=== PATIENT | female | born 1965 ===

== ENCOUNTER 2020-04-11 16:34 | Outpatient (REF) | payer OTHER, SELFPAY ==
--- NOTE | 2020-04-11 | MM_ITS ---
EXAMINATION: MM SCREENING DIGITAL BREAST TOMOSYNTHESIS, BILATERAL CLINICAL INFORMATION: Screening. Asymptomatic. The lifetime risk of breast cancer based on the Tyrer-Cuzick Model is 6%. COMPARISON: Mammography: 10/22/2018, 10/09/2017, 02/13/2015 TECHNIQUE: Digital breast tomosynthesis is performed in both the craniocaudal and mediolateral oblique views along with computer-aided detection (CAD). Synthesized 2D images are generated from the tomosynthesis. Additional bilateral MLO views are provided. FINDINGS: There are scattered areas of fibroglandular density (ACR BI-RADS breast composition Category b). Breast tissue composition borders on heterogeneously dense. Parenchymal pattern is similar to prior studies without interval mass or architectural abnormality or abnormal calcifications. The axilla and skin contours are unremarkable. No significant changes. MM/MM tomosynthesis screening BI IMPRESSION: No mammographic evidence of malignancy. ASSESSMENT: BI-RADS 1: Negative RECOMMENDATION: Routine annual mammography screening. This patient's information was entered into a reminder system with a target due date for their next mammogram.
== END 2020-04-11 16:35 | disposition home or self-care (01) ==
LOC: HO.MAMMO 16:34
PROVIDERS: PCP Internal Medicine; Visit Provider Internal Medicine
DX: Z12.31 Encounter for screening mammogram for malignant neoplasm of breast (principal)
CPT/HCPCS: 77063; 77067

== ENCOUNTER 2020-05-23 09:33 | Outpatient (REF) | payer OTHER, SELFPAY ==
[2020-05-23 12:14] LABS: Cholesterol 143 mg/dL; HDL Cholesterol 47 mg/dL; LDL Cholesterol Calculated 57 mg/dl; Triglycerides 195 mg/dL
[2020-05-23 12:16] LABS: Vitamin D 25-OH Total 88.8 ng/mL (>30)
[2020-05-23 12:22] LABS: Creatinine Urine 99.92 mg/dL
[2020-05-23 12:25] LABS: Free T4 (Free Thyroxine) 1.09 ng/dL (0.71-1.85); Thyroid Stimulating Hormone 0.99 uIU/mL (0.32-4.0)
[2020-05-23 12:35] LABS: Alanine Aminotransferase 51 U/L (0-31); Albumin Level 4.7 g/dL (3.5-5.0); Alkaline Phosphatase 134 U/L (39-117); Anion Gap 20 (12-20); Aspartate Amino Transferase 30 U/L (5-31); Bilirubin Total 0.6 mg/dL (0.0-1.0); Blood Urea Nitrogen 22 mg/dL (9-16); Calcium 9.5 mg/dL (8.4-10.2); Carbon Dioxide 24 mmol/L (22-29); Chloride 104 mmol/L (96-108); Estimated Glomerular Filt Rate > 60; Glucose Fasting 136 mg/dL (60-99); Potassium 3.6 mmol/l (3.3-5.1); Sodium 144 mmol/L (135-145); Total Protein 8.1 g/dL (6.5-8.0)
[2020-05-23 19:13] LABS: Alanine Aminotransferase 49 U/L (0-31); Albumin Level 4.6 g/dL (3.5-5.0); Alkaline Phosphatase 132 U/L (39-117); Anion Gap 18 (12-20); Aspartate Amino Transferase 31 U/L (5-31); Bilirubin Total 0.7 mg/dL (0.0-1.0); Blood Urea Nitrogen 21 mg/dL (9-16); Calcium 9.4 mg/dL (8.4-10.2); Carbon Dioxide 25 mmol/L (22-29); Chloride 104 mmol/L (96-108); Estimated Glomerular Filt Rate > 60; Glucose Fasting 136 mg/dL (60-99); Potassium 3.7 mmol/l (3.3-5.1); Sodium 143 mmol/L (135-145); Total Protein 7.7 g/dL (6.5-8.0)
[2020-05-23 19:33] LABS: Free T4 (Free Thyroxine) 1.13 ng/dL (0.71-1.85)
[2020-05-24 07:57] LABS: LDL Cholesterol Direct 75 mg/dL (<100)
[2020-05-26 06:57] LABS: Thyroglobulin Antibody <1 IU/mL (<=1); Thyroglobulin Level 14.7 ng/mL
== END 2020-05-23 09:34 | disposition home or self-care (01) ==
LOC: HO.HMGCLDS 09:33
PROVIDERS: PCP Internal Medicine; Referring Provider Internal Medicine Endocrinology, Diabetes & Metabolism; Visit Provider Internal Medicine
DX: E11.42 Type 2 diabetes mellitus with diabetic polyneuropathy (principal); E89.40 Asymptomatic postprocedural ovarian failure; I10 Essential (primary) hypertension; R94.39 Abnormal result of other cardiovascular function study; C73 Malignant neoplasm of thyroid gland; G47.33 Obstructive sleep apnea (adult) (pediatric); Z99.89 Dependence on other enabling machines and devices
CPT/HCPCS: 36415; 80053; 80061; 82043; 82306; 83721; 84432; 84439; 84443; 86800

== ENCOUNTER 2020-06-08 08:04 | Outpatient (REF) | payer OTHER, SELFPAY ==
--- NOTE | ~2020-06-08 | US_ITS ---
EXAMINATION: US THYROID CLINICAL INFORMATION: Right hemithyroidectomy. COMPARISON: None TECHNIQUE: Linear transducer cool-scale and color Doppler examination with attention to the region of the thyroid. FINDINGS: SIZE: Measurements of the thyroid lobes and nodules are given in sagittal, anteroposterior and transverse dimensions respectively. Right Thyroid Lobe: Surgically resected. Left Thyroid Lobe: 4.2 x 1.6 x 2.5 cm, volume 8.9 mL. Previously measured 4.1 x 2.0 x 2.4 cm and volume 10.5 mL. Parenchyma: The gland echotexture is heterogeneous. Thyroid vascularity is hypervascular. Isthmus: Not visualized. Estimated total number of nodules greater than or equal to 1 cm: None. [employer] nodules are described as follows: 1. Location: Left lower pole. Size: 0.4 x 0.2 x 0.4 cm, volume 0.02 mL. Nodule characteristics: Composition: Solid (2). Echogenicity: Hyperechoic (1). Shape: Not taller than wide (0). Margins: Smooth (0). Echogenic Foci: None (0). ACR TI-RADS total points: 4 ACR TI-RADS category: TR 4 2. Location: Left lower pole. Size: 0.3 x 0.5 x 0.2 cm, volume 0.02 mL. Nodule characteristics: Composition: Solid (2). Echogenicity: Hyperechoic (1). Shape: Not taller than wide (0). Margins: Smooth (0). Echogenic Foci: None (0). ACR TI-RADS total points: 6 ACR TI-RADS category: TR 4 NODES: No lymphadenopathy is seen in the tissue surrounding the thyroid gland. US/US thyroid IMPRESSION: Small left lobe thyroid nodules. Recommend continued ultrasound followup. ACR TI-RADS RECOMMENDATIONS: Ultrasound-guided fine-needle aspiration, followup ultrasound, no further followup. * TR1 (0 point) and TR 2 (2 points): No FNA or follow up * TR3 (3 points): FNA if more than or equal to 2.5 cm in maximum dimension, follow up in 1, 3 and 5 years if 1.5 to 2.4 cm in maximum dimension. * TR4 (4-6 points): FNA if more than or equal to 1.5 cm in maximum dimension, follow up in 1, 2, 3 and 5 years if 1 to 1.4 cm in maximum dimension. * TR5 (more than or equal to 7 points): FNA if more than or equal to 1 cm in maximum dimension, follow up every year for 5 years if 0.5 to 0.9 cm in maximum dimension. * TR3, TR4 or TR5 nodules that are below the size threshold for follow up receive no follow up.
== END 2020-06-08 08:05 | disposition home or self-care (01) ==
LOC: HO.US 08:04
PROVIDERS: Visit Provider Internal Medicine Endocrinology, Diabetes & Metabolism
DX: Z85.850 Personal history of malignant neoplasm of thyroid (principal)
CPT/HCPCS: 76536

== ENCOUNTER → 2020-06-19 14:00 | Outpatient (BNVA) | payer OTHER, SELFPAY | PROVIDERS: PCP Internal Medicine; Visit Provider Internal Medicine Cardiovascular Disease | DX: R06.00 Dyspnea, unspecified (principal); E66.01 Morbid (severe) obesity due to excess calories; I10 Essential (primary) hypertension | CPT/HCPCS: 93005 ==

== ENCOUNTER → 2020-07-13 12:45 | Outpatient (BNVA) | payer OTHER, SELFPAY | PROVIDERS: PCP Internal Medicine; Visit Provider Nurse Practitioner Family ==

== ENCOUNTER → 2020-07-20 12:57 | Outpatient (BNVA) | payer OTHER, SELFPAY | PROVIDERS: PCP Internal Medicine; Visit Provider Internal Medicine Endocrinology, Diabetes & Metabolism | DX: E11.9 Type 2 diabetes mellitus without complications (principal); E66.01 Morbid (severe) obesity due to excess calories; Z85.850 Personal history of malignant neoplasm of thyroid | CPT/HCPCS: 82947 ==

== ENCOUNTER 2020-10-26 10:44 | Outpatient (REF) | payer OTHER, SELFPAY ==
[2020-10-26 14:27] LABS: Alanine Aminotransferase 77 U/L (0-31); Anion Gap 16 (12-20); Aspartate Amino Transferase 52 U/L (5-31); Blood Urea Nitrogen 16 mg/dL (9-16); Calcium 9.5 mg/dL (8.4-10.2); Carbon Dioxide 27 mmol/L (22-29); Chloride 106 mmol/L (96-108); Cholesterol 128 mg/dL; Estimated Glomerular Filt Rate > 60; Glucose Fasting 194 mg/dL (60-99); HDL Cholesterol 47 mg/dL; LDL Cholesterol Calculated 54 mg/dl; Potassium 3.7 mmol/L (3.3-5.1); Sodium 145 mmol/L (135-145); Triglycerides 139 mg/dL
[2020-10-26 14:48] LABS: Free T4 (Free Thyroxine) 1.15 ng/dL (0.71-1.85); Thyroid Stimulating Hormone 0.71 uIU/mL (0.32-4.0)
[2020-10-30 04:02] LABS: Thyroglobulin Antibody <1 IU/mL (<=1)
== END 2020-10-26 10:45 | disposition home or self-care (01) ==
LOC: HO.HMGCLDS 10:44
PROVIDERS: Internal Medicine Endocrinology, Diabetes & Metabolism; PCP Internal Medicine; Visit Provider Internal Medicine
DX: E66.01 Morbid (severe) obesity due to excess calories (principal); I10 Essential (primary) hypertension; E03.9 Hypothyroidism, unspecified; Z85.850 Personal history of malignant neoplasm of thyroid
CPT/HCPCS: 36415; 80048; 80061; 82306; 84432; 84439; 84443; 84450; 84460; 86800

== ENCOUNTER → 2020-11-02 12:42 | Outpatient (BNVA) | payer OTHER, SELFPAY | PROVIDERS: PCP Internal Medicine; Visit Provider Nurse Practitioner Family ==

== ENCOUNTER → 2020-11-08 14:32 | Outpatient (REF) | payer OTHER, SELFPAY ==
--- NOTE | 2020-11-08 07:30 | ECG_ITS ---
Hook-up date: 2020-11-08 14:51:00 Duration: 41:50:00 Test Indications: PALPITATIONS Medications: [id number] QRS complexes 7 Ventricular ectopics which represent <1 % of total QRS comp. * Supraventricular ectopics which represent % of total QRS comp. * Paced QRS complexs which represent % of total QRS comp. VENTRICULAR ECTOPY 7 Isolated 0 Bigeminal Cycles 0 Couplets 0 Runs 0 Beats in Runs * Beats LONGEST at * BPM at :: -- * Beats FASTEST at * BPM at :: -- SUPRAVENTRICULAR ECTOPY * Isolated * Couplets * Runs * Beats in Runs * Beats LONGEST at * BPM at :: -- * Beats FASTEST at * BPM at :: -- HEART RATES 62 MIN at 06:09:17 2020-11-09 94 AVG 145 MAX at 19:10:23 2020-11-08 LONGEST RR 1.0000 secs at 06:21:01 2020-11-09 S-T LEVELS Channel 1 - 128 mm at 14:51:00 2020-11-08 - 128 mm at 14:51:00 2020-11-08 Channel 2 - 128 mm at 14:51:00 2020-11-08 - 128 mm at 14:51:00 2020-11-08 Channel 3 - 128 mm at 03:41:01 -- - 128 mm at 03:41:01 Underlying rhythm is sinus; Average ventricular rate 94/min; range 62-145/min; About 30% of the time, rate >100/min; Rare PVCs; No sustained arrhythmias; Patient diary not available for review. Referred By: Vickie Morales Overread By: ADWOA THOMPSON
== END ==
LOC: HO.CARD 14:32
PROVIDERS: PCP Internal Medicine; Visit Provider Nurse Practitioner Family
DX: R00.2 Palpitations (principal)
CPT/HCPCS: 93226

== ENCOUNTER → 2020-12-05 13:03 | Outpatient (BNVA) | payer OTHER, SELFPAY | PROVIDERS: PCP Internal Medicine; Visit Provider Nurse Practitioner Family ==

== ENCOUNTER 2021-04-17 15:14 | Outpatient (REF) | payer OTHER, SELFPAY ==
--- NOTE | ~2021-04-17 | MM_ITS ---
EXAMINATION: MM SCREENING DIGITAL BREAST TOMOSYNTHESIS, BILATERAL CLINICAL INFORMATION: Screening. Asymptomatic. The lifetime risk of breast cancer based on the Tyrer-Cuzick Model is 4%. COMPARISON: Mammography: 04/11/2020, 10/22/2018, 10/09/2017 TECHNIQUE: Digital breast tomosynthesis is performed in both the craniocaudal and mediolateral oblique views along with computer-aided detection (CAD). Synthesized 2D images are generated from the tomosynthesis. FINDINGS: There are scattered areas of fibroglandular density (ACR BI-RADS breast composition Category b). There are no significant masses, abnormal calcifications, or other abnormalities. Parenchymal pattern is similar to prior studies. No developing density. Breast tissue composition borders on heterogeneously dense in the anterior upper outer breasts. No significant changes. MM/MM tomosynthesis screening BI IMPRESSION: No mammographic evidence of malignancy. ASSESSMENT: BI-RADS 1: Negative RECOMMENDATION: Routine annual mammography screening. This patient's information was entered into a reminder system with a target due date for their next mammogram.
== END 2021-04-17 15:15 | disposition home or self-care (01) ==
LOC: HO.MAMMO 15:14
PROVIDERS: Visit Provider Internal Medicine
DX: Z12.31 Encounter for screening mammogram for malignant neoplasm of breast (principal)
CPT/HCPCS: 77063; 77067

== ENCOUNTER 2021-04-24 13:05 | Outpatient (REF) | payer OTHER, SELFPAY | END 2021-04-24 13:06 | disposition home or self-care (01) | LOC: HO.HMGCLDS 13:05 | PROVIDERS: Visit Provider Internal Medicine | DX: Z20.822 Contact with and (suspected) exposure to COVID-19 (principal) | CPT/HCPCS: C9803; U0003; U0005 ==

== ENCOUNTER → 2021-06-01 09:28 | Outpatient (BNVA) | payer OTHER, SELFPAY | PROVIDERS: PCP Internal Medicine; Visit Provider Psychiatry & Neurology Neurology ==

== ENCOUNTER → 2021-06-06 12:39 | Outpatient (BNVA) | payer OTHER, SELFPAY | PROVIDERS: PCP Internal Medicine; Referring Provider Internal Medicine; Visit Provider Nurse Practitioner Family | DX: R00.2 Palpitations (principal); R06.00 Dyspnea, unspecified; G47.33 Obstructive sleep apnea (adult) (pediatric); E66.01 Morbid (severe) obesity due to excess calories; Z98.890 Other specified postprocedural states; Z99.89 Dependence on other enabling machines and devices; Z68.42 Body mass index [BMI] 45.0-49.9, adult | CPT/HCPCS: 93005 ==

== ENCOUNTER 2021-07-16 09:02 | Outpatient (REF) | payer OTHER, SELFPAY ==
[2021-07-16 12:01] LABS: Alanine Aminotransferase 39 U/L (0-31); Anion Gap 16 (12-20); Aspartate Amino Transferase 20 U/L (5-31); Blood Urea Nitrogen 25 mg/dL (9-16); Calcium 10.1 mg/dL (8.4-10.2); Carbon Dioxide 26 mmol/L (22-29); Chloride 102 mmol/L (96-108); Cholesterol 149 mg/dL; Estimated Glomerular Filt Rate > 60; Glucose Fasting 113 mg/dL (60-99); HDL Cholesterol 51 mg/dL; LDL Cholesterol Calculated 63 mg/dl; Potassium 3.6 mmol/L (3.3-5.1); Sodium 140 mmol/L (135-145); Triglycerides 175 mg/dL
[2021-07-16 12:27] LABS: Free T4 (Free Thyroxine) 1.16 ng/dL (0.71-1.85); Thyroid Stimulating Hormone 2.99 uIU/mL (0.32-4.0); Vitamin D 25-OH Total 42.2 ng/mL (>30)
[2021-07-16 12:48] LABS: Creatinine Urine 118.38 mg/dL; Microalbum/Creatinine Ratio Ur 8.4 ug/mg cr
[2021-07-21 06:52] LABS: Thyroglobulin Antibody <1 IU/mL (<=1); Thyroglobulin Level 9.6 ng/mL
== END 2021-07-16 09:03 | disposition home or self-care (01) ==
LOC: HO.HMGCLDS 09:02
PROVIDERS: PCP Internal Medicine; Visit Provider Internal Medicine
DX: E11.42 Type 2 diabetes mellitus with diabetic polyneuropathy (principal); I10 Essential (primary) hypertension; E89.40 Asymptomatic postprocedural ovarian failure; E03.9 Hypothyroidism, unspecified; E04.1 Nontoxic single thyroid nodule; E66.01 Morbid (severe) obesity due to excess calories; Z85.850 Personal history of malignant neoplasm of thyroid
CPT/HCPCS: 36415; 80048; 80061; 82043; 82306; 84432; 84439; 84443; 84450; 84460; 86800

== ENCOUNTER → 2021-08-09 12:42 | Outpatient (BNVA) | payer OTHER, SELFPAY | PROVIDERS: PCP Internal Medicine; Visit Provider Internal Medicine Endocrinology, Diabetes & Metabolism | DX: E11.42 Type 2 diabetes mellitus with diabetic polyneuropathy (principal); K11.20 Sialoadenitis, unspecified; Z85.850 Personal history of malignant neoplasm of thyroid | CPT/HCPCS: 82947; 83036 ==

== ENCOUNTER → 2021-10-02 10:12 | Outpatient (BNVA) | payer OTHER, SELFPAY | PROVIDERS: PCP Internal Medicine; Visit Provider Nurse Practitioner Family | DX: K21.9 Gastro-esophageal reflux disease without esophagitis (principal); K58.2 Mixed irritable bowel syndrome ==

== ENCOUNTER 2021-10-19 11:06 | Outpatient (REF) | payer OTHER, SELFPAY ==
[2021-10-19 12:48] LABS: Free T4 (Free Thyroxine) 1.19 ng/dL (0.71-1.85); Thyroid Stimulating Hormone 0.41 uIU/mL (0.32-4.0)
[2021-10-19 13:00] LABS: Folate 11.1 ng/mL (> or = 4.0); Vitamin B12 333 pg/mL (200-900)
[2021-10-22 20:46] LABS: Transglutaminase Ab IgG <1.0 U/mL; Transglutaminase IgA <1.0 U/mL
== END 2021-10-19 11:07 | disposition home or self-care (01) ==
LOC: HO.LAB 11:06
PROVIDERS: Absent Provider Nurse Practitioner Family; PCP Internal Medicine; Visit Provider Internal Medicine Endocrinology, Diabetes & Metabolism
DX: R10.9 Unspecified abdominal pain (principal); R19.7 Diarrhea, unspecified; Z85.850 Personal history of malignant neoplasm of thyroid
CPT/HCPCS: 36415; 82607; 82746; 84439; 84443; 86364

== ENCOUNTER 2021-10-25 14:24 | Emergency (ER) | payer OTHER, SELFPAY ==
[2021-10-25 15:35] VITALS: BP 133/77; PULSE 75; RESP 18; TEMP 36.4; O2SAT 98; BMI 45.7
[2021-10-25 15:50] LABS: MANUAL DIFF FLAG NO
[2021-10-25 15:53] LABS: Basophils Absolute Auto 0.1 X10*3/uL (0.0-0.2); Basophils Percent Auto 0.5 % (0-2); Eosinophils Absolute Auto 0.2 X10*3/uL (0.0-0.4); Eosinophils Percent Auto 1.8 % (0-4); Hematocrit 44.3 % (37.0-47.0); Hemoglobin 14.6 g/dl (12.0-16.0); Imm Gran Abs Auto 0.03 X10*3/uL (0.00-0.03); Imm Gran Pct Auto 0.3 % (0.0-0.4); Lymphocytes Absolute Auto 2.8 X10*3/uL (1.2-4.9); Lymphocytes Percent Auto 25.6 % (20-40); Mean Corpuscular Hemoglobin 29.9 pg (27.0-33.0); Mean Corpuscular Volume 90.8 fL (80.0-98.0); Mean Platelet Volume 10.3 fL (9.4-12.3); Monocytes Absolute Auto 0.6 X10*3/uL (0.1-1.2); Monocytes Percent Auto 5.7 % (2-11); Neutrophils Absolute Auto 7.2 x10*3/uL (2.0-8.3); Neutrophils Percent Auto 66.1 % (45-73); Platelet Count 244 X10*3/uL (160-400); Red Blood Count 4.88 X10*6/uL (4.20-5.50); Red Cell Distribution Width 14.7 % (11.0-16.0); White Blood Count 10.9 X10*3/uL (4.8-10.8)
[2021-10-25 16:08] LABS: Anion Gap 17 (12-20); Blood Urea Nitrogen 14 mg/dL (9-16); Calcium 9.7 mg/dL (8.4-10.2); Carbon Dioxide 23 mmol/L (22-29); Chloride 103 mmol/L (96-108); Creatinine Clr Calc Pharmacy 97.8; Estimated Glomerular Filt Rate > 60; Glucose Random 87 mg/dL (60-115); Potassium 3.9 mmol/L (3.3-5.1); Sodium 139 mmol/L (135-145)
[2021-10-25 16:11] LABS: COVID-19 Test Negative (Negative); IDNOW Serial# 16C4AD1C; Influenza A Negative (Negative); Influenza B2 Negative (Negative)
--- NOTE | 2021-10-25 21:18 | ED.NAVMDI ---
HPI - Nausea/Vomiting/Diarrhea General Chief complaint: Nausea/Vomiting/Diarrhea Stated complaint: nausea, vomiting's diahrea Time Seen by Provider: 10/25/21 20:53 Source: patient Mode of arrival: ambulatory Limitations: no limitations History of Present Illness HPI Narrative: c/o nausea/vomiting/diarrhea since Yesterday,unable to keep fluids down MD elicited complaint: nausea, vomiting and diarrhea Onset (ago): day(s) (1) Description of vomiting: watery Description of diarrhea: watery Associated nausea: Yes Associated abdominal pain: No Location of pain: none Associated symptoms: cough Related Data Home Medications Medication Instructions Recorded Confirmed cholestyramine (with sugar) 4 gram 1 ea PO BID PRN 07/20/20 08/09/21 powder for susp in a packet aspirin 81 mg tablet,delayed 81 mg PO DAILY 10/24/20 08/09/21 release (Adult Low Dose Aspirin) hydrochlorothiazide 25 mg tablet 25 mg PO QAM 10/02/21 Previous Rx's Medication Instructions Recorded flash glucose scanning reader #1 ea 07/20/20 (FreeStyle Nena 14 Day [place]) FreeStyle Lancets 28 gauge #100 ea 08/24/20 (lancets) metformin 500 mg tablet See Rx Instructions PO BID 30 days 05/17/21 #90 tabs blood sugar diagnostic (FreeStyle #100 ea 08/20/21 Lite Strips) dulaglutide 1.5 mg/0.5 mL 1.5 mg (0.5 mL) subcut QWEEK #2 mL 08/20/21 subcutaneous pen injector (Trulicity) levothyroxine 75 mcg tablet 75 mcg PO DAILY #30 tabs 08/20/21 (Synthroid) gabapentin 300 mg capsule 300 mg PO TID #90 caps 08/28/21 irbesartan 150 mg tablet 150 mg PO DAILY #90 tabs 08/29/21 flash glucose sensor (FreeStyle #6 ea 08/30/21 Nena 14 Day Sensor) omeprazole 40 mg capsule,delayed 40 mg PO BID #60 caps 09/27/21 release methylcellulose (laxative) 500 mg 500 mg PO DAILY #90 tabs 10/02/21 tablet (Citrucel) sennosides 8.6 mg tablet (Natural 8.6 mg PO BEDTIME constipation #90 10/02/21 Senna Laxative) tabs empagliflozin 25 mg tablet 25 mg PO DAILY 90 days #90 tabs 10/17/21 (Jardiance) ondansetron 4 mg disintegrating 4 mg PO Q8H 4 days #12 tabs 10/25/21 tablet Allergies Allergy/AdvReac Type Severity Reaction Status Date / Time codeine AdvReac Unknown flushing, Uncoded 10/02/21 10:22 dizziness,vomiting Review of Systems Review of Systems: Yes all other systems are reviewed and are negative ENT: Reports system reviewed and no additional complaints, except as documented Cardiovascular: Cardiovascular: Reports no additional cardiovascular complaints Respiratory: Respiratory: Reports no additional respiratory complaints Gastrointestinal: Gastrointestinal: Reports no additional gastrointestinal complaints and Reports nausea Neurologic: Reports system reviewed and no additional complaints, except as documented PMFSH Past Medical History Medical History Abnormal stress ECG with treadmill Chronic GERD Essential hypertension Hallux valgus (acquired), right foot History of thyroid cancer Left thyroid nodule Morbid obesity Multinodular thyroid EDGAR on CPAP Submandibular gland inflammation Surgical menopause Type 2 diabetes mellitus with peripheral neuropathy Type 2 diabetes mellitus without complication, with no history of insulin use Surgical History History of colonoscopy History of endoscopy History of partial hysterectomy Hx of cholecystectomy S/P cardiac cath Family History Family History Maternal Aunt No problems noted. Social History Social History Housing: House Alcohol intake: never Patient Tobacco Use Status: Never used Tobacco e-Cigarette/Vaping Use: Never Used Advance Directives: No Advance Directives Information Provided: No service: No Current occupational status: employed Physical Exam Vital Signs: Vital Signs: Last Vital Signs Temp 97.6 F 10/25/21 15:35 Pulse 94 10/25/21 21:51 Resp 22 H 10/25/21 21:51 BP 136/81 10/25/21 21:51 Pulse Ox 96 10/25/21 21:51 O2 Del Method 10/25/21 21:51 BMI result Body Mass Index 45.7 Const: General: cooperative, healthy appearing, comfortable, no acute distress, well developed and alert Nutritional Appearance: average body habitus Orientation/consciousness: patient oriented x3 Limitations: no limitations HEENT: Head: Yes normal to inspection Face and sinus: Yes normal facial exam Mouth: Normal oral and palatal mucosa present Throat: Yes posterior oropharynx normal Neck: Neck: Yes normal visual inspection and Yes full ROM Chest: Chest palpation & inspection: normal inspection of the chest Resp: Effort & Inspection: normal respiratory effort and able to speak in complete sentences Auscultation: clear to auscultation bilaterally Cardio: Jugular venous distension: no JVD Rate: regular rate Rhythm: regular rhythm GI: Inspection: Yes normal to inspection Auscultation: normal bowel sounds Skin: General skin exam: no rashes or lesions noted Neuro: General: patient oriented x3 Cranial nerves: Yes CN's II-XII intact bilaterally Cognition (Neuro): normal cognition Gait exam (Neuro): Normal gait present Extrem: General: Yes full ROM Right upper extremity: normal to inspection Left upper extremity: normal to inspection Right lower extremity: normal to inspection Course Reevaluation(s) Reevaluation #1: feeling much better anticipate discharge home MDM - Nausea/Vomiting/Diarrhea Lab Data Result diagrams: 10/25/21 15:45 10/25/21 15:45 Labs: Lab Results 10/25/21 10/25/21 10/25/21 Range/Units 15:41 15:41 15:45 WBC 10.9 H (4.8-10.8) X10*3/uL RBC 4.88 (4.20-5.50) X10*6/uL Hgb 14.6 (12.0-16.0) g/dl Hct 44.3 (37.0-47.0) % MCV 90.8 (80.0-98.0) fL MCH 29.9 (27.0-33.0) pg MCHC 33.0 (31.0-35.0) g/dl RDW 14.7 (11.0-16.0) % Plt Count 244 (160-400) X10*3/uL MPV 10.3 (9.4-12.3) fL Immature Gran % (Auto) 0.3 (0.0-0.4) % Neut % (Auto) 66.1 (45-73) % Lymph % (Auto) 25.6 (20-40) % [place] % (Auto) 5.7 (2-11) % Eos % (Auto) 1.8 (0-4) % Baso % (Auto) 0.5 (0-2) % Lymph # (Auto) 2.8 (1.2-4.9) X10*3/uL [place] # (Auto) 0.6 (0.1-1.2) X10*3/uL Eos # (Auto) 0.2 (0.0-0.4) X10*3/uL Baso # (Auto) 0.1 (0.0-0.2) X10*3/uL Abs Immat Gran (auto) 0.03 (0.00-0.03) X10*3/uL Absolute Neuts (auto) 7.2 (2.0-8.3) x10*3/uL Absolute Nucleated RBC 0.000 (0.0-0.012) X10*3/uL Nucleated RBC % (auto) 0.0 (0.0-0.2) /100WBC Sodium (135-145) mmol/L Potassium (3.3-5.1) mmol/L Chloride (96-108) mmol/L Carbon Dioxide (22-29) mmol/L Anion Gap (12-20) BUN (9-16) mg/dL Creatinine (0.5-1.4) mg/dL Estim Creat Clear Calc Estimated GFR Random Glucose (60-115) mg/dL Calcium (8.4-10.2) mg/dL COVID-19 (LESLIE) Negative (Negative) COVID-19 Clin Com See Note Influenza Type A (JUJU) Negative (Negative) Influenza Type B (JUJU) Negative (Negative) Influenza A & B Note See Note 10/25/21 Range/Units 15:45 WBC (4.8-10.8) X10*3/uL RBC (4.20-5.50) X10*6/uL Hgb (12.0-16.0) g/dl Hct (37.0-47.0) % MCV (80.0-98.0) fL MCH (27.0-33.0) pg MCHC (31.0-35.0) g/dl RDW (11.0-16.0) % Plt Count (160-400) X10*3/uL MPV (9.4-12.3) fL Immature Gran % (Auto) (0.0-0.4) % Neut % (Auto) (45-73) % Lymph % (Auto) (20-40) % [place] % (Auto) (2-11) % Eos % (Auto) (0-4) % Baso % (Auto) (0-2) % Lymph # (Auto) (1.2-4.9) X10*3/uL [place] # (Auto) (0.1-1.2) X10*3/uL Eos # (Auto) (0.0-0.4) X10*3/uL Baso # (Auto) (0.0-0.2) X10*3/uL Abs Immat Gran (auto) (0.00-0.03) X10*3/uL Absolute Neuts (auto) (2.0-8.3) x10*3/uL Absolute Nucleated RBC (0.0-0.012) X10*3/uL Nucleated RBC % (auto) (0.0-0.2) /100WBC Sodium 139 (135-145) mmol/L Potassium 3.9 (3.3-5.1) mmol/L Chloride 103 (96-108) mmol/L Carbon Dioxide 23 (22-29) mmol/L Anion Gap 17 (12-20) BUN 14 (9-16) mg/dL Creatinine 0.69 (0.5-1.4) mg/dL Estim Creat Clear Calc 97.8 Estimated GFR > 60 Random Glucose 87 (60-115) mg/dL Calcium 9.7 (8.4-10.2) mg/dL COVID-19 (LESLIE) (Negative) COVID-19 Clin Com Influenza Type A (JUJU) (Negative) Influenza Type B (JUJU) (Negative) Influenza A & B Note Discharge Plan Discharge Clinical Impression: Vomiting and diarrhea Patient Disposition: Home, Self-Care Instructions: Acute Nausea and Vomiting (ED) Prescriptions: New ondansetron 4 mg tablet,disintegrating 4 mg PO Q8H 4 Days Qty: 12 0RF No Action (DME) lancets [FreeStyle Lancets] 28 gauge misc See Rx Instructions .MEDSUPPLY Qty: 100 11RF Rx Instructions: 3 times a day metformin 500 mg tablet See Rx Instructions PO BID 30 Days Qty: 90 5RF Rx Instructions: take 1 tablet in am and 2 tablets in pm PO 2 times a day; (DME) FreeStyle Lite Strips Strip See Rx Instructions .MEDSUPPLY Qty: 100 6RF Rx Instructions: 3 times a day Trulicity 1.5 mg/0.5 mL pen injector 1.5 mg subcut QWEEK Qty: 2 5RF levothyroxine [Synthroid] 75 mcg tablet 75 mcg PO DAILY Qty: 30 6RF gabapentin 300 mg capsule 300 mg PO TID Qty: 90 4RF irbesartan 150 mg tablet 150 mg PO DAILY Qty: 90 3RF (DME) FreeStyle Nena 14 Day Sensor Kit See Rx Instructions .ROUTE .MEDSUPPLY Qty: 6 4RF Rx Instructions: every 14 days omeprazole 40 mg capsule,delayed release(DR/EC) 40 mg PO BID Qty: 60 1RF Jardiance 25 mg tablet 25 mg PO DAILY 90 Days Qty: 90 1RF aspirin [Adult Low Dose Aspirin] 81 mg tablet,delayed release (DR/EC) 81 mg PO DAILY cholestyramine (with sugar) 4 gram powder in packet 1 ea PO BID PRN (DME) FreeStyle Nena 14 Day [place] Misc See Rx Instructions .ROUTE .MEDSUPPLY Qty: 1 0RF Rx Instructions: As directed hydrochlorothiazide 25 mg tablet 25 mg PO QAM Citrucel 500 mg tablet 500 mg PO DAILY Qty: 90 2RF Rx Instructions: take it with full glass of water sennosides [Natural Senna Laxative] 8.6 mg tablet 8.6 mg PO BEDTIME Qty: 90 3RF Stand Alone Forms: Work/School Release
[2021-10-25] MEDS: ondansetron HCL 4 MG/2 ML VIAL IVPUSH (21:27)
[2021-10-25] MEDS: 0.9 % Sodium Chloride 1,000 ML 999 ML IVCONT (21:27)
[2021-10-25 21:51] VITALS: BP 136/81; PULSE 94; RESP 22; O2SAT 96
== END 2021-10-25 23:50 | disposition home or self-care (01) ==
PROVIDERS: Emergency Provider Emergency Medicine; PCP Internal Medicine
DX: R11.2 Nausea with vomiting, unspecified (principal); R19.7 Diarrhea, unspecified; Z20.822 Contact with and (suspected) exposure to COVID-19; I10 Essential (primary) hypertension; E11.9 Type 2 diabetes mellitus without complications
CPT/HCPCS: 80048; 85025; 87502; 87635; 96361; 96374; 99284; J2405

== ENCOUNTER 2021-12-26 07:16 | Outpatient (REF) | payer OTHER, SELFPAY ==
--- NOTE | ~2021-12-26 | XR_ITS ---
EXAMINATION: XR SHOULDER, RIGHT CLINICAL INFORMATION: Right shoulder pain COMPARISON: None TECHNIQUE: Three views of the right shoulder. FINDINGS: No fracture or dislocation. The glenohumeral joint is well aligned. Joint spaces maintained. The acromioclavicular joint is intact. The visualized lung is clear. The visualized ribs are intact. XR/XR shoulder RT min 2V IMPRESSION: No suspicious findings of the right shoulder.
== END 2021-12-26 07:17 | disposition home or self-care (01) ==
LOC: HO.HOSX 07:16
PROVIDERS: Visit Provider Physician Assistant
DX: M75.81 Other shoulder lesions, right shoulder (principal); E11.9 Type 2 diabetes mellitus without complications
CPT/HCPCS: 20610; 73030; J1020

== ENCOUNTER 2021-12-28 10:56 | Outpatient (REF) | payer OTHER, SELFPAY ==
[2022-01-05 18:56] LABS: Pancreatic Elastase-1 >500 mcg/g
== END 2021-12-28 10:57 | disposition home or self-care (01) ==
LOC: HO.LNP 10:56
PROVIDERS: Visit Provider Nurse Practitioner Family
DX: R10.9 Unspecified abdominal pain (principal); K21.9 Gastro-esophageal reflux disease without esophagitis
CPT/HCPCS: 82656; 87338

== ENCOUNTER 2022-01-04 10:28 | Outpatient (REF) | payer OTHER, SELFPAY ==
--- NOTE | ~2022-01-04 | US_ITS ---
EXAMINATION: US LOWER EXTREMITY VENOUS (REFLUX EXAM), BILATERAL CLINICAL INDICATION: Chronic venous insufficiency, lower extremity pain and varicose veins COMPARISON: None. TECHNIQUE: Color flow triplex imaging and compression Doppler was performed to evaluate both the deep and the superficial systems bilaterally. To evaluate the superficial system, the examination was performed in the upright position. Color-flow Doppler ultrasound and compression ultrasound were utilized. In addition, maneuvers were utilized to demonstrate reflux. FINDINGS: 1. DEEP VENOUS ULTRASOUND OF THE RIGHT LOWER EXTREMITY: Common Femoral Vein: Compressible, normal respiratory variation and augmented flow. Femoral Vein: Compressible, normal color flow and augmentation. Popliteal Vein: Compressible, normal augmentation. Deep Reflux: There is no evidence of reflux in the deep system in either the common femoral vein or the popliteal vein. There is no evidence of a Conti's cyst. 2. SUPERFICIAL ULTRASOUND WITH DOPPLER OF RIGHT LOWER EXTREMITY: GREAT SAPHENOUS VEIN: Saphenofemoral Junction: 0.9 cm; Reflux: 0 ms Proximal Thigh: 0.4 cm; Reflux: 2308 ms Mid Thigh: 0.5 cm; Reflux: 0 ms Above Knee: 0.4 cm; Reflux: 592 ms At Knee: 0.3 cm; Reflux: 688 ms Below Knee: 0.4 cm; Reflux: 0 ms Mid Calf: 0.2 cm; Reflux: 0 ms Ankle: 0.3 cm; Reflux: 0 ms DUPLICATED MEDIAL GREAT SAPHENOUS VEIN: Diameter: None Imaged Reflux: NA DUPLICATED LATERAL GREAT SAPHENOUS VEIN: Diameter: None Imaged Reflux: NA SMALL SAPHENOUS VEIN: Proximal: 0.2 cm; Reflux: 0 ms Distal: 0.4 cm; Reflux: 0 ms VEIN OF GIACOMINI: None Imaged. PERFORATORS: Location: None Imaged Size: NA Reflux: NA VARICOSITIES: Location: Proximal thigh, below knee calf Size: 0.3 to 0.4 cm Reflux: None 3. DEEP VENOUS ULTRASOUND OF THE LEFT LOWER EXTREMITY: Common Femoral Vein: Compressible, normal respiratory variation and augmented flow. Femoral Vein: Compressible, normal color flow and augmentation. Popliteal Vein: Compressible, normal augmentation. Deep Reflux: There is reflux in the popliteal vein measuring 1680 ms There is no evidence of a Conti's cyst. 4. SUPERFICIAL ULTRASOUND WITH DOPPLER OF LEFT LOWER EXTREMITY: GREAT SAPHENOUS VEIN: Saphenofemoral Junction: 0.8 cm; Reflux: 0 ms Proximal Thigh: 0.5 cm; Reflux: 0 ms Mid Thigh: 0.4 cm; Reflux: 0 ms Above Knee: 0.4 cm; Reflux: 0 ms At Knee: 0.4 cm; Reflux: 0 ms Below Knee: 0.3 cm; Reflux: 0 ms Mid Calf: 0.2 cm; Reflux: 0 ms Ankle: 0.2 cm; Reflux: 0 ms DUPLICATED MEDIAL GREAT SAPHENOUS VEIN: Diameter: None Imaged Reflux: NA DUPLICATED LATERAL GREAT SAPHENOUS VEIN: Diameter: None Imaged Reflux: NA SMALL SAPHENOUS VEIN: Proximal: 0.2 cm; Reflux: 0 ms Distal: 0.3 cm; Reflux: 0 ms VEIN OF GIACOMINI: None Imaged. PERFORATORS: Location: None Imaged Size: NA Reflux: NA VARICOSITIES: Location: Proximal thigh Size: 0.4 cm Reflux: None US/US venous duplex LE BI IMPRESSION: Right: Moderate to severe reflux in the right great saphenous vein with associated varicose veins in the proximal thigh and calf. Left: There is moderate deep venous reflux in the left popliteal vein. No significant superficial venous reflux in the left lower extremity
== END 2022-01-04 10:29 | disposition home or self-care (01) ==
LOC: HO.US 10:28
PROVIDERS: Visit Provider Internal Medicine
DX: M79.662 Pain in left lower leg (principal); R60.0 Localized edema
CPT/HCPCS: 93970

== ENCOUNTER → 2022-02-07 12:52 | Outpatient (BNVA) | payer OTHER, SELFPAY | PROVIDERS: PCP Internal Medicine; Visit Provider Internal Medicine Endocrinology, Diabetes & Metabolism | DX: E11.42 Type 2 diabetes mellitus with diabetic polyneuropathy (principal); K11.20 Sialoadenitis, unspecified; Z85.850 Personal history of malignant neoplasm of thyroid | CPT/HCPCS: 82947; 83036 ==

== ENCOUNTER 2022-02-26 17:00 | Outpatient (RCR) | payer OTHER, SELFPAY ==
--- NOTE | 2022-01-15 19:12 | MHC.PT.EP ---
[facility] [place] [facility] [place] [facility] [place] [facility] [address] Juju Castelan [address] [phone] F: [phone] F: [phone] F: [phone] F: [phone] Physical Therapy Plan of Care Date of Evaluation: Date of Surgery: Diagnosis: R RTC tendonitis. Assessment: Pt is a 57 y/o female referred to PT for eval and treat of R shoulder RTC tendonitis who presents with R shoulder shoulder dysfunction resulting in decreased tolerance and ability to perform reaching a high shelf, performing cooking and cleaning home activities, reaching her neck for hygiene/ dressing and carrying objects of weight as well as disturbed sleep secondary to decreased UE strength and ROM, decreased posture, increased tissue tension, possible nerve compression, and pain. Pt is deemed an appropriate candidate to receive skilled PT in order to address her physical limitations to improve her functional ability. Frequency and Duration: The patient will be seen 2 x / wk x 5 wks. Short Term Goals: Initiate HEP. ER AROM to T2; initial C1. improve baseline simón to < 5/10; initial: 8/10 Legal Paraprofessional Goals: I with home program. Painless AROM. Improve ER MMT by at least 1/2 MMT grade; initial: 4/5 and painful. Pt will be able to place object on high shelf with managed Sx; initial; 8/10 pain. Treatment Plan: Modalities to reduce pain, spasms and effusion. Manual therapy to restore motion and function. Therapeutic exercise to improve strength and flexibility. Neuromuscular re-education for posture and balance. Therapeutic activities to return to functional activities of daily living. Electronically signed by: Arash Zarate PT Please sign and return to therapist. Thank you for your referral.
--- NOTE | 2022-05-31 16:52 | MHC.PT.DC ---
[facility] [place] Office [place] Office [place] Office [address] Juju Castelan [address] [phone] F: [phone] F: [phone] F: [phone] F: [phone] Physical Therapy Discharge Report Diagnosis: R RTC tendonitis. Date of Surgery: Date of Evaluation: 01/15/22 Date of Discharge: 05/31/22 Treatments to Date: 9 Cancellations to Date: No Shows to Date: Discharge Status: Patient Elected to Stop Discharge Summary: Pt is now in therapy s/p RTC. Electronically signed by: Arash Zarate PT. Please sign and return to therapist. Thank you for your referral.
== END 2022-05-31 17:16 | disposition home or self-care (01) ==
LOC: HO.PTCHIC 17:00
PROVIDERS: PCP Internal Medicine; Visit Provider Physician Assistant
DX: M75.80 Other shoulder lesions, unspecified shoulder (principal)
CPT/HCPCS: 97014; 97110; 97140; 97161

== ENCOUNTER → 2022-04-04 13:15 | Outpatient (BNVA) | payer OTHER, SELFPAY | PROVIDERS: PCP Internal Medicine; Visit Provider Internal Medicine Cardiovascular Disease | DX: Z01.810 Encounter for preprocedural cardiovascular examination (principal); M75.101 Unspecified rotator cuff tear or rupture of right shoulder, not specified as traumatic | CPT/HCPCS: 93005 ==

== ENCOUNTER → 2022-04-16 13:00 | Outpatient (BNVA) | payer OTHER, SELFPAY | PROVIDERS: PCP Internal Medicine; Visit Provider Nurse Practitioner Family | DX: K21.9 Gastro-esophageal reflux disease without esophagitis (principal) ==

== ENCOUNTER → 2022-04-25 09:45 | Outpatient (BNVA) | payer OTHER, SELFPAY | PROVIDERS: PCP Internal Medicine; Visit Provider Physician Assistant | DX: M75.101 Unspecified rotator cuff tear or rupture of right shoulder, not specified as traumatic (principal) ==

== ENCOUNTER 2022-04-30 07:10 | Day surgery (SDC) | payer OTHER, SELFPAY ==
[2022-04-24 14:26] VITALS: BMI 45.7
--- NOTE | 2022-04-26 08:39 | HO.ANESPROP2 ---
Documented by User: Marianne Marin NP 04/26/22 08:42 HPI - Anesthesia Eval Consult details Narrative: 57yo F for Right Arthroscopic Rotator Cuff Repair Cardiac cleared (cardiac cath 06/2020 without signif CAD) [facility] Active Problems Active Problems: All Active Problems (Updated 04/24/22 @ 15:01 by Tamela uQezada RN) BURKS (dyspnea on exertion) (Acute) Lumbar radiculopathy (Acute) Palpitation (Acute) Rotator cuff tendonitis (Acute) Diabetes mellitus (Acute) Right shoulder tendinitis (Acute) Right rotator cuff tear (Acute) Preop cardiovascular exam (Acute) Varicose veins of bilateral lower extremities with pain (Acute) Venous reflux (Acute) Pain and swelling of left lower leg (Acute) Right anterior shoulder pain (Acute) Submandibular gland inflammation (Acute) Chronic GERD (Acute) Left thyroid nodule (Acute) Hallux valgus (acquired), right foot (Acute) S/P cardiac cath (Acute) History of thyroid cancer (Acute) Morbid obesity (Acute) EDGAR on CPAP (Acute) Surgical menopause (Acute) Essential hypertension (Acute) Abnormal stress ECG with treadmill (Acute) Type 2 diabetes mellitus with peripheral neuropathy (Acute) Type 2 diabetes mellitus without complication, with no history of insulin use (Acute) Past Medical History Medical History (Updated 04/24/22 @ 15:01 by Tamela Quezada RN) Abnormal stress ECG with treadmill Chronic GERD Essential hypertension Hallux valgus (acquired), right foot History of thyroid cancer Left thyroid nodule Morbid obesity Multinodular thyroid EDGAR on CPAP Pain and swelling of left lower leg PONV (postoperative nausea and vomiting) Right anterior shoulder pain Submandibular gland inflammation Surgical menopause Type 2 diabetes mellitus with peripheral neuropathy Type 2 diabetes mellitus without complication, with no history of insulin use Varicose veins of bilateral lower extremities with pain Venous reflux Family History Family History Maternal Aunt No problems noted. 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 Cognitive needs: No Hearing needs: No Vision needs: No Meds Allergies Allergy/AdvReac Type Severity Reaction Status Date / Time codeine Allergy Unknown flushing, Uncoded 04/24/22 14:06 dizziness,vomiting Home Medications Medication Instructions Recorded Confirmed Last Taken Type aspirin 81 mg tablet,delayed 81 mg PO DAILY 10/24/20 04/24/22 04/28/22 History release (Adult Low Dose Aspirin) Exam Exam Date and Time: April 26, 2022 0839 Height,Weight and Vital Signs: Height 5 ft Weight 106.141 kg Pertinent Lab Results Pertinent Lab Results: Laboratory Tests 10/25/21 10/25/21 15:45 15:45 WBC 10.9 H Hgb 14.6 Hct 44.3 Plt Count 244 Sodium 139 Potassium 3.9 Chloride 103 Carbon Dioxide 23 BUN 14 Creatinine 0.69 Narrative Narrative: EKG 03/2022 sinus rhythm 64 beats per minute, normal axis,? nonspecific T-wave changes, QTC 472 millisecond Assessment and Plan Assessment Anesthesia Assessment: Chart Reviewed Documented by User: Stan Carty MD 04/30/22 15:56 [facility] Past Medical History Medical History (Updated 04/24/22 @ 15:01 by Tamela Quezada, MINDI) Abnormal stress ECG with treadmill Chronic GERD Essential hypertension Hallux valgus (acquired), right foot History of thyroid cancer Left thyroid nodule Morbid obesity Multinodular thyroid EDGAR on CPAP Pain and swelling of left lower leg PONV (postoperative nausea and vomiting) Right anterior shoulder pain Submandibular gland inflammation Surgical menopause Type 2 diabetes mellitus with peripheral neuropathy Type 2 diabetes mellitus without complication, with no history of insulin use Varicose veins of bilateral lower extremities with pain Venous reflux Family History Family History Maternal Aunt No problems noted. 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, 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 Cognitive needs: No Hearing needs: No Vision needs: No Meds Allergies Allergy/AdvReac Type Severity Reaction Status Date / Time codeine Allergy Unknown flushing, Uncoded 04/24/22 14:06 dizziness,vomiting Home Medications Medication Instructions Recorded Confirmed Last Taken Type aspirin 81 mg tablet,delayed 81 mg PO DAILY 10/24/20 04/24/22 04/28/22 History release (Adult Low Dose Aspirin) Exam Airway Mallampati Class: III TM Dist: >3cm Neck ROM: Full Loose/Missing/Broken Teeth: Yes (Poor dentition ) Heart: S1,S2 Lungs: distant breath sounds Assessment and Plan Assessment Anesthesia Assessment: Anesthesia Plan Discussed Final Anesthetic Review Family History of Problems with Anesthesia: No History of Problems with Anesthesia: No NPO: Yes ASA Class: III Final Preanesthetic Review: Meds/Allgs Chart Reviewed, Consent Obtained/Reviewed and Anes Risks/Benef Reviewed Patient Risk: Intermediate Procedure Risk: Intermediate Anesthetic Plan Anesthetic Plan: GA Disposition: Standard PACU
[2022-04-30] VITALS (12 sets, daily range): BP systolic 112–149; BP diastolic 73–89; PULSE 62–96; RESP 16–20; TEMP 36.3–36.5; O2SAT 93–100
[2022-04-30 07:30] LABS: Glucose, Whole Blood 151 mg/dL (60-115)
[2022-04-30] MEDS: Lactated Ringers 1,000 ML 100 ML IVCONT (08:04)
[2022-04-30] MEDS: Scopolamine 1.5 MG PATCH.TD.3 TRANSDERMA (08:05)
--- NOTE | 2022-04-30 09:10 | MHC.SHP ---
Pre-Procedural Eval Section A Date of Service: 04/30/22 The patient is an INPATIENT: No Changes since office visit: No Cold of Flu in the past 2 weeks, No New Medical Problems, No Changes in Medication and No Patient answered all questions The History & Physical has been completed within 30 days and I have reviewed it.: Yes Section B Chief Complaint: Unspecified rotator cuff tear or rupture of right Allergies: Allergies Allergy/AdvReac Type Severity Reaction Status Date / Time codeine Allergy Unknown flushing, Uncoded 04/24/22 14:06 dizziness,vomiting Plan I have reviewed the history and physical and performed a pertinent physical examination on my patient. No changes have occurred unless specified. Time Spent With Patient Time: Total time managing care of this patient today ____ minutes.
--- NOTE | 2022-04-30 11:07 | W.PM.OPN ---
Operative Note Operative Note Date of Service: 04/30/22 Narrative: Date of Service: 04/30/22 Pre-op diagnosis: Right RTC tear Post-op diagnosis: same Procedure: Right RTC repair with SAD Implants: [employer] helacoil x3 Surgeon: Prince Hardy MD Anesthesia: GETA and regional Was an Paper Reclaiming Machine Operator used for this Procedure?: No Estimated blood loss (mL): 10 IV fluids (mL): 800 Pathology: none sent Condition: stable Disposition: PACU Procedure in detail: Patient was brought to the operating room and placed the the beach chair position. All bony prominences were well padded and the limb was prepped and draped in standard sterile fashion. A time out was called to identify proper site, proper procedure and proper surgeon. IV antibiotics per weight were administered. I began by making a posterolateral stab incision with a 15 blade. A blunt trochar was placed into the glenohumeral joint and I insufflated the joint with saline and a 30 degree arthroscope was placed. I established an outside- in anterior portal just distal to the biceps tendon. I then began my inspection of the glenohumeral joint. There was an intact biceps and labral anchor with no associated degenerative tearing . THe cartilage surfaces were intact. There was mild nferior glenoid labral degeneration without associated humeral head changes. There was a full thickness undersurface RTC tear without retraction. The subcapularis was intact. I debrided the loose cartilage of the glenoid and the degenerative labral tearing. I then removed the trochar and entered the subacromial space. A direct lateral portal was then established and I performed a bursectomy. The cuff was then examined. There was a full thickness tear of the supra and infraspinatus without retraction. The tear was cresecentic and full thickness measuring less than 1 cm in diameter. I then placed two medial row double loaded anchors and then brought the suture tape through the medial cuff. I added one looped suture to prevent dog earing. I then debrided the bare area down to bleeding bone and brought 5 limbs to one lateral 5.5 mm anchor. This re-approximated the cuff anatomy near anatomically. I then performed a 5 mm subacromial decompression. Once I was satisfied with the repair final images were captured and I removed all instrumentation. Portals were closed with nylon. Patient was placed in an abduction sling, extubated and brought to the recovery room in stable condition. There were no known complications.
[2022-04-30] MEDS: ondansetron HCL 4 MG/2 ML VIAL IVPUSH (11:54)
[2022-04-30] MEDS: Acetaminophen 325 MG TABLET 975 MG PO (13:19)
== END 2022-04-30 14:14 | disposition home or self-care (01) ==
PROVIDERS: PCP Internal Medicine; Visit Provider Orthopaedic Surgery
PROC: (CPT 29827; principal; 2022-04-30 09:40)
DX: M75.101 Unspecified rotator cuff tear or rupture of right shoulder, not specified as traumatic (principal); G47.33 Obstructive sleep apnea (adult) (pediatric); I10 Essential (primary) hypertension; I83.813 Varicose veins of bilateral lower extremities with pain; E66.01 Morbid (severe) obesity due to excess calories; Z68.42 Body mass index [BMI] 45.0-49.9, adult; E11.42 Type 2 diabetes mellitus with diabetic polyneuropathy; Z79.85 Long-term (current) use of injectable non-insulin antidiabetic drugs; Z99.89 Dependence on other enabling machines and devices; Z88.0 Allergy status to penicillin; Z79.82 Long term (current) use of aspirin; Z79.899 Other long term (current) drug therapy
CPT/HCPCS: 29827; 29826; 82947; C1713; J0171; J0690; J2250; J2370; J2405; J2550; J2795; J3010

== ENCOUNTER → 2022-05-06 09:04 | Outpatient (BNVA) | payer OTHER, SELFPAY | PROVIDERS: PCP Internal Medicine; Visit Provider Physician Assistant | DX: M75.101 Unspecified rotator cuff tear or rupture of right shoulder, not specified as traumatic (principal) ==

== ENCOUNTER → 2022-05-07 13:19 | Outpatient (BNVA) | payer OTHER, SELFPAY | PROVIDERS: PCP Internal Medicine; Visit Provider Surgery Vascular Surgery | DX: Z13.89 Encounter for screening for other disorder (principal) ==

== ENCOUNTER → 2022-06-03 09:41 | Outpatient (BNVA) | payer OTHER, SELFPAY | PROVIDERS: PCP Internal Medicine; Visit Provider Physician Assistant | DX: Z13.89 Encounter for screening for other disorder (principal) ==

== ENCOUNTER → 2022-07-01 10:38 | Outpatient (BNVA) | payer OTHER, SELFPAY | PROVIDERS: PCP Internal Medicine; Visit Provider Physician Assistant | DX: Z13.89 Encounter for screening for other disorder (principal) ==

== ENCOUNTER 2022-07-04 08:54 | Outpatient (REF) | payer OTHER, SELFPAY ==
--- NOTE | ~2022-07-04 | XR_ITS ---
EXAMINATION: XR knee RT 2V, XR knee LT 2V, XR knee standing BI CLINICAL INFORMATION: Reason for Exam M25.569 - Pain in unspecified knee COMPARISON: None. TECHNIQUE: 2 views of the bilateral knees and standing views of the bilateral knees XR/XR knee LT 2V FINDINGS/IMPRESSION: * Right knee: No acute fracture or dislocation. Mild degenerative changes with joint space narrowing and osteophytosis. * Left knee: No acute fracture or dislocation. Mild degenerative changes with joint space narrowing and osteophytosis.
--- NOTE | ~2022-07-04 | XR_ITS ---
EXAMINATION: XR knee RT 2V, XR knee LT 2V, XR knee standing BI CLINICAL INFORMATION: Reason for Exam M25.569 - Pain in unspecified knee COMPARISON: None. TECHNIQUE: 2 views of the bilateral knees and standing views of the bilateral knees XR/XR knee RT 2V FINDINGS/IMPRESSION: * Right knee: No acute fracture or dislocation. Mild degenerative changes with joint space narrowing and osteophytosis. * Left knee: No acute fracture or dislocation. Mild degenerative changes with joint space narrowing and osteophytosis.
--- NOTE | ~2022-07-04 | XR_ITS ---
EXAMINATION: XR knee RT 2V, XR knee LT 2V, XR knee standing BI CLINICAL INFORMATION: Reason for Exam M25.569 - Pain in unspecified knee COMPARISON: None. TECHNIQUE: 2 views of the bilateral knees and standing views of the bilateral knees XR/XR knee standing BI FINDINGS/IMPRESSION: * Right knee: No acute fracture or dislocation. Mild degenerative changes with joint space narrowing and osteophytosis. * Left knee: No acute fracture or dislocation. Mild degenerative changes with joint space narrowing and osteophytosis.
== END 2022-07-04 08:55 | disposition home or self-care (01) ==
LOC: HO.HOSX 08:54
PROVIDERS: Visit Provider Physician Assistant
DX: M17.0 Bilateral primary osteoarthritis of knee (principal)
CPT/HCPCS: 20610; 73560; 73565; J1020

== ENCOUNTER → 2022-07-30 10:41 | Outpatient (BNVA) | payer OTHER, SELFPAY | PROVIDERS: PCP Internal Medicine; Visit Provider Physician Assistant | DX: Z13.89 Encounter for screening for other disorder (principal) ==

== ENCOUNTER 2022-08-07 08:50 | Outpatient (REF) | payer OTHER, SELFPAY ==
[2022-08-07 12:15] LABS: Creatinine Urine 154.96 mg/dL; Microalbum/Creatinine Ratio Ur 10.9 ug/mg cr
[2022-08-07 12:18] LABS: Alanine Aminotransferase 51 U/L (0-31); Anion Gap 16 (12-20); Aspartate Amino Transferase 46 U/L (5-31); Blood Urea Nitrogen 20 mg/dL (9-16); Calcium 9.7 mg/dL (8.4-10.2); Carbon Dioxide 26 mmol/L (22-29); Chloride 103 mmol/L (96-108); Cholesterol 140 mg/dL; Estimated Glomerular Filt Rate > 60; Glucose Fasting 157 mg/dL (60-99); HDL Cholesterol 53 mg/dL; LDL Cholesterol Calculated 51 mg/dl; Potassium 3.8 mmol/L (3.3-5.1); Sodium 141 mmol/L (135-145); Triglycerides 181 mg/dL
[2022-08-07 12:43] LABS: Vitamin D 25-OH Total 61.7 ng/mL (>30)
== END 2022-08-07 08:51 | disposition home or self-care (01) ==
LOC: HO.HMGCLDS 08:50
PROVIDERS: PCP Internal Medicine; Visit Provider Internal Medicine
DX: E11.42 Type 2 diabetes mellitus with diabetic polyneuropathy (principal); I10 Essential (primary) hypertension; E89.40 Asymptomatic postprocedural ovarian failure; E66.01 Morbid (severe) obesity due to excess calories
CPT/HCPCS: 36415; 80048; 80061; 82043; 82306; 84450; 84460

== ENCOUNTER → 2022-08-13 12:59 | Outpatient (BNVA) | payer OTHER, SELFPAY | PROVIDERS: PCP Internal Medicine; Visit Provider Nurse Practitioner Family | DX: Z13.89 Encounter for screening for other disorder (principal) ==

== ENCOUNTER 2022-08-23 12:08 | Outpatient (REF) | payer OTHER, SELFPAY ==
[2022-08-23 14:15] LABS: Estimated Average Glucose 154 mg/dL
== END 2022-08-23 12:09 | disposition home or self-care (01) ==
LOC: HO.HMGCLDS 12:08
PROVIDERS: PCP Internal Medicine; Visit Provider Internal Medicine
DX: E11.42 Type 2 diabetes mellitus with diabetic polyneuropathy (principal)
CPT/HCPCS: 36415; 83036

== ENCOUNTER 2022-08-27 14:04 | Outpatient (REF) | payer OTHER, SELFPAY ==
--- NOTE | ~2022-08-27 | MM_ITS ---
EXAMINATION: MM SCREENING DIGITAL BREAST TOMOSYNTHESIS, BILATERAL CLINICAL INFORMATION: Screening. Asymptomatic. The lifetime risk of breast cancer based on the Tyrer-Cuzick Model is 6%. COMPARISON: Mammography: 04/17/2021, 04/11/2020, 10/22/2018 10/09/2017, outside exam 02/13/2015 ([place], [place]). TECHNIQUE: Digital breast tomosynthesis is performed in both the craniocaudal and mediolateral oblique views along with computer-aided detection (CAD). Synthesized 2D images are generated from the tomosynthesis. Additional left CC view is provided. FINDINGS: There are scattered areas of fibroglandular density (ACR BI-RADS breast composition Category b). Parenchymal pattern borders on heterogeneously dense. Parenchymal pattern is similar to prior studies. There are scattered minor asymmetries stable from prior studies. There are no significant masses, abnormal calcifications, or other abnormalities. Parenchymal pattern is similar to prior studies. There is no developing density or architectural abnormality. The axilla and skin contours are unremarkable. No significant changes. MM/MM tomosynthesis screening BI IMPRESSION: No significant changes from prior exams. ASSESSMENT: BI-RADS 2: Benign RECOMMENDATION: Routine annual mammography screening. This patient's information was entered into a reminder system with a target due date for their next mammogram.
== END 2022-08-27 14:05 | disposition home or self-care (01) ==
LOC: HO.MAMMO 14:04
PROVIDERS: PCP Internal Medicine; Visit Provider Internal Medicine
DX: Z12.31 Encounter for screening mammogram for malignant neoplasm of breast (principal)
CPT/HCPCS: 77063; 77067

== ENCOUNTER → 2022-09-10 09:40 | Outpatient (BNVA) | payer OTHER, SELFPAY | PROVIDERS: PCP Internal Medicine; Visit Provider Physician Assistant ==

== ENCOUNTER 2022-10-02 13:00 | Outpatient (RCR) | payer OTHER, SELFPAY ==
--- NOTE | 2022-05-06 15:24 | MHC.PT.EP ---
[facility] [place] Office [place] Office [place] Office [address] Juju Castelan [address] [phone] F: [phone] F: [phone] F: [phone] F: [phone] Physical Therapy Plan of Care Date of Evaluation: Date of Surgery: 05/01/22 Diagnosis: S/P RIGHT RTCR (KP) Assessment: BENEDICTO IS A PLEASANT 57 YO FEMALE BEING SEEN TODAY FOR FIRST ORTHO POST-OP VISIT AND PT CONSULT. REPORTS SHE WAS PERFORMING ALL HOMEMAKING AND SELF CARE TASKS PRIOR TO THIS EPISODE. STATES ONE MORNING SHE WOKE UP FEELING LIKE SHE SLEPT ON HER SHOULDER WRONG BUT PAIN CONTINUED TO CONT IN INCREASE. TRIAL OF PT, DID NOT HELP AND DECIDED TO UNDERGO RTCR WITH DR. RUSHING. PRESENTS POD #5 FOR ORTHOPEDIC FOLLOW UP AND PT EVALUATION. UPON EXAM HE DEMONSTRATES THE EXPECTED IMPAIRMENTS OF DECREASED ROM, DECREASED STRENGTH, ALTERED POSTURE AND POSITIONING, INCREASED UPPER TRAP GUARDING, AND INCREASED PAIN AND EDEMA. FUNCTIONAL LIMITATIONS INCLUDE DECREASED ABILITY TO PERFORM HOMEMAKING AND SELF-CARE TASKS, DECREASED ABILITY TO PERFORM PUSHING, PULLING, LIFTING AND REACHING. INABILITY TO DRIVE AND PERFORM WORK TASKS, DECREASED PARTICIPATION IN COMMUNITY AND RECREATIONAL ACTIVITIES AND DISRUPTED SLEEP. THE PT IS A GOOD CANDIDATE FOR SKILLED PT DUE TO AGE, POTENTIAL REMEDIATION OF IMPAIRMENTS, TYPICAL DISEASE/CONDITION PROGRESSION AND PROGNOSIS, COMORBIDITIES, AND MOTIVATION. PT WOULD BENEFIT FROM TAILORED PROGRAM OF THERAPEUTIC ACTIVITIES, FUNCTIONAL TRAINING, POSTURAL EDUCATION, NEUROMUSCULAR RE-EDUCATION, AND MODALITIES NEEDED. Frequency and Duration: The patient will be seen 2 X WEEK FOR 12 WEEKS Short Term Goals: INITIATE HEP Nutrition Partner Goals: FULL, PAIN FREE ROM FULL UE STRENGTH, PAIN FREE TO PERFORM COMPUTER AND WORK TASKS WITHOUT RESTRICTION AND PAIN NO GREATER THAN 2/[address] OBJECT AT MINIMUM OF 5# INTO CABINET AT SHOULDER HEIGHT Treatment Plan: Modalities to reduce pain, spasms and effusion. Manual therapy to restore motion and function. Therapeutic exercise to improve strength and flexibility. Neuromuscular re-education for posture and balance. Therapeutic activities to return to functional activities of daily living. Electronically signed by: HERVE CRONIN PT, DPT Please sign and return to therapist. Thank you for your referral.
--- NOTE | 2022-10-07 07:36 | MHC.PT.DC ---
[facility] [place] Office [place] Office [place] [address] Juju Castelan [address] [phone] F: [phone] F: [phone] F: [phone] F: [phone] Physical Therapy Discharge Report Diagnosis: S/P RIGHT RTCR (KP) Date of Surgery: 05/01/22 Date of Evaluation: 05/06/22 Date of Discharge: 10/07/22 Treatments to Date: 34 Cancellations to Date: 1 No Shows to Date: 0 Discharge Status: Improved Function Independent with HEP Discharge Summary: Rosalva is appropriate for d/c secondary to improved function, improved shoulder AROM and strength and I with HEP. Reviewed importance of continuing HEP to optimize functional mobility. Electronically signed by: Mandy Escobedo PT Please sign and return to therapist. Thank you for your referral.
== END 2022-10-07 07:37 | disposition home or self-care (01) ==
LOC: HO.PTCHIC 13:00
PROVIDERS: Visit Provider Physician Assistant
DX: M75.81 Other shoulder lesions, right shoulder (principal); Z98.890 Other specified postprocedural states
CPT/HCPCS: 97014; 97110; 97112; 97140; 97161

== ENCOUNTER → 2022-10-17 14:14 | Outpatient (BNVA) | payer OTHER, SELFPAY | PROVIDERS: PCP Internal Medicine; Referring Provider Internal Medicine; Visit Provider Nurse Practitioner Family | DX: I10 Essential (primary) hypertension (principal); Z98.890 Other specified postprocedural states | CPT/HCPCS: 93005 ==

== ENCOUNTER → 2022-10-24 10:05 | Outpatient (BNVA) | payer OTHER, SELFPAY | PROVIDERS: PCP Internal Medicine; Visit Provider Orthopaedic Surgery ==

== ENCOUNTER 2022-11-05 12:53 | Outpatient (AMB) | payer OTHER, SELFPAY ==
--- NOTE | 2022-11-05 12:55 | A.OFFVIS_ITS ---
Intake Intake Visit Reasons: 6 month vein check (no testing) Intake Note: Patient is here for a 6 month vein check (no testing). Patient stataed shes still recovering from rotator cuff surgery, and shes back to follow up on of Right LE Allergies codeine Allergy (Unknown, Uncoded 10/17/22 14:51) flushing, dizziness,vomiting HPI 6 month vein check (no testing) HPI Details Pleasant 57-year-old female presents for follow-up regarding venous insufficiency. She had actually seen us back approximately 6 months prior and at that time she was scheduled for shoulder surgery. She has undergone to orthopedic surgery and has been doing fairly well with that. She now presents for venous surveillance follow-up [facility] Medical History Abnormal stress ECG with treadmill Allergic conjunctivitis of right eye Chronic GERD Essential hypertension Hallux valgus (acquired), right foot History of thyroid cancer Left thyroid nodule Morbid obesity Multinodular thyroid EDGAR on CPAP Pain and swelling of left lower leg PONV (postoperative nausea and vomiting) Right anterior shoulder pain Rotator cuff tendonitis Submandibular gland inflammation Surgical menopause Type 2 diabetes mellitus with peripheral neuropathy Type 2 diabetes mellitus without complication, with no history of insulin use Varicose veins of bilateral lower extremities with pain Venous reflux Surgical History History of colonoscopy History of endoscopy History of partial hysterectomy Hx of cholecystectomy S/P cardiac cath Family History Maternal Aunt No problems noted. 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 Cognitive needs: No Hearing needs: No Vision needs: Yes Review of Systems Const Reports as per HPI ENT Reports no additional complaints Card Denies chest pain, Denies chest pain at rest and Denies chest pain with activity Resp Denies chest congestion and Denies cough GI Reports no additional complaints Musc Details: pain over varicosities, aching of lower extremities, swelling, cramping, heaviness and tiredness, itching Denies abnormal gait Skin/Breast Reports pruritus and Denies wounds Neuro Reports no additional complaints and Denies abnormal gait Psych Denies no additional complaints Physical Exam Const General: cooperative, healthy appearing and comfortable Orientation/consciousness: oriented to person, oriented to place and oriented to time Neck Carotids: no bruits Chest Chest palpation & inspection: normal inspection of the chest and normal palpation of entire chest wall Resp Effort & Inspection: normal respiratory effort and able to speak in complete sentences Cardio Rate: regular rate Heart sounds: S1 normal heart sound present and S2 normal heart sound present Peripheral pulses: Peripheral pulses 2+ throughout GI Inspection: Yes normal to inspection Skin Other: +2 edema, large rope-like varicosities greater than 4 mm CEAP Classification C4 - skin color changes Ep - Etiology Primary As - superficial veins P - reflux General skin exam: dry skin Neuro General: oriented to person, oriented to place and oriented to time Extrem Right lower extremity: full ROM, normal capillary refill and edema Left lower extremity: full ROM, normal capillary refill and edema Psych Mental Status: mental status grossly normal Results Reviewed Results Reviewed: Brief summary of venous insufficiency testing is as follows: right great saphenous vein: Positive right small saphenous vein: negative right accessory vein: none present left great saphenous vein: negative left small saphenous vein: negative left accessory vein: none present Please note there is no evidence of any venous aneurysms or significant tortuosity Assessment & Plan Assessment & Plan (1) Varicose veins of right lower extremity with inflammation: Code(s): I83.11 - Varicose veins of right lower extremity with inflammation Plan: This patient has varicose veins with inflammation. They continue to be a source of discomfort for the patient. The patient has tried conservative treatment with compression, leg elevation and exercise program for over 3 months time. They have been compliant with all treatment. This has provided minimal relief for the patient. I do not anticipate this course of treatment will alter the underlying etiology. The patient has been scheduled for lower extremity venous treatment inclusive of --- right great saphenous vein Cyanoacralate ablation. Risks, benefits, and complications of this procedure has been discussed in detail with the patient including but not limited to bleeding, infection, and the development of a DVT. The patient has demonstrated a clear understanding and has consented. We will schedule the patient as soon as possible. Thank you for allowing us to participate in this patient's care. If there are any questions or concerns please do not hesitate to contact us. Coding Level of Care Code Est Pt Level 4 (85283) Diagnoses Varicose veins of right lower extremity with inflammation I83.11
== END 2022-11-05 13:25 | disposition home or self-care (01) ==
LOC: HO.HVS 12:54
PROVIDERS: PCP Internal Medicine; Visit Provider Surgery Vascular Surgery
DX: I83.11 Varicose veins of right lower extremity with inflammation (principal)
CPT/HCPCS: 99214

== ENCOUNTER → 2022-11-05 12:53 | Outpatient (BNVA) | payer OTHER, SELFPAY | PROVIDERS: PCP Internal Medicine; Visit Provider Surgery Vascular Surgery ==

== ENCOUNTER 2022-12-04 13:00 | Outpatient (AMB) | payer OTHER, SELFPAY ==
[2022-12-04 13:11] VITALS: BP 108/72; PULSE 70; O2SAT 96; BMI 45.9
--- NOTE | 2022-12-04 13:11 | MHC.OFFVIS ---
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 The CPAP compliance and therapy response is not available. Pt's last sleep study was 2017 and her CPAP is more than 8 years old. The CPAP is not transmitting the record. Pt reports that she uses CPAP nightly, but noticed that she snores with the CPAP. She has some difficulty with the new mask. She had shoulder surgery in Apr, 2022 and is off work now. [facility] Medical History (Updated 12/04/22 @ 13:30 by Yovanny Anton CNP) Abnormal stress ECG with treadmill Allergic conjunctivitis of right eye Chronic GERD Essential hypertension Hallux valgus (acquired), right foot History of thyroid cancer Left thyroid nodule Morbid obesity Multinodular thyroid EDGAR on CPAP Pain and swelling of left lower leg PONV (postoperative nausea and vomiting) Right anterior shoulder pain Rotator cuff tendonitis Submandibular gland inflammation Surgical menopause Type 2 diabetes mellitus with peripheral neuropathy Type 2 diabetes mellitus without complication, with no history of insulin use Varicose veins of bilateral lower extremities with pain Venous reflux Surgical History History of colonoscopy History of endoscopy History of partial hysterectomy History of shoulder surgery Hx of cholecystectomy S/P cardiac cath Family History Maternal Aunt No problems noted. 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 Cognitive needs: No Hearing needs: No Vision needs: Yes Review of Systems Const All systems reviewed & are unremarkable except as noted in HPI and below Physical Exam Vital Signs: Last Vital Signs Pulse 70 12/04/22 13:11 BP 108/72 12/04/22 13:11 Pulse Ox 96 12/04/22 13:11 Oxygen Delivery Method Room Air 12/04/22 13:11 BMI result Body Mass Index 45.9 Const General: cooperative and comfortable Nutritional Appearance: obese Orientation/consciousness: patient oriented x3 Limitations: no limitations Resp Effort & Inspection: normal respiratory effort and able to speak in complete sentences Neuro General: patient oriented x3, gait normal, moves all extremities and CN's II-XI intact bilaterally Cognition (Neuro): normal cognition Gait exam (Neuro): Normal gait present Assessment & Plan Assessment & Plan (1) Morbid obesity with BMI of 40.0-44.9, adult: Code(s): E66.01 - Morbid (severe) obesity due to excess calories; Z68.41 - Body mass index [BMI] 40.0-44.9, adult (2) EDGAR on CPAP: Code(s): G47.33 - Obstructive sleep apnea (adult) (pediatric); Z99.89 - Dependence on other enabling machines and devices Plan Advised patient to undergo in-lab sleep study to assess sleep apnea and will apply for new CPAP. Pt's home care company is [employer]. Continue to use old CPAP. Stressed compliance, use CPAP nightly and more than 4 hours. Orders: Orders RT PSG in-lab sleep study Today E11.42 - Type 2 diabetes mellitus with diabetic polyneuropathy, E11.9 - Type 2 diabetes mellitus without complications, E66.01 - Morbid (severe) obesity due to excess calories, G47.33 - Obstructive sleep apnea (adult) (pediatric), I10 - Essential (primary) hypertension, Z68.41 - Body mass index [BMI] 40.0-44.9, adult, Z98.890 - Other specified postprocedural states, Z99.89 - Dependence on other enabling machines and devices Coding Level of Care Code Est Pt Level 3 (29787) Diagnoses Morbid obesity with BMI of 40.0-44.9, adult E66.01; Z68.41 EDGAR on CPAP G47.33; Z99.89
== END 2022-12-04 13:33 | disposition home or self-care (01) ==
PROVIDERS: Visit Provider Nurse Practitioner Family
DX: E66.01 Morbid (severe) obesity due to excess calories (principal); Z68.41 Body mass index [BMI] 40.0-44.9, adult; G47.33 Obstructive sleep apnea (adult) (pediatric); Z99.89 Dependence on other enabling machines and devices
CPT/HCPCS: 99213

== ENCOUNTER → 2022-12-04 13:00 | Outpatient (BNVA) | payer OTHER, SELFPAY | PROVIDERS: Visit Provider Nurse Practitioner Family ==

== ENCOUNTER 2022-12-05 09:35 | Outpatient (AMB) | payer OTHER, SELFPAY ==
--- NOTE | 2022-12-05 09:43 | MHC.OFFVIS ---
Intake Intake Visit Reasons: OV-R RTC Repair, 05/01/22 NE-F/U Intake Note: Rosalva is a 67 year old female who presents today with complaints of right shoulder pain, hx of Right RTC Repair, 05/01/22.. Patient reports that she is feeling that is is starting to feel better, she has occasional flair ups of pain randomly. She reports that she still has swelling and complains of a hard lump on the shoulder. This lump is not painful when she touches it. She remains out of work and is still concerned about her ability to perform CPR Allergies codeine Allergy (Unknown, Uncoded 12/04/22 13:14) flushing, dizziness,vomiting HPI OV-R RTC Repair, 05/01/22 NE-F/U HPI Details Rosalva is a 57 year old woman who presents ~7 months S/P right RTC repair with SAD. She is here to discuss her RTW status. She says she has started to improve and is happy to see progress. She continues to have some swelling and flare-ups of pain, but says this has improved since last appointment. 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 She is not able to return to work until she is able to do this. She says she needs to pass a CPR class in order to return to work, and is unsure if she would be able to do this now. [facility] Medical History (Updated 12/04/22 @ 13:30 by Yovanny Anton CNP) Abnormal stress ECG with treadmill Allergic conjunctivitis of right eye Chronic GERD Essential hypertension Hallux valgus (acquired), right foot History of thyroid cancer Left thyroid nodule Morbid obesity Multinodular thyroid EDGAR on CPAP Pain and swelling of left lower leg PONV (postoperative nausea and vomiting) Right anterior shoulder pain Rotator cuff tendonitis Submandibular gland inflammation Surgical menopause Type 2 diabetes mellitus with peripheral neuropathy Type 2 diabetes mellitus without complication, with no history of insulin use Varicose veins of bilateral lower extremities with pain Venous reflux Surgical History History of colonoscopy History of endoscopy History of partial hysterectomy History of shoulder surgery Hx of cholecystectomy S/P cardiac cath Family History Maternal Aunt No problems noted. 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 Cognitive needs: No Hearing needs: No Vision needs: Yes Review of Systems Const All systems reviewed & are unremarkable except as noted in HPI and below Physical Exam Const General: no acute distress and alert Orientation/consciousness: patient oriented x3 Neuro General: patient oriented x3 Extrem Other: Right Shoulder: 90 degrees isolated GH abduction without pain - empty can 125 degrees combined AB compared to 130 degrees on the contralateral side well-healed portals Psych Appearance: grossly normal Affect: normal affect Attitude: cooperative Assessment & Plan Assessment & Plan (1) S/P right rotator cuff repair: Code(s): Z98.890 - Other specified postprocedural states Plan: This is a 57 year old woman S/P Right RTC repair with SAD, DOS: 04/30/22. Her overall pain & swelling have improved, but are not fully resolved. She has completed PT and continues with at-home exercise. 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 I recommend she continue with strengthening exercises and remain out of work for the next 6 weeks. She will follow up in 6 weeks to discuss her RTW status. Plan Scribed for Prince Hardy MD by Dave Lynn, center medical and lab director, on 12/05/22 at 10:00 AM, EST. Coding Level of Care Code Est Pt Level 3 (15799) Diagnoses S/P right rotator cuff repair Z98.890
== END 2022-12-05 10:06 | disposition home or self-care (01) ==
PROVIDERS: PCP Internal Medicine; Visit Provider Orthopaedic Surgery
DX: M25.511 Pain in right shoulder (principal)
CPT/HCPCS: 99213

== ENCOUNTER → 2022-12-05 09:35 | Outpatient (BNVA) | payer OTHER, SELFPAY | PROVIDERS: PCP Internal Medicine; Visit Provider Orthopaedic Surgery ==

== ENCOUNTER 2022-12-24 09:01 | Outpatient (AMB) | payer OTHER, SELFPAY ==
--- NOTE | 2022-12-24 10:05 | A.OFFPC_ITS ---
Vital Signs 12/24/22 10:06 Height 5 ft Weight 235 lb BMI 45.9 BP 100/70 Blood Pressure Location Lt radial Position Sitting Pulse 72 Pulse Source Pulse Oximeter Pulse Oximetry (%) 98 Oxygen Delivery Method Room Air Intake Visit Reasons: Annual PE/dm, lipids, htn Intake Note: Pt is here today for her PE Allergies codeine Allergy (Unknown, Uncoded 01/09/23 02:34) flushing, dizziness,vomiting Medication List - Last Reconciled 12/24/22 by Marah Russell MD aspirin (Adult Low Dose Aspirin) 81 mg PO DAILY blood sugar diagnostic (FreeStyle Lite Strips) 3 times a day diclofenac sodium 75 mg PO BID PRN dulaglutide (Trulicity) 1.5 mg (0.5 mL) subcut QWEEK empagliflozin (Jardiance) 25 mg PO DAILY 90 days flash glucose scanning reader (Zahroof ValvesStyle Nena 14 Day Ruby) As directed flash glucose sensor (FreeStyle Nena 14 Day Sensor kit) every 14 days FreeStyle Lancets (lancets) 3 times a day NS gabapentin 300 mg PO TID hydrochlorothiazide 25 mg PO QAM irbesartan 150 mg PO DAILY ketotifen fumarate 0.025%(0.035%) (Allergy Eye (ketotifen)) 1 drp ophthalmic (eye) Q8H PRN levothyroxine 75 mcg PO DAILY metformin take 1 tablet in am and 2 tablets in pm PO 2 times a day; 30 days omeprazole 40 mg PO DAILY scopolamine base 1 patch transdermal Q3D PRN sennosides (Natural Senna Laxative) 17.2 mg (2 x 8.6 mg) PO BEDTIME Tobacco use date assessed: 12/24/22 Dental Screening Dental Screen Date: 12/24/22 Did you have a dental visit in the last 12 months?: No Was dental information given to patient?: No HPI Annual PE/dm, lipids, htn HPI Details 57-year-old lady here today for physical exam. She has diabetes me llitus, with latest hemoglobin A1c today at 7.6 %, higher than last check. She is currently taking empagliflozin, metformin , and Trulicity 1.5 mg weekly. She has been trying to follow recommended diet, but has not been very compliant with getting regular exercise. She is up-to-date with her screening mammogram, due for screening colonoscopy. Has history of papillary thyroid cancer on right, status post partial thyroidectomy, done in [place] in 2014. She was being seen by Dr Mack for subsequent hypothyroidism, and is monitoring her for small left thyroid nodules seen on last thyroid ultrasound done 2020 , due for yearly thyroid ultrasound . He has osteoarthritis , and had recent right rotator cuff surgery done by Dr. Hardy. Has of obstructive sleep apnea currently on CPAP. [facility] Medical History (Updated 01/09/23 @ 03:12 by Marah Russell MD) Acquired hypothyroidism PONV (postoperative nausea and vomiting) Varicose veins of bilateral lower extremities with pain Venous reflux Rotator cuff tendonitis Pain and swelling of left lower leg Right anterior shoulder pain Submandibular gland inflammation Chronic GERD Left thyroid nodule Hallux valgus (acquired), right foot History of thyroid cancer Morbid obesity EDGAR on CPAP Surgical menopause Essential hypertension Abnormal stress ECG with treadmill Type 2 diabetes mellitus with peripheral neuropathy Type 2 diabetes mellitus without complication, with no history of insulin use Surgical History (Updated 01/09/23 @ 02:55 by Marah Russell MD) S/P right rotator cuff repair History of esophagogastroduodenoscopy (EGD) History of shoulder surgery History of endoscopy History of colonoscopy S/P cardiac cath History of partial hysterectomy Hx of cholecystectomy Family History Maternal Aunt No problems noted. 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 1. Little interest or pleasure in doing things: not at all 2. Feeling down, depressed, or hopeless: not at all 3. Trouble falling or staying asleep, or sleeping too much: more than half the days 4. Feeling tired or having little energy: more than half the days 5. Poor appetite or overeating: more than half the days 6. Feeling bad about yourself - or that you are a failure or have let yourself or your family down: not at all 7. Trouble concentrating on things, such as reading the newspaper or watching television: not at all 8. Moving or speaking so slowly that other people could have noticed. Or the opposite - being so fidgety or restless that you have been moving around a lot more than usual: not at all 9. Thoughts that you would be better off or of hurting yourself in some way: not at all Total score: 6 Depression Screening Interpretation: Negative [id number] - PHQ-9 Billing: Yes Source: Developed by Drs. Sudhakar Mauricio, Gracia Grimes, Ady Prasad and colleagues, with an educational silvia from [employer]. Thrive Questionnaire Date Thrive assessed: 11/06/21 I am a: Patient What is your living situation today?: I have a steady place to live Within the past 12 months, did the food you bought not last and you didn't have the money to get more?: Sometimes True Within the past 12 months, did you worry whether your food would run out before you got money to buy more?: Often true Do you have trouble paying for medicines?: No Do you have trouble getting transportation to medical appointments?: No Do you have trouble paying your heating and electricity bill?: No Do you have trouble taking care of your child, family member or friend?: No Do you have trouble with day-to-day activities such as bathing, preparing meals, shopping, managing finances, etc.?: No Are you currently unemployed and looking for a job?: No Are you interested in more education?: Yes AUDIT C Alcohol Use Questionnaire (AUDIT-C) 1. How often do you have a drink containing alcohol?: Never Total Score: 0 MAC-7 AMB Questionnaire MAC-7 Date MAC - 7 assessed: 12/24/22 Feeling nervous, anxious, or on edge: 1 = Several days Not being able to stop or control worryin = Several days Worrying too much about different things: 1 = Several days Trouble relaxin = Several days Being so restless that it is hard to sit still: 0 = Not at all Becoming easily annoyed or irritable: 0 = Not at all Feeling afraid as if something awful might happen: 0 = Not at all Total MAC-7 score (0-4 normal; 5-9 mild; 10-14 moderate; 15-21 severe): 4 Source: Developed by Drs. Sudhakar Mauricio, Gracia Grimes, Ady Prasad and colleagues, with an educational silvia from [employer]. Review of Systems Const Reports no additional complaints Eyes Details: Currently being seen at [facility] , up-to-date with her diabetes retinopathy screening, done earlier this year, retinopathy seen Reports no additional complaints ENT Reports no additional complaints Card Denies chest pain, Denies chest pain at rest, Denies chest pain with activity and Reports dyspnea on exertion (Moderate exertion) Resp Denies chest congestion, Denies cough and Reports dyspnea on exertion (Moderate exertion) GI Reports no additional complaints Reports no additional complaints and Denies nipple discharge Musc Details: pain over varicosities, aching of lower extremities, swelling, cramping, heaviness and tiredness, itching Denies abnormal gait Skin/Breast Denies breast swelling, Denies breast pain, Denies breast mass, Denies nipple discharge and Denies rash Neuro Reports no additional complaints and Denies abnormal gait Psych Denies no additional complaints Endo Reports no additional complaints Anthony/Lymph Reports no additional complaints Aller/Immun Reports no additional complaints Physical exam (Primary Care) Vital Signs: Last Vital Signs Pulse 72 12/24/22 10:06 BP 100/70 12/24/22 10:06 Pulse Ox 98 12/24/22 10:06 Oxygen Delivery Method Room Air 12/24/22 10:06 BMI result Body Mass Index 45.9 BMI Assessment/Plan discussion: High BMI High, discussed plan: lifestyle, weight reduction, dietary and physical activity Tobacco/Smoking Status: Tobacco use Status Tobacco use date assessed 12/24/22 12/24/22 10:08 Patient Tobacco Use Status Never used Tobacco 12/24/22 10:08 e-Cigarette/Vaping Use Never Used 12/24/22 10:08 PHQ-9: PHQ-9 Score PHQ-9: Total score 15 01/09/23 02:36 Depression Screening Interpretation: Negative Thrive Assessment: Date of Thrive Assessment Date Thrive assessed 11/06/21 12/24/22 10:08 Const General: cooperative, no acute distress, alert, awake and Physically active Nutritional Appearance: obese morbidly obese Orientation/consciousness: patient oriented x3 HENMT Head: Yes normocephalic Ears: hearing grossly normal bilaterally and external ears normal General nose exam: Normal external nose present and No nasal discharge present Mouth: Normal oral and palatal mucosa present and moist mucous membranes Neck Neck: Yes full ROM, Yes no lymphadenopathy and Yes supple Resp Effort & Inspection: normal respiratory effort and able to speak in complete sentences Auscultation: clear to auscultation bilaterally Cardio Rate: regular rate Rhythm: regular rhythm Heart sounds: S1 normal heart sound present and S2 normal heart sound present GI Inspection: Yes obesity Palpation (GI): Soft to palpation Auscultation: normal bowel sounds General: Yes no CVA tenderness Back/Spine/Pelvis Back: no CVA tenderness Skin General skin exam: no rashes or lesions noted Neuro Other: Decreased range of motion in right shoulder joint due to recent surgery General: patient oriented x3, gait normal, tone normal, Normal light touch and pain sensation, no focal motor deficits and CN's II-XI intact bilaterally Cognition (Neuro): normal cognition Gait exam (Neuro): Normal gait present Extrem Other: Decreased range of motion of right shoulder joint due to recent surgery General: Yes no joint enlargement, Yes no clubbing, cyanosis or edema, Yes no calf tenderness and Yes normal gait Psych Appearance: grossly normal Mental Status: mental status grossly normal Speech and movement: Normal speech and movement present and Clear speech present Affect: normal affect Attitude: cooperative Thought process: Normal thought process present Thought content: Normal thought content present Results AMB Hemoglobin A1c AMB Hemoglobin A1c 7.6 % Last Edit by Tyra Funes CMA on 12/24/22 10:30 Results Reviewed Results Reviewed: Laboratory Last Values Hgb A1c (Clinic) 7.6 % (4.0-6.0) H 12/24/22 10:22 Assessment and Plan Assessment & Plan (1) Annual visit for general adult medical examination with abnormal findings: Code(s): Z00.01 - Encounter for general adult medical examination with abnormal findings Plan: Will check appropriate labs. Recommended dental visit every 6 months and regular eye exams, currently up-to-date, Take adequate calcium in diet and vitamin-D 3 at 2000 IU per cap once a day, in addition to weight-bearing exercises to help maintain good muscle tone and weight control. Instructed to do self-breast exam, and continue to get yearly mammogram, currently up-to-date. Does not get further Pap smears, due to partial hysterectom please schedule for her screening colonoscopy later this month. She is up-to-date with all her vaccinations, reminded to get her yearly flu shot and COVID booster. (2) Type 2 diabetes mellitus with peripheral neuropathy: Code(s): E11.42 - Type 2 diabetes mellitus with diabetic polyneuropathy Plan: Diabetes mellitus not at goal, with a hemoglobin A1c today at 7.6%. Will increase metformin dose to a 1000 mg taken 1 tablet twice a day with meals. Continue with Jardiance and Trulicity. Reinforced importance of adhering to regular exercise and following recommended diet. Up-to-date with her diabetes retinopathy screening. Will see her back for follow-up in 3 months. Prescription sent for [employer] (acquired by [employer] in 2014) Nena 2 to check blood sugar levels (3) Essential hypertension: Code(s): I10 - Essential (primary) hypertension Plan: Blood pressure at goal of less than 130/80. Continue with current medication. Reinforced importance of following a low sodium diet, getting regular exercise, and lowering stress levels. (4) Left thyroid nodule: Code(s): E04.1 - Nontoxic single thyroid nodule Plan: Repeat thyroid ultrasound ordered to follow-up on left thyroid nodules (5) Morbid obesity with BMI of 40.0-44.9, adult: Code(s): E66.01 - Morbid (severe) obesity due to excess calories; Z68.41 - Body mass index [BMI] 40.0-44.9, adult Plan: Y Discussed need to increase activity and weight reduction. Recommended focusing on improving health instead of dieting. Mediterranean diet is a healthy diet that helps, limit food high in fat, sugar, and calories. Eat slowly, pay attention to portion sizes, plan your meals ahead of time, start regular physical activity, at least 150 minutes of moderate intensity exercise, or 90 minutes per week of vigorous exercise. Keeping a food diary, tracking what you eat and your physical activity can help assess what improvements you can make. T (6) Varicose veins of right lower extremity with inflammation: Code(s): I83.11 - Varicose veins of right lower extremity with inflammation Plan: Followed by Dr. Perez (7) Acquired hypothyroidism: Code(s): E03.9 - Hypothyroidism, unspecified Plan: Continued on levothyroxine 75 mcg daily, ordered a repeat TSH and free T4 Orders: Orders AMB Hemoglobin A1c 12/24/22 E11.42 - Type 2 diabetes mellitus with diabetic polyneuropathy Aspartate Amino Transferase 12/24/22 E66.01 - Morbid (severe) obesity due to excess calories, Z68.41 - Body mass index [BMI] 40.0-44.9, adult, E11.42 - Type 2 diabetes mellitus with diabetic polyneuropathy, E04.1 - Nontoxic single thyroid nodule, I10 - Essential (primary) hypertension, E89.40 - Asymptomatic postprocedural ovarian failure, Z85.850 - Personal history of malignant neoplasm of thyroid Free T4 (Free Thyroxine) 3 Months E03.9 - Hypothyroidism, unspecified, E66.01 - Morbid (severe) obesity due to excess calories, Z68.41 - Body mass index [BMI] 40.0-44.9, adult, E11.42 - Type 2 diabetes mellitus with diabetic polyneuropathy, E04.1 - Nontoxic single thyroid nodule, I10 - Essential (primary) hypertension, E89.40 - Asymptomatic postprocedural ovarian failure, Z8 5.850 - Personal history of malignant neoplasm of thyroid Alanine Aminotransferase 12/24/22 E66.01 - Morbid (severe) obesity due to excess calories, Z68.41 - Body mass index [BMI] 40.0-44.9, adult, E11.42 - Type 2 diabetes mellitus with diabetic polyneuropathy, E04.1 - Nontoxic single thyroid nodule, I10 - Essential (primary) hypertension, E89.40 - Asymptomatic postproce dural ovarian failure, Z85.850 - Personal history of malignant neoplasm of thyroid Basic Metabolic Panel Fasting 12/24/22 E66.01 - Morbid (severe) obesity due to excess calories, Z68.41 - Body mass index [BMI] 40.0-44.9, adult, E11.42 - Type 2 diabetes mellitus with diabetic polyneuropathy, E04.1 - Nontoxic single thyroid nodule, I10 - Essential (primary) hypertension, E89.40 - Asymptomatic postprocedural ovarian failure, Z85.850 - Personal history of malignant neoplasm of thyroid Lipid Panel 12/24/22 E66.01 - Morbid (severe) obesity due to excess calories, Z68.41 - Body mass index [BMI] 40.0-44.9, adult, E11.42 - Type 2 diabetes mellitus with diabetic polyneuropathy, E04.1 - Nontoxic single thyroid nodule, I10 - Essential (primary) hypertension, E89.40 - Asymptomatic postprocedural ovarian failure, Z85.850 - Personal history of malignant neoplasm of thyroid Vitamin D 25-OH Total 12/24/22 E66.01 - Morbid (severe) obesity due to excess calories, Z68.41 - Body mass index [BMI] 40.0-44.9, adult, E11.42 - Type 2 diabetes mellitus with diabetic polyneuropathy, E04.1 - Nontoxic single thyroid nodule, I10 - Essential (primary) hypertension, E89.40 - Asymptomatic postprocedural ovarian failure, Z85.850 - Personal history of malignant neoplasm of thyroid Thyroid Stimulating Hormone 12/24/22 E66.01 - Morbid (severe) obesity due to excess calories, Z68.41 - Body mass index [BMI] 40.0-44.9, adult, E11.42 - Type 2 diabetes mellitus with diabetic polyneuropathy, E04.1 - Nontoxic single thyroid nodule, I10 - Essential (primary) hypertension, E89.40 - Asymptomatic postprocedural ovarian failure, Z85.850 - Personal history of malignant neoplasm of thyroid Medications: New metformin 1,000 mg PO BIDWMEAL 180 tabs 3RF 3 months Changed From flash glucose sensor every 14 days 6 ea 4RF E11.9 - Type 2 diabetes mellitus without complications, E11.65 - Type 2 diabetes mellitus with hyperglycemia To flash glucose sensor (FreeStyle Nena 14 Day Sensor kit) every 14 days 6 ea 4RF E11.9 - Type 2 diabetes mellitus without complications, E11.65 - Type 2 diabetes mellitus with hyperglycemia Refilled dulaglutide (Trulicity) 1.5 mg (0.5 mL) subcut QWEEK 2 mL 5RF Discontinued metformin Discontinued Reason: Doctor's Order take 1 tablet in am and 2 tablets in pm PO 2 times a day; 30 days 540 tabs 1RF E11.65 - Type 2 diabetes mellitus with hyperglycemia Coding Level of Care Code Est Pt Prev Care 40-64y(90751) Diagnoses Annual visit for general adult medical examination with abnormal findings Z00.01 Type 2 diabetes mellitus with peripheral neuropathy E11.42 Essential hypertension I10 Left thyroid nodule E04.1 Morbid obesity with BMI of 40.0-44.9, adult E66.01; Z68.41 Varicose veins of right lower extremity with inflammation I83.11 Acquired hypothyroidism E03.9
[2022-12-24 10:06] VITALS: BP 100/70; PULSE 72; O2SAT 98; BMI 45.9
== END 2022-12-24 11:25 | disposition home or self-care (01) ==
PROVIDERS: Visit Provider Internal Medicine
DX: E11.42 Type 2 diabetes mellitus with diabetic polyneuropathy (principal)
CPT/HCPCS: 83036; 99396

== ENCOUNTER 2022-12-26 07:47 | Day surgery (SDC) | payer OTHER, SELFPAY ==
[2022-12-24 09:22] VITALS: BMI 46.3
[2022-12-26] MEDS: Lactated Ringers 1,000 ML 50 ML IVCONT (08:37)
--- NOTE | 2022-12-26 08:53 | MHC.SHP ---
Pre-Procedural Eval Section A Date of Service: 12/26/22 Section B Chief Complaint: colon screen, GERD Relevant Family History (Specify if Yes): No Relevant Social History: None Present Medications: see Short Stay Collaborative assessment Medical History: Significant History (Abnormal stress ECG with treadmill Chronic GERD Essential hypertension Hallux valgus (acquired), right foot History of thyroid cancer Left thyroid nodule Morbid obesity Multinodular thyroid EDGAR on CPAP Pain and swelling of left lower leg PONV (postoperative nausea and vomiting) Right anterior should) History of Previous Operations: Relevant previous surgery/procedure and date(s) (History of colonoscopy History of endoscopy History of partial hysterectomy Hx of cholecystectomy S/P cardiac cath) Allergies: Allergies Allergy/AdvReac Type Severity Reaction Status Date / Time codeine Allergy Unknown flushing, Uncoded 12/24/22 10:36 dizziness,vomiting Review of Systems Sugical H&P ROS: Negative: Constitution, Cardiovascular, Respiratory, Neurological, Psychiatric, Hem-Onc, Allergic/Immunologic, Gastrointestinal, Genitourinary, Musculoskeletal, Integumentary, Endocrine and Eyes/Ears/Nose/Throat Exam Surgical H&P Exam: Normal: HEENT, Normal: Heart, Normal: Lungs, Normal: Extremities, Normal: Abdomen, Normal: Skin and Normal: Neurological Plan Diagnosis/Plan: Unchanged I have reviewed the history and physical and performed a pertinent physical examination on my patient. No changes have occurred unless specified. Time Spent With Patient Time: Total time managing care of this patient today ____ minutes.
--- NOTE | 2022-12-26 08:55 | P.OP_ITS ---
Operative Note Operative Note Date of Service: 12/26/22 Narrative: Operative Information Procedure Description: EGD, Colonoscopy Indication: hx of GERD, colon screening Anesthesia: MAC FLEXIBLE TRANSORAL UPPER GASTROINTESTINAL ENDOSCOPY AND COLONOSCOPY PROCEDURE NOTE UPPER ENDOSCOPY Consent: Indications for the procedure and potential complications of bleeding, perforation, reaction to medications and missed diagnosis were discussed with the patient and informed consent was obtained. Instrument: Olympus GIF H 190 J mid size upper endoscope Monitoring: Vital signs and clinical assessment, continuous EKG monitoring, Pulse oximetry, Carbon Dioxide monitoring and blood pressure monitoring were done throughout the procedure. Procedure: The patient was placed in the left lateral decubitis position and pre-procedure medications were administered and a bite block was placed. The endoscope was inserted into the mouth and advanced under direct vision to the third part of duodenum. A careful inspection was made as the upper endoscope was withdrawn including a retroflexed examination of the proximal stomach; Findings and interventions are described below. Findings: Larynx:normal Esophagus: GE junction at 30 cm, diaphragm hiatus at 33 cm, 3 cm sliding hiatal hernia noted, LEs was lax, bx taken from GEj, distal and proximal esophagus Stomach: Patchy erythematous and nodular mucosa. Biopsies were obtained. Grade 2 flap valve on retroflexed examination of the cardia. there were also several sessile polyps noted measuring about 8-10 mm and removed with cold snare in the mid and proximal stomach Duodenum: Normal bulb and descending duodenum, Intervention: Biopsies as noted above, cold snare polypectomy COLONOSCOPY Instrument: Olympus variable stiffness pediatric scope 190L Colonoscopy Monitoring: Vital signs and clinical assessment, continuous EKG monitoring, Pulse oximetry, Carbon Dioxide monitoring and blood pressure monitoring were done throughout the procedure. Colon withdrawal time was 7 minutes. Procedure: The patient was placed in the left lateral decubitis position and pre-procedure medications were administered. After a digital rectal examination of the ano-rectum, the video colonoscope was inserted into the rectum and advanced through the colon to the cecum/TI. The colonoscope was slowly withdrawn in a retrograde panoramic fashion and the colon mucosa was carefully examined including a retroflexed view of the rectum. Findings and interventions are described below. Procedure Difficulty:easy Findings: Terminal Ileum-normal Cecum:normal Ascending Colon: normal Transverse Colon -normal Descending Colon:normal Sigmoid Colon: normal Rectum: Retroflexion with medium sized internal hemorrhoids, grade I Anorectum - normal Colon preparation: [place] Bowel Preparation Scale Right colon; 2 Transverse colon: 1-2 Left colon; 1-2 (0 = Unprepared colon segment with mucosa not seen due to solid stool that cannot be cleared. 1 = Portion of mucosa of the colon segment seen, but other areas of the colon segment not well seen due to staining, residual stool and/or opaque liquid. 2 = Minor amount of residual staining, small fragments of stool and/or opaque liquid, but mucosa of colon segment seen well. 3 = Entire mucosa of colon segment seen well with no residual staining, small fragments of stool or opaque liquid) Impression and Post Procedure Diagnosis: Endoscopy Findings: gastritis gastric polyps lax LES hiatal hernia Colonoscopy Findings: internal hemorrhoids Plan: Await Pathology results Repeat Colonoscopy in 5 years due to some areas of fair prep or earlier if clinically indicated High fiber diet leaflet avoid straining at stool, epsom salts and sitz bath, anusol supps or cream GERD precautions Above findings were reviewed with the patient and relevant handouts were provided if indicated.
--- NOTE | 2022-12-26 09:14 | P.CONAN_ITS ---
HPI - Anesthesia Eval Consult details Narrative: egd,colonoscopy PMF Active Problems Active Problems: All Active Problems (Updated 12/04/22 @ 13:30 by Yovanny Anton CNP) Lumbar radiculopathy (Acute) Preop cardiovascular exam (Acute) Varicose veins of right lower extremity with inflammation (Acute) Osteoarthritis of knees, bilateral (Acute) S/P right rotator cuff repair (Acute) Morbid obesity with BMI of 40.0-44.9, adult (Acute) Type 2 diabetes mellitus with peripheral neuropathy (Acute) Allergic conjunctivitis of right eye (Acute) Varicose veins of bilateral lower extremities with pain (Acute) Venous reflux (Acute) Chronic GERD (Acute) Left thyroid nodule (Acute) Hallux valgus (acquired), right foot (Acute) S/P cardiac cath (Acute) History of thyroid cancer (Acute) Morbid obesity (Acute) EDGAR on CPAP (Acute) Surgical menopause (Acute) Essential hypertension (Acute) Type 2 diabetes mellitus without complication, with no history of insulin use (Acute) Past Medical History Medical History (Updated 12/04/22 @ 13:30 by Yovanny Anton CNP) Abnormal stress ECG with treadmill Allergic conjunctivitis of right eye Chronic GERD Essential hypertension Hallux valgus (acquired), right foot History of thyroid cancer Left thyroid nodule Morbid obesity Multinodular thyroid EDGAR on CPAP Pain and swelling of left lower leg PONV (postoperative nausea and vomiting) Right anterior shoulder pain Rotator cuff tendonitis Submandibular gland inflammation Surgical menopause Type 2 diabetes mellitus with peripheral neuropathy Type 2 diabetes mellitus without complication, with no history of insulin use Varicose veins of bilateral lower extremities with pain Venous reflux Family History Family History Maternal Aunt No problems noted. Family history of problems with anesthesia: No Surgical History Surgical History (Updated 12/24/22 @ 09:15 by Bernice Matias RN) History of colonoscopy History of endoscopy History of partial hysterectomy History of shoulder surgery Hx of cholecystectomy S/P cardiac cath History of Problems with Anesthesia: No Social History Social History (Updated 12/04/22 @ 13:17 by Latoya Maloney CMA) Household Members: Family Housing: House Are you a primary critical care clinical nurse specialist to a significant other at home: No Do you presently have visiting nurse or other home services: No Alcohol intake: never Patient Tobacco Use Status: Never used Tobacco e-Cigarette/Vaping Use: Never Used Have you been hit, kicked, punched, or otherwise hurt by someone within the past year? 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 Cognitive needs: No Hearing needs: No Vision needs: Yes Meds Allergies Allergy/AdvReac Type Severity Reaction Status Date / Time codeine Allergy Unknown flushing, Uncoded 12/24/22 10:36 dizziness,vomiting Active Medications: Current Medications Lactated Ringer's (Lr) 1,000 mls @ 50 mls/hr IVCONT .Q20H CHANA Last Admin: 12/26/22 08:37 Dose: 50 mls/hr Home Medications Medication Instructions Recorded Confirmed Last Taken Type aspirin 81 mg tablet,delayed 81 mg PO DAILY 10/24/20 12/24/22 04/28/22 History release (Adult Low Dose Aspirin) Exam Exam Date and Time: December 26, 2022 0914 Height,Weight and Vital Signs: Height 5 ft Weight 107.501 kg Airway Mallampati Class: II TM Dist: >3cm Neck ROM: Limited Heart: rrr Lungs: cta Assessment and Plan Assessment Anesthesia Assessment: Anesthesia Plan Discussed Final Anesthetic Review Family History of Problems with Anesthesia: No History of Problems with Anesthesia: No NPO: Yes ASA Class: III Final Preanesthetic Review: No Changes in Pt Med Stat, Meds/Allgs Chart Reviewed, Consent Obtained/Reviewed and Anes Risks/Benef Reviewed Patient Risk: Intermediate Procedure Risk: Intermediate Anesthetic Plan Anesthetic Plan: MAC: Disposition: Standard PACU
--- NOTE | 2022-12-26 09:16 | PC.NURSE ---
IV attempt by author. attempt and insertion by dr. nino with ultrasound machine.
[2022-12-26 09:17] VITALS: BP 143/86; PULSE 63; RESP 18; TEMP 36.6; O2SAT 100
[2022-12-26 09:27] LABS: Glucose, Whole Blood 142 mg/dL (60-115)
[2022-12-26 10:08] VITALS: BP 124/84; PULSE 111; RESP 16; TEMP 36.8; O2SAT 97
[2022-12-26 10:23] VITALS: BP 119/81; PULSE 93; RESP 14; TEMP 36.8; O2SAT 98
== END 2022-12-26 10:55 | disposition home or self-care (01) ==
PROVIDERS: PCP Internal Medicine; Visit Provider Internal Medicine Gastroenterology
PROC: (CPT 45378; principal; 2022-12-26 09:40)
DX: Z12.11 Encounter for screening for malignant neoplasm of colon (principal); K59.04 Chronic idiopathic constipation; K64.0 First degree hemorrhoids; K21.9 Gastro-esophageal reflux disease without esophagitis; K31.7 Polyp of stomach and duodenum; K29.50 Unspecified chronic gastritis without bleeding; K44.9 Diaphragmatic hernia without obstruction or gangrene; K22.4 Dyskinesia of esophagus; I10 Essential (primary) hypertension; E04.2 Nontoxic multinodular goiter; E11.42 Type 2 diabetes mellitus with diabetic polyneuropathy; Z79.84 Long term (current) use of oral hypoglycemic drugs; E66.01 Morbid (severe) obesity due to excess calories; Z68.42 Body mass index [BMI] 45.0-49.9, adult; G47.33 Obstructive sleep apnea (adult) (pediatric); Z99.89 Dependence on other enabling machines and devices; Z79.82 Long term (current) use of aspirin; Z85.850 Personal history of malignant neoplasm of thyroid; Z88.5 Allergy status to narcotic agent
CPT/HCPCS: 45378; 43251; 43239; 82947; 88305; 88342; J2250

== ENCOUNTER → 2022-12-26 07:47 | Outpatient (BNV) | payer OTHER, SELFPAY | PROVIDERS: PCP Internal Medicine; Visit Provider Internal Medicine Gastroenterology | DX: Z12.11 Encounter for screening for malignant neoplasm of colon (principal); K21.9 Gastro-esophageal reflux disease without esophagitis; K31.7 Polyp of stomach and duodenum; K64.0 First degree hemorrhoids | CPT/HCPCS: 43239; 45378 ==

== ENCOUNTER → 2022-12-31 19:30 | Outpatient (REF) | payer OTHER, MEDICAID, SELFPAY | LOC: HO.SL 19:30 | PROVIDERS: PCP Internal Medicine; Visit Provider Nurse Practitioner Family | DX: G47.33 Obstructive sleep apnea (adult) (pediatric) (principal); E66.01 Morbid (severe) obesity due to excess calories; Z68.41 Body mass index [BMI] 40.0-44.9, adult; Z99.89 Dependence on other enabling machines and devices | CPT/HCPCS: 95810 ==

== ENCOUNTER → 2022-12-31 22:12 | Outpatient (BNV) | payer OTHER, SELFPAY | PROVIDERS: PCP Internal Medicine; Visit Provider Psychiatry & Neurology Neurology | DX: G47.33 Obstructive sleep apnea (adult) (pediatric) (principal) | CPT/HCPCS: 95810 ==

== ENCOUNTER 2023-01-07 12:44 | Outpatient (AMB) | payer OTHER, SELFPAY ==
--- NOTE | 2023-01-07 12:58 | MHC.OFFVIS ---
Intake Vital Signs 01/07/23 13:00 Height 5 ft Weight 227 lb 1.218 oz BMI 44.3 BP 116/69 Blood Pressure Location Lt brachial Position Sitting Pulse 74 Intake Visit Reasons: S/p egd/colon-Suarez Intake Note: Rosalva presents in the office as a follow up egd/colo. CC: Here for the results. Allergies codeine Allergy (Unknown, Uncoded 01/07/23 13:00) flushing, dizziness,vomiting HPI S/p egd/colon-Suarez HPI Details LAST VISIT Chronic GERD Continue omeprazole. Discussed with patient the importance of avoiding dietary triggers and late night snacking. Staying upright for minimum 3 hours after meals discussed with patient. Patient will be sent for upper endoscopy to evaluate for esophagitis, gastritis, duodenitis, gastric or peptic ulcers, H pylori. Chronic idiopathic constipation Patient is taking Senokot 2 tablets every evening and reports that she is moving her bowels well. Feels like she empties them completely. Discussed with patient the importance of emptying her bowels specially that she will be going for colonoscopy. Patient will call us if anything will changes before her procedure Screen for colon cancer Patient denies any trouble with anesthesia in the past. It history of sleep apnea on CPAP every night. Taking low-dose aspirin daily. No history of infections disease in the past or present. Patient is diabetic on metformin only. Denies any issues with anesthesia. Patient had recent surgery and did well with it. Last colonoscopy in 2019 patient had suboptimal prep. Three stressed the importance good prep with patient before the procedure. Currently is on Senokot daily and moves her bowels 2 to 3 times a day. What to expect before during and after the procedures discussed with patient. Clear liquid diet discussed with her and the importance of following it. I will see her after the procedure. Patient is agreeable to this plan and verbalizes understanding of instructions. She was given the opportunity to ask questions and all questions answered. UPPER ENDOSCOPY AND COLONOSCOPY Findings: Larynx:normal Esophagus: GE junction at 30 cm, diaphragm hiatus at 33 cm, 3 cm sliding hiatal hernia noted, LEs was lax, bx taken from GEj, distal and proximal esophagus Stomach: Patchy erythematous and nodular mucosa. Biopsies were obtained. Grade 2 flap valve on retroflexed examination of the cardia. there were also several sessile polyps noted measuring about 8-10 mm and removed with cold snare in the mid and proximal stomach Duodenum: Normal bulb and descending duodenum, Findings: Terminal Ileum-normal Cecum:normal Ascending Colon: normal Transverse Colon -normal Descending Colon:normal Sigmoid Colon: normal Rectum: Retroflexion with medium sized internal hemorrhoids, grade I Anorectum - normal Colon preparation: [place] Bowel Preparation Scale Right colon; 2 Transverse colon: 1-2 Left colon; 1-2 (0 = Unprepared colon segment with mucosa not seen due to solid stool that cannot be cleared. 1 = Portion of mucosa of the colon segment seen, but other areas of the colon segment not well seen due to staining, residual stool and/or opaque liquid. 2 = Minor amount of residual staining, small fragments of stool and/or opaque liquid, but mucosa of colon segment seen well. 3 = Entire mucosa of colon segment seen well with no residual staining, small fragments of stool or opaque liquid) Impression and Post Procedure Diagnosis: Endoscopy Findings: gastritis gastric polyps lax LES hiatal hernia Colonoscopy Findings: internal hemorrhoids Plan: Await Pathology results Repeat Colonoscopy in 5 years due to some areas of fair prep or earlier if clinically indicated High fiber diet leaflet avoid straining at stool, epsom salts and sitz bath, anusol supps or cream GERD precautions PATHOLOGY RESULTS: Diagnosis A. Stomach, biopsy: Reactive gastropathy, no evidence of the H pylori, intestinal metaplasia, or dysplasia. B. Stomach, polypectomies: Fragments of hyperplastic polyp, no evidence of the H pylori, intestinal metaplasia, or dysplasia. C. Gastroesophageal junction, biopsy: Inflamed cardiofundic-type mucosa, no evidence of intestinal metaplasia or dysplasia. D. Esophagus, distal, biopsy: Esophageal squamous mucosa with no diagnostic alteration, no evidence of active esophagitis. E. Esophagus, proximal, biopsy: Esophageal squamous mucosa with no diagnostic alteration, no evidence of active esophagitis. TODAY'S VISIT Patient is here today for follow-up and to discuss upper endoscopy and colonoscopy results. Patient denies any ill effects from the prep, anesthesia or procedure itself. Patient reports that she has been moving her bowels better now that she is taking Senokot. Patient states that her symptoms of acid reflux are suppressed with omeprazole. Patient reports that occasionally when she eats late at night or eat steak late at night she will have acid reflux. Patient states that she tries to stay away from eating heavy food or eating late at night. Patient denies melena, hematochezia, unintentional weight loss or ribbon like stools. Patient denies dyspepsia, dysphagia or odynophagia. No polyps found. Due to suboptimal prep patient will return for colonoscopy in 5 years, sooner if clinically necessary. REPLACED BY [facility] Medical History Allergic conjunctivitis of right eye PONV (postoperative nausea and vomiting) Varicose veins of bilateral lower extremities with pain Venous reflux Rotator cuff tendonitis Pain and swelling of left lower leg Right anterior shoulder pain Submandibular gland inflammation Chronic GERD Left thyroid nodule Multinodular thyroid Hallux valgus (acquired), right foot History of thyroid cancer Morbid obesity EDGAR on CPAP Surgical menopause Essential hypertension Abnormal stress ECG with treadmill Type 2 diabetes mellitus with peripheral neuropathy Type 2 diabetes mellitus without complication, with no history of insulin use Surgical History History of esophagogastroduodenoscopy (EGD) History of shoulder surgery History of endoscopy History of colonoscopy S/P cardiac cath History of partial hysterectomy Hx of cholecystectomy Family History Maternal Aunt No problems noted. 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 Cognitive needs: No Hearing needs: No Vision needs: Yes Review of Systems Const Denies weight gain and Denies weight loss ENT Reports no additional complaints, Denies dysphagia and Denies odynophagia Card Reports no additional complaints Resp Reports no additional complaints GI Denies abdominal pain, Denies belching, Denies melena, Denies bloating, Denies change in bowel habits, Denies dysphagia, Denies excessive flatus, Denies dyspepsia, Denies heartburn, Denies diarrhea, Denies loose stools, Denies nausea, Denies odynophagia and Denies vomiting Musc Reports no additional complaints Neuro Reports no additional complaints Psych Reports no additional complaints Endo Reports no additional complaints Physical Exam Vital Signs: Last Vital Signs Pulse 74 01/07/23 13:00 BP 116/69 01/07/23 13:00 BMI result Body Mass Index 44.3 Const General: healthy appearing, no acute distress and well developed Nutritional Appearance: obese Orientation/consciousness: patient oriented x3 HEENT Head: Yes normal to inspection, Yes normocephalic and Yes atraumatic Face and sinus: Yes normal facial exam Mouth: Normal oral and palatal mucosa present Throat: Yes posterior oropharynx normal, Yes tonsils normal and Yes uvula midline Eyes General: appearance normal, both eyes and all related structures Neck Neck: Yes normal visual inspection, Yes full ROM and Yes trachea midline Thyroid: Thyroid normal Resp Effort & Inspection: normal respiratory effort, able to speak in complete sentences, no tracheal deviation and symmetric chest movement Auscultation: clear to auscultation bilaterally Cardio Rate: regular rate Heart sounds: S1 normal heart sound present and S2 normal heart sound present GI Inspection: Yes normal to inspection, No distended and Yes obesity Palpation (GI): Soft to palpation, not firm, nontender and No hepatosplenomegaly present Auscultation: normal bowel sounds General: Yes no CVA tenderness Back/Spine/Pelvis Back: no CVA tenderness Skin General skin exam: elasticity normal, turgor normal and dry skin Neuro General: patient oriented x3 Psych Appearance: grossly normal Mental Status: mental status grossly normal Assessment & Plan Assessment & Plan (1) Chronic GERD: Code(s): K21.9 - Gastro-esophageal reflux disease without esophagitis Plan: Continue omeprazole every morning. Avoid dietary triggers and late night snacking. Staying upright for minimum 3 hours after meals discussed with patient. (2) Chronic idiopathic constipation: Code(s): K59.04 - Chronic idiopathic constipation Plan: Continue Senokot. Patient was encouraged to increase fluid intake and activity to promote better bowel motility. (3) Status post colonoscopy: Code(s): Z98.890 - Other specified postprocedural states Plan: Patient had no polyps. However due to suboptimal prep in some parts of her colon she will return for colorectal screening in 5 years. I will see her in 6 months, sooner on as needed basis. Patient is agreeable to this plan and verbalizes understanding of instructions. She was given the opportunity to ask questions and all questions answered. Medications: Refilled omeprazole 40 mg PO DAILY 90 caps 3RF Coding Level of Care Code Est Pt Level 4 (46032) Diagnoses Chronic GERD K21.9 Chronic idiopathic constipation K59.04 Status post colonoscopy Z98.890 Time Spent (min) 35 Comment 20 minutes spent with patient and additional 15 minutes spent reviewing her records
[2023-01-07 13:00] VITALS: BP 116/69; PULSE 74; BMI 44.3
== END 2023-01-07 13:26 | disposition home or self-care (01) ==
PROVIDERS: PCP Internal Medicine; Visit Provider Nurse Practitioner Family
DX: K21.9 Gastro-esophageal reflux disease without esophagitis (principal); K59.04 Chronic idiopathic constipation; Z98.890 Other specified postprocedural states
CPT/HCPCS: 99214

== ENCOUNTER → 2023-01-07 12:44 | Outpatient (BNVA) | payer OTHER, SELFPAY | PROVIDERS: PCP Internal Medicine; Visit Provider Nurse Practitioner Family | DX: K21.9 Gastro-esophageal reflux disease without esophagitis (principal); K59.04 Chronic idiopathic constipation; Z79.899 Other long term (current) drug therapy; Z98.890 Other specified postprocedural states | CPT/HCPCS: 99212 ==

== ENCOUNTER 2023-01-16 10:09 | Outpatient (AMB) | payer OTHER, SELFPAY ==
--- NOTE | 2023-01-16 10:09 | A.OFFVIS_ITS ---
Intake Intake Visit Reasons: OV-Right Shoulder Intake Note: Rosalva is a 67 year old female who presents today with complaints of right shoulder pain, hx of Right RTC Repair, 05/01/22. Patient reports that the shoulder is still feeling the same, she still has swelling and the lump of the shoulder. Thisl shoulder is painful, some days worse than others. The arm feels heavy when she is trying to lift. She finished PT in September Allergies codeine Allergy (Unknown, Uncoded 01/16/23 10:15) flushing, dizziness,vomiting HPI OV-Right Shoulder HPI Details Rosalva is a 57 year old woman who presents ~8 1/2 months S/P right RTC repair with SAD. She is here to discuss her RTW status. She says she continues to have weakness with her shoulder, and is concerned that she has not improved since her last appointment. Her pain & swelling have improved somewhat since her last appointment, and she continues to work on strengthening. She has completed her course of PT. 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 She is not able to return to work until she is able to do this. Rosalva continues to describe pain. Most of her pain is in the right trapezius. She states it was getting better but now is getting worse and she is frustrated by this. [facility] Medical History (Updated 01/09/23 @ 03:12 by Marah Russell MD) Acquired hypothyroidism PONV (postoperative nausea and vomiting) Varicose veins of bilateral lower extremities with pain Venous reflux Rotator cuff tendonitis Pain and swelling of left lower leg Right anterior shoulder pain Submandibular gland inflammation Chronic GERD Left thyroid nodule Hallux valgus (acquired), right foot History of thyroid cancer Morbid obesity EDGAR on CPAP Surgical menopause Essential hypertension Abnormal stress ECG with treadmill Type 2 diabetes mellitus with peripheral neuropathy Type 2 diabetes mellitus without complication, with no history of insulin use Surgical History (Updated 01/09/23 @ 02:55 by Marah Russell MD) S/P right rotator cuff repair History of esophagogastroduodenoscopy (EGD) History of shoulder surgery History of endoscopy History of colonoscopy S/P cardiac cath History of partial hysterectomy Hx of cholecystectomy Family History Maternal Aunt No problems noted. 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 Cognitive needs: No Hearing needs: No Vision needs: Yes Review of Systems Const All systems reviewed & are unremarkable except as noted in HPI and below Physical Exam Const General: no acute distress and alert Orientation/consciousness: patient oriented x3 HEENT Head: Yes normocephalic and Yes atraumatic Eyes EOM: EOMs intact bilaterally Resp Effort & Inspection: normal respiratory effort and able to speak in complete sentences Cardio Jugular venous distension: no JVD Skin General skin exam: turgor normal Rashes: no rashes Neuro General: patient oriented x3 Extrem Other: Right Shoulder: 90 degrees isolated GH abduction without pain - empty can 125 degrees combined AB compared to 130 degrees on the contralateral side well-healed portals Extremely tight trapezius musculature Psych Appearance: grossly normal Affect: normal affect Attitude: cooperative Assessment & Plan Assessment & Plan (1) S/P right rotator cuff repair: Code(s): Z98.890 - Other specified postprocedural states Plan: This is a 57 year old woman S/P Right RTC repair with SAD, DOS: 04/30/22. Her overall pain & swelling have improved, but are not fully resolved. She has completed PT and continues with at-home exercise. She has been out of work since her surgery, and has been working on strengthening exercises at home in the hopes of returning soon. 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 I referred her to pain management for consideration of a sprint trial as much of her pain appears to be in the voidio scapular and right trapezius region. I did discuss the recovery from rotator cuff surgery can take a year and she is quite deconditioned. I do not think additional formal physical therapy would be helpful and I think an injection would have deleterious effects on rotator cuff healing. I think she can return to light duty with no lifting or overhead work. I would like to see her back in 3 months time. Coding Level of Care Code Est Pt Level 3 (34053) Diagnoses S/P right rotator cuff repair Z98.890
== END 2023-01-16 11:10 | disposition home or self-care (01) ==
PROVIDERS: PCP Internal Medicine; Visit Provider Orthopaedic Surgery
DX: M25.511 Pain in right shoulder (principal)
CPT/HCPCS: 99213

== ENCOUNTER → 2023-01-16 10:09 | Outpatient (BNVA) | payer OTHER, SELFPAY | PROVIDERS: PCP Internal Medicine; Visit Provider Orthopaedic Surgery | DX: Z47.89 Encounter for other orthopedic aftercare (principal) | CPT/HCPCS: 99212 ==

== ENCOUNTER 2023-01-23 09:11 | Outpatient (AMB) | payer OTHER, SELFPAY ==
--- NOTE | 2023-01-23 09:25 | MHC.OFFVIS ---
Intake Vital Signs 01/23/23 09:31 Height 5 ft Weight 232 lb 6 oz BMI 45.4 BP 130/86 Blood Pressure Location Lt radial Position Sitting Respiration 16 Pulse 79 Pulse Source Pulse Oximeter Pulse Oximetry (%) 97 Oxygen Delivery Method Room Air Intake Visit Reasons: disorder of muscle/LVM Allergies codeine Allergy (Unknown, Uncoded 01/16/23 10:15) flushing, dizziness,vomiting HPI HPI Comments History of Present Illness Details Rosalva is a very pleasant 58 year old female who presents to the office today for evaluation and management of her right shoulder pain. Patient reports that she had rotator cuff surgery 04/2021, pain that she was experiencing prior to the surgery has improved but she was left with posterior and proximal shoulder pain. She has completed PT before and after surgery. Had a recent visit with ortho and was told further PT is not warranted and would not be beneficial. She is currently taking diclofenac at night with some relief but states it upsets her stomach so she only takes when the pain is severe. Patient reports that pain is constant throughout the day, currently rated as a 3/10 but states that by the evening it will be 10/10. Pain is worse with movement, she states physical therapy helped with some range of motion but it remains limited. 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 Patient denies numbness, tingling or weakness of her right upper extremity. In terms of muscle damage condition is described as aching and throbbing. Pain is negatively impacting her enjoyment of life, mood, sleep, activities of daily living and work. [facility] Medical History (Updated 01/23/23 @ 10:49 by Yesenia Madison APRN, DIRECTOR OF APPLICATION DEVELOPMENT) Musculoskeletal disorder involving upper trapezius muscle Acquired hypothyroidism PONV (postoperative nausea and vomiting) Varicose veins of bilateral lower extremities with pain Venous reflux Rotator cuff tendonitis Pain and swelling of left lower leg Right anterior shoulder pain Submandibular gland inflammation Chronic GERD Left thyroid nodule Hallux valgus (acquired), right foot History of thyroid cancer Morbid obesity EDGAR on CPAP Surgical menopause Essential hypertension Abnormal stress ECG with treadmill Type 2 diabetes mellitus with peripheral neuropathy Type 2 diabetes mellitus without complication, with no history of insulin use Surgical History (Updated 01/16/23 @ 11:31 by Prince Hardy MD) S/P right rotator cuff repair History of esophagogastroduodenoscopy (EGD) History of shoulder surgery History of endoscopy History of colonoscopy S/P cardiac cath History of partial hysterectomy Hx of cholecystectomy Family History Maternal Aunt No problems noted. 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 Answers questions appropriately. Fully engaged in examination. Skin: warm, dry, intact HEENT: Normocephalic. Hearing intact. Cardiac: External chest normal in appearance. Respiratory: No cough, audible wheezing or stridor. Abdomen: without gross distension. MS: No obvious swelling or deformities. Right shoulder ROM limited in all planes with reported pain increase. Tender to palpation over scapula and AC joint Neurological: Oriented to person, place, time and situation. Thought process intact. Psychiatric: Appropriate mood and affect. Good judgment and insight. Const General: no acute distress and alert Orientation/consciousness: patient oriented x3 HEENT Head: Yes normocephalic and Yes atraumatic Eyes EOM: EOMs intact bilaterally Resp Effort & Inspection: normal respiratory effort and able to speak in complete sentences Cardio Jugular venous distension: no JVD Skin General skin exam: turgor normal Rashes: no rashes Neuro General: patient oriented x3 Extrem Other: Right Shoulder: 90 degrees isolated GH abduction without pain - empty can 125 degrees combined AB compared to 130 degrees on the contralateral side well-healed portals Extremely tight trapezius musculature Psych Appearance: grossly normal Affect: normal affect Attitude: cooperative Assessment & Plan Assessment & Plan (1) S/P right rotator cuff repair: Code(s): Z98.890 - Other specified postprocedural states (2) Chronic right shoulder pain: Code(s): M25.511 - Pain in right shoulder; G89.29 - Other chronic pain Plan Rosalva is a very pleasant 58-year-old female who presented to the office today for evaluation management of her chronic right shoulder pain. Patient S/P right shoulder surgery 04/2021, she was referred here by orthopedics d/t persistant pain after surgery. Patient has exhausted conservative therapy including NSAIDs, physical therapy and home exercise program. She was advised by ortho that further formal PT would be of no benefit. Discussed options for treatment including diagnostic interventional testing, steroid injections, peripheral nerve stimulation with Sprint, RFA and more permanent neuromodulation. Informational pamphlets provided. Intraarticular steroid injections are discouraged at this time due to potential impedance of postop healing. Will schedule patient for diagnostic US guided suprascapular nerve block with local anesthetic. If patient reports improvement in pain and function in the hours following the diagnostic nerve block will plan for right suprascapular sprint PNS. All questions and concerns have been answered and patient agrees with the plan. Follow up after injections and sooner if needed. Medications: New lidocaine 5% apply to most painful area 1 appl topical BID PRN 50 grams 2RF pain Coding Level of Care Code New Pt Level 4 (11075) Diagnoses S/P right rotator cuff repair Z98.890 Chronic right shoulder pain M25.511; G89.29
[2023-01-23 09:31] VITALS: BP 130/86; PULSE 79; RESP 16; O2SAT 97; BMI 45.4
== END 2023-01-23 10:16 | disposition home or self-care (01) ==
PROVIDERS: PCP Internal Medicine; Visit Provider Registered Nurse Emergency
DX: G89.29 Other chronic pain (principal); M25.511 Pain in right shoulder; Z98.890 Other specified postprocedural states
CPT/HCPCS: 99204; 99214

== ENCOUNTER → 2023-01-23 09:11 | Outpatient (BNVA) | payer OTHER, SELFPAY | PROVIDERS: PCP Internal Medicine; Visit Provider Registered Nurse Emergency ==

== ENCOUNTER 2023-01-30 12:34 | Outpatient (REF) | payer OTHER, SELFPAY ==
[2023-01-30 16:21] LABS: Estimated Average Glucose 171 mg/dL; Hemoglobin A1C 190.3067 umol/L; Hemoglobin A1c % 7.6 % (<6.0)
[2023-01-30 16:36] LABS: Alanine Aminotransferase 50 U/L (0-31); Anion Gap 20 (12-20); Aspartate Amino Transferase 49 U/L (5-31); Blood Urea Nitrogen 21 mg/dL (9-16); Carbon Dioxide 24 mmol/L (22-29); Chloride 103 mmol/L (96-108); Cholesterol 133 mg/dL (<200); Estimated Glomerular Filt Rate > 60; Glucose Fasting 174 mg/dL (60-99); HDL Cholesterol 45 mg/dL (>40); LDL Cholesterol Calculated 55 mg/dL (<100); Potassium 3.5 mmol/L (3.3-5.1); Sodium 143 mmol/L (135-145); Triglycerides 167 mg/dL (<150)
[2023-01-30 16:52] LABS: Free T4 (Free Thyroxine) 1.12 ng/dL (0.71-1.85); Thyroid Stimulating Hormone 1.25 uIU/mL (0.32-4.0)
== END 2023-01-30 12:35 | disposition home or self-care (01) ==
LOC: HO.HMGCLDS 12:34
PROVIDERS: Absent Provider Internal Medicine Endocrinology, Diabetes & Metabolism; PCP Internal Medicine; Visit Provider Internal Medicine
DX: I10 Essential (primary) hypertension (principal); E66.01 Morbid (severe) obesity due to excess calories; Z68.41 Body mass index [BMI] 40.0-44.9, adult; E11.42 Type 2 diabetes mellitus with diabetic polyneuropathy; E04.1 Nontoxic single thyroid nodule; E89.40 Asymptomatic postprocedural ovarian failure; Z85.850 Personal history of malignant neoplasm of thyroid
CPT/HCPCS: 36415; 80048; 80061; 82306; 83036; 84439; 84443; 84450; 84460

== ENCOUNTER → 2023-02-05 10:54 | Outpatient (BNVA) | payer OTHER, SELFPAY | PROVIDERS: PCP Internal Medicine; Visit Provider Nurse Practitioner Family | DX: Z11.0 Encounter for screening for intestinal infectious diseases (principal) | CPT/HCPCS: 99211 ==

== ENCOUNTER 2023-02-05 14:42 | Outpatient (REF) | payer OTHER, SELFPAY ==
[2023-02-09 15:18] LABS: H Pylori Breath Test Negative (Negative)
== END 2023-02-05 14:43 | disposition home or self-care (01) ==
LOC: HO.LNP 14:42
PROVIDERS: Visit Provider Nurse Practitioner Family
DX: Z11.0 Encounter for screening for intestinal infectious diseases (principal)
CPT/HCPCS: 83013

== ENCOUNTER 2023-02-06 12:31 | Outpatient (AMB) | payer OTHER, SELFPAY ==
--- NOTE | 2023-02-06 13:06 | A.OFFVIS_ITS ---
Intake Vital Signs 02/06/23 13:08 Weight 233 lb 3.985 oz BP 82/50 L Blood Pressure Location Lt brachial Position Sitting Pulse 84 Pulse Source Pulse Oximeter Pulse Oximetry (%) 98 Intake Visit Reasons: f/u thyroid cancer S/P lobectomy Intake Note: Patient present for Thyroid Cancer s/p lobectomy follow up visit. BP rechecked lft arm 94/58 Branch Associate Teller Required: No Allergies codeine Allergy (Unknown, Uncoded 01/16/23 10:15) flushing, dizziness,vomiting HPI HPI Comments History of Present Illness Details 58 yo female , today for follow-up, PTC She states she had left hemithyroidectomy on 10/2014 in [place], she had a 0.1 cm tumor, was consider that no need completion thyroidectomy or Remanent ablation. Prior records from [facility] in [place], reviewed, patient had right hemithyroidectomy on 10/07/14 had 1 mm foci of microcarciona PTC. Rest of the histology was benign follicular nodules. She is currently on Levothyroxine 75 mcg daily. She 100 % compliance, good method of administration. Goal of TSH is < 2 MIU/ml. She is still complaining of palpitations, denies tremors, , denies nervousness, insomnia, weight stable, heat intolerance, sweating. Does complain of fatigue and muscle aches 06/08/2020 US THYROID Right Thyroid Lobe: Surgically resected. Left Thyroid Lobe: 4.2 x 1.6 x 2.5 cm, volume 8.9 mL. Previously measured 4.1 x 2.0 x 2.4 cm and volume 10.5 mL. Parenchyma: The gland echotexture is heterogeneous. Thyroid vascularity is hypervascular. Isthmus: Not visualized. Estimated total number of nodules greater than or equal to 1 cm: None. Professional Shopper nodules are described as follows: 1. Location: Left lower pole. Size: 0.4 x 0.2 x 0.4 cm, volume 0.02 mL. Nodule characteristics: Composition: Solid (2). Echogenicity: Hyperechoic (1). Shape: Not taller than wide (0). Margins: Smooth (0). Echogenic Foci: None (0). ACR TI-RADS total points: 4 ACR TI-RADS category: TR 4 2. Location: Left lower pole. Size: 0.3 x 0.5 x 0.2 cm, volume 0.02 mL. Nodule characteristics: Composition: Solid (2). Echogenicity: Hyperechoic (1). Shape: Not taller than wide (0). Margins: Smooth (0). Echogenic Foci: None (0). ACR TI-RADS total points: 6 ACR TI-RADS category: TR 4 NODES: No lymphadenopathy is seen in the tissue surrounding the thyroid gland. Laboratory Tests 05/25/19 12/07/19 12/07/19 16:00 11:38 11:38 Sodium Potassium Creatinine Estimated GFR Fasting Glucose Hemoglobin A1c 6.5 Calcium AST ALT Albumin Triglycerides Cholesterol LDL Cholesterol Di rect LDL Cholesterol, C alc HDL Cholesterol 25-OH Vitamin D To colin TSH Free T4 TSH 3rd Generation 1.20 Thyroglobulin 0.2 H Urine Microalbumin Microalb/Creat Rat io Thyroglobulin Anti body 12/07/19 05/23/20 05/23/20 11:38 09:48 09:48 Sodium Potassium Creatinine Estimated GFR Fasting Glucose Hemoglobin A1c Calcium AST ALT Albumin Triglycerides 195 Cholesterol 143 LDL Cholesterol Di rect LDL Cholesterol, C alc 57 HDL Cholesterol 47 25-OH Vitamin D To colin 88.8 TSH Free T4 TSH 3rd Generation Thyroglobulin 11.5 H Urine Microalbumin 16.0 Microalb/Creat Rat io 16.0 Thyroglobulin Anti body 05/23/20 05/23/20 05/23/20 09:48 09:48 09:48 Sodium 143 Potassium 3.7 Creatinine 0.73 Estimated GFR > 60 Fasting Glucose 136 H Hemoglobin A1c Calcium 9.4 AST 31 ALT 49 H Albumin 4.6 Triglycerides Cholesterol LDL Cholesterol Di rect 75 LDL Cholesterol, C alc HDL Cholesterol 25-OH Vitamin D To colin TSH 0.99 Free T4 1.13 TSH 3rd Generation Thyroglobulin Urine Microalbumin Microalb/Creat Rat io Thyroglobulin Anti body 05/23/20 09:48 Sodium Potassium Creatinine Estimated GFR Fasting Glucose Hemoglobin A1c Calcium AST ALT Albumin Triglycerides Cholesterol LDL Cholesterol Di rect LDL Cholesterol, C alc HDL Cholesterol 25-OH Vitamin D To colin TSH Free T4 TSH 3rd Generation Thyroglobulin 14.7 H Urine Microalbumin Microalb/Creat Rat io Thyroglobulin Anti body <1 PFSH Medical History (Updated 01/23/23 @ 10:49 by Yesenia Madison, MINING TEACHER, CHIEF OF SURGERY) Musculoskeletal disorder involving upper trapezius muscle Acquired hypothyroidism PONV (postoperative nausea and vomiting) Varicose veins of bilateral lower extremities with pain Venous reflux Rotator cuff tendonitis Pain and swelling of left lower leg Right anterior shoulder pain Submandibular gland inflammation Chronic GERD Left thyroid nodule Hallux valgus (acquired), right foot History of thyroid cancer Morbid obesity EDGAR on CPAP Surgical menopause Essential hypertension Abnormal stress ECG with treadmill Type 2 diabetes mellitus with peripheral neuropathy Type 2 diabetes mellitus without complication, with no history of insulin use Surgical History S/P right rotator cuff repair History of esophagogastroduodenoscopy (EGD) History of shoulder surgery History of endoscopy History of colonoscopy S/P cardiac cath History of partial hysterectomy Hx of cholecystectomy Family History Maternal Aunt No problems noted. 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 No thyroid nodules palpable in the right lobe. There is a right submandibular lymph node palpable which is about 1 cm. Neck Other: . Extrem Other: Visual exam of foot performed. No ulcerations or open lesions. No onchomycosis, no callouses.Pulses 2 + distally Sensation intact to monofilament exam. 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 She appears to be clinically and biochemically euthyroid on 75 mcg levothyroxine. Plan is to continue current therapy. At this point, patient can follow up with her primary care provider and return to endocrinology as needed. TSH level should be kept < 2.5 (2) Submandibular gland inflammation: Code(s): K11.20 - Sialoadenitis, unspecified Plan: I took the liberty to make referral to ENT for evaluation Coding Level of Care Code Est Pt Level 3 (82594) Diagnoses History of thyroid cancer Z85.850 Submandibular gland inflammation K11.20
[2023-02-06 13:08] VITALS: BP 82/50; PULSE 84; O2SAT 98
== END 2023-02-06 13:24 | disposition home or self-care (01) ==
PROVIDERS: PCP Internal Medicine; Visit Provider Internal Medicine Endocrinology, Diabetes & Metabolism
DX: Z85.850 Personal history of malignant neoplasm of thyroid (principal); K11.20 Sialoadenitis, unspecified
CPT/HCPCS: 99213

== ENCOUNTER → 2023-02-06 12:31 | Outpatient (BNVA) | payer OTHER, SELFPAY | PROVIDERS: Visit Provider Internal Medicine Endocrinology, Diabetes & Metabolism ==

== ENCOUNTER 2023-02-24 08:15 | Outpatient (AMB) | payer OTHER, SELFPAY ==
[2023-02-24 08:48] VITALS: PULSE 85; RESP 12; O2SAT 96; BMI 45.5
--- NOTE | 2023-02-24 08:48 | MHC.OFFVIS ---
Intake Vital Signs 02/24/23 08:48 Height 5 ft Weight 233 lb BMI 45.5 Blood Pressure Location Lt brachial Position Sitting Respiration 12 Pulse 85 Pulse Source Pulse Oximeter Pulse Oximetry (%) 96 Oxygen Delivery Method Room Air Intake Visit Reasons: Right Dx suprascapular NB /confirmed Allergies codeine Allergy (Unknown, Uncoded 01/16/23 10:15) flushing, dizziness,vomiting HPI Right Dx suprascapular NB /confirmed HPI Details 58-year-old female who presents today to the office for a right diagnostic suprascapular nerve block. Denies any recent cough, cold, infection, fever or other significant changes in medical history since last office visit. [facility] Medical History (Updated 01/23/23 @ 10:49 by Yesenia Madison APRN, DIGITAL MEASUREMENT ADVISOR) Musculoskeletal disorder involving upper trapezius muscle Acquired hypothyroidism PONV (postoperative nausea and vomiting) Varicose veins of bilateral lower extremities with pain Venous reflux Rotator cuff tendonitis Pain and swelling of left lower leg Right anterior shoulder pain Submandibular gland inflammation Chronic GERD Left thyroid nodule Hallux valgus (acquired), right foot History of thyroid cancer Morbid obesity EDGAR on CPAP Surgical menopause Essential hypertension Abnormal stress ECG with treadmill Type 2 diabetes mellitus with peripheral neuropathy Type 2 diabetes mellitus without complication, with no history of insulin use Surgical History S/P right rotator cuff repair History of esophagogastroduodenoscopy (EGD) History of shoulder surgery History of endoscopy History of colonoscopy S/P cardiac cath History of partial hysterectomy Hx of cholecystectomy Family History Maternal Aunt No problems noted. 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 Alert and oriented. Mood and affect appropriate. Follows and participates in conversation appropriately. Respiratory effort is unlabored. Able to transition from sit to stand unassisted. Ambulates with bilaterally normal heel strike and toe off. Office Procedures Nerve Block Details: Right diagnostic suprascapular nerve block, ultrasound guided. After obtaining written consent, pre-procedure blood pressure and heart rate were stable and recorded in the nursing record. The patient was placed in the sitting position. The area overlying the peripheral nerve was widely prepped with chloraprep, allowed to dry and sterilely draped. Using ultrasound, the appropriate landmarks were identified. An 80 mm 21 gauge echostim needle was advanced under ultrasound guidance to the suprascapular notch. Aspiration was negative for heme and synovial fluid. 2 cc of bupivacaine 0.5% was injected around the targeted nerve. The needles were removed, skin cleansed and a sterile bandage was applied. The patient tolerated the procedure well and no complications were encountered. Following the procedure the patient's vital signs were stable. The patient was discharged home in good condition with post-procedural instructions. Time Out: Immediately prior to the procedure, the following was verbally confirmed that there is a signed consent form and that the correct patient, planned procedure, site and side are consistent with documentation and that necessary equipment and/or blood products are available prior to the start of the case. Complications: none EBL: <5 cc Note: An ultrasound image of the injection was taken and stored in the permanent record. 11463 - Suprascapular (Right sided, ultrasound guided) Procedure code (CPT) selection complete Results Reviewed Results Reviewed: No imaging is available for review. Assessment & Plan Assessment & Plan (1) Chronic right shoulder pain: Code(s): M25.511 - Pain in right shoulder; G89.29 - Other chronic pain Plan Patient is status post right diagnostic suprascapular nerve block, ultrasound guided. Patient tolerated procedure well and was discharged home in stable condition with discharge instructions. All questions were answered. We will follow-up in two weeks via telephone or in clinic to assess response to therapy. A follow-up appointment was made during today's visit. Barryed for Dr. Mcgovern by Vernon Toro, medical collections representative, on 02/24/2023. I, Dr. Mcgovern, have personally reviewed and agree with the information entered by the scribe. Coding Level of Care Code Procedure Only Diagnoses Chronic right shoulder pain M25.511; G89.29 CPT Codes Nerve Block - Nerve Block 4: 40213 - Suprascapular ([id number])
== END 2023-02-24 09:15 | disposition home or self-care (01) ==
PROVIDERS: PCP Internal Medicine; Visit Provider Internal Medicine
DX: M25.511 Pain in right shoulder (principal)
CPT/HCPCS: 64418

== ENCOUNTER → 2023-02-24 08:15 | Outpatient (BNVA) | payer OTHER, SELFPAY | PROVIDERS: PCP Internal Medicine; Visit Provider Internal Medicine | DX: M25.511 Pain in right shoulder (principal); G89.29 Other chronic pain | CPT/HCPCS: 64418 ==

== ENCOUNTER 2023-02-26 09:42 | Outpatient (AMB) | payer OTHER, SELFPAY ==
--- NOTE | 2023-02-26 10:05 | MHC.OFFVIS ---
Intake Vital Signs 02/26/23 10:10 Height 5 ft Weight 233 lb BMI 45.5 BP 153/80 H Blood Pressure Location Lt brachial Position Sitting Respiration 18 Pulse 75 Pulse Source Pulse Oximeter Pulse Oximetry (%) 98 Oxygen Delivery Method Room Air Intake Visit Reasons: s/p right Dx suprascapular NB /Confirmed Allergies codeine Allergy (Unknown, Uncoded 01/16/23 10:15) flushing, dizziness,vomiting HPI HPI Comments History of Present Illness Details Rosalva presents to the office today for follow up 2 days s/p right suprascapular nerve block. Patient reports that initially she felt discomfort at the injection site. Then pain improved. In the day following the procedure she was able to use her right arm more without pain increase. She states during that time pain was improved approx 60% with significant improvement in function. She would normally experience significant pain at night if she used her right arm that much but states she did not have worsening pain at night either. She feels that the diagnostic injection provided her pain relief and improvement in mobility/function of the right arm. She would like to proceed with right suprascapular sprint PNS. Prior: Rosalva is a very pleasant 58 year old female who presents to the office today for evaluation and management of her right shoulder pain. Patient reports that she had rotator cuff surgery 04/2021, pain that she was experiencing prior to the surgery has improved but she was left with posterior and proximal shoulder pain. She has completed PT before and after surgery. Had a recent visit with ortho and was told further PT is not warranted and would not be beneficial. She is currently taking diclofenac at night with some relief but states it upsets her stomach so she only takes when the pain is severe. Patient reports that pain is constant throughout the day, currently rated as a 3/10 but states that by the evening it will be 10/10. Pain is worse with movement, she states physical therapy helped with some range of motion but it remains limited. 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 Patient denies numbness, tingling or weakness of her right upper extremity. In terms of muscle damage condition is described as aching and throbbing. Pain is negatively impacting her enjoyment of life, mood, sleep, activities of daily living and work. [facility] Medical History (Updated 01/23/23 @ 10:49 by Yesenia Madison APRN, PLASMA CUTTING MACHINE OPERATOR) Musculoskeletal disorder involving upper trapezius muscle Acquired hypothyroidism PONV (postoperative nausea and vomiting) Varicose veins of bilateral lower extremities with pain Venous reflux Rotator cuff tendonitis Pain and swelling of left lower leg Right anterior shoulder pain Submandibular gland inflammation Chronic GERD Left thyroid nodule Hallux valgus (acquired), right foot History of thyroid cancer Morbid obesity EDGAR on CPAP Surgical menopause Essential hypertension Abnormal stress ECG with treadmill Type 2 diabetes mellitus with peripheral neuropathy Type 2 diabetes mellitus without complication, with no history of insulin use Surgical History S/P right rotator cuff repair History of esophagogastroduodenoscopy (EGD) History of shoulder surgery History of endoscopy History of colonoscopy S/P cardiac cath History of partial hysterectomy Hx of cholecystectomy Family History Maternal Aunt No problems noted. 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 Answers questions appropriately. Fully engaged in examination. Skin: warm, dry, intact HEENT: Normocephalic. Hearing intact. Cardiac: External chest normal in appearance. Respiratory: No cough, audible wheezing or stridor. Abdomen: without gross distension. MS: No obvious swelling or deformities. Right shoulder ROM limited.Tender to palpation over scapula and AC joint Neurological: Oriented to person, place, time and situation. Thought process intact. Psychiatric: Appropriate mood and affect. Good judgment and insight. Assessment & Plan Assessment & Plan (1) S/P right rotator cuff repair: Code(s): Z98.890 - Other specified postprocedural states (2) Chronic right shoulder pain: Code(s): M25.511 - Pain in right shoulder; G89.29 - Other chronic pain Plan Rosalva is a very pleasant 58-year-old female who presented back to the office today for follow up s/p right suprascapular nerve block 02/24/23. Patient with satisfactory results of the nerve block including approx 60% improvement in pain with additional benefit of improved mobility and function. Patient has exhausted conservative therapy including NSAIDs, physical therapy and home exercise program. She was advised by ortho that further formal PT would be of no benefit. Discussed options for treatment including diagnostic interventional testing, steroid injections, peripheral nerve stimulation with Sprint, RFA and more permanent neuromodulation. Informational pamphlets provided. Patient would like to proceed with fluoroscopy guided right suprascapular sprint pns with local anesthetic. All questions and concerns have been answered and patient agrees with the plan. Follow up after procedure, sooner if needed. Coding Level of Care Code Est Pt Level 3 (57126) Diagnoses S/P right rotator cuff repair Z98.890 Chronic right shoulder pain M25.511; G89.29
[2023-02-26 10:10] VITALS: BP 153/80; PULSE 75; RESP 18; O2SAT 98; BMI 45.5
== END 2023-02-26 10:23 | disposition home or self-care (01) ==
PROVIDERS: PCP Internal Medicine; Visit Provider Registered Nurse Emergency
DX: G89.29 Other chronic pain (principal); M25.511 Pain in right shoulder; Z98.890 Other specified postprocedural states
CPT/HCPCS: 99213

== ENCOUNTER → 2023-02-26 09:42 | Outpatient (BNVA) | payer OTHER, SELFPAY | PROVIDERS: PCP Internal Medicine; Visit Provider Registered Nurse Emergency | DX: G89.29 Other chronic pain (principal); M25.511 Pain in right shoulder; Z98.890 Other specified postprocedural states | CPT/HCPCS: 99212 ==

== ENCOUNTER 2023-04-17 10:15 | Outpatient (AMB) | payer OTHER, SELFPAY ==
[2023-04-17 10:44] VITALS: BP 110/68; PULSE 72; O2SAT 98; BMI 45.6
--- NOTE | 2023-04-17 10:44 | MHC.PC.OV ---
Vital Signs 04/17/23 10:44 Height 5 ft Weight 233 lb 8 oz BMI 45.6 BP 110/68 Blood Pressure Location Lt brachial Position Sitting Pulse 72 Pulse Source Pulse Oximeter Pulse Oximetry (%) 98 Oxygen Delivery Method Room Air Intake Visit Reasons: 3 Month follow up Intake Note: Pt is here to follow up for her lab results Allergies codeine Allergy (Unknown, Uncoded 04/17/23 11:01) flushing, dizziness,vomiting Medication List - Last Reconciled 04/17/23 by Marah Russell MD aspirin (Adult Low Dose Aspirin) 81 mg PO DAILY blood sugar diagnostic (FreeStyle Lite Strips) 3 times a day blood-glucose sensor (FreeStyle Nena 3 Sensor device) every 14 days diclofenac sodium 75 mg PO BID PRN dulaglutide (Trulicity) 1.5 mg (0.5 mL) subcut QWEEK empagliflozin (Jardiance) 25 mg PO DAILY 90 days FreeStyle Lancets (lancets) 3 times a day NS gabapentin 300 mg PO TID hydrochlorothiazide 25 mg PO QAM irbesartan 150 mg PO DAILY levothyroxine 75 mcg PO DAILY lidocaine 5% 1 appl topical BID PRN metformin 1,000 mg PO BIDWMEAL 3 months omeprazole 40 mg PO DAILY scopolamine base 1 patch transdermal Q3D PRN sennosides (Natural Senna Laxative) 17.2 mg (2 x 8.6 mg) PO BEDTIME Tobacco use date assessed: 04/17/23 Dental Screening Dental Screen Date: 04/17/23 Did you have a dental visit in the last 12 months?: No Did you have a dental problem in the last 6 months where you did not have access to dental care?: No Was dental information given to patient?: No HPI 3 Month follow up HPI Details 58-year-old lady with obstructive sleep apnea currently on CPAP, has history of thyroid cancer, morbidly obese, has osteoarthritis, here today for follow-up on her diabetes mellitus, hypertension, and hypothyroidism [facility] Medical History (Updated 04/17/23 @ 11:34 by Marah Russell MD) Type 2 diabetes mellitus with obesity Musculoskeletal disorder involving upper trapezius muscle Acquired hypothyroidism PONV (postoperative nausea and vomiting) Varicose veins of bilateral lower extremities with pain Venous reflux Rotator cuff tendonitis Pain and swelling of left lower leg Right anterior shoulder pain Submandibular gland inflammation Chronic GERD Left thyroid nodule Hallux valgus (acquired), right foot History of thyroid cancer Morbid obesity EDGAR on CPAP Surgical menopause Essential hypertension Abnormal stress ECG with treadmill Type 2 diabetes mellitus with peripheral neuropathy Surgical History S/P right rotator cuff repair History of esophagogastroduodenoscopy (EGD) History of shoulder surgery History of endoscopy History of colonoscopy S/P cardiac cath History of partial hysterectomy Hx of cholecystectomy Family History Maternal Aunt No problems noted. 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 Cognitive needs: No Hearing needs: No Vision needs: Yes Questionnaire Thrive Questionnaire Date Thrive assessed: 04/17/23 I am a: Patient What is your living situation today?: I have a steady place to live Within the past 12 months, did the food you bought not last and you didn't have the money to get more?: Never true Within the past 12 months, did you worry whether your food would run out before you got money to buy more?: Never true Do you have trouble paying for medicines?: No Do you have trouble getting transportation to medical appointments?: No Do you have trouble paying your heating and electricity bill?: No Do you have trouble taking care of your child, family member or friend?: No Do you have trouble with day-to-day activities such as bathing, preparing meals, shopping, managing finances, etc.?: No Are you currently unemployed and looking for a job?: No Are you interested in more education?: No AUDIT C Alcohol Use Questionnaire (AUDIT-C) 1. How often do you have a drink containing alcohol?: Never Total Score: 0 MAC-7 AMB Questionnaire MAC-7 Date MAC - 7 assessed: 12/24/22 Source: Developed by Drs. Sudhakar Mauricio, Gracia Grimes, Ady Prasad and colleagues, with an educational silvia from [employer]. Review of Systems Const Reports no additional complaints Eyes Details: sees [facility] yearly Reports no additional complaints ENT Reports no additional complaints Card Denies chest pain, Denies chest pain at rest and Denies chest pain with activity Resp Denies chest congestion and Denies cough GI Reports no additional complaints Musc Denies abnormal gait Neuro Reports no additional complaints and Denies abnormal gait Psych Denies no additional complaints Endo Details: sees Dr Taylor, podiatry in [place] yearly Reports no additional complaints Anthony/Lymph Reports no additional complaints Aller/Immun Reports no additional complaints Physical exam (Primary Care) Vital Signs: Last Vital Signs Pulse 72 04/17/23 10:44 BP 110/68 04/17/23 10:44 Pulse Ox 98 04/17/23 10:44 Oxygen Delivery Method Room Air 04/17/23 10:44 BMI result Body Mass Index 45.6 BMI Assessment/Plan discussion: High BMI High, discussed plan: lifestyle, weight reduction, dietary and physical activity Tobacco/Smoking Status: Tobacco use Status Tobacco use date assessed 04/17/23 04/17/23 10:49 Patient Tobacco Use Status Never used Tobacco 04/17/23 10:49 e-Cigarette/Vaping Use Never Used 04/17/23 10:49 Thrive Assessment: Date of Thrive Assessment Date Thrive assessed 11/06/21 04/17/23 10:49 Const General: cooperative, no acute distress, alert, awake and Physically active Nutritional Appearance: obese morbidly obese Orientation/consciousness: patient oriented x3 HENMT Head: Yes normocephalic Ears: hearing grossly normal bilaterally and external ears normal General nose exam: Normal external nose present and No nasal discharge present Mouth: Normal oral and palatal mucosa present and moist mucous membranes Neck Neck: Yes full ROM, Yes no lymphadenopathy and Yes supple Resp Effort & Inspection: normal respiratory effort and able to speak in complete sentences Auscultation: clear to auscultation bilaterally Cardio Rate: regular rate Rhythm: regular rhythm Heart sounds: S1 normal heart sound present and S2 normal heart sound present GI Inspection: Yes obesity Palpation (GI): Soft to palpation Auscultation: normal bowel sounds General: Yes no CVA tenderness Back/Spine/Pelvis Back: no CVA tenderness Skin General skin exam: no rashes or lesions noted Neuro Other: Decreased range of motion in right shoulder joint due to recent surgery General: patient oriented x3, gait normal, tone normal, Normal light touch and pain sensation, no focal motor deficits and CN's II-XI intact bilaterally Cognition (Neuro): normal cognition Gait exam (Neuro): Normal gait present Extrem Other: Decreased range of motion of right shoulder joint due to recent surgery General: Yes no joint enlargement, Yes no clubbing, cyanosis or edema, Yes no calf tenderness and Yes normal gait Office Procedures Flu Questionnaire Does the patient have a severe egg allergy?: No Does the patient have severe life threatening allergies?: No Does the patient have a fever or illness today?: No Has the patient ever had Guillain-Dunbar Syndrome?: No Has the patient ever had any past reaction to a flu shot?: No Immunizations flu vacc [id number] 6mos up(PF) 60 mcg(15 mcgx4)/0.5 mL IM syringe Performing Provider: Marah Russell MD Performing Location: [facility] Administered by: Becka Lerma CMA on 04/17/23 11:33 Dose Route Admin Location Dispensed Lot Number Expiration Date NDC Maintenance Shop Laborer 0.5 mL IM Left Deltoid 0.5 mL [id number] 10/26/23 95064-354-76 Speed Dating by [employer] VIS Given Date VIS Provided VIS Publication Date 04/17/23 Single Vaccine 20 Eligibility Eligibility Date Funding Source Not [facility] Eligible 04/17/23 Private Results Reviewed Results Reviewed: Laboratory Tests 08/23/22 12/24/22 01/30/23 12:13 10:22 12:44 Estimat Average Glucose 171 Hgb A1c (Clinic) 7.6 H Hemoglobin A1c % 7.0 7.6 H Name: Rosalva Beltre Age/Sex: 58/F : 1965 Unit#: [id number] Attend Dr: Marah Russell MD Re01/30/23 Status: DEP REF Location: [facility] Disch: SPEC : [id number] CLARISSA: 01/30/23-1244 STATUS: COMP REQ : [id number] RECD: 10/05/23-[address]: Sudhakar Caba MD COMP: 01/30/23 ENTERED: 01/30/231240 [facility] DR: Marah Russell MD ORDERED: Met Prof Fast, AST, ALT, Lipid Panel, Free T4, TSH Test Result Flag Reference Site Sodium 143 135-145 mmol/L Potassium 3.5 3.3-5.1 mmol/L CL 103 96-108 mmol/L CO2 24 22-29 mmol/L Gap 20 12-20 BUN 21 H 9-16 mg/dL Creat 0.69 0.5-1.4 mg/dL EGFR > 60 NOTE: For -Vietnamese individuals, multiply the result by 1.210. Chronic Kidney Disease: Estimated GFR < 60 mL/min/1.73m2 Severe Kidney Disease: Estimated GFR < 15 mL/min/1.73m2 FBS 174 H 60-99 mg/dL A fasting glucose of 126 mg/dl or greater on more than one occasion is considered diagnostic of diabetes. CA 10.0 8.4-10.2 mg/dL AST (GOT) 49 H 5-31 U/L ALT (GPT) 50 H 0-31 U/L Triglyceride 167 H <150 mg/dL Desirable Triglyceride: less than 150 mg/dL Borderline High Triglyceride 150-199 mg/dL High Triglyceride: 200-499 mg/dL Very High Triglyceride: greater than or equal to 5OO mg/dL Cholesterol 133 <200 mg/dL Desirable Cholesterol: less than 200 mg/dL Borderline High Cholesterol: 200-239 mg/dL High Cholesterol: greater than 239 mg/dL LDL Calculated 55 <100 mg/dL Desirable LDL: less than 100 mg/dL Near Optimal/Above Optimal LDL: 110-129 mg/dL Borderline High LDL: 130-159 mg/dL High LDL: 160-189 mg/dL Very High LDL: greater than or equal to 190 mg/dL HDL 45 >40 mg/dL Desirable HDL: greater than 40 mg/dL Note: This HDL assay may give artificially low results in patients with liver disease. Free T4 1.12 0.71-1.85 ng/dL TSH 3rd Gen. 1.25 0.32-4.0 uIU/mL TSH 3rd Generation ([facility]) Assessment and Plan Assessment & Plan (1) Type 2 diabetes mellitus with peripheral neuropathy: Code(s): E11.42 - Type 2 diabetes mellitus with diabetic polyneuropathy Plan: Continue with all medications, will increase Trulicity dosing to 3 mg injected weekly. Up-to-date with her yearly diabetes retinopathy screening, and sees Dr. Taylor yearly for her diabetes foot exam. Up-to-date with her COVID booster, pneumonia vaccine and Tdap, flu vaccine given today . Repeat another fasting lipid, hemoglobin A1c urine for microalbumin her screening liver enzymes and vitamin-D level in May 2023 Flu vaccine given today (2) Acquired hypothyroidism: Code(s): E03.9 - Hypothyroidism, unspecified Plan: Last thyroid levels with January 2023 was within normal limits will order repeat thyroid check (3) Essential hypertension: Code(s): I10 - Essential (primary) hypertension Plan: Blood pressure at goal of less than 130/80. Continue with current medication. Reinforced importance of following a low sodium diet, getting regular exercise, and lowering stress levels. Orders: Orders Lipid Panel 07/28/23 E11.69 - Type 2 diabetes mellitus with other specified complication, E66.9 - Obesity, unspecified, E03.9 - Hypothyroidism, unspecified, E66.01 - Morbid (severe) obesity due to excess calories, Z68.41 - Body mass index [BMI] 40.0-44.9, adult, E11.42 - Type 2 diabetes mellitus with diabetic polyneuropathy, I10 - Essential (primary) hypertension Basic Metabolic Panel Fasting 07/28/23 E11.69 - Type 2 diabetes mellitus with other specified complication, E66.9 - Obesity, unspecified, E03.9 - Hypothyroidism, unspecified, E66.01 - Morbid (severe) obesity due to excess calories, Z68.41 - Body mass index [BMI] 40.0-44.9, adult, E11.42 - Type 2 diabetes mellitus with diabetic polyneuropathy, I10 - Essential (primary) hypertension Microalbumin, Random (w Creat) 07/28/23 E11.69 - Type 2 diabetes mellitus with other specified complication, E66.9 - Obesity, unspecified, E03.9 - Hypothyroidism, unspecified, E66.01 - Morbid (severe) obesity due to excess calories, Z68.41 - Body mass index [BMI] 40.0-44.9, adult, E11.42 - Type 2 diabetes mellitus with diabetic polyneuropathy, I10 - Essential (primary) hypertension Free T4 (Free Thyroxine) 07/28/23 E03.9 - Hypothyroidism, unspecified, E11.69 - Type 2 diabetes mellitus with other specified complication, E66.9 - Obesity, unspecified, E66.01 - Morbid (severe) obesity due to excess calories, Z68.41 - Body mass index [BMI] 40.0-44.9, adult, E11.42 - Type 2 diabetes mellitus with diabetic polyneuropathy, I10 - Essential (primary) hypertension Influenza [id number] Immunization 04/17/23 Z23 - Encounter for immunization Aspartate Amino Transferase 07/28/23 E11.69 - Type 2 diabetes mellitus with other specified complication, E66.9 - Obesity, unspecified, E03.9 - Hypothyroidism, unspecified, E66.01 - Morbid (severe) obesity due to excess calories, Z68.41 - Body mass index [BMI] 40.0-44.9, adult, E11.42 - Type 2 diabetes mellitus with diabetic polyneuropathy, I10 - Essential (primary) hypertension Alanine Aminotransferase 07/28/23.69 - Type 2 diabetes mellitus with other specified complication, E66.9 - Obesity, unspecified, E03.9 - Hypothyroidism, unspecified, E66.01 - Morbid (severe) obesity due to excess calories, Z68.41 - Body mass index [BMI] 40.0-44.9, adult, E11.42 - Type 2 diabetes mellitus with diabetic polyneuropathy, I10 - Essential (primary) hypertension Thyroid Stimulating Hormone 07/28/23.69 - Type 2 diabetes mellitus with other specified complication, E66.9 - Obesity, unspecified, E03.9 - Hypothyroidism, unspecified, E66.01 - Morbid (severe) obesity due to excess calories, Z68.41 - Body mass index [BMI] 40.0-44.9, adult, E11.42 - Type 2 diabetes mellitus with diabetic polyneuropathy, I10 - Essential (primary) hypertension Vitamin D 25-OH Total 07/28/23.69 - Type 2 diabetes mellitus with other specified complication, E66.9 - Obesity, unspecified, E03.9 - Hypothyroidism, unspecified, E66.01 - Morbid (severe) obesity due to excess calories, Z68.41 - Body mass index [BMI] 40.0-44.9, adult, E11.42 - Type 2 diabetes mellitus with diabetic polyneuropathy, I10 - Essential (primary) hypertension Medications: Changed From dulaglutide 1.5 mg (0.5 mL) subcut QWEEK 2 mL 5RF To dulaglutide 3 mg (0.5 mL) subcut QWEEK 2 mL 5RF Refilled irbesartan 150 mg PO DAILY 90 tabs 3RF Discontinued blood-glucose sensor Discontinued Reason: Insurance Denied every 14 days 6 ea 1RF E11.42 - Type 2 diabetes mellitus with diabetic polyneuropathy Coding Level of Care Code Est Pt Level 4 (60987) Diagnoses Type 2 diabetes mellitus with peripheral neuropathy E11.42 Acquired hypothyroidism E03.9 Essential hypertension I10
== END 2023-04-17 11:40 | disposition home or self-care (01) ==
PROVIDERS: PCP Internal Medicine; Visit Provider Internal Medicine
DX: Z23 Encounter for immunization (principal)
CPT/HCPCS: 90471; 90686; 99214

== ENCOUNTER 2023-04-23 09:04 | Day surgery (SDC) | payer OTHER, SELFPAY ==
--- NOTE | ~2023-04-23 | FL_ITS ---
EXAMINATION: XR FLUOROSCOPY WITH IMAGES CLINICAL INFORMATION: SPRINT suprascapular right. Right shoulder injection. COMPARISON: None available. TECHNIQUE: Fluoroscopy Supervised By: Dr. Saul Mcgovern. Fluoroscopy Time: 0.5 minutes. Cumulative Dose: 15.5 mGy. DAP: 1.36 Gycm2. Images: 2. FINDINGS: Images demonstrate probe in wire placement over superior right scapula FL/FL guidance in OR IMPRESSION: Fluoroscopy guidance for pain management procedure
[2023-04-23 09:32] VITALS: BMI 45.4
[2023-04-23 09:37] VITALS: BP 139/78; PULSE 78; RESP 16; TEMP 36.1; O2SAT 98
[2023-04-23 11:21] VITALS: BP 128/79; PULSE 66; RESP 18; TEMP 36.6; O2SAT 97
--- NOTE | 2023-04-23 11:36 | MHC.SHP ---
Pre-Procedural Eval Section A Date of Service: 04/23/23 The patient is an INPATIENT: No Changes since office visit: Yes Patient answered all questions The History & Physical has been completed within 30 days and I have reviewed it.: No Section B Chief Complaint: Intractable right shoulder pain Relevant Family History (Specify if Yes): No Relevant Social History: None Present Medications: see Short Stay Collaborative assessment Medical History: No relevant PMH History of Previous Operations: No relevant previous surgery Allergies: Allergies Allergy/AdvReac Type Severity Reaction Status Date / Time codeine Allergy Unknown flushing, Uncoded 04/17/23 11:01 dizziness,vomiting Review of Systems Sugical H&P ROS: Negative: Constitution, Cardiovascular and Respiratory Exam Surgical H&P Exam: Normal: HEENT, Normal: Heart and Normal: Lungs Plan Diagnosis/Plan: Unchanged I have reviewed the history and physical and performed a pertinent physical examination on my patient. No changes have occurred unless specified. Time Spent With Patient Time: Total time managing care of this patient today ____ minutes.
--- NOTE | 2023-04-23 15:38 | PM.OP ---
Brief Operative Note Date of Service: 04/23/23 Pre-op diagnosis: Intractable right shoulder pain Post-op diagnosis: same Procedure: Temporary right suprascapular nerve stimulator placement Implants: Sprint temporary PNS system Surgeon: Saul Mcgovern MD Anesthesia: local Was an Skiagrapher used for this Procedure?: No Estimated blood loss (mL): 2 Pathology: none sent Condition: stable Disposition: same day
--- NOTE | 2023-04-23 15:39 | W.PM.OPN ---
Operative Note Operative Note Date of Service: 04/23/23 Narrative: Peripheral Nerve Stimulation Temporary Lead Placement, Fluoroscopy-Guided, Suprascapular Nerve, Right ? After the risks, benefits and alternatives were discussed with the patient and informed consent was obtained, patient was placed in the sitting position and padded to foster comfort. Appropriate skin and bony landmarks were identified using fluoroscopy, including the left suprascapular notch. The skin overlying the needle entry site was prepped and draped in sterile fashion. After identifying and marking the intended target along the course of the suprascapular nerve, the skin around the planned entry point and the subcutaneous tissues were injected with local anesthetic. An introducer needle and stimulating probe were assembled, inserted and advanced along the intended course of the suprascapular nerve, taking care to maintain the proper depth of insertion as the introducer was advanced under fluoroscopy guidance. Bony contact was achieved with the scapula and maintained throughout. The introducer needle was delivered to a location in proximity to the nerve. Multiple stimulation parameters were used to deliver stimulation to the suprascapular nerve in concert with stimulating at multiple positions around the nerve. Nerve target acquisition was confirmed noting generation of sensory and mild motor effects (paresthesia, muscle tension, etc) in the shoulder and proximal arm; corresponding to the distribution of the suprascapular nerve. Various electrical parameter combinations were tested, and the lead location was adjusted (physically relocated under image guidance) until the patient indicated shoulder paresthesia and tension overlapping the distribution of the patient?s typical region of pain. The stimulating probe was removed from the introducer and a percutaneous lead was guided through the needle and delivered to a location in similar proximity to the nerve. Final location was verified with electrical stimulation and documented. The introducer needle was removed, and the exposed end of the percutaneous lead was attached to an external stimulator unit. Various electrical parameter combinations were again tested until the patient indicated paresthesia and muscle tension overlapping the distribution of the patient?s typical region of pain. After confirming that lead impedance was in the normal range, the external unit was detached, the needle was removed, and the lead was anchored at the skin. The needle entry site was occluded with dermabond. The lead was threaded into the connector block and electrical continuity and desired patient response was confirmed. The connector block was attached to the external stimulator unit. The site was covered with a sterile occlusive dressing.? A final image was taken to document final placement. The patient was observed for stability of vital signs and comfort.
== END 2023-04-23 11:38 | disposition home or self-care (01) ==
PROVIDERS: PCP Internal Medicine; Visit Provider Internal Medicine
PROC: (CPT 64555; principal; 2023-04-23 10:20)
DX: M25.511 Pain in right shoulder (principal); G89.29 Other chronic pain; G47.33 Obstructive sleep apnea (adult) (pediatric); I10 Essential (primary) hypertension; E11.42 Type 2 diabetes mellitus with diabetic polyneuropathy; Z79.85 Long-term (current) use of injectable non-insulin antidiabetic drugs; Z79.84 Long term (current) use of oral hypoglycemic drugs; Z79.899 Other long term (current) drug therapy; Z88.5 Allergy status to narcotic agent
CPT/HCPCS: 64555; C1778

== ENCOUNTER → 2023-04-23 09:04 | Outpatient (BNV) | payer OTHER, SELFPAY | PROVIDERS: PCP Internal Medicine; Visit Provider Internal Medicine | DX: M25.511 Pain in right shoulder (principal) | CPT/HCPCS: 64555 ==

== ENCOUNTER 2023-04-30 08:38 | Outpatient (AMB) | payer OTHER, SELFPAY ==
[2023-04-30 08:55] VITALS: BP 133/78; PULSE 66; RESP 18; O2SAT 98; BMI 45.3
--- NOTE | 2023-04-30 08:55 | MHC.OFFVIS ---
Intake Vital Signs 04/30/23 08:55 Height 5 ft Weight 232 lb BMI 45.3 BP 133/78 Blood Pressure Location Lt brachial Position Sitting Respiration 18 Pulse 66 Pulse Source Pulse Oximeter Pulse Oximetry (%) 98 Oxygen Delivery Method Room Air Intake Visit Reasons: s/p Sprint/ Confirmed Allergies codeine Allergy (Unknown, Uncoded 04/17/23 11:01) flushing, dizziness,vomiting HPI HPI Comments History of Present Illness Details Rosalva presents to the office today for follow up right suprascapular sprint PNS placed 04/23/2023. Patient reports improved pain, range of motion and function since placement of device. Daughter is changing the dressing at home without difficulty. She has been in close contact with [employer] reps, device currently set at 78 for stimulation. She is managing well and has no questions about adjusting the amplitude. Pain today rated as 2/10. She is back to work on light duty and feels positive about that. Prior: Rosalva presents to the office today for follow up 2 days s/p right suprascapular nerve block. Patient reports that initially she felt discomfort at the injection site. Then pain improved. In the day following the procedure she was able to use her right arm more without pain increase. She states during that time pain was improved approx 60% with significant improvement in function. She would normally experience significant pain at night if she used her right arm that much but states she did not have worsening pain at night either. She feels that the diagnostic injection provided her pain relief and improvement in mobility/function of the right arm. She would like to proceed with right suprascapular sprint PNS. Prior: Rosalva is a very pleasant 58 year old female who presents to the office today for evaluation and management of her right shoulder pain. Patient reports that she had rotator cuff surgery 04/2021, pain that she was experiencing prior to the surgery has improved but she was left with posterior and proximal shoulder pain. She has completed PT before and after surgery. Had a recent visit with ortho and was told further PT is not warranted and would not be beneficial. She is currently taking diclofenac at night with some relief but states it upsets her stomach so she only takes when the pain is severe. Patient reports that pain is constant throughout the day, currently rated as a 3/10 but states that by the evening it will be 10/10. Pain is worse with movement, she states physical therapy helped with some range of motion but it remains limited. 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 Patient denies numbness, tingling or weakness of her right upper extremity. In terms of muscle damage condition is described as aching and throbbing. Pain is negatively impacting her enjoyment of life, mood, sleep, activities of daily living and work. COUNT INCLUDES THE [facility] Medical History (Updated 04/17/23 @ 11:34 by Marah Russell MD) Type 2 diabetes mellitus with obesity Musculoskeletal disorder involving upper trapezius muscle Acquired hypothyroidism PONV (postoperative nausea and vomiting) Varicose veins of bilateral lower extremities with pain Venous reflux Rotator cuff tendonitis Pain and swelling of left lower leg Right anterior shoulder pain Submandibular gland inflammation Chronic GERD Left thyroid nodule Hallux valgus (acquired), right foot History of thyroid cancer Morbid obesity EDGAR on CPAP Surgical menopause Essential hypertension Abnormal stress ECG with treadmill Type 2 diabetes mellitus with peripheral neuropathy Surgical History S/P right rotator cuff repair History of esophagogastroduodenoscopy (EGD) History of shoulder surgery History of endoscopy History of colonoscopy S/P cardiac cath History of partial hysterectomy Hx of cholecystectomy Family History Maternal Aunt No problems noted. 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 Answers questions appropriately. Fully engaged in examination. Skin: warm, dry, intact HEENT: Normocephalic. Hearing intact. Cardiac: External chest normal in appearance. Respiratory: No cough, audible wheezing or stridor. Abdomen: without gross distension. MS: No obvious swelling or deformities. Neurological: Oriented to person, place, time and situation. Thought process intact. Psychiatric: Appropriate mood and affect. Good judgment and insight. Sprint dressing change: Existing dressing removed, Area cleansed with chloraprep. Site dry, clean without redness, swelling, warmth, bruising or drainage. Lead secure device removed. Area cleansed again with chloraprep, once dry skin barrier protectant wipe applied. New lead secure device applied, tegaderm applied. Patient tolerated procedure well. Assessment & Plan Assessment & Plan (1) S/P right rotator cuff repair: Code(s): Z98.890 - Other specified postprocedural states (2) Chronic right shoulder pain: Code(s): M25.511 - Pain in right shoulder; G89.29 - Other chronic pain Plan Rosalva is a very pleasant 58-year-old female who presented back to the office today for follow up s/p right suprascapular sprint 04/23/23. Dressing changed as per above. Patient tolerating Sprint PNS well, she is managing dressing changes with help of her daughter and in close contact with [employer] R[employer]. She reports improvement in pain, function and mobility since placement of the device. All questions and concerns have been answered and patient agrees with the plan. Follow up as scheduled for device removal, sooner if needed. Coding Level of Care Code Est Pt Level 3 (69334) Diagnoses S/P right rotator cuff repair Z98.890 Chronic right shoulder pain M25.511; G89.29
== END 2023-04-30 09:08 | disposition home or self-care (01) ==
PROVIDERS: PCP Internal Medicine; Visit Provider Registered Nurse Emergency
DX: Z98.890 Other specified postprocedural states (principal); M25.511 Pain in right shoulder; G89.29 Other chronic pain
CPT/HCPCS: 99024

== ENCOUNTER → 2023-04-30 08:38 | Outpatient (BNVA) | payer OTHER, SELFPAY | PROVIDERS: PCP Internal Medicine; Visit Provider Registered Nurse Emergency | DX: M25.511 Pain in right shoulder (principal); G89.29 Other chronic pain; Z98.890 Other specified postprocedural states | CPT/HCPCS: 99212 ==

== ENCOUNTER 2023-05-22 10:24 | Outpatient (AMB) | payer OTHER, SELFPAY ==
[2023-05-22 10:35] VITALS: BMI 45.3
--- NOTE | 2023-05-22 10:35 | MHC.OFFVIS ---
Intake Vital Signs 05/22/23 10:35 Height 5 ft Weight 232 lb BMI 45.3 Intake Visit Reasons: OV-R RTC Repair, 05/01/22 [place] Intake Note: Rsoalva is a 67 year old female who presents today with complaints of right shoulder pain, hx of Right RTC Repair, 05/01/22. At her last visit she was sent to pain mgmt for possible sprint trial. She is booked for a nerve block and if successful she will process with Sprint device. She was also given a return to work note to return on light duty with no lifting or overhead work . Patient reports that she is back to work. she is doing well. Allergies codeine Allergy (Unknown, Uncoded 04/17/23 11:01) flushing, dizziness,vomiting HPI OV-R RTC Repair, 05/01/22 [place] HPI Details Rosalva is a 58 year old woman who returns to discuss her right shoulder pain. She is ~1 year S/P right RTC repair. She says she is doing better and has returned to work, which she feels is going well. She was seen by Pain Management on 05/10/23 and discussed a nerve block & SPRINT device trial. [facility] Medical History (Updated 04/17/23 @ 11:34 by Marah Russell MD) Type 2 diabetes mellitus with obesity Musculoskeletal disorder involving upper trapezius muscle Acquired hypothyroidism PONV (postoperative nausea and vomiting) Varicose veins of bilateral lower extremities with pain Venous reflux Rotator cuff tendonitis Pain and swelling of left lower leg Right anterior shoulder pain Submandibular gland inflammation Chronic GERD Left thyroid nodule Hallux valgus (acquired), right foot History of thyroid cancer Morbid obesity EDGAR on CPAP Surgical menopause Essential hypertension Abnormal stress ECG with treadmill Type 2 diabetes mellitus with peripheral neuropathy Surgical History S/P right rotator cuff repair History of esophagogastroduodenoscopy (EGD) History of shoulder surgery History of endoscopy History of colonoscopy S/P cardiac cath History of partial hysterectomy Hx of cholecystectomy Family History Maternal Aunt No problems noted. 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 Cognitive needs: No Hearing needs: No Vision needs: Yes Review of Systems Const All systems reviewed & are unremarkable except as noted in HPI and below Physical Exam Vital Signs: BMI result Body Mass Index 45.3 Const General: no acute distress, alert and awake Orientation/consciousness: patient oriented x3 HEENT Head: Yes normocephalic and Yes atraumatic Eyes EOM: EOMs intact bilaterally Resp Effort & Inspection: normal respiratory effort and able to speak in complete sentences Cardio Jugular venous distension: no JVD Skin General skin exam: turgor normal Rashes: no rashes Neuro General: patient oriented x3 Extrem Other: 30/90/120 mild ttp anterosuperior acromion Psych Appearance: grossly normal Affect: normal affect Attitude: cooperative Assessment & Plan Assessment & Plan (1) S/P right rotator cuff repair: Code(s): Z98.890 - Other specified postprocedural states Plan: Strength improving and SPRINT trial helping. Continue light duty with no overhead lifting or lifting > 20 lbs Plan Prepared for Prince Hardy MD by Dave Lynn, medical imaging director, on 05/22/23 at 10:50 AM, EST. Coding Level of Care Code Est Pt Level 3 (39779) Diagnoses S/P right rotator cuff repair Z98.890
== END 2023-05-22 10:50 | disposition home or self-care (01) ==
PROVIDERS: PCP Internal Medicine; Visit Provider Orthopaedic Surgery
DX: M25.511 Pain in right shoulder (principal)
CPT/HCPCS: 99213

== ENCOUNTER → 2023-05-22 10:24 | Outpatient (BNVA) | payer OTHER, SELFPAY | PROVIDERS: PCP Internal Medicine; Visit Provider Orthopaedic Surgery | DX: Z98.890 Other specified postprocedural states (principal) | CPT/HCPCS: 99212 ==

== ENCOUNTER 2023-06-05 12:16 | Emergency (ER) | payer OTHER, SELFPAY ==
--- NOTE | ~2023-06-05 | CT_ITS ---
EXAMINATION: CT ABDOMEN AND PELVIS WITHOUT CONTRAST CLINICAL INFORMATION: Upper abdominal pain and vomiting. Status post cholecystectomy. COMPARISON: CT abdomen pelvis with contrast 02/12/2018 TECHNIQUE: Multidetector volumetric imaging was performed from the superior aspect of the liver through the pubic symphysis. Sagittal and coronal reformatted images were obtained on the technologist's workstation. This CT examination was performed using dose optimization techniques as appropriate, variously including the following: *Automated exposure control *Adjustment of mA and/or kV according to patient size (this includes techniques or standardized protocols for targeted exams where dose is matched to indication/reason for exam; i.e. extremities or head) *Use of iterative reconstruction technique DLP: 861 mGy-cm FINDINGS: LUNG BASES: The visualized lung bases are unremarkable. There is a small hiatal hernia. LIVER, GALLBLADDER, AND BILIARY TREE: The liver is enlarged in size with normal contour but diffusely attenuated. Liver measures 19 cm in craniocaudad length. No focal lesion or intrahepatic ductal dilatation seen. The gallbladder has been surgically removed. PANCREAS: Unremarkable. SPLEEN: Unremarkable. ADRENAL GLANDS: Unremarkable. KIDNEYS AND URETERS: The kidneys are normal in size, shape, and attenuation. No hydronephrosis, hydroureter, or calculi seen. No perinephric stranding. BLADDER: Unremarkable. GASTROINTESTINAL TRACT: There is scattered stool and gas seen throughout the colon without any significant distention. The small bowel loops are normal caliber. The stomach is nondistended. Appendix is not visualized. ABDOMINAL WALL: There is a small umbilical hernia containing fat. Also visualized is 6 small subcutaneous tissue mass measuring 3.7 x 1.6 cm and measuring -2.80 Hounsfield units likely a small seroma. LYMPH NODES: No abnormal size retroperitoneal or pelvic lymph nodes seen. VASCULAR: Unremarkable. PELVIC VISCERA: Unremarkable. OSSEOUS STRUCTURES: No aggressive lytic or sclerotic process seen. CT/CT abdomen pelvis wo IV con IMPRESSION: 1. No acute intra-abdominal process seen. 2. Mild constipation. 3. Small hiatal hernia. 4. Small umbilical hernia containing fat. 5. Hepatic steatosis with mild hepatomegaly Fleischner guidelines were followed.
[2023-06-05 13:03] VITALS: BP 128/74; PULSE 75; RESP 19; TEMP 36.9; O2SAT 97; BMI 44.9
--- NOTE | 2023-06-05 13:04 | ED_ITS ---
HPI - Nausea/Vomiting/Diarrhea General Chief complaint: Nausea/Vomiting/Diarrhea Stated complaint: vomiting, cant hold food down Time Seen by Provider: 06/05/23 16:07 Source: patient Mode of arrival: ambulatory Limitations: no limitations History of Present Illness HPI Narrative: Patient with history of chronic GERD, type 2 diabetic been nauseated and vomiting for last 4 days got worse in last 2 days multiple times she vomited 15- 20 times also had 4 -5 times watery stool patient is status post cholecystectomy no other family member sick no recent antibiotic or seafood intake had slight low-grade fever 2 days ago no urinary symptoms patient unable to eat or drink much in last 48 hours Related Data Home Medications Medication Instructions Recorded Confirmed aspirin 81 mg tablet,delayed 81 mg PO DAILY 10/24/20 04/23/23 release (Adult Low Dose Aspirin) ciclopirox 0.77 % topical cream appl topical 06/19/23 Previous Rx's Medication Instructions Recorded FreeStyle Lancets 28 gauge #100 ea 08/24/20 (lancets) blood sugar diagnostic (FreeStyle #100 ea 08/20/21 Lite Strips) sennosides 8.6 mg tablet (Natural 17.2 mg (2 x 8.6 mg) PO BEDTIME 08/13/22 Senna Laxative) constipation #180 tabs metformin 1,000 mg tablet 1,000 mg PO BIDWMEAL 3 months #180 12/24/22 tabs omeprazole 40 mg capsule,delayed 40 mg PO DAILY #90 caps 01/07/23 release lidocaine 5 % topical ointment 1 appl topical BID PRN pain #50 04/09/23 grams scopolamine base 1 mg over 3 days 1 patch transdermal Q3D PRN for 04/09/23 transdermal patch nausea/vomiting #10 patches empagliflozin 25 mg tablet 25 mg PO DAILY 90 days #90 tabs 04/11/23 (Jardiance) gabapentin 300 mg capsule 300 mg PO TID #90 caps 04/11/23 dulaglutide 3 mg/0.5 mL 3 mg (0.5 mL) subcut QWEEK #2 mL 04/17/23 subcutaneous pen injector irbesartan 150 mg tablet 150 mg PO DAILY #90 tabs 04/17/23 hydrochlorothiazide 25 mg tablet 25 mg PO QAM #90 tabs 05/27/23 ondansetron 4 mg disintegrating 4 mg PO Q6-8H PRN nausea and 06/05/23 tablet vomiting #10 tabs levothyroxine 75 mcg tablet 75 mcg PO DAILY #90 tabs 06/06/23 diclofenac sodium 75 mg 75 mg PO BID PRN for pain #60 tabs 06/20/23 tablet,delayed release Allergies Allergy/AdvReac Type Severity Reaction Status Date / Time codeine Allergy Unknown Vomiting Verified 06/19/23 11:48 Review of Systems 2 Review of Systems: Yes all other systems are reviewed and are negative [facility] Past Medical History Medical History (Updated 06/10/23 @ 13:15 by Yovanny Anton CNP) Type 2 diabetes mellitus with obesity Musculoskeletal disorder involving upper trapezius muscle Acquired hypothyroidism PONV (postoperative nausea and vomiting) Varicose veins of bilateral lower extremities with pain Venous reflux Rotator cuff tendonitis Pain and swelling of left lower leg Right anterior shoulder pain Submandibular gland inflammation Chronic GERD Left thyroid nodule Hallux valgus (acquired), right foot History of thyroid cancer Morbid obesity EDGAR on CPAP Surgical menopause Essential hypertension Abnormal stress ECG with treadmill Type 2 diabetes mellitus with peripheral neuropathy Surgical History S/P right rotator cuff repair History of esophagogastroduodenoscopy (EGD) History of shoulder surgery History of endoscopy History of colonoscopy S/P cardiac cath History of partial hysterectomy Hx of cholecystectomy Family History Family History Maternal Aunt No problems noted. 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 Oriented X3. No acute distress. Eyes: PERRLA, No Nystagmus ENT: Pharynx normal. Oral Mucosa moist Neck: Normal inspection. Neck supple. CVS: Normal heart rate and rhythm. Pulses normal. Respiratory: No respiratory distress. Equal air entry bilateral, no wheezing/rales/rhonchi Abdomen: Soft mild epigastric tenderness Bowel sounds are present, no mass palpable, no CVA tenderness Skin: Skin warm and dry. Normal skin color. Normal skin turgor. Extremities: No lower extremity edema. No calf tenderness Neuro: Oriented X 3. Course Course Course Narrative: RME: Nausea, vomiting, diarrhea x 3 days with abdominal and low back pain. Described pain as discomfort. Denies blood in stool, concerns for blood in the vomit. Poor PO intake, decreased urinary output. Medications Administered Discontinued Medications Generic Name Dose Route Start Last Admin Trade Name Freq PRN Reason Stop Dose Admin Sodium Chloride 1,000 mls @ 999 mls/hr 06/05/23 15:30 06/05/23 20:50 Ns IV 06/05/23 16:30 Infused .Q1H1M CHANA Infusion Potassium Chloride 10 meq in 100 mls @ 100 mls/hr 06/05/23 17:13 06/05/23 19:16 Potassium Chloride/H20 IV 06/05/23 18:12 Infused ONCE ONE Infusion Sodium Chloride 1,000 mls @ 999 mls/hr 06/05/23 21:30 06/05/23 23:54 Ns IV 06/05/23 22:30 Infused .Q1H1M ONE Infusion Metoclopramide HCl 10 mg 06/05/23 21:30 06/05/23 21:55 Metoclopramide Hcl 10 Mg/2 Ml Vial IVPUSH 06/05/23 21:31 10 mg ONCE ONE Administration Ondansetron HCl 4 mg 06/05/23 15:20 06/05/23 17:34 Ondansetron Hcl 4 Mg/2 Ml Vial IVPUSH 06/05/23 15:21 4 mg ONCE ONE Administration Potassium Bicarbonate 25 meq 06/05/23 17:13 06/05/23 17:42 Potassium Bicarbonate/Cit Ac 25 Meq Tablet.Eff PO 06/05/23 17:14 Not Given ONCE ONE Procedures Procedure Narrative Procedure Narrative: I was asked to assist with IV access. Using ultrasound guidance I was able to place an 18 gauge IV in the left upper arm. There was good blood return in the line flushed easily after procedure. There were no complications Medical Decision Making Medical Decision Making [facility] Narrative: Patient has significant nausea vomiting diarrhea likely viral gastroenteritis labs are stable CT scan of the abdomen done which was normal. Patient received 2 L of IV fluids feeling much better discharge patient home Differential Diagnosis Differential Diagnoses: The differential diagnosis associated with the presentation includes Admission/Observation Consideration of admission/observation: Escalation of care including admission/observation considered Lab Data [facility] Lab Attestation statement: I reviewed the patient's lab results. 06/05/23 13:46 06/05/23 13:46 Labs: Lab Results 06/05/23 06/05/23 Range/Units 13:41 13:46 WBC 11.6 H (4.8-10.8) X10*3/uL RBC 5.17 (4.20-5.50) X10*6/uL Hgb 15.5 (12.0-16.0) g/dl Hct 45.7 (37.0-47.0) % MCV 88.4 (80.0-98.0) fL MCH 30.0 (27.0-33.0) pg MCHC 33.9 (31.0-35.0) g/dl RDW 14.5 (11.0-16.0) % Plt Count 277 (160-400) X10*3/uL MPV 9.7 (9.4-12.3) fL Immature Gran % (Auto) 0.2 (0.0-0.4) % Neut % (Auto) 62.6 (45-73) % Lymph % (Auto) 28.8 (20-40) % Henderson % (Auto) 5.5 (2-11) % Eos % (Auto) 2.5 (0-4) % Baso % (Auto) 0.4 (0-2) % Lymph # (Auto) 3.3 (1.2-4.9) X10*3/uL Henderson # (Auto) 0.6 (0.1-1.2) X10*3/uL Eos # (Auto) 0.3 (0.0-0.4) X10*3/uL Baso # (Auto) 0.1 (0.0-0.2) X10*3/uL Abs Immat Gran (auto) 0.02 (0.00-0.03) X10*3/uL Absolute Neuts (auto) 7.3 (2.0-8.3) x10*3/uL Absolute Nucleated RBC 0.000 (0.0-0.012) X10*3/uL Nucleated RBC % (auto) 0.0 (0.0-0.2) /100WBC Sodium 141 (135-145) mmol/L Potassium 3.0 L (3.3-5.1) mmol/L Chloride 101 (96-108) mmol/L Carbon Dioxide 25 (22-29) mmol/L Anion Gap 18 (12-20) BUN 17 H (9-16) mg/dL Creatinine 0.76 (0.5-1.4) mg/dL Estim Creat Clear Calc 85.7 Estimated GFR > 60 Random Glucose 105 (60-115) mg/dL Calcium 10.4 H (8.4-10.2) mg/dL Phosphorus 3.7 (2.7-4.5) mg/dL Magnesium 1.9 (1.6-2.6) mg/dL Total Bilirubin 0.7 (0.0-1.0) mg/dL AST 50 H (5-31) U/L ALT 76 H (0-31) U/L Alkaline Phosphatase 119 H (39-117) U/L Troponin I High Sens < 2.7 (<3.5-17.0) ng/L Total Protein 8.5 H (6.5-8.0) g/dL Albumin 4.7 (3.5-5.0) g/dL Lipase 30 (8-78) U/L Urine Color Dark Yellow Urine Appearance Clear Urine pH 5.5 (5.0-9.0) Ur Specific [place] >= 1.030 H (1.005-1.025) Urine Protein Trace (Neg-Trace) mg/dL Urine Glucose (UA) >=1000 H (Negative) mg/dL Urine Ketones Negative (Negative) mg/dL Urine Blood Negative (Negative) Urine Nitrite Negative (Negative) Ur Leukocyte Esterase Negative (Negative) Urine RBC 0-2 (0-2) /HPF Urine WBC 0-5 (0-5) /HPF Ur Squamous Epith Cells 3-5 (0-2) /HPF Urine Bacteria Trace (None Seen) Hyaline Casts 0-2 (0-2) /LPF COVID-19 (LESLIE) Negative (Negative) COVID-19 Clin Com See Note Influenza Type A (JUJU) Negative (Negative) Influenza Type B (JUJU) Negative (Negative) Influenza A & B Note See Note Independent Interpretation I performed an independent interpretation of an: CT Scan Radiology Impression Discussion of test interpretation with radiology: I have reviewed the radiologist's reading. Discharge Plan Discharge Clinical Impression: Acute gastroenteritis Patient Disposition: Home, Self-Care Instructions: Gastroenteritis (ED) Additional Instructions: Drink plenty of fluids Take nausea medication as prescribed Follow with PCP if not better Prescriptions: New ondansetron 4 mg tablet,disintegrating 4 mg PO Q6-8H PRN (Reason: nausea and vomiting) Qty: 10 0RF No Action (DME) lancets [FreeStyle Lancets] 28 gauge misc See Rx Instructions .MEDSUPPLY Qty: 100 11RF Rx Instructions: 3 times a day (DME) FreeStyle Lite Strips Strip See Rx Instructions .MEDSUPPLY Qty: 100 6RF Rx Instructions: 3 times a day scopolamine base 1 mg over 3 days patch 3 day 1 patch transdermal Q3D PRN (Reason: for nausea/vomiting) Qty: 10 2RF lidocaine 5 % ointment 1 appl topical BID PRN (Reason: pain) Qty: 50 6RF Rx Instructions: apply to most painful area gabapentin 300 mg capsule 300 mg PO TID Qty: 90 4RF Jardiance 25 mg tablet 25 mg PO DAILY 90 Days Qty: 90 1RF hydrochlorothiazide 25 mg tablet 25 mg PO QAM Qty: 90 1RF levothyroxine 75 mcg tablet 75 mcg PO DAILY Qty: 90 1RF diclofenac sodium 75 mg tablet,delayed release (DR/EC) 75 mg PO BID PRN (Reason: for pain) Qty: 60 0RF aspirin [Adult Low Dose Aspirin] 81 mg tablet,delayed release (DR/EC) 81 mg PO DAILY metformin 1,000 mg tablet 1,000 mg PO BIDWMEAL 90 Days Qty: 180 3RF irbesartan 150 mg tablet 150 mg PO DAILY Qty: 90 3RF Trulicity 3 mg/0.5 mL pen injector 3 mg subcut QWEEK Qty: 2 5RF sennosides [Natural Senna Laxative] 8.6 mg tablet 17.2 mg PO BEDTIME Qty: 180 3RF ciclopirox 0.77 % cream topical omeprazole 40 mg capsule,delayed release(DR/EC) 40 mg PO DAILY Qty: 90 3RF Stand Alone Forms: Work/School Release Interventions: ED Discharge Assessment Last Done: 06/05/23 23:55 Discharge Date/Time: 06/05/23 23:55
[2023-06-05 13:51] LABS: MANUAL DIFF FLAG NO
[2023-06-05 13:53] LABS: Basophils Absolute Auto 0.1 X10*3/uL (0.0-0.2); Basophils Percent Auto 0.4 % (0-2); Eosinophils Absolute Auto 0.3 X10*3/uL (0.0-0.4); Eosinophils Percent Auto 2.5 % (0-4); Hematocrit 45.7 % (37.0-47.0); Hemoglobin 15.5 g/dl (12.0-16.0); Imm Gran Abs Auto 0.02 X10*3/uL (0.00-0.03); Imm Gran Pct Auto 0.2 % (0.0-0.4); Lymphocytes Absolute Auto 3.3 X10*3/uL (1.2-4.9); Lymphocytes Percent Auto 28.8 % (20-40); Mean Corpuscular HGB Conc 33.9 g/dl (31.0-35.0); Mean Corpuscular Volume 88.4 fL (80.0-98.0); Mean Platelet Volume 9.7 fL (9.4-12.3); Monocytes Absolute Auto 0.6 X10*3/uL (0.1-1.2); Monocytes Percent Auto 5.5 % (2-11); Neutrophils Absolute Auto 7.3 x10*3/uL (2.0-8.3); Neutrophils Percent Auto 62.6 % (45-73); Platelet Count 277 X10*3/uL (160-400); Red Blood Count 5.17 X10*6/uL (4.20-5.50); Red Cell Distribution Width 14.5 % (11.0-16.0); White Blood Count 11.6 X10*3/uL (4.8-10.8)
[2023-06-05 13:54] LABS: Appearance Urine Clear; Color Urine Dark Yellow; Glucose Urine UA >=1000 mg/dL (Negative); Leukocyte Esterase Urine Negative (Negative); Nitrite Urine Negative (Negative); PH 5.5 (5.0-9.0); Specific Gravity - Urine >= 1.030 (1.005-1.025); UMIC TRIGGER UACC YES; Urine Blood Negative (Negative); Urine Ketones Negative (Negative); Urine Protein Trace mg/dL (Neg-Trace)
[2023-06-05 13:56] LABS: Bacteria Urine Trace (None Seen); Hyaline Casts Urine 0-2 /LPF (0-2); RBC Urine 0-2 /HPF (0-2); WBC Urine 0-5 /HPF (0-5)
[2023-06-05 14:06] LABS: Alanine Aminotransferase 76 U/L (0-31); Albumin Level 4.7 g/dL (3.5-5.0); Alkaline Phosphatase 119 U/L (39-117); Anion Gap 18 (12-20); Aspartate Amino Transferase 50 U/L (5-31); Bilirubin Total 0.7 mg/dL (0.0-1.0); Blood Urea Nitrogen 17 mg/dL (9-16); Calcium 10.4 mg/dL (8.4-10.2); Carbon Dioxide 25 mmol/L (22-29); Chloride 101 mmol/L (96-108); Creatinine Clr Calc Pharmacy 85.7; Estimated Glomerular Filt Rate > 60; Glucose Random 105 mg/dL (60-115); Magnesium 1.9 mg/dL (1.6-2.6); Phosphorus 3.7 mg/dL (2.7-4.5); Sodium 141 mmol/L (135-145); Total Protein 8.5 g/dL (6.5-8.0)
[2023-06-05 14:07] LABS: COVID-19 Test Negative (Negative); IDNOW Serial# 08D9AD1C
[2023-06-05 14:09] LABS: IDNOW Serial# 9DB6401D; Influenza A Negative (Negative); Influenza B2 Negative (Negative)
[2023-06-05 14:14] LABS: Troponin-I High Sensitivity < 2.7 ng/L (<3.5-17.0)
[2023-06-05] MEDS: ondansetron HCL 4 MG/2 ML VIAL IVPUSH (17:34)
[2023-06-05] MEDS: 0.9 % Sodium Chloride 1,000 ML 999 ML IV ×2 (17:34→21:55)
[2023-06-05] MEDS: Potassium Chloride/H20 10 MEQ/100 ML PIGGYBACK 100 MEQ IV (17:34)
[2023-06-05 17:39] VITALS: BP 105/57; PULSE 73; RESP 14; TEMP 36.6; O2SAT 98
[2023-06-05 19:15] VITALS: BP 103/59; PULSE 77; RESP 15; TEMP 36.8; O2SAT 98
[2023-06-05] MEDS: Metoclopramide HCl 10 MG/2 ML VIAL IVPUSH (21:55)
[2023-06-05 22:01] LABS: Lipase 30 U/L (8-78)
--- NOTE | 2023-06-05 22:06 | PC.NURSE ---
Assumed care of pt at 1900. Pt resting comfortably in bed. Dr Christensen placed a second IV in the left hand. Pt denies pain, but states she has some discomfort in her abdomen. Pt is A&Ox4, GCS 15, independent at baseline.
== END 2023-06-05 23:55 | disposition home or self-care (01) ==
PROVIDERS: Nurse Practitioner Family; Emergency Provider Internal Medicine; PCP Internal Medicine
DX: K52.9 Noninfective gastroenteritis and colitis, unspecified (principal); R11.2 Nausea with vomiting, unspecified; E11.9 Type 2 diabetes mellitus without complications; Z11.52 Encounter for screening for COVID-19; Z79.899 Other long term (current) drug therapy; Z79.84 Long term (current) use of oral hypoglycemic drugs
CPT/HCPCS: 74176; 80053; 81001; 83690; 83735; 84100; 84484; 85025; 87502; 87635; 96361; 96374; 96375; 99284; 99285; J2405; J2765; J3480

== ENCOUNTER 2023-06-10 11:12 | Outpatient (AMB) | payer OTHER, SELFPAY ==
--- NOTE | 2023-06-10 11:22 | MHC.OFFVIS ---
Intake Vital Signs 06/10/23 11:26 Height 5 ft Weight 235 lb 6 oz BMI 46.0 BP 110/80 Blood Pressure Location Lt brachial Position Sitting Intake Visit Reasons: 6m follow up EDGAR-Confirmed Intake Note: Patient presents for 6 months f/u. Allergies codeine Allergy (Unknown, Uncoded 04/17/23 11:01) flushing, dizziness,vomiting HPI HPI Comments History of Present Illness Details 58 y/o female patient presents for follow up of EDGAR on CPAP. Pt had a spilt night sleep study done. The baseline portion of the study was significant for a mild degree of sleep apnea. The AHI was 11/hr and oxygen elaina was 83%. Pt tried on CPAP [id number], and the breathing and oxygenation stabilized on CPAP at [id number]. The CPAP compliance and therapy response (03/07/23-06/04/23) reviewed. She is CPAP at [id number]. The usage days 99% and the average usage hours 8 hrs. The CPAP is not transmitting the record. Pt reports that she uses CPAP nightly, sleeps well with CPAP and having less tired during daytime. [facility] Medical History (Updated 06/10/23 @ 13:15 by Yovanny Anton CNP) Type 2 diabetes mellitus with obesity Musculoskeletal disorder involving upper trapezius muscle Acquired hypothyroidism PONV (postoperative nausea and vomiting) Varicose veins of bilateral lower extremities with pain Venous reflux Rotator cuff tendonitis Pain and swelling of left lower leg Right anterior shoulder pain Submandibular gland inflammation Chronic GERD Left thyroid nodule Hallux valgus (acquired), right foot History of thyroid cancer Morbid obesity EDGAR on CPAP Surgical menopause Essential hypertension Abnormal stress ECG with treadmill Type 2 diabetes mellitus with peripheral neuropathy Surgical History S/P right rotator cuff repair History of esophagogastroduodenoscopy (EGD) History of shoulder surgery History of endoscopy History of colonoscopy S/P cardiac cath History of partial hysterectomy Hx of cholecystectomy Family History Maternal Aunt No problems noted. 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 Cognitive needs: No Hearing needs: No Vision needs: Yes Review of Systems Const All systems reviewed & are unremarkable except as noted in HPI and below Physical Exam Vital Signs: Last Vital Signs BP 110/80 06/10/23 11:26 BMI result Body Mass Index 46.0 Const General: cooperative and comfortable Nutritional Appearance: obese Orientation/consciousness: patient oriented x3 Limitations: no limitations Resp Effort & Inspection: normal respiratory effort and able to speak in complete sentences Neuro General: patient oriented x3, gait normal, moves all extremities and CN's II-XI intact bilaterally Cognition (Neuro): normal cognition Gait exam (Neuro): Normal gait present Assessment & Plan Assessment & Plan (1) EDGAR on CPAP: Comment: Mild degree of sleep apnea. The AHI was 11/hr and oxygen elaina was 83%. Code(s): G47.33 - Obstructive sleep apnea (adult) (pediatric); Z99.89 - Dependence on other enabling machines and devices Plan Advised patient to continue to use CPAP at [id number] nightly and more than 4hrs. Stressed compliance, use CPAP niglty and more than 4 hrs. Wt reduction advised. Coding Level of Care Code Est Pt Level 3 (52152) Diagnoses EDGAR on CPAP G47.33; Z99.89
[2023-06-10 11:26] VITALS: BP 110/80; BMI 46.0
== END 2023-06-10 11:46 | disposition home or self-care (01) ==
PROVIDERS: PCP Internal Medicine; Visit Provider Nurse Practitioner Family
DX: G47.33 Obstructive sleep apnea (adult) (pediatric) (principal); Z99.89 Dependence on other enabling machines and devices
CPT/HCPCS: 99213

== ENCOUNTER → 2023-06-10 11:12 | Outpatient (BNVA) | payer OTHER, SELFPAY | PROVIDERS: PCP Internal Medicine; Visit Provider Nurse Practitioner Family | DX: G47.33 Obstructive sleep apnea (adult) (pediatric) (principal); Z99.89 Dependence on other enabling machines and devices | CPT/HCPCS: 99212 ==

== ENCOUNTER 2023-06-19 11:37 | Outpatient (AMB) | payer OTHER, SELFPAY ==
--- NOTE | 2023-06-19 11:40 | A.OFFVIS_ITS ---
Intake Vital Signs 06/19/23 11:46 Height 5 ft Weight 235 lb 4 oz BMI 45.9 BP 122/70 Blood Pressure Location Lt brachial Position Sitting Pulse 69 Pulse Source Pulse Oximeter Pulse Oximetry (%) 98 Oxygen Delivery Method Room Air Intake Visit Reasons: Sprint removal - LVM Intake Note: Pain today 0/10 Product Manager [employer] Required: No Accompanied by: Daughter Allergies codeine Allergy (Unknown, Verified 06/19/23 11:48) Vomiting HPI HPI Comments History of Present Illness Details Rosalva presents back to the office today for follow-up and right suprascapular Sprint removal. Patient reports improvement in pain, function and mobility. She does continue to endorse some limited range of motion and decreased strength to her right hand pain today 0/10 Prior: Rosalva presents to the office today for follow up right suprascapular sprint PNS placed 04/23/2023. Patient reports improved pain, range of motion and function since placement of device. Daughter is changing the dressing at home without difficulty. She has been in close contact with Sprint reps, device currently set at 78 for stimulation. She is managing well and has no questions about adjusting the amplitude. Pain today rated as 2/10. She is back to work on light duty and feels positive about that. Prior: Rosalva presents to the office today for follow up 2 days s/p right suprascapular nerve block. Patient reports that initially she felt discomfort at the injection site. Then pain improved. In the day following the procedure she was able to use her right arm more without pain increase. She states during that time pain was improved approx 60% with significant improvement in function. She would normally experience significant pain at night if she used her right arm that much but states she did not have worsening pain at night either. She feels that the diagnostic injection provided her pain relief and improvement in mobility/function of the right arm. She would like to proceed with right suprascapular sprint PNS. Prior: Rosalva is a very pleasant 58 year old female who presents to the office today for evaluation and management of her right shoulder pain. Patient reports that she had rotator cuff surgery 04/2021, pain that she was experiencing prior to the surgery has improved but she was left with posterior and proximal shoulder pain. She has completed PT before and after surgery. Had a recent visit with ortho and was told further PT is not warranted and would not be beneficial. She is currently taking diclofenac at night with some relief but states it upsets her stomach so she only takes when the pain is severe. Patient reports that pain is constant throughout the day, currently rated as a 3/10 but states that by the evening it will be 10/10. Pain is worse with movement, she states physical therapy helped with some range of motion but it remains limited. 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 Patient denies numbness, tingling or weakness of her right upper extremity. In terms of muscle damage condition is described as aching and throbbing. Pain is negatively impacting her enjoyment of life, mood, sleep, activities of daily living and work. [facility] Medical History (Updated 06/10/23 @ 13:15 by Yovanny Anton CNP) Type 2 diabetes mellitus with obesity Musculoskeletal disorder involving upper trapezius muscle Acquired hypothyroidism PONV (postoperative nausea and vomiting) Varicose veins of bilateral lower extremities with pain Venous reflux Rotator cuff tendonitis Pain and swelling of left lower leg Right anterior shoulder pain Submandibular gland inflammation Chronic GERD Left thyroid nodule Hallux valgus (acquired), right foot History of thyroid cancer Morbid obesity EDGAR on CPAP Surgical menopause Essential hypertension Abnormal stress ECG with treadmill Type 2 diabetes mellitus with peripheral neuropathy Surgical History S/P right rotator cuff repair History of esophagogastroduodenoscopy (EGD) History of shoulder surgery History of endoscopy History of colonoscopy S/P cardiac cath History of partial hysterectomy Hx of cholecystectomy Family History Maternal Aunt No problems noted. 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 Answers questions appropriately. Fully engaged in examination. Skin: warm, dry, intact HEENT: Normocephalic. Hearing intact. Cardiac: External chest normal in appearance. Respiratory: No cough, audible wheezing or stridor. Abdomen: without gross distension. MS: No obvious swelling or deformities. Neurological: Oriented to person, place, time and situation. Thought process intact. Psychiatric: Appropriate mood and affect. Good judgment and insight. Sprint removal: Dressing removed, Site dry, clean, intact. Area cleansed with chloraprep, lead removed with intact tip. Area cleansed again with chloraprep, bandaid applied. Patient tolerated removal well. Assessment & Plan Assessment & Plan (1) Chronic right shoulder pain: Code(s): M25.511 - Pain in right shoulder; G89.29 - Other chronic pain (2) S/P right rotator cuff repair: Code(s): Z98.890 - Other specified postprocedural states Plan Rosalva is a very pleasant 58-year-old female who presented back to the office today for follow up and right suprascapular sprint removal. Device was removed as noted above, patient tolerated well. Her pain is improved but ROM is limited and she reports RUE loss of strength. Order placed for Pt eval and treat to help with the strength/ROM. Patient will follow up with ortho as planned. All questions and concerns have been answered and patient agrees with the plan. Follow up in our office as needed. Orders: Orders PT Evaluation and Treatment Today G89.29 - Other chronic pain, M25.511 - Pain in right shoulder, Z98.890 - Other specified postprocedural states Coding Level of Care Code Est Pt Level 3 (98066) Diagnoses Chronic right shoulder pain M25.511; G89.29 S/P right rotator cuff repair Z98.890
[2023-06-19 11:46] VITALS: BP 122/70; PULSE 69; O2SAT 98; BMI 45.9
== END 2023-06-19 11:55 | disposition home or self-care (01) ==
PROVIDERS: PCP Internal Medicine; Visit Provider Registered Nurse Emergency
DX: M25.511 Pain in right shoulder (principal); G89.29 Other chronic pain; Z98.890 Other specified postprocedural states
CPT/HCPCS: 99213

== ENCOUNTER → 2023-06-19 11:37 | Outpatient (BNVA) | payer OTHER, SELFPAY | PROVIDERS: PCP Internal Medicine; Visit Provider Registered Nurse Emergency | DX: M25.511 Pain in right shoulder (principal); G89.29 Other chronic pain; Z98.890 Other specified postprocedural states | CPT/HCPCS: 99212 ==

== ENCOUNTER 2023-07-03 09:55 | Outpatient (REF) | payer OTHER, SELFPAY ==
[2023-07-03 13:48] LABS: Alanine Aminotransferase 65 U/L (0-31); Anion Gap 14 (12-20); Aspartate Amino Transferase 58 U/L (5-31); Blood Urea Nitrogen 12 mg/dL (9-16); Calcium 9.4 mg/dL (8.4-10.2); Carbon Dioxide 28 mmol/L (22-29); Chloride 101 mmol/L (96-108); Cholesterol 132 mg/dL (<200); Estimated Glomerular Filt Rate > 60; Glucose Fasting 118 mg/dL (60-99); HDL Cholesterol 44 mg/dL (>40); LDL Cholesterol Calculated 62 mg/dL (<100); Potassium 3.2 mmol/L (3.3-5.1); Sodium 140 mmol/L (135-145); Triglycerides 132 mg/dL (<150)
[2023-07-03 13:54] LABS: Free T4 (Free Thyroxine) 1.27 ng/dL (0.71-1.85); Vitamin D 25-OH Total 74.1 ng/mL (>30)
[2023-07-03 14:03] LABS: Creatinine Urine 87.36 mg/dL; Microalbum/Creatinine Ratio Ur 11.4 ug/mg cr (<30)
== END 2023-07-03 09:56 | disposition home or self-care (01) ==
LOC: HO.HMGCLDS 09:55
PROVIDERS: PCP Internal Medicine; Visit Provider Internal Medicine
DX: E11.69 Type 2 diabetes mellitus with other specified complication (principal); E66.9 Obesity, unspecified; E03.9 Hypothyroidism, unspecified; E66.01 Morbid (severe) obesity due to excess calories; E11.42 Type 2 diabetes mellitus with diabetic polyneuropathy; I10 Essential (primary) hypertension; Z68.41 Body mass index [BMI] 40.0-44.9, adult
CPT/HCPCS: 36415; 80048; 80061; 82043; 82306; 82570; 84439; 84443; 84450; 84460

== ENCOUNTER 2023-07-08 13:03 | Outpatient (AMB) | payer OTHER, SELFPAY ==
[2023-07-08 13:10] VITALS: BP 132/74; PULSE 86; BMI 44.8
--- NOTE | 2023-07-08 13:10 | MHC.OFFVIS ---
Intake Vital Signs 07/08/23 13:10 Height 5 ft Weight 229 lb 4.492 oz BMI 44.8 BP 132/74 Blood Pressure Location Lt brachial Position Sitting Pulse 86 Pulse Source Pulse Oximeter Intake Visit Reasons: 6 mnth follow up Intake Note: Pt presents to the office today for a 6 month follow up for GERD. Pt states that the medication has been helping and its not as bad as it was before. She states she does have nausea and vomiting for the past month. She states she did go to ER last month due to her not being able to keep any food or liquids down. She states she hasn't been eating as much due to the nausea and vomiting. Allergies codeine Allergy (Unknown, Verified 07/08/23 13:13) Vomiting HPI 6 mnth follow up HPI Details LAST VISIT Chronic GERD Continue omeprazole every morning. Avoid dietary triggers and late night snacking. Staying upright for minimum 3 hours after meals discussed with patient. Chronic idiopathic constipation Continue Senokot. Patient was encouraged to increase fluid intake and activity to promote better bowel motility. Status post colonoscopy Patient had no polyps. However due to suboptimal prep in some parts of her colon she will return for colorectal screening in 5 years. I will see her in 6 months, sooner on as needed basis. Patient is agreeable to this plan and verbalizes understanding of instructions. She was given the opportunity to ask questions and all questions answered. Plan Medications Refilled omeprazole 40 mg PO DAILY 90 caps 3RF TODAY'S VISIT: Patient is here today for follow-up. Patient continues to have epigastric pain and feeling nauseous specially in the morning. Patient reports that every morning she has been waking up feeling nauseous and vomiting. Patient states that she was seen in the ER June 05 and was told that she has gastritis. Patient is taking omeprazole every morning and continues to have epigastric pain and burning. Patient reports in the last few days she has not been adding much. Has used Zofran when she was discharged from ER and reports that it was helpful. Patient reports frequent dyspepsia without dysphagia or odynophagia. Recent lab work show transaminitis. Patient is status post cholecystectomy. Frequent loose stools throughout the day and no solid stool. Patient denies melena, hematochezia, unintentional weight loss or ribbon like stools. Patient is taking Senokot at bedtime [facility] Medical History (Updated 07/08/23 @ 13:47 by Grazyna Munoz, [facility]) Transaminitis Type 2 diabetes mellitus with obesity Musculoskeletal disorder involving upper trapezius muscle Acquired hypothyroidism PONV (postoperative nausea and vomiting) Varicose veins of bilateral lower extremities with pain Venous reflux Rotator cuff tendonitis Pain and swelling of left lower leg Right anterior shoulder pain Submandibular gland inflammation Chronic GERD Left thyroid nodule Hallux valgus (acquired), right foot History of thyroid cancer Morbid obesity EDGAR on CPAP Surgical menopause Essential hypertension Abnormal stress ECG with treadmill Type 2 diabetes mellitus with peripheral neuropathy Surgical History S/P right rotator cuff repair History of esophagogastroduodenoscopy (EGD) History of shoulder surgery History of endoscopy History of colonoscopy S/P cardiac cath History of partial hysterectomy Hx of cholecystectomy Family History Maternal Aunt No problems noted. 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 Cognitive needs: No Hearing needs: No Vision needs: Yes Review of Systems Const Denies weight gain and Denies weight loss ENT Reports no additional complaints, Denies dysphagia and Denies odynophagia Card Reports no additional complaints Resp Reports no additional complaints GI Reports abdominal pain (Epigastric), Denies belching, Denies melena, Reports bloating, Denies change in bowel habits, Denies dysphagia, Denies excessive flatus, Denies dyspepsia, Denies heartburn, Denies diarrhea, Reports loose stools, Reports nausea, Denies odynophagia and Reports vomiting Reports no additional complaints Musc Reports no additional complaints Neuro Reports no additional complaints Psych Reports no additional complaints Endo Reports no additional complaints Physical Exam Vital Signs: Last Vital Signs Pulse 86 07/08/23 13:10 BP 132/74 07/08/23 13:10 BMI result Body Mass Index 44.8 Const General: no acute distress Nutritional Appearance: obese Orientation/consciousness: patient oriented x3 Resp Effort & Inspection: normal respiratory effort, able to speak in complete sentences, no tracheal deviation and symmetric chest movement Auscultation: clear to auscultation bilaterally Cardio Rate: regular rate GI Inspection: Yes normal to inspection, No distended and Yes obesity Palpation (GI): Soft to palpation, not firm, nontender and No hepatosplenomegaly present Auscultation: Hypoactive bowel sounds present General: Yes no CVA tenderness Back/Spine/Pelvis Back: no CVA tenderness Skin General skin exam: elasticity normal, turgor normal and dry skin Neuro General: patient oriented x3 Psych Appearance: grossly normal Mental Status: mental status grossly normal Judgement: Good judgement present (Psych) Results Reviewed Results Reviewed: ABDOMINAL CT SCAN 06/05/2023 IMPRESSION: 1. No acute intra-abdominal process seen. 2. Mild constipation. 3. Small hiatal hernia. 4. Small umbilical hernia containing fat. 5. Hepatic steatosis with mild hepatomegaly Assessment & Plan Assessment & Plan (1) Chronic GERD: Code(s): K21.9 - Gastro-esophageal reflux disease without esophagitis (2) Chronic idiopathic constipation: Code(s): K59.04 - Chronic idiopathic constipation (3) Transaminitis: Code(s): R74.01 - Elevation of levels of liver transaminase levels (4) Postprandial epigastric pain: Code(s): R10.13 - Epigastric pain (5) Nausea & vomiting: Code(s): R11.2 - Nausea with vomiting, unspecified Qualifiers: Vomiting type: unspecified Qualified Code(s): R11.2 - Nausea with vomiting, unspecified Plan Patient will stop omeprazole and will start her on Nexium. Will add sucralfate at bedtime. Patient was encouraged to avoid dietary triggers and late night snacking. Staying upright for minimum 3 hours after meals discussed with patient. Patient will start taking Citrucel in the morning, continue take Senokot in the evening. Increase fluid intake and activity to promote better bowel motility. Transaminitis will rule out out immune disorders, will send patient for abdominal ultrasound with elastography. Patient is aware that she will need to lose weight, however we will start 1st with making her feel better before we will do that. Currently patient has no appetite. May take Zofran as needed. I will see her in 6 weeks, sooner on as needed basis. Patient is agreeable to this plan and verbalizes understanding instructions. She was given the opportunity to ask questions and all questions answered. Thank you for allowing me to participate in her care Orders: Orders Hepatitis A,B,C Profile Today R79.89 - Other specified abnormal findings of blood chemistry HIV Ab/Ag Today R79.89 - Other specified abnormal findings of blood chemistry C Reactive Protein Today K58.9 - Irritable bowel syndrome without diarrhea Alpha Fetoprotein Today R79.89 - Other specified abnormal findings of blood chemistry Prothrombin Time INR Today R74.8 - Abnormal levels of other serum enzymes Liver Fibrosis Pnl Today R74.8 - Abnormal levels of other serum enzymes Mitochondrial Antibody Today R79.89 - Other specified abnormal findings of blood chemistry Hemoglobin A1c Today E11.9 - Type 2 diabetes mellitus without complications Smooth Muscle Antibody Today R79.89 - Other specified abnormal findings of blood chemistry Ferritin Today R74.8 - Abnormal levels of other serum enzymes US abdomen hernandez w elastography Today R74.01 - Elevation of levels of liver transaminase levels Medications: New esomeprazole magnesium (Nexium) 40 mg PO DAILY 90 caps 5RF K21.9 - Gastro-esophageal reflux disease without esophagitis sucralfate 1 g PO BEDTIME 30 tabs 4RF R19.7 - Diarrhea, unspecified methylcellulose (laxative) (Citrucel) take it with full glass of water 500 mg PO DAILY 90 tabs 2RF K59.00 - Constipation, unspecified Refilled ondansetron 4 mg PO Q6-8H PRN 10 tabs 0RF nausea and vomiting sennosides (Natural Senna Laxative) 17.2 mg (2 x 8.6 mg) PO BEDTIME 180 tabs 3RF constipation K59.00 - Constipation, unspecified Discontinued omeprazole Discontinued Reason: Ancillary Entered New Order 40 mg PO DAILY 90 caps 3RF Coding Level of Care Code Est Pt Level 4 (75334) Diagnoses Chronic GERD K21.9 Chronic idiopathic constipation K59.04 Transaminitis R74.01 Postprandial epigastric pain R10.13 Nausea and vomiting, unspecified vomiting type R11.2 Vomiting type: unspecified Time Spent (min) 40 Comment 25 minutes spent with patient and additional 15 minutes spent reviewing her records
== END 2023-07-08 13:41 | disposition home or self-care (01) ==
PROVIDERS: PCP Internal Medicine; Visit Provider Nurse Practitioner Family
DX: K21.9 Gastro-esophageal reflux disease without esophagitis (principal); K59.04 Chronic idiopathic constipation; R74.01 Elevation of levels of liver transaminase levels; R10.13 Epigastric pain; R11.2 Nausea with vomiting, unspecified
CPT/HCPCS: 99214

== ENCOUNTER → 2023-07-08 13:03 | Outpatient (BNVA) | payer OTHER, SELFPAY | PROVIDERS: PCP Internal Medicine; Visit Provider Nurse Practitioner Family | DX: K21.9 Gastro-esophageal reflux disease without esophagitis (principal); K59.04 Chronic idiopathic constipation; R74.01 Elevation of levels of liver transaminase levels; R10.13 Epigastric pain; R11.2 Nausea with vomiting, unspecified | CPT/HCPCS: 99212 ==

== ENCOUNTER 2023-07-10 08:40 | Outpatient (REF) | payer OTHER, SELFPAY ==
[2023-07-10 11:44] LABS: Prothrombin Time 11.9 SEC (11.1-13.3)
[2023-07-10 12:05] LABS: Estimated Average Glucose 146 mg/dL; Hemoglobin A1c % 6.7 % (<6.0)
[2023-07-10 12:16] LABS: C Reactive Protein 0.93 mg/dL (< or = 0.50); Potassium 3.3 mmol/L (3.3-5.1)
[2023-07-10 12:55] LABS: Ferritin 92 ng/mL (10-250)
[2023-07-11 04:30] LABS: HBc Num1 0.11 S/CO (0.00-0.79); HBsAGNum1 0.37 S/CO (0.00-0.99); HIV AB/AG Nonreactive (Nonreactive); HIV Num 1 0.08 S/CO (0.00-0.99); Hepatitis A Antibody IgM 0.16 Index (0-0.79); Hepatitis B Core Antibody Nonreactive (Nonreactive); Hepatitis B Surface Antigen Negative (Negative); ~HepC Num1 0.28 S/CO (0.00-0.79); ~Hepatitis A Antibody IgM Nonreactive (Nonreactive); ~Hepatitis B Surface Antibody REACTIVE (Nonreactive); ~Hepatitis C Antibody Nonreactive (Nonreactive)
[2023-07-11 13:19] LABS: Alpha Fetoprotein 5.1 ng/mL
[2023-07-14 14:04] LABS: Mitochondrial Antibodies NEGATIVE (NEGATIVE)
[2023-07-15 11:43] LABS: Smooth Muscle Antibody <20 U (<20)
[2023-07-18 18:19] LABS: FIB-ALT 34 U/L (6-29); FIB-Alpha-2-Macroglobulin 86 mg/dL (106-279); FIB-Apolipoprotein A1 165 mg/dL (101-198); FIB-GGT 64 U/L (3-65); FIB-Haptoglobin 205 mg/dL (43-212); FIB-Total Bilirubin 0.5 mg/dL (0.2-1.2); Liver Fibrosis Score 0.05; Liver Fibrosis Stage F0; Nec Inflam Act Grade A0; Nec Inflam Act Score 0.13
== END 2023-07-10 08:41 | disposition home or self-care (01) ==
LOC: HO.HMGCLDS 08:40
PROVIDERS: PCP Internal Medicine; Visit Provider Nurse Practitioner Family
DX: E87.6 Hypokalemia (principal); R74.8 Abnormal levels of other serum enzymes; R79.89 Other specified abnormal findings of blood chemistry; K58.9 Irritable bowel syndrome, unspecified; E11.9 Type 2 diabetes mellitus without complications
CPT/HCPCS: 36415; 81596; 82105; 82728; 83036; 84132; 85610; 86015; 86140; 86381; 86704; 86706; 86709; 86803; 87340; 87389

== ENCOUNTER 2023-07-15 10:33 | Outpatient (AMB) | payer OTHER, SELFPAY ==
[2023-07-15 10:35] VITALS: BP 100/62; PULSE 65; O2SAT 100; BMI 45.1
--- NOTE | 2023-07-15 10:35 | MHC.PC.OV ---
Vital Signs 07/15/23 10:35 Height 5 ft Weight 231 lb BMI 45.1 BP 100/62 Blood Pressure Location Lt brachial Position Sitting Pulse 65 Pulse Source Pulse Oximeter Pulse Oximetry (%) 100 Oxygen Delivery Method Room Air Intake Visit Reasons: med f/u Intake Note: Pt is here today for her med f/u and lab results Allergies codeine Allergy (Unknown, Verified 10/20/23 15:31) Vomiting Medication List - Last Reconciled 07/15/23 by Marah Russell MD aspirin (Adult Low Dose Aspirin) 81 mg PO DAILY blood sugar diagnostic (FreeStyle Lite Strips) 3 times a day ciclopirox 0.77% appl topical diclofenac sodium 75 mg PO BID PRN dulaglutide 3 mg (0.5 mL) subcut QWEEK empagliflozin (Jardiance) 25 mg PO DAILY 90 days esomeprazole magnesium (Nexium) 40 mg PO DAILY FreeStyle Lancets (lancets) 3 times a day NS gabapentin 300 mg PO TID hydrochlorothiazide 25 mg PO QAM irbesartan 150 mg PO DAILY levothyroxine 75 mcg PO DAILY lidocaine 5% 1 appl topical BID PRN metformin 1,000 mg PO BIDWMEAL 3 months methylcellulose (laxative) (Citrucel) 500 mg PO DAILY ondansetron 4 mg PO Q6-8H PRN potassium chloride ER 10 mEq PO DAILY sennosides (Natural Senna Laxative) 17.2 mg (2 x 8.6 mg) PO BEDTIME sucralfate 1 g PO BEDTIME Tobacco use date assessed: 07/15/23 Dental Screening Dental Screen Date: 07/15/23 Did you have a dental visit in the last 12 months?: No Was dental information given to patient?: Patient declined HPI HPI Comments History of Present Illness Details 58-year-old lady, with type 2 diabetes mellitus, acquired hypothyroidism, hypertension, and obesity, here today for her follow-up. She has been compliant with taking her medications, has been following recommended diet, but unable to exercise much due to recovering from a rotator cuff surgery. Latest fasting labs showed hemoglobin A1c at 6.7%, fasting lipids, thyroid levels, electrolytes are all within normal limits. Patient however is very frustrated that she is unable to lose weight, would like to try taking wegovy to help with weight loss and help with diabetes control [facility] Medical History Transaminitis Type 2 diabetes mellitus with obesity Musculoskeletal disorder involving upper trapezius muscle Acquired hypothyroidism PONV (postoperative nausea and vomiting) Varicose veins of bilateral lower extremities with pain Venous reflux Rotator cuff tendonitis Pain and swelling of left lower leg Right anterior shoulder pain Submandibular gland inflammation Chronic GERD Left thyroid nodule Hallux valgus (acquired), right foot History of thyroid cancer Morbid obesity EDGAR on CPAP Surgical menopause Essential hypertension Abnormal stress ECG with treadmill Type 2 diabetes mellitus with peripheral neuropathy Surgical History S/P right rotator cuff repair History of esophagogastroduodenoscopy (EGD) History of shoulder surgery History of endoscopy History of colonoscopy S/P cardiac cath History of partial hysterectomy Hx of cholecystectomy Family History Maternal Aunt No problems noted. 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 1. Little interest or pleasure in doing things: not at all 2. Feeling down, depressed, or hopeless: not at all 3. Trouble falling or staying asleep, or sleeping too much: several days 4. Feeling tired or having little energy: several days 5. Poor appetite or overeating: several days 6. Feeling bad about yourself - or that you are a failure or have let yourself or your family down: not at all 7. Trouble concentrating on things, such as reading the newspaper or watching television: not at all 8. Moving or speaking so slowly that other people could have noticed. Or the opposite - being so fidgety or restless that you have been moving around a lot more than usual: several days 9. Thoughts that you would be better off or of hurting yourself in some way: not at all Total score: 4 Depression Screening Interpretation: Negative Depression Screening Done: Yes 95665 - PHQ-9 Billing: Yes Source: Developed by Gracia Amaro Kurt Kroenke and colleagues, with an educational silvia from [employer]. Thrive Questionnaire Date Thrive assessed: 07/15/23 I am a: Patient What is your living situation today?: I have a steady place to live Within the past 12 months, did the food you bought not last and you didn't have the money to get more?: Sometimes True Within the past 12 months, did you worry whether your food would run out before you got money to buy more?: Sometimes True Do you have trouble paying for medicines?: No Do you have trouble getting transportation to medical appointments?: No Do you have trouble paying your heating and electricity bill?: No Do you have trouble taking care of your child, family member or friend?: No Do you have trouble with day-to-day activities such as bathing, preparing meals, shopping, managing finances, etc.?: No Are you currently unemployed and looking for a job?: No Are you interested in more education?: No THRIVE Score: 2 AUDIT C Alcohol Use Questionnaire (AUDIT-C) 1. How often do you have a drink containing alcohol?: Never Total Score: 0 MAC-7 AMB Questionnaire MAC-7 Date MAC - 7 assessed: 07/15/23 Feeling nervous, anxious, or on edge: 1 = Several days Not being able to stop or control worryin = Not at all Worrying too much about different things: 1 = Several days Trouble relaxin = Not at all Being so restless that it is hard to sit still: 0 = Not at all Becoming easily annoyed or irritable: 0 = Not at all Feeling afraid as if something awful might happen: 0 = Not at all Total MAC-7 score (0-4 normal; 5-9 mild; 10-14 moderate; 15-21 severe): 2 Source: Developed by Gracia Amaro Kurt Kroenke and colleagues, with an educational silvia from [employer]. MAC-7 Assessment Billing MAC-7 Assessment Tool: MAC-7 Assessment 74434 Review of Systems Const Reports difficulty sleeping, Reports lethargy and Reports weight gain Eyes Details: [facility] yearly Reports no additional complaints ENT Reports no additional complaints Card Denies chest pain, Denies chest pain at rest and Denies chest pain with activity Resp Denies chest congestion and Denies cough GI Reports no additional complaints Reports no additional complaints Musc Denies abnormal gait, Reports arthralgias (Shoulder ), Reports muscle weakness and Reports stiffness Skin/Breast Denies breast pain, Denies breast mass, Denies lesions and Denies rash Neuro Reports no additional complaints and Denies abnormal gait Psych Denies no additional complaints Endo Details: sees Dr Taylor, podiatry in [place] yearly Reports no additional complaints Anthony/Lymph Reports no additional complaints Aller/Immun Reports no additional complaints Physical exam (Primary Care) Vital Signs: Last Vital Signs Pulse 65 07/15/23 10:35 BP 100/62 07/15/23 10:35 Pulse Ox 100 07/15/23 10:35 Oxygen Delivery Method Room Air 07/15/23 10:35 BMI result Body Mass Index 45.1 BMI Assessment/Plan discussion: High BMI High, discussed plan: lifestyle, weight reduction, dietary and physical activity Tobacco/Smoking Status: Tobacco use Status Tobacco use date assessed 07/15/23 07/15/23 10:42 Patient Tobacco Use Status Never used Tobacco 07/15/23 10:35 e-Cigarette/Vaping Use Never Used 07/15/23 10:35 PHQ-9: PHQ-9 Score PHQ-9: Total score 10 10/17/23 08:48 Depression Screening Interpretation: Negative Thrive Assessment: Date of Thrive Assessment Date Thrive assessed 07/15/23 07/15/23 10:44 Const General: cooperative, no acute distress, alert, awake and Physically active Nutritional Appearance: obese morbidly obese Orientation/consciousness: patient oriented x3 HENMT Head: Yes normocephalic Ears: hearing grossly normal bilaterally and external ears normal General nose exam: Normal external nose present and No nasal discharge present Mouth: Normal oral and palatal mucosa present and moist mucous membranes Eyes General: appearance normal, both eyes and all related structures Neck Neck: Yes full ROM, Yes no lymphadenopathy and Yes supple Resp Effort & Inspection: normal respiratory effort and able to speak in complete sentences Auscultation: clear to auscultation bilaterally Cardio Rate: regular rate Rhythm: regular rhythm Heart sounds: S1 normal heart sound present and S2 normal heart sound present GI Inspection: Yes obesity Palpation (GI): Soft to palpation Auscultation: normal bowel sounds General: Yes no CVA tenderness Back/Spine/Pelvis Back: no CVA tenderness Skin General skin exam: no rashes or lesions noted Neuro Other: Decreased range of motion in right shoulder joint due to recent surgery General: patient oriented x3, gait normal, tone normal, Normal light touch and pain sensation, no focal motor deficits and CN's II-XI intact bilaterally Cognition (Neuro): normal cognition Gait exam (Neuro): Normal gait present Extrem Other: Decreased range of motion of right shoulder joint due to recent surgery General: Yes no joint enlargement, Yes no clubbing, cyanosis or edema, Yes no calf tenderness and Yes normal gait Psych Appearance: grossly normal and well kempt Mental Status: mental status grossly normal Speech and movement: Normal speech and movement present Affect: normal affect Attitude: cooperative Results Reviewed Results Reviewed: Laboratory Tests 07/10/23 09:01 Potassium 3.3 Estimat Average Glucose 146 Hemoglobin A1c % 6.7 H Ferritin 92 Name: Rosalva Beltre Age/Sex: 58/F : 1965 Unit#: [id number] Attend Dr: Marah Russell MD Re07/03/23 Status: DEP REF Location: [facility] Disch: SPEC : [id number] CLARISSA: 07/03/23-1000 STATUS: COMP REQ : [id number] RECD: 07/03/23-[address]: Marah Russell MD COMP: 07/03/23-1354 ENTERED: 07/03/23-[address]: ORDERED: Met Prof Fast, AST, ALT, Lipid Panel, Vitamin D 25-OH, Free T4, TSH Test Result Flag Reference Sodium 140 135-145 mmol/L Potassium 3.2 L 3.3-5.1 mmol/L CL 101 96-108 mmol/L CO2 28 22-29 mmol/L Gap 14 12-20 BUN 12 9-16 mg/dL Creat 0.64 0.5-1.4 mg/dL EGFR > 60 NOTE: For -Citizen Of [place] individuals, multiply the result by 1.210. Chronic Kidney Disease: Estimated GFR < 60 mL/min/1.73m2 Severe Kidney Disease: Estimated GFR < 15 mL/min/1.73m2 FBS 118 H 60-99 mg/dL A fasting glucose from 100-125 mg/dl is considered impaired (pre-diabetes). CA 9.4 # 8.4-10.2 mg/dL AST (GOT) 58 H 5-31 U/L ALT (GPT) 65 H 0-31 U/L Triglyceride 132 <150 mg/dL Desirable Triglyceride: less than 150 mg/dL Borderline High Triglyceride 150-199 mg/dL High Triglyceride: 200-499 mg/dL Very High Triglyceride: greater than or equal to 5OO mg/dL Cholesterol 132 <200 mg/dL Desirable Cholesterol: less than 200 mg/dL Borderline High Cholesterol: 200-239 mg/dL High Cholesterol: greater than 239 mg/dL LDL Calculated 62 <100 mg/dL Desirable LDL: less than 100 mg/dL Near Optimal/Above Optimal LDL: 110-129 mg/dL Borderline High LDL: 130-159 mg/dL High LDL: 160-189 mg/dL Very High LDL: greater than or equal to 190 mg/dL HDL 44 >40 mg/dL Desirable HDL: greater than 40 mg/dL Note: This HDL assay may give artificially low results in patients with liver disease. Vit D 25-OH Tot 74.1 >30 ng/mL Health Based Reference Values* < 20 ng/mL Deficient 20-30 ng/mL Insufficient > 30 ng/mL Sufficient *Diya WHEAT. N Engl J Med. 2007;357:266-280 Care must be taken in interpreting Vitamin D results from different laboratories and methodologies. Published data demonstrated that results from patients undergoing hemodialysis may show a negative bias when tested with various automated 25-OH vitamin D assays when compared to LC-MS/MS. When testing samples from patients whose predominant form of Vitamin D is Vitamin D2, such as patients receiving Vitamin D2 supplementation, results that are subtherapeutic should be confirmed with another method such as LC-MS/MS. Free T4 1.27 0.71-1.85 ng/dL TSH 3rd Gen. 1.10 0.32-4.0 uIU/mL TSH 3rd Generation ([facility]) Assessment and Plan Assessment & Plan (1) Type 2 diabetes mellitus with obesity: Code(s): E11.69 - Type 2 diabetes mellitus with other specified complication; E66.9 - Obesity, unspecified Plan: Diabetes mellitus controlled with A1c at 6.7%, goal is 6.5% and below continue with empagliflozin 25 mg once a day in a.m. an hour before breakfast, continue metformin 1000 mg 1 tablet twice a day with meals, will switch from Trulicity to Wegovy , start 1 mg/0.5 ml injected subcutaneously once a week as directed. Reviewed recent possible side effects of medication which may include abdominal cramping, nausea, increased risk for pancreatitis and gallstones (2) Acquired hypothyroidism: Code(s): E03.9 - Hypothyroidism, unspecified Plan: Thyroid levels are within normal limits, continue with levothyroxine 75 mcg once a day in a.m. an hour before breakfast (3) Essential hypertension: Code(s): I10 - Essential (primary) hypertension Plan: Blood pressure at goal of less than 130/80. Continue irbesartan fun 50 mg per tablet taken once a day and hydrochlorothiazide 25 mg daily in a is we go be contraindicated in patients with history of thyroid cancer. Reinforced importance of following a low sodium diet, getting regular exercise, and lowering stress levels. (4) History of thyroid cancer: Code(s): Z85.850 - Personal history of malignant neoplasm of thyroid Plan: Status post hemithyroidectomy, unable to give Wegovy however due to positive history of papillary thyroid cancer status post hemithyroidectomy in the past. Orders: Orders Lipid Panel 09/27/23 E11.69 - Type 2 diabetes mellitus with other specified complication, E66.9 - Obesity, unspecified, E03.9 - Hypothyroidism, unspecified, E04.1 - Nontoxic single thyroid nodule, I10 - Essential (primary) hypertension, E89.40 - Asymptomatic postprocedural ovarian failure, E66.01 - Morbid (severe) obesity due to excess calories Vitamin D 25-OH Total 09/27/23 E11.69 - Type 2 diabetes mellitus with other specified complication, E66.9 - Obesity, unspecified, E03.9 - Hypothyroidism, unspecified, E04.1 - Nontoxic single thyroid nodule, I10 - Essential (primary) hypertension, E89.40 - Asymptomatic postprocedural ovarian failure, E66.01 - Morbid (severe) obesity due to excess calories US thyroid 07/15/23 Z85.850 - Personal history of malignant neoplasm of thyroid, E04.1 - Nontoxic single thyroid nodule Comprehensive [place]. Panel Fast 09/27/23 E11.69 - Type 2 diabetes mellitus with other specified complication, E66.9 - Obesity, unspecified, E03.9 - Hypothyroidism, unspecified, E04.1 - Nontoxic single thyroid nodule, I10 - Essential (primary) hypertension, E89.40 - Asymptomatic postprocedural ovarian failure, E66.01 - Morbid (severe) obesity due to excess calories Microalbumin, Random (w Creat) 09/27/23 E11.69 - Type 2 diabetes mellitus with other specified complication, E66.9 - Obesity, unspecified, E03.9 - Hypothyroidism, unspecified, E04.1 - Nontoxic single thyroid nodule, I10 - Essential (primary) hypertension, E89.40 - Asymptomatic postprocedural ovarian failure, E66.01 - Morbid (severe) obesity due to excess calories Hemoglobin A1c 09/27/23 E11.69 - Type 2 diabetes mellitus with other specified complication, E66.9 - Obesity, unspecified, E03.9 - Hypothyroidism, unspecified, E04.1 - Nontoxic single thyroid nodule, I10 - Essential (primary) hypertension, E89.40 - Asymptomatic postprocedural ovarian failure, E66.01 - Morbid (severe) obesity due to excess calories Thyroid Stimulating Hormone 09/27/23 E11.69 - Type 2 diabetes mellitus with other specified complication, E66.9 - Obesity, unspecified, E03.9 - Hypothyroidism, unspecified, E04.1 - Nontoxic single thyroid nodule, I10 - Essential (primary) hypertension, E89.40 - Asymptomatic postprocedural ovarian failure, E66.01 - Morbid (severe) obesity due to excess calories Free T4 (Free Thyroxine) 09/27/23 E11.69 - Type 2 diabetes mellitus with other specified complication, E66.9 - Obesity, unspecified, E03.9 - Hypothyroidism, unspecified, E04.1 - Nontoxic single thyroid nodule, I10 - Essential (primary) hypertension, E89.40 - Asymptomatic postprocedural ovarian failure, E66.01 - Morbid (severe) obesity due to excess calories Coding Level of Care Code Est Pt Level 4 (13347) Diagnoses Type 2 diabetes mellitus with obesity E11.69; E66.9 Acquired hypothyroidism E03.9 Essential hypertension I10 History of thyroid cancer Z85.850 Additional Codes MAC-7 Assessment Billing - MAC-7 Assessment Tool: MAC-7 Assessment [id number] ([id number])
== END 2023-07-15 11:18 | disposition home or self-care (01) ==
PROVIDERS: PCP Internal Medicine; Visit Provider Internal Medicine
DX: E11.69 Type 2 diabetes mellitus with other specified complication (principal); Z68.42 Body mass index [BMI] 45.0-49.9, adult; E66.9 Obesity, unspecified; E03.9 Hypothyroidism, unspecified; I10 Essential (primary) hypertension; Z85.850 Personal history of malignant neoplasm of thyroid
CPT/HCPCS: 99214

== ENCOUNTER 2023-07-29 08:02 | Outpatient (REF) | payer OTHER, SELFPAY ==
--- NOTE | ~2023-07-29 | US_ITS ---
EXAMINATION: US ABDOMEN LIMITED WITH LIVER ELASTOGRAPHY CLINICAL INFORMATION: Elevated transaminase levels. COMPARISON: CT abdomen and pelvis dated 06/05/2023. TECHNIQUE: Real-time imaging of the abdominal viscera. Noninvasive ultrasound liver fibrosis assessment is performed using Eva ElastPQ point quantification shear wave elastography (2D-SWE) with a C5-2 MHz transducer. Multiple elastography samples are obtained. FINDINGS: PANCREAS: Limited. The visualized pancreatic head and proximal body are normal in appearance. The remainder of the pancreas is obscured from visualization by the overlying bowel gas. LIVER: The liver demonstrates normal increased size, normal contour and increased echogenicity. No focal lesion or intrahepatic biliary duct dilatation. The right lobe measures 1.68 cm in length. The left lobe measures 0.10 cm in length. Portal flow is towards the liver (hepatopetal). Shear wave liver elastography median stiffness is 1.68 m/s (reference: normal median stiffness is 1.3 m/s or less). IQR/median stiffness to assess sampling precision is 0.10 (reference: good quality data set is IQR/median stiffness of 0.15 or less). GALLBLADDER: Surgically absent. COMMON BILE DUCT: Normal in caliber measuring 0.3 cm in diameter. RIGHT KIDNEY: Normal. No hydronephrosis. No renal calculi or focal parenchymal lesions. The kidney measures 11.8 cm in maximum dimension. FREE FLUID: None. US/US abdomen hernandez w elastography IMPRESSION: 1. There is generalized increase in hepatic echotexture, consistent with fatty infiltration or hepatocellular disease. Please correlate clinically. No focal hepatic mass or intrahepatic biliary dilatation is seen. 2. There is hepatomegaly. 3. Liver elastography: In the absence of other known clinical signs, measurements rule out compensated advanced chronic liver disease. If there are known clinical signs, further testing may be needed for confirmation. 4. Technically limited ultrasound examination of the pancreas. REFERENCE: Society of Radiologists in Ultrasound Liver Stiffness Thresholds (2020): LIVER STIFFNESS THRESHOLDS: *Liver Stiffness equal or less than 1.3 m/s: High probability of being normal. *Liver Stiffness less than 1.7 m/s: In the absence of other known clinical signs, rules out compensated advanced chronic liver disease. *Liver Stiffness 1.7-2.1 m/s: Suggestive of compensated advanced chronic liver disease but need further test for confirmation. *Liver Stiffness over 2.1 m/s: Rules in compensated advanced chronic liver disease. *Liver Stiffness over 2.4 m/s: Suggestive of clinically significant portal hypertension. QUALITY OF DATA SET: *IQR/Median value equal or less than 0.15 implies a quality data set. *IQR/Median value over 0.15 implies a poor quality data set. SIGNIFICANT CHANGE FROM PRIOR EXAM: Significant change if liver stiffness measurement is 10% or greater from prior exam. OTHER CONSIDERATIONS: The stage of liver fibrosis may be overestimated in the setting of acute hepatitis, liver inflammation, elevated liver function tests, hepatic vascular congestion, obstructive cholestasis, non-fasting state, and infiltrative diseases such as amyloidosis and lymphoma. In some patients with NAFLD, the liver stiffness thresholds for compensated advanced chronic liver disease may be lower. In causes other than viral hepatitis and NAFLD, liver stiffness thresholds are not well established.
--- NOTE | ~2023-07-29 | US_ITS ---
EXAMINATION: US THYROID CLINICAL INFORMATION: Personal history of malignant neoplasm of thyroid. Right thyroidectomy. COMPARISON: Thyroid ultrasound 06/08/2020 and 01/28/2019. CT soft tissue neck 02/12/2018. TECHNIQUE: Linear transducer grayscale and color Doppler examination with attention to the region of the thyroid. FINDINGS: SIZE: Measurements of the left lobe and nodules are given in sagittal, anteroposterior and transverse dimensions respectively. Right Thyroid Lobe: Surgically absent. Left Thyroid Lobe: 4.5 x 1.8 x 2.7 cm, volume 11.1 mL. Previously 4.2 x 1.6 x 2.5 cm, volume 8.9 mL. Parenchyma: The gland echotexture is homogeneous. Thyroid vascularity is normal. Isthmus: Not visualized. Previously not visualized. Estimated total number of nodules greater than or equal to 1 cm: 0. Finish Carpenter nodules are described as follows: 1. Location: Left mid pole. Size: 0.5 x 0.5 x 0.3 cm, volume 0.041 mL. Previously: Not documented. Nodule characteristics: Composition: Solid (2). Echogenicity: Isoechoic (1). Shape: Not taller than wide (0). Margins: Smooth (0). Echogenic Foci: None (0). ACR TI-RADS total points: 3 ACR TI-RADS category: 3 2. Location: Left mid pole. Size: 0.3 x 0.3 x 0.3 cm, volume 0.013 mL. Previously: Not documented. Nodule characteristics: Composition: Cystic(0). ACR TI-RADS total points: 0 ACR TI-RADS category: 1 3. Location: Left lower pole. Size: 0.4 x 0.4 x 0.3 cm, volume 0.02 mL. Previously: 0.4 x 0.2 x 0.4 cm, volume 0.02 mL. Nodule characteristics: Composition: Solid (2). Echogenicity: Very hypoechoic (3). Shape: Not taller than wide (0). Margins: Smooth (0). Echogenic Foci: None (0). ACR TI-RADS total points: 5 Previous: 4 ACR TI-RADS category: 4 Previous: 4 Significant change in size (>/= 20% in 2 dimensions and minimal increase of 2 mm or 50% or greater increase in volume): No Change in features: Yes Change in ACR TI-RADS risk category: No 4. Location: Left lower pole. Size: 0.2 x 0.1 x 0.1 cm, volume 0.002 mL. Previously: Not documented. Nodule characteristics: Composition: Cystic(0). ACR TI-RADS total points: 0 ACR TI-RADS category: 1 RIGHT THYROIDECTOMY BED: No mass or fluid collection is seen. NODES: No lymphadenopathy is seen in the tissue surrounding the thyroid gland. US/US thyroid IMPRESSION: 1. The right thyroid lobe is surgically absent. No abnormal mass or fluid collection is seen within the former right thyroid bed. 2. There are small left thyroid lobe nodules, for which no specific imaging follow-up is recommended. 3. The left thyroid lobe is mildly goitrous. ACR TI-RADS RECOMMENDATION REFERENCE: Ultrasound-guided fine-needle aspiration, follow up ultrasound, no further followup. * TR1 (0 point) and TR2 (2 points): No FNA or followup * TR3 (3 points): FNA if more than or equal to 2.5 cm in maximum dimension, follow up ultrasound in 1, 3 and 5 years if 1.5 to 2.4 cm in maximum dimension. * TR4 (4-6 points): FNA if more than or equal to 1.5 cm in maximum dimension, follow up ultrasound in 1, 2, 3 and 5 years if 1 to 1.4 cm in maximum dimension. * TR5 (more than or equal to 7 points): FNA if more than or equal to 1 cm in maximum dimension, follow up ultrasound every year for 5 years if 0.5 to 0.9 cm in maximum dimension. * TR3, TR4 or TR5 nodules that are below the size threshold for follow up receive no followup.
== END 2023-07-29 08:03 | disposition home or self-care (01) ==
LOC: HO.US 08:02
PROVIDERS: PCP Internal Medicine; Visit Provider Nurse Practitioner Family
DX: E04.1 Nontoxic single thyroid nodule (principal); R74.01 Elevation of levels of liver transaminase levels; Z85.850 Personal history of malignant neoplasm of thyroid
CPT/HCPCS: 76536; 76705; 76981

== ENCOUNTER 2023-08-19 08:18 | Outpatient (AMB) | payer OTHER, SELFPAY ==
[2023-08-19 08:21] VITALS: BP 112/65; PULSE 74; BMI 44.1
--- NOTE | 2023-08-19 08:21 | A.OFFVIS_ITS ---
Vital Signs 08/19/23 08:21 Height 5 ft Weight 225 lb 12.054 oz BMI 44.1 BP 112/65 Blood Pressure Location Lt brachial Position Sitting Pulse 74 Pulse Source Pulse Oximeter Intake Visit Reasons: 6 week follow up Intake Note: Pt presents to the office today for a 6 week follow up for GERD. Pt states her GERD is doing better. She states she rarely gets acid reflux now. She states yesterday she had diarrhea and vomiting and states she is still nauseous today. Allergies codeine Allergy (Unknown, Verified 08/19/23 08:23) Vomiting HPI HPI 6 week follow up: Details: LAST VISIT Chronic GERD Chronic idiopathic constipation Transaminitis Postprandial epigastric pain Nausea & vomiting Plan Patient will stop omeprazole and will start her on Nexium. Will add sucralfate at bedtime. Patient was encouraged to avoid dietary triggers and late night snacking. Staying upright for minimum 3 hours after meals discussed with patient. Patient will start taking Citrucel in the morning, continue take Senokot in the evening. Increase fluid intake and activity to promote better bowel motility. Transaminitis will rule out out immune disorders, will send patient for abdominal ultrasound with elastography. Patient is aware that she will need to lose weight, however we will start 1st with making her feel better before we will do that. Currently patient has no appetite. May take Zofran as needed. I will see her in 6 weeks, sooner on as needed basis. Patient is agreeable to this plan and verbalizes understanding instructions. She was given the opportunity to ask questions and all questions answered. ? Thank you for allowing me to participate in her care Orders Orders Hepatitis A,B,C Profile Today R79.89 HIV Ab/Ag Today R79.89 C Reactive Protein Today K58.9 Alpha Fetoprotein Today R79.89 Prothrombin Time INR Today R74.8 Liver Fibrosis Pnl Today R74.8 Mitochondrial Antibody Today R79.89 Hemoglobin A1c Today E11.9 Smooth Muscle Antibody Today R79.89 Ferritin Today R74.8 US abdomen hernandez w elastography Today R74.01 TODAY'S VISIT: Patient is here today for follow-up and to discuss lab results and ultrasound results. Patient is accompanied by her daughter. Patient reports that she continues to have epigastric discomfort no med what she eats. Patient reports that she can only eat small amounts and then she feels full and feels epigastric discomfort. Patient also feels nauseous throughout the day. Mainly she feels nauseous in the morning. Patient states that if she does not have a bowel movement her nausea gets worse. Patient denies any vomiting. Patient denies any dysphagia or odynophagia. Reports dyspepsia. Patient reports postprandial abdominal bloating. No abdominal pain only cramping when she has to have a b owel movement. Cramping in left lower quadrant. [facility], [facility] Medical History Transaminitis Type 2 diabetes mellitus with obesity Musculoskeletal disorder involving upper trapezius muscle Acquired hypothyroidism PONV (postoperative nausea and vomiting) Varicose veins of bilateral lower extremities with pain Venous reflux Rotator cuff tendonitis Pain and swelling of left lower leg Right anterior shoulder pain Submandibular gland inflammation Chronic GERD Left thyroid nodule Hallux valgus (acquired), right foot History of thyroid cancer Morbid obesity EDGAR on CPAP Surgical menopause Essential hypertension Abnormal stress ECG with treadmill Type 2 diabetes mellitus with peripheral neuropathy Surgical History S/P right rotator cuff repair History of esophagogastroduodenoscopy (EGD) History of shoulder surgery History of endoscopy History of colonoscopy S/P cardiac cath History of partial hysterectomy Hx of cholecystectomy Family History Maternal Aunt No problems noted. 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 Cognitive needs: No Hearing needs: No Vision needs: Yes Review of Systems Const Denies weight gain and Denies weight loss ENT Reports no additional complaints, Denies dysphagia and Denies odynophagia Card Reports no additional complaints Resp Reports no additional complaints GI Denies abdominal pain, Denies belching, Denies melena, Reports bloating, Reports constipation, Denies dysphagia, Denies excessive flatus, Reports early satiety, Reports dyspepsia, Denies heartburn, Denies diarrhea, Reports loose stools, Reports nausea, Denies odynophagia and Denies vomiting Reports no additional complaints Musc Reports no additional complaints Neuro Reports no additional complaints Psych Reports no additional complaints Endo Reports no additional complaints Physical Exam Vital Signs: Last Vital Signs Pulse 74 08/19/23 08:21 BP 112/65 08/19/23 08:21 BMI result Body Mass Index 44.1 Const General: no acute distress Nutritional Appearance: obese Orientation/consciousness: patient oriented x3 Resp Effort & Inspection: normal respiratory effort, able to speak in complete sentences, no tracheal deviation and symmetric chest movement Auscultation: clear to auscultation bilaterally Cardio Rate: regular rate GI Inspection: Yes normal to inspection, No distended and Yes obesity Palpation (GI): Soft to palpation, not firm, nontender and No hepatosplenomegaly present Auscultation: Hypoactive bowel sounds present General: Yes no CVA tenderness Back/Spine/Pelvis Back: no CVA tenderness Skin General skin exam: elasticity normal, turgor normal and dry skin Neuro General: patient oriented x3 Psych Appearance: grossly normal Mental Status: mental status grossly normal Judgement: Good judgement present (Psych) Results Reviewed Results Reviewed: Laboratory Tests 07/03/23 07/10/23 10:00 09:01 Hemoglobin A1c % 6.7 H Ferritin 92 AST 58 H ALT 65 H Liver GGT 64 Liver Total Bilirubin 0.5 Liver Fibrosis ALT 34 H Liver x-[id number] 86 L Liver Fibrosis Stage F0 C-Reactive Protein 0.93 H Anti-Mitochondrial Ab NEGATIVE Anti-Smooth Muscle Ab <20 Hepatitis A IgM Ab Nonreactive Hep Bs Antigen Negative Hep Bs Antibody REACTIVE Hepatitis C Ab (EIA) Nonreactive HIV 1&2 Ab/P24 Ag 4thGn Nonreactive ABDOMINAL ULTRASOUND WITH ELASTOGRAPHY FINDINGS: PANCREAS: Limited. The visualized pancreatic head and proximal body are normal in appearance. The remainder of the pancreas is obscured from visualization by the overlying bowel gas. LIVER: The liver demonstrates normal increased size, normal contour and increased echogenicity. No focal lesion or intrahepatic biliary duct dilatation. The right lobe measures 1.68 cm in length. The left lobe measures 0.10 cm in length. Portal flow is towards the liver (hepatopetal). Shear wave liver elastography median stiffness is 1.68 m/s (reference: normal median stiffness is 1.3 m/s or less). IQR/median stiffness to assess sampling precision is 0.10 (reference: good quality data set is IQR/median stiffness of 0.15 or less). GALLBLADDER: Surgically absent. COMMON BILE DUCT: Normal in caliber measuring 0.3 cm in diameter. RIGHT KIDNEY: Normal. No hydronephrosis. No renal calculi or focal parenchymal lesions. The kidney measures 11.8 cm in maximum dimension. FREE FLUID: None. US/US abdomen hernandez w elastography IMPRESSION: 1. There is generalized increase in hepatic echotexture, consistent with fatty infiltration or hepatocellular disease. Please correlate clinically. No focal hepatic mass or intrahepatic biliary dilatation is seen. 2. There is hepatomegaly. 3. Liver elastography: In the absence of other known clinical signs, measurements rule out compensated advanced chronic liver disease. If there are known clinical signs, further testing may be needed for confirmation. Assessment & Plan Assessment & Plan (1) Chronic GERD: Code(s): K21.9 - Gastro-esophageal reflux disease without esophagitis Category: Medical (2) Transaminitis: Code(s): R74.01 - Elevation of levels of liver transaminase levels Category: Medical (3) Chronic idiopathic constipation: Code(s): K59.04 - Chronic idiopathic constipation (4) Postprandial epigastric pain: Code(s): R10.13 - Epigastric pain (5) Nausea & vomiting: Code(s): R11.2 - Nausea with vomiting, unspecified Qualifiers: Vomiting type: unspecified Qualified Code(s): R11.2 - Nausea with vomit ing, unspecified (6) Early satiety: Code(s): R68.81 - Early satiety Plan Patient reports feeling full very quickly when eating. Will send her for gastric emptying study. Will order Zofran to help her with nausea. Patient was encouraged to increase fiber in her diet. She can continue sucralfate at bedtime and Nexium in the morning. Patient is on Trulicity and if she in fact has gastroparesis patient might need to stop it. Her current A1c was 6.7. Patient was encouraged to eat small meals and more often. Encouraged to lose weight. Increase fluid intake and activity to promote better bowel motility. I will see patient in 3 months, sooner on as needed basis. Patient is agreeable to this plan and verbalizes understanding of instructions she was given the opportunity to ask questions and all questions answered. Thank you for allowing me participate in her care Orders: Orders NM gastric emptying study 08/19/23 R68.81 - Early satiety Medications: Refilled ondansetron 4 mg PO Q6-8H PRN 10 tabs 0RF nausea and vomiting Coding Level of Care Code Est Pt Level 4 (24616) Diagnoses Chronic GERD K21.9 Transaminitis R74.01 Chronic idiopathic constipation K59.04 Postprandial epigastric pain R10.13 Nausea and vomiting, unspecified vomiting type R11.2 Vomiting type: unspecified Early satiety R68.81 Time Spent (min) 35 Comment 20 minutes spent with patient and additional 15 minutes spent reviewing her records
== END 2023-08-19 09:07 | disposition home or self-care (01) ==
PROVIDERS: PCP Internal Medicine; Visit Provider Nurse Practitioner Family
DX: K21.9 Gastro-esophageal reflux disease without esophagitis (principal); R74.01 Elevation of levels of liver transaminase levels; K59.04 Chronic idiopathic constipation; R10.13 Epigastric pain; R11.2 Nausea with vomiting, unspecified; R68.81 Early satiety
CPT/HCPCS: 99214

== ENCOUNTER → 2023-08-19 08:18 | Outpatient (BNVA) | payer OTHER, SELFPAY | PROVIDERS: PCP Internal Medicine; Visit Provider Nurse Practitioner Family | DX: K21.9 Gastro-esophageal reflux disease without esophagitis (principal); K59.04 Chronic idiopathic constipation; R74.01 Elevation of levels of liver transaminase levels; R10.13 Epigastric pain; R11.2 Nausea with vomiting, unspecified; R68.81 Early satiety | CPT/HCPCS: 99212 ==

== ENCOUNTER 2023-08-21 09:31 | Outpatient (AMB) | payer OTHER, SELFPAY ==
[2023-08-21 09:48] VITALS: BMI 43.9
--- NOTE | 2023-08-21 09:48 | A.OFFVIS_ITS ---
Vital Signs 08/21/23 09:48 Height 5 ft Weight 225 lb BMI 43.9 Intake Visit Reasons: OV-R RTC Repair, 05/01/22 [place] Intake Note: Rosalva is a 67 year old right female who presents today with complaints of right shoulder pain, hx of Right RTC Repair, 05/01/22. Sprint device has been helpful, although still complaints of limited ROM and decreased strength. Patient reports that she is doing well, her pain has dissipated but she is still struggling with lack of strength and fatigue of the arm. She has a bump at the top of the shoulder and feels that the bump is increasing in size. She is back at work on light duty. Allergies codeine Allergy (Unknown, Verified 08/19/23 08:23) Vomiting HPI HPI OV-R RTC Repair, 05/01/22 NE: Details: Rosalva is a 67 year old right female who presents today with complaints of right shoulder pain, hx of Right RTC Repair, 05/01/22. Sprint device has been helpful, although still complaints of limited ROM and decreased strength. Patient reports that she is doing well, her pain has dissipated but she is still struggling with lack of strength and fatigue of the arm. She has a bump at the top of the shoulder and feels that the bump is increasing in size. She is back at work on light duty. [facility] Medical History Transaminitis Type 2 diabetes mellitus with obesity Musculoskeletal disorder involving upper trapezius muscle Acquired hypothyroidism PONV (postoperative nausea and vomiting) Varicose veins of bilateral lower extremities with pain Venous reflux Rotator cuff tendonitis Pain and swelling of left lower leg Right anterior shoulder pain Submandibular gland inflammation Chronic GERD Left thyroid nodule Hallux valgus (acquired), right foot History of thyroid cancer Morbid obesity EDGAR on CPAP Surgical menopause Essential hypertension Abnormal stress ECG with treadmill Type 2 diabetes mellitus with peripheral neuropathy Surgical History S/P right rotator cuff repair History of esophagogastroduodenoscopy (EGD) History of shoulder surgery History of endoscopy History of colonoscopy S/P cardiac cath History of partial hysterectomy Hx of cholecystectomy Family History Maternal Aunt No problems noted. 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 She has had a difficult time and has plateaud. I do not think she is capable of lifting > 20 lbs and would restrict overhead motion at work. She has reached MMI. Coding Level of Care Code Est Pt Level 3 (77083) Diagnoses S/P right rotator cuff repair Z98.890
== END 2023-08-21 10:23 | disposition home or self-care (01) ==
PROVIDERS: PCP Internal Medicine; Visit Provider Orthopaedic Surgery
DX: M25.511 Pain in right shoulder (principal); Z47.89 Encounter for other orthopedic aftercare
CPT/HCPCS: 99213

== ENCOUNTER → 2023-08-21 09:31 | Outpatient (BNVA) | payer OTHER, SELFPAY | PROVIDERS: PCP Internal Medicine; Visit Provider Orthopaedic Surgery | DX: M25.511 Pain in right shoulder (principal); Z98.890 Other specified postprocedural states | CPT/HCPCS: 99212 ==

== ENCOUNTER 2023-09-02 12:42 | Outpatient (REF) | payer OTHER, SELFPAY | END 2023-09-02 12:43 | disposition home or self-care (01) | LOC: HO.MAMMO 12:42 | PROVIDERS: PCP Internal Medicine; Visit Provider Internal Medicine | DX: Z12.31 Encounter for screening mammogram for malignant neoplasm of breast (principal) | CPT/HCPCS: 77063; 77067 ==

== ENCOUNTER → 2023-09-02 13:00 | Outpatient (BNV) | payer OTHER, SELFPAY | PROVIDERS: PCP Internal Medicine; Visit Provider Radiology Diagnostic Radiology | DX: Z12.31 Encounter for screening mammogram for malignant neoplasm of breast (principal) | CPT/HCPCS: 77063; 77067 ==

== ENCOUNTER → 2023-10-08 07:31 | Outpatient (REF) | payer OTHER, SELFPAY ==
--- NOTE | ~2023-10-08 | NM_ITS ---
EXAMINATION: MD RADIONUCLIDE SOLID FOOD GASTRIC EMPTYING 4-HOUR STUDY CLINICAL INFORMATION: Early satiety. COMPARISON: None TECHNIQUE: A standard meal consisting of 4 oz of Egg Beaters brand tagged with 1000 microcuries Tc-99m Sulfur Colloid, 8 oz water and 2 slices of toast with jelly was administered orally to the patient. Images were obtained using a dual head gamma camera in the anterior and posterior projections over of the stomach immediately post ingestion and at hourly intervals up to 4 hours post ingestion. The anterior and posterior counts at each time interval were averaged using the geometric mean and expressed as percentage of the immediate post ingestion counts. FINDINGS: There is good visualization of activity in the stomach immediately post ingestion. As the study progresses, there is good clearance of activity from the stomach and visualization of progressively increasing small bowel activity. By the end of the study, there is almost no retention noted in the stomach. Retention in the stomach at each time interval was: 1 hour 77% (normal 37%-90%) 2 hours 52% (normal 30%-60%) 3 hours 28% 4 hours 5% (normal 0%-10%) MD/MD gastric emptying study IMPRESSION: Normal 4-hour solid food gastric emptying study. For solid meal, rapid gastric emptying is less than 30% at 60 minutes. Delayed gastric emptying criteria is more than 60% remaining at 120 minutes or more than 10% at 240 minutes. The 4-hour value is the best discriminator of a normal or abnormal result). Gastric emptying study grading per JNMT Consensus Recommendations in 2008 (https://tech.snmjournals.org/content/36/1/44) Grade 1 (mild retention): 11-20% at 4h Grade 2 (moderate retention): 21-35% at 4h Grade 3 (severe retention): 36-50% at 4h Grade 4 (very severe retention): >50% retention at 4h
== END ==
LOC: HO.NUCMED 07:31
PROVIDERS: PCP Internal Medicine; Visit Provider Nurse Practitioner Family
DX: R68.81 Early satiety (principal)
CPT/HCPCS: 78264; A9541

== ENCOUNTER 2023-10-21 11:32 | Emergency (ER) | payer OTHER, SELFPAY ==
--- NOTE | 2023-10-21 11:35 | ED.GENADULT ---
HPI - General Adult General Chief complaint: Abdominal Pain Stated complaint: Vomiting 3 days Time Seen by Provider: 10/21/23 14:44 Source: patient and old records reviewed Mode of arrival: ambulatory Limitations: no limitations History of Present Illness ED Provider: TOMA HENAO narrative: 58 yo female with PMH of elevated LFTs, DM2, hypothyroidism, obesity, chronic GERD, EDGAR, HTN with recurrent weekly bouts of epigastric pain and n/v she follows with GI closely. There is also a chronic component of loose stools. She has not found a trigger though her spouse reports he thinks stress makes it worse. She has had epigastric pain, n/v for 3 days and cannot take it anymore. She is currently on nexium and sucralfate as well as sennokot and citrucel. This month just had normal nuclear gastric emptying study liver elastography july [address] scan of abdomen 06/05/23 no acute findings complaint: vomiting, pain Onset (ago): month(s) Location: abdomen Radiation: non-radiation Severity: moderate Quality: aching Pain Consistency: constant Relieving factors: none Exacerbating factors: other (vomiting) Associated symptoms: loss of appetite, malaise, nausea/vomiting and weakness Treatments prior to arrival: none Related Data Home Medications ?Medication ?Instructions ?Recorded ?Confirmed aspirin 81 mg tablet,delayed 81 mg PO DAILY 10/24/20 04/23/23 release (Adult Low Dose Aspirin) ciclopirox 0.77 % topical cream appl topical 06/19/23 Previous Rx's ?Medication ?Instructions ?Recorded FreeStyle Lancets 28 gauge #100 ea 08/24/20 (lancets) blood sugar diagnostic (FreeStyle #100 ea 08/20/21 Lite Strips) metformin 1,000 mg tablet 1,000 mg PO BIDWMEAL 3 months #180 12/24/22 tabs lidocaine 5 % topical ointment 1 appl topical BID PRN pain #50 04/09/23 grams dulaglutide 3 mg/0.5 mL 3 mg (0.5 mL) subcut QWEEK #2 mL 04/17/23 subcutaneous pen injector irbesartan 150 mg tablet 150 mg PO DAILY #90 tabs 04/17/23 hydrochlorothiazide 25 mg tablet 25 mg PO QAM #90 tabs 05/27/23 levothyroxine 75 mcg tablet 75 mcg PO DAILY #90 tabs 06/06/23 potassium chloride 10 mEq 10 meq PO DAILY #7 caps 07/03/23 capsule,extended release esomeprazole magnesium 40 mg 40 mg PO DAILY #90 caps 07/08/23 capsule,delayed release (Nexium) methylcellulose (laxative) 500 mg 500 mg PO DAILY #90 tabs 07/08/23 tablet (Citrucel) sennosides 8.6 mg tablet (Natural 17.2 mg (2 x 8.6 mg) PO BEDTIME 07/08/23 Senna Laxative) constipation #180 tabs sucralfate 1 gram tablet 1 g PO BEDTIME #30 tabs 07/08/23 diclofenac sodium 75 mg 75 mg PO BID PRN for pain #60 tabs 07/30/23 tablet,delayed release empagliflozin 25 mg tablet 25 mg PO DAILY 90 days #90 tabs 09/23/23 (Jardiance) ondansetron 4 mg disintegrating 4 mg PO Q6-8H PRN nausea and 09/30/23 tablet vomiting #10 tabs gabapentin 300 mg capsule 300 mg PO TID #90 caps 10/16/23 Allergies Allergy/AdvReac Type Severity Reaction Status Date / Time codeine Allergy Unknown Vomiting Verified 10/21/23 11:38 Review of Systems Review of Systems: Constitutional : No Weight loss, No Fever, No Chills ENT/Mouth : No sore throat, No Rhinorrhea Eyes: No Swelling, No Redness Cardiovascular : No Chest Pain, No SOB, No Edema Respiratory : No Cough, No Sputum, No Wheezing Gastrointestinal : Positive Nausea, Positive Vomiting, no Diarrhea, positive abdominal Pain, No Hematochezia, No Melena Genitourinary : No Dysuria, No Urinary Frequency, No Hematuria, No Urgency Musculoskeletal : No joint pain, No Myalgias, No Joint Swelling Skin : No Skin Lesions, No rash Neuro :pos Weakness, No Numbness, No Dizziness, No Headache All other systems reviewed and are negative. [facility] Past Medical History Attestation statement: The following information was validated with the patient. Source: old records reviewed Medical History Transaminitis Type 2 diabetes mellitus with obesity Musculoskeletal disorder involving upper trapezius muscle Acquired hypothyroidism PONV (postoperative nausea and vomiting) Varicose veins of bilateral lower extremities with pain Venous reflux Rotator cuff tendonitis Pain and swelling of left lower leg Right anterior shoulder pain Submandibular gland inflammation Chronic GERD Left thyroid nodule Hallux valgus (acquired), right foot History of thyroid cancer Morbid obesity EDGAR on CPAP Surgical menopause Essential hypertension Abnormal stress ECG with treadmill Type 2 diabetes mellitus with peripheral neuropathy Surgical History S/P right rotator cuff repair History of esophagogastroduodenoscopy (EGD) History of shoulder surgery History of endoscopy History of colonoscopy S/P cardiac cath History of partial hysterectomy Hx of cholecystectomy Family History Family History Maternal Aunt No problems noted. 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 Oriented X3. No acute distress. Eyes: Pupils equal, round and reactive to light. ENT: Pharynx mild dry MM Neck: Normal inspection. Neck supple. CVS: Normal heart rate and rhythm. Pulses normal. Respiratory: No respiratory distress. Breath sounds normal. Abdomen: Soft and mild diffuse epigastric ttp Skin: Skin warm and dry. pale skin color. Normal skin turgor. Extremities: No lower extremity edema. Neuro: Oriented X 3. No motor deficit. No sensory deficit. Course Course Course Narrative: This is a rapid medical exam performed by Diane Lee NP: Additional HPI, ROS, PE not included below will be deferred to primary provider. Patient is a 58-year-old female presenting to the ED with complaint of 3/10 epigastric pain, nausea, vomiting and diarrhea intermittenlty for the past 5 months. Has not been able to tolerate PO the past 3 days. Denies hematochezia, hematemesis, melena. Has seen GI here for same. PE: nontoxic appearing, abdomen soft and nontender Plan: labs Medications Administered Generic Name Dose Route Start Last Admin Trade Name Freq PRN Reason Stop Dose Admin Potassium Chloride 10 meq in 100 mls @ 100 mls/hr 10/21/23 15:00 10/21/23 15:41 Potassium Chloride/H20 IV 10/21/23 16:59 100 mls/hr Q1H CHANA Administration Discontinued Medications Generic Name Dose Route Start Last Admin Trade Name Freq PRN Reason Stop Dose Admin Famotidine 20 mg 10/21/23 14:50 10/21/23 15:51 Famotidine/Pf 20 Mg/2 Ml Vial IVPUSH 10/21/23 14:51 20 mg ONCE ONE Administration Sodium Chloride 1,000 mls @ 999 mls/hr 10/21/23 14:50 10/21/23 15:40 Ns IV 10/21/23 15:50 999 mls/hr .Q1H1M ONE Administration Lorazepam 1 mg 10/21/23 14:50 10/21/23 15:51 Lorazepam 2 Mg/Ml Vial IVPUSH 10/21/23 14:51 1 mg STAT STA Administration Ondansetron HCl 4 mg 10/21/23 14:50 10/21/23 15:51 Ondansetron Hcl 4 Mg/2 Ml Vial IVPUSH 10/21/23 14:51 4 mg ONCE ONE Administration Procedures EJ/Peripheral Line Neck L: Time Out Performed: Yes Skin Cleansed in Sterile Fashion: Yes Size (gauge): 20 IV Secured and Dressing Applied: Yes Patient Tolerated Procedure: well and no complications Medical Decision Making Medical Decision Making MDM Narrative: 58 yo female with PMH of elevated LFTs, DM2, hypothyroidism, obesity, chronic GERD, EDGAR, HTN here with c/o chronic intermittent epigastric pain n/v/d that comes and goes unknown triggers follows closely with GI today this episode is 3 days. No change from prior episodes - at this time labs, IVF, IV medications. Has had negative US and CT scans. No reason to repeat imaging. Differential Diagnosis Differential Diagnoses: The differential diagnosis associated with the presentation includes gastritis, cyclical vomiting, dehydration Admission/Observation Consideration of admission/observation: Escalation of care including admission/observation considered Lab Data MDM Lab Attestation statement: I reviewed the patient's lab results. 10/21/23 12:11 10/21/23 12:11 Labs: Lab Results 10/21/23 Range/Units 12:11 WBC 12.0 H (4.8-10.8) X10*3/uL RBC 5.07 (4.20-5.50) X10*6/uL Hgb 15.5 (12.0-16.0) g/dl Hct 44.1 (37.0-47.0) % MCV 87.0 (80.0-98.0) fL MCH 30.6 (27.0-33.0) pg MCHC 35.1 H (31.0-35.0) g/dl RDW 14.4 (11.0-16.0) % Plt Count 304 (160-400) X10*3/uL MPV 10.0 (9.4-12.3) fL Immature Gran % (Auto) 0.3 (0.0-0.4) % Neut % (Auto) 65.5 (45-73) % Lymph % (Auto) 27.9 (20-40) % [place] % (Auto) 4.0 (2-11) % Eos % (Auto) 1.9 (0-4) % Baso % (Auto) 0.4 (0-2) % Lymph # (Auto) 3.4 (1.2-4.9) X10*3/uL [place] # (Auto) 0.5 (0.1-1.2) X10*3/uL Eos # (Auto) 0.2 (0.0-0.4) X10*3/uL Baso # (Auto) 0.1 (0.0-0.2) X10*3/uL Abs Immat Gran (auto) 0.04 H (0.00-0.03) X10*3/uL Absolute Neuts (auto) 7.9 (2.0-8.3) x10*3/uL Absolute Nucleated RBC 0.000 (0.0-0.012) X10*3/uL Nucleated RBC % (auto) 0.0 (0.0-0.2) /100WBC Sodium 144 (135-145) mmol/L Potassium 3.1 L (3.3-5.1) mmol/L Chloride 102 (96-108) mmol/L Carbon Dioxide 27 (22-29) mmol/L Anion Gap 18 (12-20) BUN 17 H (9-16) mg/dL Creatinine 0.80 (0.5-1.4) mg/dL Estim Creat Clear Calc 80.0 Estimated GFR > 60 Random Glucose 98 (60-115) mg/dL Calcium 10.3 H D (8.4-10.2) mg/dL Total Bilirubin 0.8 (0.0-1.0) mg/dL AST 28 (5-31) U/L ALT 42 H (0-31) U/L Alkaline Phosphatase 108 (39-117) U/L Total Protein 8.4 H (6.5-8.0) g/dL Albumin 4.7 (3.5-5.0) g/dL Urine Color Yellow Urine Appearance Clear Urine pH 5.5 (5.0-9.0) Ur Specific [place] >= 1.030 H (1.005-1.025) Urine Protein 30 (1+) H (Neg-Trace) mg/dL Urine Glucose (UA) >=1000 H (Negative) mg/dL Urine Ketones Trace (Negative) mg/dL Urine Blood Negative (Negative) Urine Nitrite Negative (Negative) Ur Leukocyte Esterase Negative (Negative) Urine RBC 0-2 (0-2) /HPF Urine WBC 0-5 (0-5) /HPF Ur Squamous Epith Cells 6-10 (0-2) /HPF Urine Bacteria 1+ (None Seen) Hyaline Casts 3-5 (0-2) /LPF Influenza Type A (PCR) NEGATIVE (Negative) Influenza Type B (PCR) NEGATIVE (Negative) RSV RNA Qual (PCR) NEGATIVE (Negative) SARS-CoV-2 RNA (RT-PCR) NEGATIVE (Negative) Independent Historian Clinical information obtained from an independent historian. History obtained from or confirmed by: Spouse External Record Review External record reviewed: Inpatient record and Office record Discharge Plan Discharge Clinical Impression: Acute dehydration, Acute hypokalemia Nausea & vomiting Qualifiers: Vomiting type: unspecified Qualified Code(s): R11.2 - Nausea with vomiting, unspecified Patient Disposition: Still a Patient Instructions: Dehydration (ED), Hypokalemia (ED), Acute Nausea and Vomiting (ED) Additional Instructions: stay hydrated, drink plenty of fluids, return for any worsening symptoms or inability to eat or drink follow up with your GI doctor eat potassium rich foods Prescriptions: No Action (DME) lancets [FreeStyle Lancets] 28 gauge misc See Rx Instructions .MEDSUPPLY Qty: 100 11RF Rx Instructions: 3 times a day (DME) FreeStyle Lite Strips Strip See Rx Instructions .MEDSUPPLY Qty: 100 6RF Rx Instructions: 3 times a day lidocaine 5 % ointment 1 appl topical BID PRN (Reason: pain) Qty: 50 6RF Rx Instructions: apply to most painful area hydrochlorothiazide 25 mg tablet 25 mg PO QAM Qty: 90 1RF levothyroxine 75 mcg tablet 75 mcg PO DAILY Qty: 90 1RF potassium chloride 10 mEq capsule, extended release 10 meq PO DAILY Qty: 7 0RF diclofenac sodium 75 mg tablet,delayed release (DR/EC) 75 mg PO BID PRN (Reason: for pain) Qty: 60 0RF Jardiance 25 mg tablet 25 mg PO DAILY 90 Days Qty: 90 1RF ondansetron 4 mg tablet,disintegrating 4 mg PO Q6-8H PRN (Reason: nausea and vomiting) Qty: 10 0RF gabapentin 300 mg capsule 300 mg PO TID Qty: 90 4RF aspirin [Adult Low Dose Aspirin] 81 mg tablet,delayed release (DR/EC) 81 mg PO DAILY metformin 1,000 mg tablet 1,000 mg PO BIDWMEAL 90 Days Qty: 180 3RF irbesartan 150 mg tablet 150 mg PO DAILY Qty: 90 3RF Trulicity 3 mg/0.5 mL pen injector 3 mg subcut QWEEK Qty: 2 5RF ciclopirox 0.77 % cream topical sennosides [Natural Senna Laxative] 8.6 mg tablet 17.2 mg PO BEDTIME Qty: 180 3RF Citrucel 500 mg tablet 500 mg PO DAILY Qty: 90 2RF Rx Instructions: take it with full glass of water esomeprazole magnesium [Nexium] 40 mg capsule,delayed release(DR/EC) 40 mg PO DAILY Qty: 90 5RF sucralfate 1 gram tablet 1 g PO BEDTIME Qty: 30 4RF Print Language: Tajik
[2023-10-21 11:36] VITALS: BP 132/70; PULSE 67; RESP 20; TEMP 36.2; O2SAT 98; BMI 43.6
[2023-10-21 12:14] LABS: MANUAL DIFF FLAG NO
[2023-10-21 12:17] LABS: Basophils Absolute Auto 0.1 X10*3/uL (0.0-0.2); Basophils Percent Auto 0.4 % (0-2); Eosinophils Absolute Auto 0.2 X10*3/uL (0.0-0.4); Eosinophils Percent Auto 1.9 % (0-4); Hematocrit 44.1 % (37.0-47.0); Hemoglobin 15.5 g/dl (12.0-16.0); Imm Gran Abs Auto 0.04 X10*3/uL (0.00-0.03); Imm Gran Pct Auto 0.3 % (0.0-0.4); Lymphocytes Absolute Auto 3.4 X10*3/uL (1.2-4.9); Lymphocytes Percent Auto 27.9 % (20-40); Mean Corpuscular HGB Conc 35.1 g/dl (31.0-35.0); Mean Corpuscular Hemoglobin 30.6 pg (27.0-33.0); Monocytes Absolute Auto 0.5 X10*3/uL (0.1-1.2); Neutrophils Absolute Auto 7.9 x10*3/uL (2.0-8.3); Neutrophils Percent Auto 65.5 % (45-73); Platelet Count 304 X10*3/uL (160-400); Red Blood Count 5.07 X10*6/uL (4.20-5.50); Red Cell Distribution Width 14.4 % (11.0-16.0)
[2023-10-21 12:22] LABS: Appearance Urine Clear; Color Urine Yellow; Glucose Urine UA >=1000 mg/dL (Negative); Leukocyte Esterase Urine Negative (Negative); Nitrite Urine Negative (Negative); PH 5.5 (5.0-9.0); Specific Gravity - Urine >= 1.030 (1.005-1.025); UMIC TRIGGER UACC YES; Urine Blood Negative (Negative); Urine Ketones Trace mg/dL (Negative); Urine Protein 30 (1+) mg/dL (Neg-Trace)
[2023-10-21 12:27] LABS: Bacteria Urine 1+ (None Seen); RBC Urine 0-2 /HPF (0-2); WBC Urine 0-5 /HPF (0-5)
[2023-10-21 12:31] LABS: Alanine Aminotransferase 42 U/L (0-31); Albumin Level 4.7 g/dL (3.5-5.0); Alkaline Phosphatase 108 U/L (39-117); Anion Gap 18 (12-20); Aspartate Amino Transferase 28 U/L (5-31); Bilirubin Total 0.8 mg/dL (0.0-1.0); Blood Urea Nitrogen 17 mg/dL (9-16); Calcium 10.3 mg/dL (8.4-10.2); Carbon Dioxide 27 mmol/L (22-29); Chloride 102 mmol/L (96-108); Estimated Glomerular Filt Rate > 60; Glucose Random 98 mg/dL (60-115); Potassium 3.1 mmol/L (3.3-5.1); Sodium 144 mmol/L (135-145); Total Protein 8.4 g/dL (6.5-8.0)
[2023-10-21 12:54] LABS: Influenza A PCR NEGATIVE (Negative); Influenza B PCR NEGATIVE (Negative); Resp Syncy Virus RNA Qual PCR NEGATIVE (Negative); SARS COV2 PCR INHOUSE NEGATIVE (Negative)
[2023-10-21 13:54] VITALS: BP 109/65; PULSE 70; RESP 18; TEMP 35.9; O2SAT 95
[2023-10-21 14:20] VITALS: BP 106/59; PULSE 65; RESP 20; O2SAT 98
[2023-10-21] MEDS: 0.9 % Sodium Chloride 1,000 ML 999 ML IV (15:40)
[2023-10-21] MEDS: Potassium Chloride/H20 10 MEQ/100 ML PIGGYBACK 100 MEQ IV ×2 (15:41→16:55)
[2023-10-21] MEDS: ondansetron HCL 4 MG/2 ML VIAL IVPUSH (15:51)
[2023-10-21] MEDS: Famotidine/PF 20 MG/2 ML VIAL IVPUSH (15:51)
[2023-10-21] MEDS: LORazepam 2 MG/ML VIAL 1 MG IVPUSH (15:51)
--- NOTE | 2023-10-21 15:55 | PC.NURSE ---
pt a&ox3, vss, pt difficult stick- multiple nurses attempted IV access without success, pt states she gets US guided when she is here. Provider notified and inserted a EJ for use, pt tolerated well. IVF hung per order, pt medicated per order, relay telegrapher intact nsr/sb 60s call patricia within reach, family at bedside will continue to monitor
[2023-10-21 16:26] LABS: Lipase 32 U/L (8-78)
[2023-10-21 16:58] VITALS: BP 115/62; PULSE 67; RESP 16; TEMP 36.8; O2SAT 95
--- NOTE | 2023-10-21 16:59 | PC.NURSE ---
patient a&ox3, vss, awake overnight monitor intact sinus sanford 60s, IVF continue to run slowly, 2nd bag iv potassium running per order, pt denies pain at this time, call patricia within reach, will continue to monitor
[2023-10-21 18:00] VITALS: BP 114/63; PULSE 65; RESP 13; TEMP 36.1; O2SAT 100
[2023-10-21 18:53] VITALS: BP 114/63; PULSE 65; RESP 13; TEMP 36.8; O2SAT 100
== END 2023-10-21 18:55 | disposition home or self-care (01) ==
PROVIDERS: Emergency Medicine; Registered Nurse Emergency; Emergency Provider Internal Medicine; PCP Internal Medicine
DX: E86.0 Dehydration (principal); E87.6 Hypokalemia; R11.2 Nausea with vomiting, unspecified; R10.13 Epigastric pain; I10 Essential (primary) hypertension; Z03.818 Encounter for observation for suspected exposure to other biological agents ruled out; Z79.899 Other long term (current) drug therapy
CPT/HCPCS: 0241U; 80053; 81001; 83690; 85025; 96365; 96366; 96375; 99284; J2060; J2405; J3480

== ENCOUNTER 2023-10-22 15:44 | Emergency (ER) | payer OTHER, SELFPAY ==
[2023-10-22 15:51] VITALS: BP 124/80; PULSE 64; O2SAT 99
[2023-10-22 16:33] VITALS: BP 107/71; PULSE 67; RESP 18; TEMP 36.6; O2SAT 99; BMI 43.5
--- NOTE | 2023-10-22 16:36 | ED.GENADULT ---
HPI - General Adult General Chief complaint: Nausea/Vomiting/Diarrhea Stated complaint: VOMITING NAUSEA Time Seen by Provider: 10/22/23 18:52 History of Present Illness ED Provider: Adiel HENAO narrative: The patient is a 58-year-old female who says that she has been having problems with nausea and vomiting for the last 5 months. She has been treated for GERD. She says that she has had multiple tests including a CT scan of the abdomen, liver elastography, and a gastric emptying study. No particular diagnosis has been determined. 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 The patient says that over the last 4 days her symptoms have been worse than usual. She came to the emergency room yesterday and was found to have a potassium of 3.1. She was hydrated and her hypokalemia was treated and she was discharged. She returns today saying that she has been having ongoing nausea and vomiting despite metoclopramide and ondansetron at home. She also had some loose stools. She denies any marijuana use. No recent antibiotic use. Her abdominal surgical history is that she has had C-sections. Related Data Home Medications ?Medication ?Instructions ?Recorded ?Confirmed aspirin 81 mg tablet,delayed 81 mg PO DAILY 10/24/20 04/23/23 release (Adult Low Dose Aspirin) ciclopirox 0.77 % topical cream appl topical 06/19/23 Previous Rx's ?Medication ?Instructions ?Recorded FreeStyle Lancets 28 gauge #100 ea 08/24/20 (lancets) blood sugar diagnostic (FreeStyle #100 ea 08/20/21 Lite Strips) metformin 1,000 mg tablet 1,000 mg PO BIDWMEAL 3 months #180 12/24/22 tabs lidocaine 5 % topical ointment 1 appl topical BID PRN pain #50 04/09/23 grams dulaglutide 3 mg/0.5 mL 3 mg (0.5 mL) subcut QWEEK #2 mL 04/17/23 subcutaneous pen injector irbesartan 150 mg tablet 150 mg PO DAILY #90 tabs 04/17/23 hydrochlorothiazide 25 mg tablet 25 mg PO QAM #90 tabs 05/27/23 levothyroxine 75 mcg tablet 75 mcg PO DAILY #90 tabs 06/06/23 potassium chloride 10 mEq 10 meq PO DAILY #7 caps 07/03/23 capsule,extended release esomeprazole magnesium 40 mg 40 mg PO DAILY #90 caps 07/08/23 capsule,delayed release (Nexium) methylcellulose (laxative) 500 mg 500 mg PO DAILY #90 tabs 07/08/23 tablet (Citrucel) sennosides 8.6 mg tablet (Natural 17.2 mg (2 x 8.6 mg) PO BEDTIME 07/08/23 Senna Laxative) constipation #180 tabs sucralfate 1 gram tablet 1 g PO BEDTIME #30 tabs 07/08/23 diclofenac sodium 75 mg 75 mg PO BID PRN for pain #60 tabs 07/30/23 tablet,delayed release empagliflozin 25 mg tablet 25 mg PO DAILY 90 days #90 tabs 09/23/23 (Jardiance) ondansetron 4 mg disintegrating 4 mg PO Q6-8H PRN nausea and 09/30/23 tablet vomiting #10 tabs gabapentin 300 mg capsule 300 mg PO TID #90 caps 10/16/23 ondansetron 4 mg disintegrating 4 mg PO Q6-8H PRN nausea and 10/21/23 tablet vomiting #7 tabs metoclopramide HCl 10 mg tablet 10 mg PO Q6H PRN nausea and 10/22/23 vomiting #20 tabs potassium chloride 20 mEq 20 meq PO BID 10 days #20 tabs 10/22/23 tablet,extended release Allergies Allergy/AdvReac Type Severity Reaction Status Date / Time codeine Allergy Unknown Vomiting Verified 10/22/23 16:39 [facility] Past Medical History Medical History Transaminitis Type 2 diabetes mellitus with obesity Musculoskeletal disorder involving upper trapezius muscle Acquired hypothyroidism PONV (postoperative nausea and vomiting) Varicose veins of bilateral lower extremities with pain Venous reflux Rotator cuff tendonitis Pain and swelling of left lower leg Right anterior shoulder pain Submandibular gland inflammation Chronic GERD Left thyroid nodule Hallux valgus (acquired), right foot History of thyroid cancer Morbid obesity EDGAR on CPAP Surgical menopause Essential hypertension Abnormal stress ECG with treadmill Type 2 diabetes mellitus with peripheral neuropathy Surgical History S/P right rotator cuff repair History of esophagogastroduodenoscopy (EGD) History of shoulder surgery History of endoscopy History of colonoscopy S/P cardiac cath History of partial hysterectomy Hx of cholecystectomy Family History Family History Maternal Aunt No problems noted. 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 She looks as if she feels mildly unwell. She has not in overt distress. HENMT Other: Face is symmetrical. Mucous membranes not obviously dry. Eyes Other: Pupils are round equal, conjunctivae clear Neck Other: Neck is supple Resp Effort & Inspection: normal respiratory effort Auscultation: clear to auscultation bilaterally Cardio Rate: regular rate Rhythm: regular rhythm Heart sounds: S1 normal heart sound present and S2 normal heart sound present GI Other: The patient has a large abdomen. It is soft and nontender. Skin Other: Skin is dry and unremarkable Neuro Other: The patient is awake and alert. Mental status is clear. Cranial nerves are grossly intact. She moves her extremities symmetrically. Extrem Other: No calf asymmetry. No pitting edema. Course Course Course Narrative: This is a Rapid Medical Examination (RME) performed by Ml Lees PA-C in triage. Full HPI, ROS, assessment and treatment plan per primary provider in the Main ED. 58 yo female with PMH of elevated LFTs, DM2, hypothyroidism, obesity, chronic GERD, EDGAR, HTN with recurrent weekly bouts of epigastric pain and n/v she follows with GI closely, here for eval of vomiting x5 days. seen here yesterday, tx w/ IVF and potassium, and d/c home. reports continued vomiting and epigastric pain, unable to tolerate PO intake. has tried zofran without effect. states my chest is tired however denies chest pain. abdomen soft, ND/NT. Plan: labs, viral serology ordered Medications Administered Discontinued Medications Generic Name Dose Route Start Last Admin Trade Name Freq PRN Reason Stop Dose Admin Diphenhydramine HCl 50 mg 10/22/23 19:06 10/22/23 19:33 Diphenhydramine Hcl 50 Mg/Ml Vial IVPUSH 10/22/23 19:07 50 mg ONCE ONE Administration Famotidine 20 mg 10/22/23 19:10 10/22/23 19:33 Famotidine/Pf 20 Mg/2 Ml Vial IVPUSH 10/22/23 19:11 20 mg ONCE ONE Administration Potassium Chloride/Sodium Chloride 40 meq in 1,000 mls @ 250 mls/hr 10/22/23 19:15 10/22/23 19:33 Kcl 40 Meq In 0.9 % Sodium Chl IV 10/22/23 23:14 250 mls/hr .Q4H CHANA Administration Potassium Chloride 40 meq 10/22/23 20:53 10/22/23 20:59 Potassium Chloride Er 20 Meq Tab.Er.Prt PO 10/22/23 20:54 40 meq ONCE ONE Administration Prochlorperazine Edisylate 10 mg 10/22/23 19:06 10/22/23 19:33 Prochlorperazine Edisylate 10 Mg/2 Ml Vial IVPUSH 10/22/23 19:07 10 mg ONCE ONE Administration Medical Decision Making Medical Decision Making MDM Narrative: The patient presents with recurrent nausea. She was here yesterday for the same complaint. She has been nauseated and vomiting for the last 4 days. She has had episodes like this before. She has had a negative workup so far. Today her labs are significant for a potassium of 2.9. She really does not seem more dehydrated than yesterday. Her BUN is 13 today. It was 17 yesterday. Her creatinine is 0.76. It was 0.8 yesterday. Her bicarb is 24. Her anion gap is 18. The patient has poor peripheral veins and so I placed a 20 gauge Angiocath in the patient's left external jugular vein. The patient was given 10 mg of IV prochlorperazine, 50 mg of IV diphenhydramine, and 20 mg of IV famotidine. She was also given a normal saline with potassium. Her nausea improved with the treatment above. She was then able to tolerate apple juice and crackers. She was also able to tolerate 40 mEq of extended release potassium tablets. Since she was tolerating oral intake well I felt she was a reasonable candidate for discharge. The patient has been using ondansetron at home. This does not seem to be working. I will send a prescription for metoclopramide. She will use this for nausea. I also sent a prescription for KCl ER 20 mEq b.i.d.. Lab Data 10/22/23 18:17 10/22/23 17:36 Labs: Lab Results 10/22/23 10/22/23 10/22/23 Range/Units 17:36 17:44 18:17 WBC 12.8 H (4.8-10.8) X10*3/uL RBC 5.17 (4.20-5.50) X10*6/uL Hgb 15.8 (12.0-16.0) g/dl Hct 44.3 (37.0-47.0) % MCV 85.7 (80.0-98.0) fL MCH 30.6 (27.0-33.0) pg MCHC 35.7 H (31.0-35.0) g/dl RDW 14.1 (11.0-16.0) % Plt Count 312 (160-400) X10*3/uL MPV 9.9 (9.4-12.3) fL Immature Gran % (Auto) 0.4 (0.0-0.4) % Neut % (Auto) 70.7 (45-73) % Lymph % (Auto) 22.6 (20-40) % [place] % (Auto) 4.9 (2-11) % Eos % (Auto) 0.9 (0-4) % Baso % (Auto) 0.5 (0-2) % Lymph # (Auto) 2.9 (1.2-4.9) X10*3/uL [place] # (Auto) 0.6 (0.1-1.2) X10*3/uL Eos # (Auto) 0.1 (0.0-0.4) X10*3/uL Baso # (Auto) 0.1 (0.0-0.2) X10*3/uL Abs Immat Gran (auto) 0.05 H (0.00-0.03) X10*3/uL Absolute Neuts (auto) 9.0 H (2.0-8.3) x10*3/uL Absolute Nucleated RBC 0.000 (0.0-0.012) X10*3/uL Nucleated RBC % (auto) 0.0 (0.0-0.2) /100WBC Sodium 141 (135-145) mmol/L Potassium 2.9 L* (3.3-5.1) mmol/L Chloride 102 (96-108) mmol/L Carbon Dioxide 24 (22-29) mmol/L Anion Gap 18 (12-20) BUN 13 (9-16) mg/dL Creatinine 0.76 (0.5-1.4) mg/dL Estim Creat Clear Calc 84.1 Estimated GFR > 60 Random Glucose 96 (60-115) mg/dL Calcium 10.3 H (8.4-10.2) mg/dL Magnesium 1.7 (1.6-2.6) mg/dL Total Bilirubin 0.8 (0.0-1.0) mg/dL AST 32 H (5-31) U/L ALT 41 H (0-31) U/L Alkaline Phosphatase 105 (39-117) U/L C-Reactive Protein 0.60 H (< or = 0.50) mg/dL Total Protein 8.6 H (6.5-8.0) g/dL Albumin 4.8 (3.5-5.0) g/dL Lipase 36 (8-78) U/L Urine Color Urine Appearance Urine pH (5.0-9.0) Ur Specific [place] (1.005-1.025) Urine Protein (Neg-Trace) mg/dL Urine Glucose (UA) (Negative) mg/dL Urine Ketones (Negative) mg/dL Urine Blood (Negative) Urine Nitrite (Negative) Ur Leukocyte Esterase (Negative) Urine RBC (0-2) /HPF Urine WBC (0-5) /HPF Ur Squamous Epith Cells (0-2) /HPF Urine Bacteria (None Seen) Hyaline Casts (0-2) /LPF Urine Opiates Screen (Not Detect) Ur Buprenorphine Scrn (Not Detect) ng/mL Ur Oxycodone Screen (Not Detect) ng/mL Urine Methadone Screen (Not Detect) ng/mL Urine Fentanyl Screen (Not Detect) Ur Barbiturates Screen (Not Detect) Ur Phencyclidine Scrn (Not Detect) Ur Amphetamines Screen (Not Detect) U Benzodiazepines Scrn (Not Detect) Urine Cocaine Screen (Not Detect) U Marijuana (THC) Screen (Not Detect) Influenza Type A (PCR) NEGATIVE (Negative) Influenza Type B (PCR) NEGATIVE (Negative) RSV RNA Qual (PCR) NEGATIVE (Negative) SARS-CoV-2 RNA (RT-PCR) NEGATIVE (Negative) 10/22/23 Range/Units 20:52 WBC (4.8-10.8) X10*3/uL RBC (4.20-5.50) X10*6/uL Hgb (12.0-16.0) g/dl Hct (37.0-47.0) % MCV (80.0-98.0) fL MCH (27.0-33.0) pg MCHC (31.0-35.0) g/dl RDW (11.0-16.0) % Plt Count (160-400) X10*3/uL MPV (9.4-12.3) fL Immature Gran % (Auto) (0.0-0.4) % Neut % (Auto) (45-73) % Lymph % (Auto) (20-40) % [place] % (Auto) (2-11) % Eos % (Auto) (0-4) % Baso % (Auto) (0-2) % Lymph # (Auto) (1.2-4.9) X10*3/uL [place] # (Auto) (0.1-1.2) X10*3/uL Eos # (Auto) (0.0-0.4) X10*3/uL Baso # (Auto) (0.0-0.2) X10*3/uL Abs Immat Gran (auto) (0.00-0.03) X10*3/uL Absolute Neuts (auto) (2.0-8.3) x10*3/uL Absolute Nucleated RBC (0.0-0.012) X10*3/uL Nucleated RBC % (auto) (0.0-0.2) /100WBC Sodium (135-145) mmol/L Potassium (3.3-5.1) mmol/L Chloride (96-108) mmol/L Carbon Dioxide (22-29) mmol/L Anion Gap (12-20) BUN (9-16) mg/dL Creatinine (0.5-1.4) mg/dL Estim Creat Clear Calc Estimated GFR Random Glucose (60-115) mg/dL Calcium (8.4-10.2) mg/dL Magnesium (1.6-2.6) mg/dL Total Bilirubin (0.0-1.0) mg/dL AST (5-31) U/L ALT (0-31) U/L Alkaline Phosphatase (39-117) U/L C-Reactive Protein (< or = 0.50) mg/dL Total Protein (6.5-8.0) g/dL Albumin (3.5-5.0) g/dL Lipase (8-78) U/L Urine Color Yellow Urine Appearance Clear Urine pH 6.0 (5.0-9.0) Ur Specific [place] 1.015 (1.005-1.025) Urine Protein Negative (Neg-Trace) mg/dL Urine Glucose (UA) >=1000 H (Negative) mg/dL Urine Ketones 40 (Negative) mg/dL Urine Blood Negative (Negative) Urine Nitrite Negative (Negative) Ur Leukocyte Esterase Small (1+) H (Negative) Urine RBC 0-2 (0-2) /HPF Urine WBC 11-20 H (0-5) /HPF Ur Squamous Epith Cells 11-20 (0-2) /HPF Urine Bacteria 1+ (None Seen) Hyaline Casts 0-2 (0-2) /LPF Urine Opiates Screen Not Detected (Not Detect) Ur Buprenorphine Scrn Not Detected (Not Detect) ng/mL Ur Oxycodone Screen Not Detected (Not Detect) ng/mL Urine Methadone Screen Not Detected (Not Detect) ng/mL Urine Fentanyl Screen Not Detected (Not Detect) Ur Barbiturates Screen Not Detected (Not Detect) Ur Phencyclidine Scrn Not Detected (Not Detect) Ur Amphetamines Screen Not Detected (Not Detect) U Benzodiazepines Scrn Not Detected (Not Detect) Urine Cocaine Screen Not Detected (Not Detect) U Marijuana (THC) Screen Not Detected (Not Detect) Influenza Type A (PCR) (Negative) Influenza Type B (PCR) (Negative) RSV RNA Qual (PCR) (Negative) SARS-CoV-2 RNA (RT-PCR) (Negative) Discharge Plan Discharge Clinical Impression: Vomiting, Hypokalemia Patient Disposition: Home, Self-Care Additional Instructions: I have sent a new medication for nausea which you can try. This is metoclopramide. You may take this up to every 6 hours as needed for nausea. Your potassium level was a bit low today. I have sent a prescription for some potassium pills. Please take this twice a day. Please stay in touch with your regular doctor and your freight car repairer regarding these ongoing symptoms you have been having. Return to the emergency room if significantly worse. Prescriptions: New metoclopramide HCl 10 mg tablet 10 mg PO Q6H PRN (Reason: nausea and vomiting) Qty: 20 0RF potassium chloride 20 mEq tablet extended release 20 meq PO BID 10 Days Qty: 20 0RF No Action (DME) lancets [FreeStyle Lancets] 28 gauge misc See Rx Instructions .MEDSUPPLY Qty: 100 11RF Rx Instructions: 3 times a day (DME) FreeStyle Lite Strips Strip See Rx Instructions .MEDSUPPLY Qty: 100 6RF Rx Instructions: 3 times a day lidocaine 5 % ointment 1 appl topical BID PRN (Reason: pain) Qty: 50 6RF Rx Instructions: apply to most painful area hydrochlorothiazide 25 mg tablet 25 mg PO QAM Qty: 90 1RF levothyroxine 75 mcg tablet 75 mcg PO DAILY Qty: 90 1RF potassium chloride 10 mEq capsule, extended release 10 meq PO DAILY Qty: 7 0RF diclofenac sodium 75 mg tablet,delayed release (DR/EC) 75 mg PO BID PRN (Reason: for pain) Qty: 60 0RF Jardiance 25 mg tablet 25 mg PO DAILY 90 Days Qty: 90 1RF ondansetron 4 mg tablet,disintegrating 4 mg PO Q6-8H PRN (Reason: nausea and vomiting) Qty: 10 0RF gabapentin 300 mg capsule 300 mg PO TID Qty: 90 4RF ondansetron 4 mg tablet,disintegrating 4 mg PO Q6-8H PRN (Reason: nausea and vomiting) Qty: 7 0RF aspirin [Adult Low Dose Aspirin] 81 mg tablet,delayed release (DR/EC) 81 mg PO DAILY metformin 1,000 mg tablet 1,000 mg PO BIDWMEAL 90 Days Qty: 180 3RF irbesartan 150 mg tablet 150 mg PO DAILY Qty: 90 3RF Trulicity 3 mg/0.5 mL pen injector 3 mg subcut QWEEK Qty: 2 5RF ciclopirox 0.77 % cream topical sennosides [Natural Senna Laxative] 8.6 mg tablet 17.2 mg PO BEDTIME Qty: 180 3RF Citrucel 500 mg tablet 500 mg PO DAILY Qty: 90 2RF Rx Instructions: take it with full glass of water esomeprazole magnesium [Nexium] 40 mg capsule,delayed release(DR/EC) 40 mg PO DAILY Qty: 90 5RF sucralfate 1 gram tablet 1 g PO BEDTIME Qty: 30 4RF Referrals: Marah Russell MD [Primary Care Provider] - (vomiting ) Grazyna Munoz FNP-BC [Nurse Practitioner] - (vomiting) Interventions: ED Discharge Assessment Last Done: 10/22/23 22:17 Discharge Date/Time: 10/22/23 22:21 Print Language: Pashto
[2023-10-22 18:06] LABS: Alanine Aminotransferase 41 U/L (0-31); Albumin Level 4.8 g/dL (3.5-5.0); Alkaline Phosphatase 105 U/L (39-117); Anion Gap 18 (12-20); Aspartate Amino Transferase 32 U/L (5-31); Bilirubin Total 0.8 mg/dL (0.0-1.0); Blood Urea Nitrogen 13 mg/dL (9-16); Calcium 10.3 mg/dL (8.4-10.2); Carbon Dioxide 24 mmol/L (22-29); Chloride 102 mmol/L (96-108); Creatinine Clr Calc Pharmacy 84.1; Estimated Glomerular Filt Rate > 60; Glucose Random 96 mg/dL (60-115); Lipase 36 U/L (8-78); Magnesium 1.7 mg/dL (1.6-2.6); Potassium 2.9 mmol/L (3.3-5.1); Sodium 141 mmol/L (135-145); Total Protein 8.6 g/dL (6.5-8.0)
--- NOTE | 2023-10-22 18:08 | ECG_ITS ---
Test Reason : ABNORMAL LABS Blood Pressure : / mmHG Vent. Rate : 059 BPM Atrial Rate : 059 BPM P-R Int : 152 ms QRS Dur : 100 ms QT Int : 462 ms P-R-T Axes : 026 -08 020 degrees QTc Int : 457 ms Sinus bradycardia Anterolateral infarct , age undetermined Abnormal ECG No previous ECGs available Referred By: Tati Lees Electronically Signed By:WESTON ROSE MD
[2023-10-22 18:36] LABS: Basophils Absolute Auto 0.1 X10*3/uL (0.0-0.2); Basophils Percent Auto 0.5 % (0-2); Eosinophils Absolute Auto 0.1 X10*3/uL (0.0-0.4); Eosinophils Percent Auto 0.9 % (0-4); Hematocrit 44.3 % (37.0-47.0); Hemoglobin 15.8 g/dl (12.0-16.0); Imm Gran Abs Auto 0.05 X10*3/uL (0.00-0.03); Imm Gran Pct Auto 0.4 % (0.0-0.4); Lymphocytes Absolute Auto 2.9 X10*3/uL (1.2-4.9); Lymphocytes Percent Auto 22.6 % (20-40); Mean Corpuscular HGB Conc 35.7 g/dl (31.0-35.0); Mean Corpuscular Hemoglobin 30.6 pg (27.0-33.0); Mean Corpuscular Volume 85.7 fL (80.0-98.0); Mean Platelet Volume 9.9 fL (9.4-12.3); Monocytes Absolute Auto 0.6 X10*3/uL (0.1-1.2); Monocytes Percent Auto 4.9 % (2-11); Neutrophils Percent Auto 70.7 % (45-73); Platelet Count 312 X10*3/uL (160-400); Red Blood Count 5.17 X10*6/uL (4.20-5.50); Red Cell Distribution Width 14.1 % (11.0-16.0); White Blood Count 12.8 X10*3/uL (4.8-10.8)
[2023-10-22 19:04] LABS: MANUAL DIFF FLAG NO
[2023-10-22 19:22] VITALS: BP 123/67; PULSE 61; RESP 12; TEMP 36.9; O2SAT 98
[2023-10-22] MEDS: KCl 40 mEq in 0.9 % Sodium Chl 40 MEQ/1,000 ML IV.SOLN 250 MEQ IV (19:33)
[2023-10-22] MEDS: Prochlorperazine Edisylate 10 MG/2 ML VIAL IVPUSH (19:33)
[2023-10-22] MEDS: Famotidine/PF 20 MG/2 ML VIAL IVPUSH (19:33)
[2023-10-22] MEDS: diphenhydrAMINE HCL 50 MG/ML VIAL IVPUSH (19:33)
[2023-10-22] MEDS: Potassium Chloride ER 20 MEQ TAB.ER.PRT 40 MEQ PO (20:59)
[2023-10-22 21:06] LABS: Appearance Urine Clear; Color Urine Yellow; Glucose Urine UA >=1000 mg/dL (Negative); Leukocyte Esterase Urine Small (1+) (Negative); Nitrite Urine Negative (Negative); Specific Gravity - Urine 1.015 (1.005-1.025); UMIC TRIGGER UACC YES; Urine Blood Negative (Negative); Urine Ketones 40 mg/dL (Negative); Urine Protein Negative (Neg-Trace)
[2023-10-22 21:16] LABS: Amphetamine Screen Urine Not Detected (Not Detect); Barbiturates, Urine Not Detected (Not Detect); Benzodiazepines Screen Urine Not Detected (Not Detect); Buprenorphine Scr Not Detected (Not Detect); Cannabinoid Screen Urine Not Detected (Not Detect); Cocaine Screen Urine Not Detected (Not Detect); Fentanyl, urine Not Detected (Not Detect); Methadone Screen, Urine Not Detected (Not Detect); Opiate Screen Urine Not Detected (Not Detect); Oxycodone Screen Urine Not Detected (Not Detect); Phencyclidine Screen Urine Not Detected (Not Detect)
[2023-10-22 21:21] LABS: Bacteria Urine 1+ (None Seen); Hyaline Casts Urine 0-2 /LPF (0-2); RBC Urine 0-2 /HPF (0-2); UACC Culture Trigger YES
[2023-10-22 21:57] LABS: Influenza A PCR NEGATIVE (Negative); Influenza B PCR NEGATIVE (Negative); Resp Syncy Virus RNA Qual PCR NEGATIVE (Negative); SARS COV2 PCR INHOUSE NEGATIVE (Negative)
[2023-10-22 22:17] VITALS: BP 119/67; PULSE 69; RESP 20; TEMP 36.8; O2SAT 96
== END 2023-10-22 22:21 | disposition home or self-care (01) ==
PROVIDERS: Physician Assistant Medical; Emergency Provider Emergency Medicine; PCP Internal Medicine
DX: E87.6 Hypokalemia (principal); R11.2 Nausea with vomiting, unspecified; I10 Essential (primary) hypertension; E11.9 Type 2 diabetes mellitus without complications; K21.9 Gastro-esophageal reflux disease without esophagitis; E03.9 Hypothyroidism, unspecified; Z79.84 Long term (current) use of oral hypoglycemic drugs; Z79.899 Other long term (current) drug therapy; Z03.818 Encounter for observation for suspected exposure to other biological agents ruled out
CPT/HCPCS: 0241U; 80053; 80307; 81001; 83690; 83735; 85025; 86140; 87086; 93005; 96374; 96375; 99284; 99285; J0737; J1200; J3480

== ENCOUNTER → 2023-10-22 18:08 | Outpatient (BNV) | payer OTHER, SELFPAY | PROVIDERS: Emergency Provider Emergency Medicine; PCP Internal Medicine; Visit Provider Internal Medicine Cardiovascular Disease | DX: R00.1 Bradycardia, unspecified (principal) | CPT/HCPCS: 93010 ==

== ENCOUNTER 2023-11-04 07:09 | Outpatient (REF) | payer OTHER, SELFPAY ==
[2023-11-04 10:30] LABS: Estimated Average Glucose 128 mg/dL; Hemoglobin A1c % 6.1 % (<6.0)
[2023-11-04 11:00] LABS: Creatinine Urine 262.44 mg/dL; Microalbum/Creatinine Ratio Ur 8.7 ug/mg cr (<30)
[2023-11-04 11:06] LABS: Alanine Aminotransferase 37 U/L (0-31); Albumin Level 3.9 g/dL (3.5-5.0); Alkaline Phosphatase 83 U/L (39-117); Anion Gap 13 (12-20); Aspartate Amino Transferase 28 U/L (5-31); Bilirubin Total 0.5 mg/dL (0.0-1.0); Blood Urea Nitrogen 14 mg/dL (9-16); Calcium 8.9 mg/dL (8.4-10.2); Carbon Dioxide 25 mmol/L (22-29); Chloride 109 mmol/L (96-108); Cholesterol 139 mg/dL (<200); Estimated Glomerular Filt Rate > 60; Glucose Fasting 131 mg/dL (60-99); HDL Cholesterol 43 mg/dL (>40); LDL Cholesterol Calculated 73 mg/dL (<100); Potassium 3.5 mmol/L (3.3-5.1); Sodium 143 mmol/L (135-145); Total Protein 6.6 g/dL (6.5-8.0); Triglycerides 116 mg/dL (<150)
[2023-11-04 11:27] LABS: Free T4 (Free Thyroxine) 0.99 ng/dL (0.71-1.85); Thyroid Stimulating Hormone 1.23 uIU/mL (0.32-4.0); Vitamin D 25-OH Total 63.9 ng/mL (>30)
== END 2023-11-04 07:10 | disposition home or self-care (01) ==
LOC: HO.HMGCLDS 07:09
PROVIDERS: PCP Internal Medicine; Visit Provider Internal Medicine
DX: E11.65 Type 2 diabetes mellitus with hyperglycemia (principal); E03.9 Hypothyroidism, unspecified; E04.1 Nontoxic single thyroid nodule; E89.40 Asymptomatic postprocedural ovarian failure; E66.01 Morbid (severe) obesity due to excess calories; I10 Essential (primary) hypertension
CPT/HCPCS: 36415; 80053; 80061; 82043; 82306; 82570; 83036; 84439; 84443

== ENCOUNTER 2023-11-07 10:34 | Outpatient (AMB) | payer OTHER, SELFPAY ==
--- NOTE | 2023-11-07 10:32 | A.OFFPC_ITS ---
Intake Visit Reasons: I phone [phone] f/u DM/thyroid/lipids Allergies codeine Allergy (Unknown, Verified 11/07/23 10:58) Vomiting Medication List - Last Reconciled 11/07/23 by Marah Russell MD aspirin (Adult Low Dose Aspirin) 81 mg PO DAILY blood sugar diagnostic (FreeStyle Lite Strips) 3 times a day ciclopirox 0.77% appl topical diclofenac sodium 75 mg PO BID PRN empagliflozin (Jardiance) 25 mg PO DAILY 90 days esomeprazole magnesium (Nexium) 40 mg PO DAILY FreeStyle Lancets (lancets) 3 times a day NS gabapentin 300 mg PO TID hydrochlorothiazide 25 mg PO QAM irbesartan 150 mg PO DAILY levothyroxine 75 mcg PO DAILY lidocaine 5% 1 appl topical BID PRN metformin 1,000 mg PO BIDWMEAL 3 months methylcellulose (laxative) (Citrucel) 500 mg PO DAILY metoclopramide HCl 10 mg PO Q6H PRN ondansetron 4 mg PO Q6-8H PRN potassium chloride ER 20 mEq PO BID 10 days potassium chloride ER 10 mEq PO DAILY sennosides (Natural Senna Laxative) 17.2 mg (2 x 8.6 mg) PO BEDTIME sucralfate 1 g PO BEDTIME Tobacco use date assessed: 11/07/23 Dental Screening Dental Screen Date: 11/07/23 Did you have a dental visit in the last 12 months?: No Did you have a dental problem in the last 6 months where you did not have access to dental care?: No Was dental information given to patient?: Patient declined HPI I phone [phone] f/u DM/thyroid/lipids HPI Details Telehealth visit made with 58-year-old lady with diabetes mellitus, hyperlipidemia and hypothyroidism, here today for her follow-up. She has been compliant with taking medications and tries to follow recommended diet.. Latest fasting labs showed hemoglobin A1c, renal function, lipids within normal limits [facility] Medical History (Updated 11/08/23 @ 00:21 by Marah Russell MD) Transaminitis Musculoskeletal disorder involving upper trapezius muscle Acquired hypothyroidism PONV (postoperative nausea and vomiting) Varicose veins of bilateral lower extremities with pain Venous reflux Rotator cuff tendonitis Pain and swelling of left lower leg Right anterior shoulder pain Submandibular gland inflammation Chronic GERD Left thyroid nodule Hallux valgus (acquired), right foot History of thyroid cancer EDGAR on CPAP Surgical menopause Essential hypertension Abnormal stress ECG with treadmill Type 2 diabetes mellitus with peripheral neuropathy Surgical History S/P right rotator cuff repair History of esophagogastroduodenoscopy (EGD) History of shoulder surgery History of endoscopy History of colonoscopy S/P cardiac cath History of partial hysterectomy Hx of cholecystectomy Family History Maternal Aunt No problems noted. 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 Sudhakar Mauricio, Gracia Grimes, Ady Prasad and colleagues, with an educational silvia from [employer]. Review of Systems Const Reports no additional complaints Eyes Denies change in vision ENT Reports no additional complaints Card Reports no additional complaints Resp Reports no additional complaints GI Denies abdominal pain, Denies belching, Denies melena, Denies excessive flatus, Denies heartburn and Denies diarrhea Details: Complaining of an itchy rash in perineal area present now for the last several days, denies any vaginal discharge, no dysuria Musc Reports no additional complaints Skin/Breast Details: Complaining of an itchy rash in perineal area Neuro Reports no additional complaints Psych Reports no additional complaints Endo Reports no additional complaints Physical exam (Primary Care) Tobacco/Smoking Status: Tobacco use Status Tobacco use date assessed 11/07/23 11/07/23 10:34 Patient Tobacco Use Status Never used Tobacco 11/07/23 10:34 e-Cigarette/Vaping Use Never Used 11/07/23 10:34 Thrive Assessment: Date of Thrive Assessment Date Thrive assessed 07/15/23 11/07/23 10:34 Telehealth Telehealth Telehealth Platform: Alert [employer] Location of provider rendering services: practice address Location of patient: address on file Patient Identification confirmed using: Name, : Yes Telehealth method: video Patient verbally consented to treatment: Yes Patient verbally consented to billing insurance company: Yes Patient informed of any privacy concerns related to visit: Yes Minutes spent on Phone/Video with Pt.: 15 Results Reviewed Results Reviewed: Laboratory Tests 11/04/23 07:41 Estimat Average Glucose 128 Hemoglobin A1c % 6.1 H Urine Creatinine 262.44 Urine Microalbumin 23.0 Microalb/Creat Ratio 8.7 RUN: 11/07/23 1056 PAGE 1 [facility] [address] [place] [id number] Geothermal Electrical Engineer: Pranay Powell M.D. Specimen Inquiry Name: Rosalva Beltre Age/Sex: 58/F : 1965 Unit#: [id number] Attend Dr: Marah Russell MD Re11/04/23 Status: DEP REF Location: [facility] Disch: SPEC : [id number] CLARISSA: 11/04/23 STATUS: COMP REQ : [id number] RECD: 11/04/23-[address]: Marah Russell MD COMP: 11/04/23 ENTERED: 11/04/23-[address]: ORDERED: CMP Fast, Lipid Panel, Vitamin D 25-OH, Free T4, TSH Test Result Flag Reference Sodium 143 135-145 mmol/L Potassium 3.5 # 3.3-5.1 mmol/L CL 109 H 96-108 mmol/L CO2 25 22-29 mmol/L Gap 13 12-20 BUN 14 9-16 mg/dL Creat 0.76 0.5-1.4 mg/dL EGFR > 60 NOTE: For -English individuals, multiply the result by 1.210. Chronic Kidney Disease: Estimated GFR < 60 mL/min/1.73m2 Severe Kidney Disease: Estimated GFR < 15 mL/min/1.73m2 FBS 131 H 60-99 mg/dL A fasting glucose of 126 mg/dl or greater on more than one occasion is considered diagnostic of diabetes. CA 8.9 # 8.4-10.2 mg/dL Total Bili 0.5 0.0-1.0 mg/dL AST (GOT) 28 5-31 U/L ALT (GPT) 37 H 0-31 U/L Protein, Total 6.6 6.5-8.0 g/dL Alb 3.9 3.5-5.0 g/dL Triglyceride 116 <150 mg/dL Desirable Triglyceride: less than 150 mg/dL Borderline High Triglyceride 150-199 mg/dL High Triglyceride: 200-499 mg/dL Very High Triglyceride: greater than or equal to 5OO mg/dL Cholesterol 139 <200 mg/dL Desirable Cholesterol: less than 200 mg/dL Borderline High Cholesterol: 200-239 mg/dL High Cholesterol: greater than 239 mg/dL LDL Calculated 73 <100 mg/dL Desirable LDL: less than 100 mg/dL Near Optimal/Above Optimal LDL: 110-129 mg/dL Borderline High LDL: 130-159 mg/dL High LDL: 160-189 mg/dL Very High LDL: greater than or equal to 190 mg/dL HDL 43 >40 mg/dL Desirable HDL: greater than 40 mg/dL Note: This HDL assay may give artificially low results in patients with liver disease. Alk Phos 83 39-117 U/L Vit D 25-OH Tot 63.9 >30 ng/mL Health Based Reference Values* < 20 ng/mL Deficient 20-30 ng/mL Insufficient > 30 ng/mL Sufficient *Diya WHEAT. N Engl J Med. 2007;357:266-280 Care must be taken in interpreting Vitamin D results from different laboratories and methodologies. Published data demonstrated that results from patients undergoing hemodialysis may show a negative bias when tested with various automated 25-OH vitamin D assays when compared to LC-MS/MS. When testing samples from patients whose predominant form of Vitamin D is Vitamin D2, such as patients receiving Vitamin D2 supplementation, results that are subtherapeutic should be confirmed with another method such as LC-MS/MS. Free T4 0.99 0.71-1.85 ng/dL TSH 3rd Gen. 1.23 0.32-4.0 uIU/mL TSH 3rd Generation ([facility]) Assessment and Plan Assessment & Plan (1) Type 2 diabetes mellitus with peripheral neuropathy: Code(s): E11.42 - Type 2 diabetes mellitus with diabetic polyneuropathy Plan: Continue Trulicity 3 mg injected subcutaneously once a week, continue with metformin a 1000 mg twice a day, and Jardiance 25 mg daily in a.m.. (2) Acquired hypothyroidism: Code(s): E03.9 - Hypothyroidism, unspecified Plan: Thyroid levels are within normal limits, continue with current dose of levothyroxine 75 mcg daily in a.m. (3) Vaginal itching: Code(s): N89.8 - Other specified noninflammatory disorders of vagina Plan: Likely yeast infection due to Jardiance. Empirically treat with clotrimazole- betamethasone, apply sparingly to affected area twice a day for no more than 10 days if symptoms persist,, come in to clinic and be evaluated Medications: New clotrimazole-betamethasone 1-0.05 % 1 appl topical BID 10 days 15 grams 0RF Refilled dulaglutide 3 mg (0.5 mL) subcut QWEEK 2 mL 5RF metformin 1,000 mg PO BIDWMEAL 3 months 180 tabs 3RF levothyroxine 75 mcg PO DAILY 90 tabs 1RF hydrochlorothiazide 25 mg PO QAM 90 tabs 1RF Discontinued potassium chloride ER Discontinued Reason: Doctor's Order 20 mEq PO BID 10 days 20 tabs 0RF Coding Level of Care Code Tele Est Pt Level 4 (08833) Complex EM visit Add On G2211 Diagnoses Type 2 diabetes mellitus with peripheral neuropathy E11.42 Acquired hypothyroidism E03.9 Vaginal itching N89.8
== END 2023-11-07 12:01 | disposition home or self-care (01) ==
LOC: HO.HMGC 10:34
PROVIDERS: PCP Internal Medicine; Visit Provider Internal Medicine
DX: E11.42 Type 2 diabetes mellitus with diabetic polyneuropathy (principal); E03.9 Hypothyroidism, unspecified; N89.8 Other specified noninflammatory disorders of vagina
CPT/HCPCS: 99214; G2211

== ENCOUNTER 2024-03-23 08:41 | Outpatient (REF) | payer OTHER, SELFPAY ==
[2024-03-23 10:23] LABS: Alanine Aminotransferase 48 U/L (0-31); Anion Gap 16 (12-20); Aspartate Amino Transferase 37 U/L (5-31); Blood Urea Nitrogen 19 mg/dL (9-16); Calcium 9.9 mg/dL (8.4-10.2); Carbon Dioxide 27 mmol/L (22-29); Chloride 99 mmol/L (96-108); Cholesterol 116 mg/dL (<200); Estimated Glomerular Filt Rate > 60; Glucose Fasting 95 mg/dL (60-99); HDL Cholesterol 45 mg/dL (>40); LDL Cholesterol Calculated 49 mg/dL (<100); Potassium 3.5 mmol/L (3.3-5.1); Sodium 138 mmol/L (135-145); Triglycerides 113 mg/dL (<150)
[2024-03-23 10:28] LABS: Estimated Average Glucose 126 mg/dL; Hemoglobin A1C 151.3633 umol/L; Total Hemoglobin (HGBA1C) 3641.5019 umol/L
[2024-03-23 10:47] LABS: Free T4 (Free Thyroxine) 1.44 ng/dL (0.71-1.85); Thyroid Stimulating Hormone 1.14 uIU/mL (0.32-4.0)
== END 2024-03-23 08:42 | disposition home or self-care (01) ==
LOC: HO.HMGCLDS 08:41
PROVIDERS: PCP Internal Medicine; Visit Provider Internal Medicine
DX: E03.9 Hypothyroidism, unspecified (principal); E11.42 Type 2 diabetes mellitus with diabetic polyneuropathy; K21.9 Gastro-esophageal reflux disease without esophagitis; E04.1 Nontoxic single thyroid nodule; I10 Essential (primary) hypertension; E89.40 Asymptomatic postprocedural ovarian failure
CPT/HCPCS: 36415; 80048; 80061; 82306; 83036; 84439; 84443; 84450; 84460

== ENCOUNTER 2024-03-30 07:56 | Outpatient (AMB) | payer OTHER, SELFPAY ==
[2024-03-30 07:58] VITALS: BP 96/60; PULSE 70; O2SAT 97; BMI 44.3
--- NOTE | 2024-03-30 07:58 | A.OFFPC_ITS ---
Vital Signs 03/30/24 07:58 Height 5 ft Weight 227 lb BMI 44.3 BP 96/60 Blood Pressure Location Lt brachial Position Sitting Pulse 70 Pulse Source Pulse Oximeter Pulse Oximetry (%) 97 Oxygen Delivery Method Room Air Intake Visit Reasons: Follow up Intake Note: Pt is here today for her f/u DM Allergies codeine Allergy (Unknown, Verified 03/30/24 08:25) Vomiting Medication List - Last Reconciled 03/30/24 by Marah Russell MD aspirin (Adult Low Dose Aspirin) 81 mg PO DAILY blood sugar diagnostic (FreeStyle Lite Strips) 3 times a day clotrimazole-betamethasone 1-0.05 % 1 appl topical BID 10 days diclofenac sodium 75 mg PO BID PRN dulaglutide 3 mg (0.5 mL) subcut QWEEK empagliflozin (Jardiance) 25 mg PO DAILY 90 days esomeprazole magnesium (Nexium) 40 mg PO DAILY FreeStyle Lancets (lancets) 3 times a day NS gabapentin 300 mg PO TID hydrochlorothiazide 25 mg PO QAM irbesartan 150 mg PO DAILY levothyroxine 75 mcg PO DAILY metformin 1,000 mg PO BIDWMEAL 3 months prochlorperazine maleate mg PO Tobacco use date assessed: 03/30/24 Dental Screening Dental Screen Date: 03/30/24 Did you have a dental visit in the last 12 months?: No Did you have a dental problem in the last 6 months where you did not have access to dental care?: No Was dental information given to patient?: Patient declined HPI Follow up HPI Details 59-year-old female here today for follow -up on her diabetes mellitus, currently controlled with Metformin and Trulicity, with a recent Hemoglobin A1c of 6.0. She experiences occasional hypoglycemia symptoms during physical activity, which she manages by consuming carbohydrates. Has been having recurrent episodes of nausea, potentially related to her medication regimen, specifically Trulicity, which she takes weekly. The patient describes worsening symptoms around the day of injection, taken on Friday evenings, with nausea persisting throughout the weekend. She has been prescribed Prochlorperazine for symptomatic relief by her GI specialist, Dr. Byrd, which has been effective. Other associated symptoms include bloating and occasional vomiting, particularly on days with increased physical exertion. She has tried dietary modifications, with minimal relief. She has a history of Gastroesophageal Reflux Disease (GERD) and a hiatal hernia, previously diagnosed via upper endoscopy. These conditions contribute to her gastrointestinal discomfort and reflux symptoms. She has history of right hemithyroidectomy on 10/07/14 as noted on records from [facility] in [place], Had 1 mm foci of microcarciona PTC. Rest of the histology was benign follicular nodules. Currently on levothyroxine 75 mcg daily for postoperative hypothyroidism, with recent TSH and free T4 levels within normal limits. Had a thyroid ultrasound done 07/2023 which showed right thyroid lobe is surgically absent, no abnormal mass or fluid collection is seen within the former right thyroid bed. . There are small left thyroid lobe nodules, for which no specific imaging follow-up is recommended, left thyroid lobe is mildly goitrous. Blood pressure stable and controlled on irbesartan 150 mcg once daily and hydrochlorothiazide 25 mg daily in a.m. [facility] Medical History (Updated 03/31/24 @ 03:24 by Marah Russell MD) Transaminitis Musculoskeletal disorder involving upper trapezius muscle Acquired hypothyroidism PONV (postoperative nausea and vomiting) Varicose veins of bilateral lower extremities with pain Venous reflux Rotator cuff tendonitis Pain and swelling of left lower leg Right anterior shoulder pain Submandibular gland inflammation Chronic GERD Left thyroid nodule Hallux valgus (acquired), right foot History of thyroid cancer EDGAR on CPAP Surgical menopause Essential hypertension Abnormal stress ECG with treadmill Type 2 diabetes mellitus with peripheral neuropathy Surgical History (Updated 03/31/24 @ 03:24 by Marah Russell MD) History of partial thyroidectomy S/P right rotator cuff repair History of esophagogastroduodenoscopy (EGD) History of shoulder surgery History of endoscopy History of colonoscopy S/P cardiac cath History of partial hysterectomy Hx of cholecystectomy Family History Maternal Aunt No problems noted. 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 Cognitive needs: No Hearing needs: No Vision needs: Yes Questionnaire Thrive Questionnaire Date Thrive assessed: 03/27/24 I am a: Patient What is your living situation today?: I have a steady place to live Within the past 12 months, did the food you bought not last and you didn't have the money to get more?: Sometimes True Within the past 12 months, did you worry whether your food would run out before you got money to buy more?: Sometimes True Do you have trouble paying for medicines?: No Do you have trouble getting transportation to medical appointments?: No Do you have trouble paying your heating and electricity bill?: No Do you have trouble taking care of your child, family member or friend?: No Do you have trouble with day-to-day activities such as bathing, preparing meals, shopping, managing finances, etc.?: No Are you currently unemployed and looking for a job?: No Are you interested in more education?: Yes Please select the resources that you would like help with: Utilities and Education Currently or been in a relationship where the following occur: No concerns reported THRIVE Score: 2 AUDIT C Alcohol Use Questionnaire (AUDIT-C) 1. How often do you have a drink containing alcohol?: Monthly or less 2. How many drinks containing alcohol do you have on a typical day when you are drinking?: 1 or 2 3. How often do you have six or more drinks on one occasion?: Monthly Total Score: 3 MAC-7 AMB Questionnaire MAC-7 Date MAC - 7 assessed: 07/15/23 Feeling nervous, anxious, or on edge: 1 = Several days Not being able to stop or control worryin = Several days Worrying too much about different things: 1 = Several days Trouble relaxin = Several days Being so restless that it is hard to sit still: 1 = Several days Becoming easily annoyed or irritable: 0 = Not at all Feeling afraid as if something awful might happen: 1 = Several days Total MAC-7 score (0-4 normal; 5-9 mild; 10-14 moderate; 15-21 severe): 6 Source: Developed by Drs. Sudhakar Mauricio, Gracia Grimes, Ady Prasad and colleagues, with an educational silvia from [employer]. Review of Systems Const Reports no additional complaints Eyes Details: Goes to [facility] eye care Denies change in vision ENT Reports no additional complaints Card Reports no additional complaints Resp Reports no additional complaints GI Details: sees Dr Byrd at [facility] GI Reports as per HPI, Denies abdominal pain, Denies belching, Denies melena, Denies excessive flatus and Denies diarrhea Reports no additional complaints Musc Reports no additional complaints Skin/Breast Denies rash Neuro Reports no additional complaints Psych Reports no additional complaints Endo Reports no additional complaints Anthony/Lymph Reports no additional complaints Aller/Immun Reports no additional complaints Physical exam (Primary Care) Vital Signs: Last Vital Signs Pulse 70 03/30/24 07:58 BP 96/60 03/30/24 07:58 Pulse Ox 97 03/30/24 07:58 Oxygen Delivery Method Room Air 03/30/24 07:58 BMI result Body Mass Index 44.3 BMI Assessment/Plan discussion: High BMI High, discussed plan: lifestyle, weight reduction, dietary and physical activity Tobacco/Smoking Status: Tobacco use Status Tobacco use date assessed 03/30/24 03/30/24 08:05 Patient Tobacco Use Status Never used Tobacco 03/30/24 08:05 e-Cigarette/Vaping Use Never Used 03/30/24 08:05 PHQ-9: PHQ-9 Score PHQ-9: Total score 7 03/30/24 08:29 Thrive Assessment: Date of Thrive Assessment Date Thrive assessed 03/27/24 03/30/24 08:05 Currently or been in a relationship where the following occur: No concerns reported Const General: cooperative, no acute distress, alert, awake and Physically active Orientation/consciousness: patient oriented x3 HENMT Head: Yes normocephalic Ears: hearing grossly normal bilaterally and external ears normal General nose exam: Normal external nose present and No nasal discharge present Mouth: Normal oral and palatal mucosa present and moist mucous membranes Eyes General: appearance normal, both eyes and all related structures Neck Neck: Yes full ROM, Yes no lymphadenopathy and Yes supple Resp Effort & Inspection: normal respiratory effort and able to speak in complete sentences Auscultation: clear to auscultation bilaterally Cardio Rate: regular rate Rhythm: regular rhythm Heart sounds: S1 normal heart sound present and S2 normal heart sound present GI Inspection: Yes obesity Palpation (GI): Soft to palpation Auscultation: normal bowel sounds General: Yes no CVA tenderness Back/Spine/Pelvis Back: no CVA tenderness Skin General skin exam: no rashes or lesions noted Neuro General: patient oriented x3, gait normal, tone normal, Normal light touch and pain sensation, no focal motor deficits and CN's II-XI intact bilaterally Cognition (Neuro): normal cognition Gait exam (Neuro): Normal gait present Extrem General: Yes no joint enlargement, Yes no clubbing, cyanosis or edema, Yes no calf tenderness and Yes normal gait Psych Appearance: grossly normal and well kempt Mental Status: mental status grossly normal Speech and movement: Normal speech and movement present Affect: normal affect Attitude: cooperative Results Reviewed Results Reviewed: Laboratory Tests 03/23/24 08:44 Estimat Average Glucose 126 Hemoglobin A1c % 6.0 Name: Rosalva Beltre Age/Sex: 59/F : 1965 Unit#: [id number] Attend Dr: Marah Russell MD Re03/23/24 Status: DEP REF Location: [facility] [address] Disch: SPEC : [id number] CLARISSA: 03/23/24 STATUS: COMP REQ : [id number] RECD: 03/23/[address]: Marah Russell MD COMP: 03/23/24 ENTERED: 03/23/24 [facility] DR: ORDERED: Met Prof Fast, AST, ALT, Lipid Panel, Vitamin D 25-OH, Free T4, TSH Test Result Flag Reference Sodium 138 135-145 mmol/L Potassium 3.5 3.3-5.1 mmol/L CL 99 96-108 mmol/L CO2 27 22-29 mmol/L Gap 16 12-20 BUN 19 H 9-16 mg/dL Creat 0.70 0.5-1.4 mg/dL eGFR > 60 Chronic Kidney Disease: Estimated GFR < 60 mL/min/1.73m2 Severe Kidney Disease: Estimated GFR < 15 mL/min/1.73m2 FBS 95 60-99 mg/dL CA 9.9 # 8.4-10.2 mg/dL AST (GOT) 37 H 5-31 U/L ALT (GPT) 48 H 0-31 U/L Triglyceride 113 <150 mg/dL Desirable Triglyceride: less than 150 mg/dL Borderline High Triglyceride 150-199 mg/dL High Triglyceride: 200-499 mg/dL Very High Triglyceride: greater than or equal to 5OO mg/dL Cholesterol 116 <200 mg/dL Desirable Cholesterol: less than 200 mg/dL Borderline High Cholesterol: 200-239 mg/dL High Cholesterol: greater than 239 mg/dL LDL Calculated 49 <100 mg/dL Desirable LDL: less than 100 mg/dL Near Optimal/Above Optimal LDL: 110-129 mg/dL Borderline High LDL: 130-159 mg/dL High LDL: 160-189 mg/dL Very High LDL: greater than or equal to 190 mg/dL HDL 45 >40 mg/dL Desirable HDL: greater than 40 mg/dL Note: This HDL assay may give artificially low results in patients with liver disease. Vit D 25-OH Tot 79.0 >30 ng/mL Health Based Reference Values* < 20 ng/mL Deficient 20-30 ng/mL Insufficient > 30 ng/mL Sufficient *Diya WHEAT. N Engl J Med. 2007;357:266-280 Care must be taken in interpreting Vitamin D results from different laboratories and methodologies. Published data demonstrated that results from patients undergoing hemodialysis may show a negative bias when tested with various automated 25-OH vitamin D assays when compared to LC-MS/MS. When testing samples from patients whose predominant form of Vitamin D is Vitamin D2, such as patients receiving Vitamin D2 supplementation, results that are subtherapeutic should be confirmed with another method such as LC-MS/MS. Free T4 1.44 0.71-1.85 ng/dL TSH 3rd Gen. 1.14 0.32-4.0 uIU/mL TSH 3rd Generation ([facility]) Coding Level of Care Code Est Pt Level 4 (31790) Complex EM visit Add On G2211 Diagnoses Type 2 diabetes mellitus with peripheral neuropathy E11.42 Essential hypertension I10 Acquired hypothyroidism E03.9 Transaminitis R74.01 Morbid obesity with BMI of 40.0-44.9, adult E66.01; Z68.41 Assessment & Plan Assessment & Plan (1) Type 2 diabetes mellitus with peripheral neuropathy: Code(s): E11.42 - Type 2 diabetes mellitus with diabetic polyneuropathy Category: Medical (2) Essential hypertension: Code(s): I10 - Essential (primary) hypertension Category: Medical (3) Acquired hypothyroidism: Code(s): E03.9 - Hypothyroidism, unspecified Category: Medical (4) Transaminitis: Code(s): R74.01 - Elevation of levels of liver transaminase levels Category: Medical (5) Morbid obesity with BMI of 40.0-44.9, adult: Code(s): E66.01 - Morbid (severe) obesity due to excess calories; Z68.41 - Body mass index [BMI] 40.0-44.9, adult Category: Medical Plan - Hypertension: Controlled on your irbesartan and hydrochlorothiazide. Monitor blood pressure readings regularly. No new medications required. - GERD and Hiatal Hernia: Continue with current medications, dietary adjustments, and introduce lisseth as tolerated. Currently followed at [facility] with BARBARA Roth - Diabetes Mellitus: Controlled on Metformin , empagliflozin, and Trulicity. Educate on symptom recognition and management of hypoglycemia. - Nausea: Continue Prochlorperazine as needed. Introduce dietary lisseth, small frequent meals, and monitor for improvement. -reminded to get yearly diabetes retinopathy screening. -latest fasting labs showed normal lipids, vitamin-D and thyroid levels as well as renal function and hemoglobin A1c, mildly elevated transaminases, will continue to monitor - history of papillary Thyroid Cancer status post right hemithyroidectomy, recent thyroid ultrasound showed small nodules in left lobe with no current intervention needed for remaining nodules. Latest thyroid levels are within normal limits Patient was informed and verbally consented to the use of an ambient scribe for clinic note documentation during this visit. Orders: Orders Thyroid Stimulating Hormone 08/26/24 E03.9 - Hypothyroidism, unspecified, E11.42 - Type 2 diabetes mellitus with diabetic polyneuropathy, E66.01 - Morbid (severe) obesity due to excess calories, E89.40 - Asymptomatic postprocedural ovarian failure, I10 - Essential (primary) hypertension, R74.01 - Elevation of levels of liver transaminase levels, Z68.41 - Body mass index [BMI] 40.0-44.9, adult, Z85.850 - Personal history of malignant neoplasm of thyroid Microalbumin, Random (w Creat) 08/26/24 E03.9 - Hypothyroidism, unspecified, E11.42 - Type 2 diabetes mellitus with diabetic polyneuropathy, E66.01 - Morbid (severe) obesity due to excess calories, E89.40 - Asymptomatic postprocedural ovarian failure, I10 - Essential (primary) hypertension, R74.01 - Elevation of levels of liver transaminase levels, Z68.41 - Body mass index [BMI] 40.0-44.9, adult, Z85.850 - Personal history of malignant neoplasm of thyroid Free T4 (Free Thyroxine) 08/26/24 E03.9 - Hypothyroidism, unspecified, E11.42 - Type 2 diabetes mellitus with diabetic polyneuropathy, E66.01 - Morbid (severe) obesity due to excess calories, E89.40 - Asymptomatic postprocedural ovarian failure, I10 - Essential (primary) hypertension, R74.01 - Elevation of levels of liver transaminase levels, Z68.41 - Body mass index [BMI] 40.0-44.9, adult, Z85.850 - Personal history of malignant neoplasm of thyroid Hemoglobin A1c 08/26/24 E03.9 - Hypothyroidism, unspecified, E11.42 - Type 2 diabetes mellitus with diabetic polyneuropathy, E66.01 - Morbid (severe) obesity due to excess calories, E89.40 - Asymptomatic postprocedural ovarian failure, I10 - Essential (primary) hypertension, R74.01 - Elevation of levels of liver transaminase levels, Z68.41 - Body mass index [BMI] 40.0-44.9, adult, Z85.850 - Personal history of malignant neoplasm of thyroid Comprehensive [place]. Panel Fast 08/26/24 E03.9 - Hypothyroidism, unspecified, E11.42 - Type 2 diabetes mellitus with diabetic polyneuropathy, E66.01 - Morbid (severe) obesity due to excess calories, E89.40 - Asymptomatic postprocedural ovarian failure, I10 - Essential (primary) hypertension, R74.01 - Elevation of levels of liver transaminase levels, Z68.41 - Body mass index [BMI] 40.0-44.9, adult, Z85.850 - Personal history of malignant neoplasm of thyroid Lipid Panel 08/26/24 E03.9 - Hypothyroidism, unspecified, E11.42 - Type 2 diabetes mellitus with diabetic polyneuropathy, E66.01 - Morbid (severe) obesity due to excess calories, E89.40 - Asymptomatic postprocedural ovarian failure, I10 - Essential (primary) hypertension, R74.01 - Elevation of levels of liver transaminase levels, Z68.41 - Body mass index [BMI] 40.0-44.9, adult, Z85.850 - Personal history of malignant neoplasm of thyroid Vitamin D 25-OH Total 08/26/24 E03.9 - Hypothyroidism, unspecified, E11.42 - Type 2 diabetes mellitus with diabetic polyneuropathy, E66.01 - Morbid (severe) obesity due to excess calories, E89.40 - Asymptomatic postprocedural ovarian failure, I10 - Essential (primary) hypertension, R74.01 - Elevation of levels of liver transaminase levels, Z68.41 - Body mass index [BMI] 40.0-44.9, adult, Z85.850 - Personal history of malignant neoplasm of thyroid
== END 2024-03-30 08:46 | disposition home or self-care (01) ==
PROVIDERS: PCP Internal Medicine; Visit Provider Internal Medicine
DX: E11.42 Type 2 diabetes mellitus with diabetic polyneuropathy (principal); I10 Essential (primary) hypertension; E66.01 Morbid (severe) obesity due to excess calories; Z68.41 Body mass index [BMI] 40.0-44.9, adult; E03.9 Hypothyroidism, unspecified; R74.01 Elevation of levels of liver transaminase levels

== ENCOUNTER → 2024-03-30 07:56 | Outpatient (BNVA) | payer OTHER, SELFPAY | PROVIDERS: PCP Internal Medicine; Visit Provider Internal Medicine | DX: E11.42 Type 2 diabetes mellitus with diabetic polyneuropathy (principal); I10 Essential (primary) hypertension; E03.9 Hypothyroidism, unspecified; R74.01 Elevation of levels of liver transaminase levels; E66.01 Morbid (severe) obesity due to excess calories; Z68.41 Body mass index [BMI] 40.0-44.9, adult; Z71.3 Dietary counseling and surveillance | CPT/HCPCS: 99212 ==

== ENCOUNTER 2024-05-14 09:03 | Emergency (ER) | payer OTHER, SELFPAY ==
[2024-05-14 09:24] VITALS: BP 120/77; PULSE 82; RESP 18; TEMP 36.9; O2SAT 96; BMI 41.5
[2024-05-14 09:58] LABS: MANUAL DIFF FLAG NO
[2024-05-14 10:00] LABS: Basophils Absolute Auto 0.1 X10*3/uL (0.0-0.2); Basophils Percent Auto 0.4 % (0-2); Eosinophils Absolute Auto 0.1 X10*3/uL (0.0-0.4); Eosinophils Percent Auto 1.1 % (0-4); Hemoglobin 15.5 g/dl (12.0-16.0); Imm Gran Abs Auto 0.04 X10*3/uL (0.00-0.03); Imm Gran Pct Auto 0.3 % (0.0-0.4); Lymphocytes Absolute Auto 2.9 X10*3/uL (1.2-4.9); Lymphocytes Percent Auto 23.9 % (20-40); Mean Corpuscular HGB Conc 34.4 g/dl (31.0-35.0); Mean Corpuscular Hemoglobin 30.5 pg (27.0-33.0); Mean Corpuscular Volume 88.6 fL (80.0-98.0); Mean Platelet Volume 9.7 fL (9.4-12.3); Monocytes Absolute Auto 0.7 X10*3/uL (0.1-1.2); Monocytes Percent Auto 5.4 % (2-11); Neutrophils Absolute Auto 8.4 x10*3/uL (2.0-8.3); Neutrophils Percent Auto 68.9 % (45-73); Platelet Count 287 X10*3/uL (160-400); Red Blood Count 5.08 X10*6/uL (4.20-5.50); Red Cell Distribution Width 14.7 % (11.0-16.0); White Blood Count 12.1 X10*3/uL (4.8-10.8)
[2024-05-14 10:18] LABS: Alanine Aminotransferase 52 U/L (0-31); Albumin Level 4.5 g/dL (3.5-5.0); Alkaline Phosphatase 104 U/L (39-117); Anion Gap 13 (12-20); Aspartate Amino Transferase 39 U/L (5-31); Bilirubin Direct 0.3 mg/dL (0.0-0.5); Bilirubin Total 0.8 mg/dL (0.0-1.0); Blood Urea Nitrogen 19 mg/dL (9-16); Calcium 9.7 mg/dL (8.4-10.2); Carbon Dioxide 22 mmol/L (22-29); Chloride 110 mmol/L (96-108); Creatinine Clr Calc Pharmacy 84.2; Estimated Glomerular Filt Rate > 60; Glucose Random 107 mg/dL (60-115); Lipase 36 U/L (8-78); Potassium 3.1 mmol/L (3.3-5.1); Sodium 142 mmol/L (135-145); Total Protein 8.4 g/dL (6.5-8.0)
[2024-05-14 10:44] LABS: Influenza A PCR NEGATIVE (Negative); Influenza B PCR NEGATIVE (Negative); Resp Syncy Virus RNA Qual PCR NEGATIVE (Negative); SARS COV2 PCR INHOUSE NEGATIVE (Negative)
--- NOTE | 2024-05-14 12:54 | ED_ITS ---
HPI - General Adult General Chief complaint: Nausea/Vomiting/Diarrhea Stated complaint: n/v/d , chills Time Seen by Provider: 05/14/24 12:17 History of Present Illness HPI narrative: Patient complains of vomiting and diarrhea for the last 3 days, it 1st she was nauseous with for 5 episodes of watery diarrhea without blood but then yesterday she started vomiting as well as for 5 episodes of diarrhea The vomit has no blood or dark color no coffee-grounds, she has no abdominal pain no fever There are no other symptoms there is no runny nose no cough no fever no headache no body aches no dysuria no chest pain no abdominal pain Related Data Home Medications ?Medication ?Instructions ?Recorded ?Confirmed aspirin 81 mg tablet,delayed 81 mg PO DAILY 10/24/20 04/23/23 release (Adult Low Dose Aspirin) prochlorperazine maleate 5 mg mg PO 03/30/24 tablet Previous Rx's ?Medication ?Instructions ?Recorded FreeStyle Lancets 28 gauge #100 ea 08/24/20 (lancets) blood sugar diagnostic (FreeStyle #100 ea 08/20/21 Lite Strips) esomeprazole magnesium 40 mg 40 mg PO DAILY #90 caps 07/08/23 capsule,delayed release (Nexium) diclofenac sodium 75 mg 75 mg PO BID PRN for pain #60 tabs 07/30/23 tablet,delayed release clotrimazole-betamethasone 1 1 appl topical BID 10 days #15 11/07/23 %-0.05 % topical cream grams dulaglutide 3 mg/0.5 mL 3 mg (0.5 mL) subcut QWEEK #2 mL 11/07/23 subcutaneous pen injector hydrochlorothiazide 25 mg tablet 25 mg PO QAM #90 tabs 11/07/23 levothyroxine 75 mcg tablet 75 mcg PO DAILY #90 tabs 11/07/23 metformin 1,000 mg tablet 1,000 mg PO BIDWMEAL 3 months #180 11/07/23 tabs empagliflozin 25 mg tablet 25 mg PO DAILY 90 days #90 tabs 03/29/24 (Jardiance) gabapentin 300 mg capsule 300 mg PO TID #90 caps 04/06/24 irbesartan 150 mg tablet 150 mg PO DAILY #90 tabs 05/10/24 ondansetron 4 mg disintegrating 4 mg PO Q6H PRN nausea and 05/14/24 tablet vomiting #14 tabs Allergies Allergy/AdvReac Type Severity Reaction Status Date / Time codeine Allergy Unknown Vomiting Verified 05/14/24 09:24 [facility] Past Medical History Source: nursing notes reviewed Medical History (Updated 05/14/24 @ 14:27 by BARBARA Leon) Transaminitis Musculoskeletal disorder involving upper trapezius muscle Acquired hypothyroidism PONV (postoperative nausea and vomiting) Varicose veins of bilateral lower extremities with pain Venous reflux Rotator cuff tendonitis Pain and swelling of left lower leg Right anterior shoulder pain Submandibular gland inflammation Chronic GERD Left thyroid nodule Hallux valgus (acquired), right foot History of thyroid cancer EDGAR on CPAP Surgical menopause Essential hypertension Abnormal stress ECG with treadmill Type 2 diabetes mellitus with peripheral neuropathy Surgical History (Updated 03/31/24 @ 03:24 by Marah Russell MD) History of partial thyroidectomy S/P right rotator cuff repair History of esophagogastroduodenoscopy (EGD) History of shoulder surgery History of endoscopy History of colonoscopy S/P cardiac cath History of partial hysterectomy Hx of cholecystectomy Family History Family History Maternal Aunt No problems noted. 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 Cognitive needs: No Hearing needs: No Vision needs: Yes Physical Exam ED Vital Signs: Vital Signs - 24 hr 05/14/24 09:24 05/14/24 14:00 Temperature 98.4 F 98.0 F Pulse Rate 82 78 Respiratory Rate 18 16 Blood Pressure 120/77 114/80 Pulse Oximetry 96 96 Oxygen Delivery Method Room Air Room Air BMI result Body Mass Index 41.5 General appearance is comfortable no acute distress Eyes are anicteric no pallor The pharynx is clear without redness swelling or exudate mucous membranes are moist Neck is supple The chest is clear to auscultation bilateral The abdomen is soft and nontender no rebound no guarding The extremities full range of motion x4 no edema no calf swelling Skin no rash Course Course Course Narrative: Well-appearing patient who has had some vomiting and diarrhea over the last 3 days responded very well to 2 doses of Zofran totaling 8 mg and was able to drink and hydrate herself easily with no vomiting she was observed for half an hour after drinking fluids She felt better The labs were nondiagnostic, CBC and chemistry no acute abnormalities Well-appearing patient diagnosis gastroenteritis tolerates p.o. is discharged Medications Administered Discontinued Medications Generic Name Dose Route Start Last Admin Trade Name Freq PRN Reason Stop Dose Admin Ondansetron HCl 4 mg 05/14/24 12:55 05/14/24 13:07 Ondansetron Odt 4 Mg Tab.Rapdis TRANSLINGU 05/14/24 12:56 4 mg ONCE ONE Administration Ondansetron HCl 4 mg 05/14/24 13:46 05/14/24 13:59 Ondansetron Odt 4 Mg Tab.Rapdis TRANSLINGU 05/14/24 13:47 4 mg ONCE ONE Administration Medical Decision Making Lab Data [facility] Lab Attestation statement: I reviewed the patient's lab results. 05/14/24 09:54 05/14/24 09:54 Labs: Lab Results 05/14/24 Range/Units 09:54 WBC 12.1 H (4.8-10.8) X10*3/uL RBC 5.08 (4.20-5.50) X10*6/uL Hgb 15.5 (12.0-16.0) g/dl Hct 45.0 (37.0-47.0) % MCV 88.6 (80.0-98.0) fL MCH 30.5 (27.0-33.0) pg MCHC 34.4 (31.0-35.0) g/dl RDW 14.7 (11.0-16.0) % Plt Count 287 (160-400) X10*3/uL MPV 9.7 (9.4-12.3) fL Immature Gran % (Auto) 0.3 (0.0-0.4) % Neut % (Auto) 68.9 (45-73) % Lymph % (Auto) 23.9 (20-40) % [place] % (Auto) 5.4 (2-11) % Eos % (Auto) 1.1 (0-4) % Baso % (Auto) 0.4 (0-2) % Lymph # (Auto) 2.9 (1.2-4.9) X10*3/uL [place] # (Auto) 0.7 (0.1-1.2) X10*3/uL Eos # (Auto) 0.1 (0.0-0.4) X10*3/uL Baso # (Auto) 0.1 (0.0-0.2) X10*3/uL Abs Immat Gran (auto) 0.04 H (0.00-0.03) X10*3/uL Absolute Neuts (auto) 8.4 H (2.0-8.3) x10*3/uL Absolute Nucleated RBC 0.000 (0.0-0.012) X10*3/uL Nucleated RBC % (auto) 0.0 (0.0-0.2) /100WBC Sodium 142 (135-145) mmol/L Potassium 3.1 L (3.3-5.1) mmol/L Chloride 110 H (96-108) mmol/L Carbon Dioxide 22 (22-29) mmol/L Anion Gap 13 (12-20) BUN 19 H (9-16) mg/dL Creatinine 0.73 (0.5-1.4) mg/dL Estim Creat Clear Calc 84.2 Estimated GFR > 60 Random Glucose 107 (60-115) mg/dL Calcium 9.7 (8.4-10.2) mg/dL Total Bilirubin 0.8 (0.0-1.0) mg/dL Direct Bilirubin 0.3 (0.0-0.5) mg/dL AST 39 H (5-31) U/L ALT 52 H (0-31) U/L Alkaline Phosphatase 104 (39-117) U/L Total Protein 8.4 H (6.5-8.0) g/dL Albumin 4.5 (3.5-5.0) g/dL Lipase 36 (8-78) U/L Influenza Type A (PCR) NEGATIVE (Negative) Influenza Type B (PCR) NEGATIVE (Negative) RSV RNA Qual (PCR) NEGATIVE (Negative) SARS-CoV-2 RNA (RT-PCR) NEGATIVE (Negative) Discharge Plan Discharge Clinical Impression: Gastroenteritis Patient Disposition: Home, Self-Care Additional Instructions: Labs did not show anything worrisome or dangerous Zofran helped you to not vomit and to tolerate some fluids Most important to stay hydrated A viral stomach bug usually lasts several days and goes away by itself Return any time for uncontrolled vomiting abdominal pain fever any worse condition or any concerns any concern that you are dehydrated return to the ER Prescriptions: New ondansetron 4 mg tablet,disintegrating 4 mg PO Q6H PRN (Reason: nausea and vomiting) Qty: 14 0RF No Action (DME) lancets [FreeStyle Lancets] 28 gauge misc See Rx Instructions .MEDSUPPLY Qty: 100 11RF Rx Instructions: 3 times a day (DME) FreeStyle Lite Strips Strip See Rx Instructions .MEDSUPPLY Qty: 100 6RF Rx Instructions: 3 times a day diclofenac sodium 75 mg tablet,delayed release (DR/EC) 75 mg PO BID PRN (Reason: for pain) Qty: 60 0RF Jardiance 25 mg tablet 25 mg PO DAILY 90 Days Qty: 90 1RF gabapentin 300 mg capsule 300 mg PO TID Qty: 90 4RF irbesartan 150 mg tablet 150 mg PO DAILY Qty: 90 1RF aspirin [Adult Low Dose Aspirin] 81 mg tablet,delayed release (DR/EC) 81 mg PO DAILY dulaglutide 3 mg/0.5 mL pen injector 3 mg subcut QWEEK Qty: 2 5RF clotrimazole-betamethasone 1-0.05 % cream 1 appl topical BID 10 Days Qty: 15 0RF metformin 1,000 mg tablet 1,000 mg PO BIDWMEAL 90 Days Qty: 180 3RF levothyroxine 75 mcg tablet 75 mcg PO DAILY Qty: 90 1RF hydrochlorothiazide 25 mg tablet 25 mg PO QAM Qty: 90 1RF prochlorperazine maleate 5 mg tablet PO esomeprazole magnesium [Nexium] 40 mg capsule,delayed release(DR/EC) 40 mg PO DAILY Qty: 90 5RF Stand Alone Forms: Work/School Release Print Language: Maori
[2024-05-14] MEDS: Ondansetron ODT 4 MG TAB.RAPDIS TRANSLINGU ×2 (13:07→13:59)
[2024-05-14 14:00] VITALS: BP 114/80; PULSE 78; RESP 16; TEMP 36.7; O2SAT 96
[2024-05-14 14:36] VITALS: BP 114/80; PULSE 78; RESP 16; TEMP 36.7; O2SAT 96
== END 2024-05-14 14:37 | disposition home or self-care (01) ==
PROVIDERS: Emergency Provider Emergency Medicine; PCP Internal Medicine
DX: K52.9 Noninfective gastroenteritis and colitis, unspecified (principal); R11.2 Nausea with vomiting, unspecified; E11.9 Type 2 diabetes mellitus without complications; I10 Essential (primary) hypertension; Z79.82 Long term (current) use of aspirin; Z79.84 Long term (current) use of oral hypoglycemic drugs; Z79.899 Other long term (current) drug therapy
CPT/HCPCS: 0241U; 36415; 80053; 82248; 83690; 85025; 99283

== ENCOUNTER 2024-06-10 10:56 | Outpatient (REF) | payer OTHER, SELFPAY ==
--- OUTSIDE RECORDS SUMMARY | 2024-06-10 12:19 | XMS_ITS | Clinical Summary ---
Author Organization [facility] Address [address] [place] [address] Care Team Providers Care Lot Associate Name Role Phone Unavailable Primary Care Provider Unavailabl e Surgical History Surgery Date Site/Laterality Comments SECTION PROCEDURE: HISTORICAL DELIVERY; COMMENT: x 4 OVARIAN CYST REMOVAL 2008 PROCEDURE: [place] OVARIAN CYSTECTOMY UNI/BI; COMMENT: on left side [...]
--- OUTSIDE RECORDS SUMMARY | 2024-06-10 12:19 | XMS_ITS | Clinical Summary ---
Author Organization [facility] Address [address] [place] [address] Care Team Providers Care Roll Coating Machine Operator Name Role Phone Unavailable Primary Care Provider [...]
[2024-06-10 18:04] LABS: Iron 91 mcg/dL (30-160); Percent Iron Saturation 28 % (15-50); Total Iron Binding Capacity 330 mcg/dL (228-428); Unsaturated Iron Binding 239 ug/dL
[2024-06-10 18:19] LABS: Ferritin 100 ng/mL (10-250); TSH reflex Free T4 0.54 uIU/mL (0.32-4.0); Vitamin D 25-OH Total 73.9 ng/mL (>30)
[2024-06-10 18:30] LABS: Folate 18.4 ng/mL (> or = 4.0); Vitamin B12 653 pg/mL (200-900)
[2024-06-15 08:29] LABS: Methylmalonic Acid 120 nmol/L (69-390)
== END 2024-06-10 10:57 | disposition home or self-care (01) ==
LOC: HO.HKASLDS 10:56
PROVIDERS: PCP Internal Medicine; Visit Provider Physician Assistant Medical
DX: E11.42 Type 2 diabetes mellitus with diabetic polyneuropathy (principal); Z98.890 Other specified postprocedural states; E66.01 Morbid (severe) obesity due to excess calories; Z68.41 Body mass index [BMI] 40.0-44.9, adult; G47.33 Obstructive sleep apnea (adult) (pediatric); Z99.89 Dependence on other enabling machines and devices; I10 Essential (primary) hypertension; E11.9 Type 2 diabetes mellitus without complications; G25.81 Restless legs syndrome; E66.813 Obesity, class 3; G47.19 Other hypersomnia
CPT/HCPCS: 36415; 82306; 82607; 82728; 82746; 83540; 83921; 84443; 99212

== ENCOUNTER 2024-06-10 10:56 | Outpatient (AMB) | payer OTHER, SELFPAY ==
[2024-06-10 10:56] VITALS: BP 108/72; PULSE 79; O2SAT 97; BMI 43.7
--- NOTE | 2024-06-10 10:56 | MHC.OFFVIS ---
Vital Signs 06/10/24 10:56 Height 5 ft Weight 224 lb BMI 43.7 BP 108/72 Blood Pressure Location Lt brachial Position Sitting Pulse 79 Pulse Source Pulse Oximeter Pulse Oximetry (%) 97 Oxygen Delivery Method Room Air Intake Visit Reasons: 1yr follow up EDGAR Pharmacy Teacher Required: No Accompanied by: Self / Same As Patient Allergies codeine Allergy (Unknown, Verified 06/10/24 11:00) Vomiting HPI Comments Details: 59 y/o female patient presents for follow up of EDGAR on CPAP. 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 She has difficulty falling asleep due to her legs, she has a burning sensation bilaterally and worse at night. She is taking Gabapentin 300mg TID for RLS, still they are very uncomfortable and keep her up at night. She denies morning headaches, but infrequently will have a dull headache, and as she drinks water it improves. She has difficulty moving her R. arm, with restriction in full ROM, however the pain is not an issue anymore. She is a side sleeper. Her BMI is elevated, she is on Trulicity and Jardiance, she walks 10,000 steps weekly, and still has trouble with weight loss. She had Thyroid cancer in 2015, take 75mcg Levothyroxine. Her mood and memory are stable. She washes her mask daily, changes filters and tubing as needed. The CPAP compliance and therapy response (03/10/2024-06/07/24) reviewed with Patient. Total average use >4 hours and 86/90 days at 96% Press [id number], Leaks 3.9 - 54.9 AHI is 0.5 PFSH Medical History Transaminitis Musculoskeletal disorder involving upper trapezius muscle Acquired hypothyroidism PONV (postoperative nausea and vomiting) Varicose veins of bilateral lower extremities with pain Venous reflux Rotator cuff tendonitis Pain and swelling of left lower leg Right anterior shoulder pain Submandibular gland inflammation Chronic GERD Left thyroid nodule Hallux valgus (acquired), right foot History of thyroid cancer EDGAR on CPAP Surgical menopause Essential hypertension Abnormal stress ECG with treadmill Type 2 diabetes mellitus with peripheral neuropathy Surgical History History of partial thyroidectomy S/P right rotator cuff repair History of esophagogastroduodenoscopy (EGD) History of shoulder surgery History of endoscopy History of colonoscopy S/P cardiac cath History of partial hysterectomy Hx of cholecystectomy Family History Maternal Aunt No problems noted. 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 Cognitive needs: No Hearing needs: No Vision needs: Yes Review of Systems Const All systems reviewed & are unremarkable except as noted in HPI and below Physical Exam Vital Signs: Last Vital Signs Pulse 79 06/10/24 10:56 BP 108/72 06/10/24 10:56 Pulse Ox 97 06/10/24 10:56 Oxygen Delivery Method Room Air 06/10/24 10:56 BMI result Body Mass Index 43.7 Const General: cooperative, comfortable and no acute distress Nutritional Appearance: obese (BMI is 43.7) Orientation/consciousness: patient oriented x3 HEENT Face and sinus: Yes normal facial exam and Yes face symmetric Teeth and gingiva: other Throat: Yes other ([place] score of 4) Eyes Pupils: Equal, round and reactive pupils present Neck Neck: Yes full ROM Resp Effort & Inspection: normal respiratory effort and able to speak in complete sentences Neuro General: patient oriented x3 and other (Limited ROM R. arm) Cranial nerves: Yes CN's II-XII intact bilaterally, Yes Facial sensation intact/muscles of mastication intact, Yes Equal, round and reactive pupils present, Yes Normal accommodation reflex present, Yes Bilaterally intact EOM present, Yes Nystagmus not present, Yes Normal facial strength present, Yes Midline tongue present, Yes Ability to bilaterally rotate head present and Yes Ability to bilaterally elevate shoulders present Gait exam (Neuro): Normal gait present Motor exam (neuro): 5/5 motor strength present throughout and Normal motor muscle tone present throughout Deep tendon reflexes (DTR's): Right triceps reflex intensity grade: 2+, Left triceps reflex intensity grade: 2+, Rt Biceps (C5, C6): 2+, Left biceps reflex intensity grade: 2+, Right brachioradialis reflex intensity grade: 2+, Left brachioradialis reflex intensity grade: 2+, Right patellar reflex intensity grade: 2+ and Left patellar reflex intensity grade: 2+ Psych Thought process: Normal thought process present Thought content: Normal thought content present Results Reviewed Results Reviewed: The CPAP compliance and therapy response (03/10/2024-06/07/24) reviewed with Patient. Total average use >4 hours and 86/90 days at 96% Press [id number], Leaks 3.9 - 54.9 AHI is 0.5 Assessment & Plan Assessment & Plan (1) RLS (restless legs syndrome): Code(s): G25.81 - Restless legs syndrome Category: Medical (2) Obesity: Code(s): E66.9 - Obesity, unspecified Category: Medical Qualifiers: Obesity type: due to excess calories Obesity classification: adult class 3 (BMI >= 40) Serious obesity comorbidity presence: with serious comorbidity Body mass index: BMI 40.0-44.9 Qualified Code(s): E66.813 - Obesity, class 3; E66.01 - Morbid (severe) obesity due to excess calories; Z68.41 - Body mass index [BMI] 40.0-44.9, adult (3) Excessive daytime sleepiness: Code(s): G47.19 - Other hypersomnia Category: Medical Plan Excessive Daytime Fatigue will complete labs and r/o deficiencies RLS continue Gabapentine 300mg PO TID will revist after Labs. Headaches monitor onset of frequency, intensity. F/U in 3 months Orders: Orders IRON PROFILE Today G47.9 - Sleep disorder, unspecified, R53.83 - Other fatigue TSH reflex Free T4 Today G25.81 - Restless legs syndrome Vitamin B12 and Folate Today G25.81 - Restless legs syndrome Vitamin D 25-OH Total Today G25.81 - Restless legs syndrome Methylmalonic Acid Today G47.9 - Sleep disorder, unspecified, R53.83 - Other fatigue Homocysteine Today G25.81 - Restless legs syndrome Ferritin Today G25.81 - Restless legs syndrome Patient Instructions: Sleep Hygiene: Sleep in a dark room, no devices in bed, read a book, limit fluids 2 hours prior to bed time. Find a hobby, and change work schedule if able to sleep at night, night sleep is better for your health, will monitor at next visit. RLS, if the pain becomes un-tolerable, use Gabapentin 300mg TID, however you may try a weighted blanket for the legs, and tiger balm or RLS cream first. Will discuss changing this dopamine agonist due to exterminator helper termite use may not be as effective. Monitor A1c, focus on diet and implementing good nutrient dense foods into the diet, stay away from processed carbs and sugars. Mediterranean and DASH diets are the best according to the [place] [employer]. Monitor BP, as it is the the #1 modifiable RF when it comes to prevention of CV events. Coding Level of Care Code Est Pt Level 4 (04902) Complex EM visit Add On G2211 Diagnoses RLS (restless legs syndrome) G25.81 Class 3 severe obesity due to excess calories with serious comorbidity and body mass index (BMI) of 40.0 to 44.9 in adult E66.813; E66.01; Z68.41 Obesity type: due to excess calories Obesity classification: adult class 3 (BMI >= 40) Serious obesity comorbidity presence: with serious comorbidity Body mass index: BMI 40.0-44.9 Excessive daytime sleepiness G47.19 Time Spent (min) 40 Comment RLS worsening
--- OUTSIDE RECORDS SUMMARY | 2024-06-10 11:41 | XMS_ITS ---
Author Organization [facility] Olga Noriegaley Address [address] [facility] [place] [address] Care Team Providers Care Inserter Promotional Item Name Role Phone Drew WILEY, Marah Kevin Primary Care Provider Un available Imer Taylor Unavailable [phone] Allergies Allergen (clinical drug ingredient) Drug/Non Drug Allergy documented on EMR Reaction Allergy Type Onset Date Status codeine Codeine cold sweats, dizziness, vomiting Drug Allergy Active REASON FOR VISIT Noncovered Foot Care Medications Medication SIG (Take, Route, Frequency, Duration) Notes Start Date End Date Status Cholestyramine Not-T aking metFORMIN HCl 500 MG 1 tablet with a meal Orally Once a day for 30 day(s) BID Active Ciclopirox Olamine 0.77 % 1 application to affected area Externally Twice a day to effected areas on feet for 30 days Active Ciclopirox Olamine 0.77 % APPLY TO AFFEC IDANIA AREAS ON FEET TWICE A DAY FOR 30 DAYS for 30 Not-Taking Omeprazole 40mg BID Not-Takin g Levothyroxine Sodium 50 MCG 1 tablet in the morning on an empty stomach Orally Once a day for 30 day(s) Active hydroCHLOROthiazide 25 MG 1 tablet in morning Orally Once a day for 30 day(s) Active Gabapentin 300mg TID Active Jardiance 25 MG 1 tablet Orally Once a day for 30 day(s) Active Irbesartan 150 MG 1 tablet Orally Once a day for 30 day(s) Active Esomeprazole Magnesium 40 MG 1 capsule Orally Once a day Active Baby Aspirin Active Trulicity 3 MG/0.5ML as directed Subcutaneous Active Social History Tobacco Use: Social History Observation Description Date Details (start date - stop date) Never Smoker NA - NA Tobacco Use/Smoking Question Answer Notes Are you a: nonsmoker Additional Findings: Tobacco Non-User Current no n-smoker Alcohol Screen Question Answer Notes Did you have a drink containing alcohol in the p ast year? No Points 0 Interpretation Negative Tobacco use other than smoking: Question Answer Notes Are you an other tobacco user? No Vital Signs Height 5FT in 11/18/2023 Weight 222 lbs 11/18/2023 BMI 43.35 kg/m2 11/18/2023 Encounters Encounter Location Date Provider Diagnosis [facility] [place] [address] [place] [phone] 11/18/2023 Imer Taylor Type 2 diabetes mellitus with diabetic polyneuropathy E11.42 ; Hallux valgus (acquired), left foot M20.12 ; Hallux valgus (acquired), right foot M20.11 ; Tinea pedis B35.3 ; Tinea unguium B35.1 ; Acquired keratosis [keratoderma] palmaris et plantaris L85.1 and Other nail disorders L60.8 Assessments Encounter Date Diagnosis (ICD Code) Assessment Notes Treatment Notes Treatment Clinical Notes Section Notes 11/18/2023 Type 2 diabetes mellitus with diabetic polyneuropathy (ICD-10 - E11.42) 11/18/2023 Hallux valgus (acquired), left foot (ICD-10 - M20.12) 11/18/2023 Hallux valgus (acquired), right foot (ICD-10 - M20.11) 11/18/2023 Tinea pedis (ICD-10 - B35.3) 11/18/2023 Tinea unguium (ICD-10 - B35.1) 11/18/2023 Acquired keratosis [keratoderma] palmaris et plantaris (ICD-10 - L85.1) 11/18/2023 Other nail disorders (ICD-10 - L60.8) Plan Of Treatment Medication Medication Name Sig Start Date Stop Date Notes Ciclopirox Olamine 0.77 % 1 application to affected area Externally Twice a day to effected areas on feet for 30 days Next Appt Details Follow Up: 1 Year, Reason: N on-covered footcare Provider Name:Chetan Chinchilla , 11/18/2024 08:30:00 AM, [address] [facility], [address], [place], [address], Procedure Notes * Category Sub-Category Detail Notes Keratoma Treatment Parring or Cutting o f Benign Hyperkeratotic Lesion(s) 00364 ( >4 Lesions) - The Benign hyperkeratotic lesions, as described above were pared, and/or cut utilizing a sterile #15 blade, tissue nippers, and/or dremel , [id number] Self Pay Non-Covered Callus care- $ __95__ Nail Reduction Nail Reduction Trimming of dyst rophic nails performed to reduce/remove overall nail length and girth, by manual and electrical means with use of a nail nipper and/or dremel, to more viable healthy nail plate or bed tissue 6-10 (G0127) , [address]47-PL Trimming of non-dystrophic nails Progress Notes * Rosalva WERNERDOB:1965 (58 yo F)Acc No.[id number]:11/18/2023 Progress Note Patient:?Rosalva Werner Provider:?Imer Taylor DPM :1965???Age:58 Y???Sex:Female D ate:11/18/2023 Address:[address] [place], [place] [id number] Pcp:Lili Castillo Subjective: * Chief Complaints: * ???Noncovered Foot Care * HPI: ???At Risk footcare:?Pt States Last PCP Visit:?Date?11/05/2023 ???Foot Pain:?Nature:?burning.?Location?Bottom, Forefoot, B/L.?Duration:?several years.?Onset/Cause:?work/job.?Course:?unchanged.?Aggrevated:?standing, walking.?Treatments:?change in shoes-clove shoes.?Quality/Severity?moderate.?Skin problems:?Nature:?discolored.?Location:?Right , 1st.?Duration:?a few months.?Onset/Cause:?nail salon.?Course:?worse.?Aggravated by:?no aggrevating factors.?Treatments:?none.?Severity/Quality:?moderate.? * ROS:?General/Constitutional:?Nausea?denies, denies.?Vomiting?denies, denies.?Hunger Thirst?denies, denies.?Loss appetite?denies, denies.?Chills?denies, denies.?Fatigue?denies, denies.?Fever?denies, denies.?Night Sweats denies, denies.?Unexplained weight loss?denies, denies.?Unexplained weight gain?denies.?Ophthalmologic:?Blurred vision?denies.?Red eye?denies.?HEENTM:?Dentures?denies, denies.?Dizziness?denies, denies.?Glasses/contacts?admits, denies.?Retinopathy?denies, denies.?Blurred/double vision?denies, denies.?TMJ?denies, denies.?Discharge/drainage?denies, denies.?Implants?denies, denies.?Sore throat?denies.?Dental implants?denies.?Hard of hearing ?denies, denies.?Difficulty chewing/swallowing/speaking?denies, denies.?Nose bleeds?denies, denies.?Sore mouth?denies, denies.?Swollen glands?denies.?Respiratory:?On Oxygen?denies, denies.?Pneumonia/pleurisy?denies, denies.?Bronchitis?denies, denies.?Emphysema?denies, denies.?Coughing?denies, denies.?Cough blood?denies, denies.?Shortness of breath?denies, denies.?Wheezing?denies, denies.?Cardiovascular:?Pacemaker?denies, denies.?MVP?denies, denies.?WPW?denies, denies.?CHF?denies, denies.?Heart attack?denies, denies.?Septal defect?denies, denies.?Rapid beat?denies, denies.?Chest pain ?denies, denies.?Atrial Fib.?denies, denies.?Murmur/Palpitations?denies, denies.?Gastrointestinal:?Hemorrhoids?denies, denies.?Stomach/Abdominal pain?denies, denies.?Dark blood stool?denies, denies.?Irritable bowel ?denies, denies.?Constipation?denies, denies.?Diarrhea?admits, denies.?Vomiting?denies.?Hematology:?Swelling?denies, denies.?Clots?denies.?Varicose Veins?denies.?Bruising?denies, denies.?Bleeding problem?denies, denies.?Genitourinary:?Blood urine?denies, denies.?Frequent/Painfu/urination/bladder control?denies, denies.?Kidney stones?denies, denies.?Infection (UTI)?denies, denies.?Nephropathy?denies, denies.?sex trans dis (STD)?denies.?Prostate?denies.?Musculoskeletal:?Hammertoes?denies, denies.?Bunions?denies, denies.?Scoliosis/kyphosis?denies.?Back Pain?admits.?Muscle Cramps/ Resting?admits.?Muscle cramps / walking?admits, denies.?Generalized aches and pains?admits, denies.?Weakness?denies, denies.?Integ.:?Zaragoza?denies, denies.?Scars?denies, denies.?Corns/calluses?denies, denies.?Ingrown nails?denies, denies.?Painful nails?denies, denies.?Open Sores?denies.?Rashes?denies, denies.?Neurologic:?Difficulty sleeping?admits, denies.?Bipolar?denies.?Brain disorder?denies, denies.?Numbness?denies.?Balance trouble?denies, denies.?Confusion?denies, denies.?Fainting/blackouts?denies, denies.?Headache?denies.?Tingling?denies.?Tremors?denies, denies.? * Medical History:? * Surgical History:?hysterecto my 2000gall bladder removal 1996cyst removal, ovary 2009thyroidectomy 2014 * Hospitalization/Major Diagno stic Procedure:[place] [place]/21[facility] [place] [facility] [place] 10/2023 * Family History:?Mother: olvin barba, diagnosed with Family history of arthritis, Diabetic - NIDDM, Unspecified essential hypertension.?Father: , heart attack, diagnosed with Diabetic - NIDDM.?Spouse: alive.? * Social History:?Tobacco Use:?Tobacco Use/Smoking?Are you a:?nonsmoker ?Additional Findings: Tobacco Non-User?Current non-smoker ?Tobacco use other than smoking?Are you an other tobacco user??No ???Drugs/Alcohol:?Drugs?Have you used drugs other than those for medical reasons in the past 12 months??No ?Alcohol Screen?Did you have a drink containing alcohol in the past year??No ?Points?0 ?Interpretation?Negative ???Miscellaneous:?Caffeine: yes, 1-2 cups per day. ?Children: yes, 4. ?Marital status: . 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 * Medications:?TakingEsomepraz ole Magnesium 40 MG Capsule Delayed Release 1 capsule Orally Once a dayTrulicity 3 MG/0.5ML Solution Pen-injector as directed Subcutaneous Baby Aspirin Gabapentin , Notes: 300mg TIDhydroCHLOROthiazide 25 MG Tablet 1 tablet in the morning Orally Once a dayIrbesartan 150 MG Tablet 1 tablet Orally Once a dayJardiance 25 MG Tablet 1 tablet Orally Once a dayLevothyroxine Sodium 50 MCG Tablet 1 tablet in the morning on an empty stomach Orally Once a daymetFORMIN HCl 500 MG Tablet 1 tablet with a meal Orally Once a day, Notes: BIDTaking Esomeprazole Magnesium 40 MG Capsule Delayed Release 1 capsule Orally Once a dayTaking Trulicity 3 MG/0.5ML Solution Pen-injector as directed Subcutaneous Taking Baby Aspirin Taking Gabapentin , Notes: 300mg TIDTaking hydroCHLOROthiazide 25 MG Tablet 1 tablet in the morning Orally Once a dayTaking Irbesartan 150 MG Tablet 1 tablet Orally Once a dayTaking Jardiance 25 MG Tablet 1 tablet Orally Once a dayTaking Levothyroxine Sodium 50 MCG Tablet 1 tablet in the morning on an empty stomach Orally Once a dayTaking metFORMIN HCl 500 MG Tablet 1 tablet with a meal Orally Once a day, Notes: BIDNot-Taking/PRNOmeprazole , Notes: 40mg BIDCiclopirox Olamine 0.77 % Cream APPLY TO AFFECTED AREAS ON FEET TWICE A DAY FOR 30 DAYS Cholestyramine Medication List reviewed and reconciled with the patientNot-Taking/PRN Omeprazole , Notes: 40mg BIDNot-Taking/PRN Ciclopirox Olamine 0.77 % Cream APPLY TO AFFECTED AREAS ON FEET TWICE A DAY FOR 30 DAYS Not-Taking/PRN Cholestyramine Medication List reviewed and reconciled with the patient * Allergies:?Codeine: cold swe ats, dizziness, vomitingyes[Allergies Verified] Objective: * Vitals:?Ht: 5FT, Wt:222, BMI :43.35, Shoe size: 8.5, BS: did not test, Ht-cm: 152.4 cm, Wt-k.7 kg. * ???Past Orders: ???Lab:HEMOGLOBIN A1C (GLYCO HEMOGLOBIN) (Order Date - 11/18/2023) (Collection Date - 11/18/2023) ? Value Reference Range ?HEMOGLOBIN A1C % (HH) 6.1 * Examination: ???Ophthalmology Referral: ?DIABETES EYE EXAM?Neurological: ?SENSORY:?Neurological exam demonstrates, reduced vibration sensation, 5.07 monofilament test performed at plantar aspects of 5 varied sites per foot shows sensation, reduced , at Forefoot, B/L.?TINEL'S COMPRESSION:?Negative tarsal tunnel, christopher pedis, and medial calcaneal nerves B/L.?BABINSKI REFLEX:?absent.?Vascular: ?DP PULSES:? 2/4, B/L.?PT PULSES:? /4, B/L.?CAPILLARY FILL TIME:?3 secs. per digit, B/L.?SKIN TEMPERTURE GRADIENT OF THE LOWER EXTERMITIES:?warm to cool, proximal to distal, B/L.?HAIR GROWTH/TEXTURE/ELASTICITY/TURGOR:?normal, B/L.?PIGMENTATION:?normal, B/L.?EDEMA:?no edema.?TELANGECTASIA:?absent.?VARICOSITIES:?absent.?Dermatologic: ?SKIN FINDINGS:? Skin exam reveals Keratotic lesion(s) located at, Medial plantar, IPJ, TA, Dorsal, PIPJ, T9, Plantar, Midfoot, Heel(s), B/L , Skin shows sign(s) of, erythema, scaling, in a moccasin fashion, no fissure(s) present,?right foot.?HYPERKERATOSIS:? .?General Examination: ?GENERAL APPEARANCE:?pleasant, alert, well nourished, well developed, well hydrated, with good attention to hygene/body habitus, and in no acute distress.?ORIENTED:?person,place, and time.?FOOT EXAM:?Neuroma Pain: ?PALPATION:?No interspace pain noted on palpation.?Orthopedic: ?MUSCLE STRENGTH:?5/5 all groups in a symmetrical fashion , B/L.?GAIT ABNORMALITY:?pronated, abducted, B/L.?FOOT MORPHOLOGY:? Pes Planus structure, B/L.?BUNION:? Medially prominent 1st MPJ, Lateral tracking 1st MPJ incompletely reducable, B/L.?Nails: ?NAILS are:? Elongated, overgrown, dystrophic, lytic, greater than 3mm thick, discolored and friable with crumbly malodorous subungual debris, with dull to no pain on palpation due to neuropathy, T5, T8, T9 , elongated,overgrown, and non-dystrophic.? Assessment: * Assessment: 1.?Hallux valgus (acquired), left foot - M20.12?2.?Type 2 diabetes mellitus with diabetic polyneuropathy - E11.42 (Primary)?3.?Hallux valgus (acquired), right foot - M20.11?4.?Tinea pedis - B35.3?5.?Tinea unguium - B35.1?6.?Acquired keratosis [keratoderma] palmaris et plantaris - L85.1?7.?Other nail disorders - L60.8? Plan: * Treatment: * Procedures:?Keratoma Treatment:?Parring or Cutting of Benign Hyperkeratotic Lesion(s)?24989 ( >4 Lesions) - The Benign hyperkeratotic lesions, as described above were pared, and/or cut utilizing a sterile #15 blade, tissue nippers, and/or jeremías , [address]2890-YE Self Pay Non-Covered Callus care- $ __95__.?Nail Reduction:?Nail Reduction?Trimming of dystrophic nails performed to reduce/remove overall nail length and girth, by manual and electrical means with use of a nail nipper and/or dremel, to more viable healthy nail plate or bed tissue 6-10 (G0127) , [address]-IN Trimming of non-dystrophic nails.? * Procedure Codes:?08296 TRIM SKIN LESIONS, OVER 4, Modifiers: GY 86911 TRIM NAIL(S), Modifiers: GY * Follow Up:?1 Year (Reason: N on-covered footcare) * Images: * Sign off status: Completed true * Provider:?Imer Taylor DPM Date:? 024 Generated for Christopher landrum/Tracey/Angelina on:?06/10/2024 11:41 AM EST History and Physical Notes * HPI (History of Present Illness) Category Sub-Category Detail Notes Category Not es Skin problems Nature: discolored Location: Right , 1st Duration: a few months Onset/Cause: nail salon Course: worse Aggravated by: no aggrevating facto rs Treatments: none Severity/Quality: moderate At Risk footcare Pt States Last PCP Visit: Date: 4 Foot Pain Aggrevated: standing, walking Onset/Cause: work/job Course: unchanged Duration: several years Nature: burning Treatments: change in shoes-clov e shoes Quality/Severity moderate Location Bottom, Forefoot, B/ L Examination Category Sub-Category Detail Notes Category Not es Neuroma Pain PALPATION: No interspace pain noted on palpation Neurological SENSORY: Neurological exa m demonstrates, reduced vibration sensation, 5.07 monofilament test performed at plantar aspects of 5 varied sites per foot shows sensation, reduced , at Forefoot, B/L BABINSKI REFLEX: absent TINEL'S COMPRESSION: Negative tarsal ava emery, christopher pedis, and medial calcaneal nerves B/L Dermatologic SKIN FINDINGS: Skin exam reveal s Keratotic lesion(s) located at, Medial plantar, IPJ, TA, Dorsal, PIPJ, T9, Plantar, Midfoot, Heel(s), B/L , Skin shows sign(s) of, erythema, scaling, in a moccasin fashion, no fissure(s) present, right foot HYPERKERATOSIS: Orthopedic GAIT ABNORMALITY: pronated, abducted, B/L FOOT MORPHOLOGY: Pes Planus structure , B/L BUNION: Medially prominent 1 st MPJ, Lateral tracking 1st MPJ incompletely reducable, B/L MUSCLE STRENGTH: 5/5 all groups in a symmetrical fashion , B/L General Examination GENERAL APPEARANCE: pleasant , alert, well nourished, well developed, well hydrated, with good attention to hygene/body habitus, and in no acute distress FOOT EXAM: Lower Extremity Neurological Exa m performed:: Yes Visual exam of foot performed:: Yes Date: 11/05/2022 Sensory testing performed:: sensations d iminished Pedal pulse taking performed:: 1+ ORIENTED: person,place, and ti me Ophthalmology Referral DIABETES EYE EXAM Diabeti c Retinopathy Screening:: Yes 06/2023 Vascular DP PULSES (B): 2/4, B/L PT PULSES (B): 1/4, B/L CAPILLARY FILL TIME: 3 secs. per digit, B/L TEMPERTURE GRADIENT (C): warm to cool, p roximal to distal, B/L TROPHIC CONDITION-TEXTURE/ELASTICITY/TURGOR/HAIR GROWTH (B): normal, B/L EDEMA (C): no edema TELANGECTASIA: absent VARICOSITIES: absent PIGMENTATION: normal, B/L Nails NAILS are: Elongated, overg rown, dystrophic, lytic, greater than 3mm thick, discolored and friable with crumbly malodorous subungual debris, with dull to no pain on palpation due to neuropathy, T5, T8, T9 , elongated,overgrown, and non-dystrophic
--- OUTSIDE RECORDS SUMMARY | 2024-06-10 11:41 | XMS_ITS | Patient Health Record ---
Author Organization [facility] Address [address] [place] [address] Care Team Providers Care Rn Patient Care Name Role Phone Drew WILEY, Marah Kevin Primary Care Provider Un available Imer Taylor Unavailable [phone] Allergies Allergen (clinical drug ingredient) Drug/Non Drug Allergy documented on EMR Reaction Allergy Type Onset Date Status codeine Codeine cold sweats, dizziness, vomiting Drug Allergy Active Results Component Value Reference Range Notes HEMOGLOBIN A1C (GLYCOHEMOGLO BIN) Reviewed date:11/18/2023 12:33:08 PM Interpretation: Performing Lab: Notes/Report: HEMOGLOBIN A1C % (HH) 6.1 Reason For Referral No Information Medications Medication SIG (Take, Route, Frequency, Duration) Notes Start Date End Date Status Cholestyramine Not-T aking metFORMIN HCl 500 MG 1 tablet with a meal Orally Once a day for 30 day(s) BID Active Levothyroxine Sodium 50 MCG 1 tablet in the morning on an empty stomach Orally Once a day for 30 day(s) Active Omeprazole 40mg BID Not-Takin g hydroCHLOROthiazide 25 MG 1 tablet in th morning Orally Once a day for 30 day(s) Active Gabapentin 300mg TID Active Jardiance 25 MG 1 tablet Orally Once a day for 30 day(s) Active Irbesartan 150 MG 1 tablet Orally Once a day for 30 day(s) Active Esomeprazole Magnesium 40 MG 1 capsule Orally Once a day Active Baby Aspirin Active Ciclopirox Olamine 0.77 % APPLY TO AFFEC IDANIA AREAS ON FEET TWICE A DAY FOR 30 DAYS for 30 Active Trulicity 3 MG/0.5ML as directed Subcutaneous Active Immunizations Vaccine Route Administration Date Status Comme nts COVID-19 Moderna Vaccine Unknown 05/11/2020 Administere d COVID-19 Moderna Vaccine Unknown 06/08/2020 Administere d Social History Tobacco Use: Social History Observation [...] Are you an other tobacco user? No Problems Problem Type SNOMED Code ICD Code Onset Dates Problem Status W/U Status Risk Notes Problem Acquired hallux valgus (76169687) Hallux valgus (acquired), left foot (M20.12) Active confirmed Problem Acquired hallux valgus (73358820) Hallux valgus (acquired), right foot (M20.11) Active confirmed Problem Polyneuropathy due to type 2 diabetes mellitus (258289000) Type 2 diabetes mellitus with diabetic polyneuropathy (E11.42) Active confirmed Problem Polyneuropathy due to diabetes mellitus type I (848720435) Type 1 diabetes mellitus with diabetic polyneuropathy (E10.42) Active confirmed Vital Signs Height 5FT in 11/18/2023 Weight 222 lbs 11/18/2023 BMI 43.35 kg/m2 11/18/2023 Encounters Encounter Location Date Provider Diagnosis [address] [address] 11/18/2023 Imer Taylor Type 2 diabetes mellitus with diabetic polyneuropathy E11.42 ; Hallux valgus (acquired), left foot M20.12 ; Hallux valgus (acquired), right foot M20.11 ; Tinea pedis B35.3 ; Tinea unguium B35.1 ; Acquired keratosis [keratoderma] palmaris et plantaris L85.1 and Other nail disorders L60.8 [facility] [address] [place] [address] [facility] [address] 02/10/2024 Imer Taylor Assessments Encounter Date Diagnosis (ICD Code) Assessment Notes Treatment Notes Treatment Clinical Notes Section Notes 11/18/2023 Hallux valgus (acquired), left foot (ICD-10 - M20.12) 11/18/2023 Type 2 diabetes mellitus with diabetic polyneuropathy (ICD-10 - E11.42) 11/18/2023 Hallux valgus (acquired), right foot (ICD-10 - M20.11) 11/18/2023 Tinea pedis (ICD-10 - B35.3) 11/18/2023 Tinea unguium (ICD-10 - B35.1) 11/18/2023 Acquired keratosis [keratoderma] palmaris et plantaris (ICD-10 - L85.1) 11/18/2023 Other nail disorders (ICD-10 - L60.8) Plan Of Treatment Pending Test Test Name Order Date [id number] SKIN LESIONS, OVER 4 10/21/19 21 [id number] SKIN LESIONS, OVER 4 10/31/19 22 [id number] DYSTROPHIC NAILS ANY # Next Appt Details Provider Name:Chetan Romero Renée , 11/18/2024 08:30:00 AM, [address] [facility], [address], [place], [address], Medical (General) History Medical History History ICD Code Arthritis Back,Hip,and Knee pain Diabetic High blood pressure Reflux ( GERD) thyroid Sleep apnea Surgical History Surgery Date(Month/Year) hysterectomy 1999 gall bladder removal 1995 cyst removal, ovary 2008 thyroidectomy 2015 Hospitalization History Reason Date(Month/Year) [facility] [place] [facility] [place] 10[place]2023 [facility] [place] 10/25/[place]
--- OUTSIDE RECORDS SUMMARY | 2024-06-10 11:41 | XMS_ITS ---
Author Organization [facility] [place] Address [address] [place] [address] Care Team Providers Care Cost Reduction Engineer Name Role Phone Drew WILEY, Marah Kevin Primary Care Provider Un available Imer Taylor Unavailable [phone] REASON FOR VISIT wants us to fax visit sum. 11/18/23 Encounters Encounter Location Date [facility] [address] [place] [address] 02/10/2024 Imer Taylor Plan Of Treatment Next Appt Details Provider Name:Chetan Chinchilla , 11/18/2024 08:30:00 AM, [address] [address], [place], [address], Progress Notes * Rosalva WERNERDOB:1965 (59 yo F)Acc No.[id number]:02/10/2024 Patient:?Rosalva Werner :1965???Age:59 Y???Sex:Female Address:[address] [place] [address], [address] * true * Date:? Generated for Milliei lucita/Tracey/eTransmitting on:?06/10/2024 11:41 AM EST
--- OUTSIDE RECORDS SUMMARY | 2024-06-10 11:41 | XMS_ITS | Clinical Summary ---
Author Organization [facility] ity Address [address] [place] [address] Care Team Providers Care Fixture Relamper Name Role Phone Unavailable Primary Care Provider Unavailabl e Surgical History Surgery Date Site/Laterality Comments SECTION PROCEDURE: HISTORICAL DELIVERY; COMMENT: x 4 OVARIAN CYST REMOVAL 2008 PROCEDURE: [place] OVARIAN CYSTECTOMY UNI/BI; COMMENT: on left side HYSTERECTOMY PROCEDURE: HISTORICAL HYSTERECTOMY; COMMENT: age of 33, has ovaries Medical History Medical History Date Comments Hypertension DX:Hypertension; COMMENT: not on any treatment GERD (gastroesophageal reflux disease) DX:GERD (gastroesophageal reflux disease) Family History Medical History Relation Name Comments Other: can breas Aunt 1 mother's si de Heart attack Father at 70 Hypertension Mother Relation Name Status Comments Aunt 1 Aunt 2 Brother Alive Father Mother Alive Sister Alive Social History Tobacco Use Types Packs/Day Years Used Date Smoking Tobacco: Never Smokeless Tobacco: Never Alcohol Use Standard Drinks/Week Comments No 0 (1 standard drink = 0.6 oz pur e alcohol) Comments Unknown Sex and Gender Information Value Date Recorded Sex Assigned at Not on file Legal Sex Female 1:32 AM EST Gender Identity Not on file Sexual Orientation Not on file Obstetrics History Last Filed Vital Signs Vital Sign Reading Time Taken Comments Blood Pressure - - Pulse - - Temperature - - Respiratory Rate - - Oxygen Saturation - - Inhaled Oxygen Concentration - - Weight 109 kg (241 lb) 10/22/2021 1:29 PM EDT Height 152.4 cm (5') 10/22/2021 1:29 PM EDT Body Mass Index 47.07 10/22/2021 1:29 PM EDT Plan of Treatment Health Maintenance Due Date Last Done Comments Breast Cancer Screening 1965 DTaP,Tdap,and Td Vaccines (1 - Tdap) 1982 Cervical Cancer Screening: P ap Smear 01/09/1984 Pneumococcal Vaccine: 50+ Ye ars (1 of 1 - PCV) 2013 Zoster Vaccines (1 of 2) 2013 Colorectal Cancer Screening: Colonoscopy 03/31/2022 Depression Screening 03/31/2022 HIV Screening 03/31/2022 Hepatitis C Screening 03/31/2022 Social Influencers of Health Screening 03/31/2022 RSV Immunization Patients 60 + Years Old (1 - Risk 60-74 years 1-dose series) 2023 COVID-19 Vaccine ( - 2023-2 5 season) 2023 Influenza Vaccine (#1) 2023 HIB Vaccines Aged Out No longer eligi ble based on patient's age to complete this topic HPV Vaccines Aged Out No longer eligi ble based on patient's age to complete this topic Hepatitis A Vaccines Aged Out No long er eligible based on patient's age to complete this topic Hepatitis B Vaccines Aged Out No long er eligible based on patient's age to complete this topic IPV Vaccines Aged Out No longer eligi ble based on patient's age to complete this topic MMR Vaccines Aged Out No longer eligi ble based on patient's age to complete this topic Meningococcal ACWY Vaccine Aged Out N o longer eligible based on patient's age to complete this topic Meningococcal B Vacine Aged Out No lo nger eligible based on patient's age to complete this topic Pneumococcal Vaccine: Pediat rics (0 to 5 Years) and At-Risk Patients (6 to 64 Years) Aged Out No longer eligible b ased on patient's age to complete this topic RSV Immunization Patients Un dc 20 months Aged Out No longer eligible b ased on patient's age to complete this topic Varicella Vaccines Aged Out No longer eligible based on patient's age to complete this topic
--- OUTSIDE RECORDS SUMMARY | 2024-06-10 11:42 | XMS_ITS ---
[facility] Address [address] [place] [address] Care Team Providers Care Meter Changes Records Clerk Name Role Phone Drew WILEY, Marah Kevin Primary Care Provider Un available Imer Taylor Unavailable [phone] Paris Encounters Encounter Location Date Provider Diagnosis [address] [address] 11/11/2023 Imer Taylor Plan Of Treatment Next Appt Details Provider Name:Chetan Nick PortilloRenée , 11/18/2024 08:30:00 AM, [address] [place] [address], [phone], Progress Notes * Rosalva WERNERDOB:1965 (59 yo F)Acc No.[id number]:11/11/2023 Progress Note Patient:?Rosalva WERNER Provider:?Imer Taylor DPM :1965???Age:58 Y???Sex:Female D ate:11/11/2023 Address:[address] [place] [address] [id number] Pcp:Lili Castillo Subjective: * Chief Complaints: * ???1. Dr. Paris. * Medical History:? Objective: * Vitals:? Assessment: Plan: * Treatment: * Images: * The named appointment provid er may or may not be the originator of this progress note, and it is not deemed complete until electronically signed by the appointment provider. Sign off status: Pending * Provider:Soledad Taylor DPM Date:? 024 Generated for Christopher landrum/Tracey/Angelina on:?06/10/2024 11:41 AM EST
--- OUTSIDE RECORDS SUMMARY | 2024-06-10 11:42 | XMS_ITS | Clinical Summary ---
Author Organization [facility] Address [address] [place] [address] Care Team Providers Care Hand Trimmer Name Role Phone Unavailable Primary Care Provider Unavailabl e Allergies Active Allergy Reactions Criticality Noted Date Comments Codeine 10/19/2021 Medications Medication Sig Dispensed Refills Start Date End Date Status Jardiance 25 MG TABS 0 10/13/2021 Acti ve gabapentin (NEURONTIN) 300 MG capsule 0 08/28/2021 Active hydroCHLOROthiazide (HYDRODIURIL) tablet 25 mg Take 25 mg by mouth every morning. 0 09/07/2021 Active levothyroxine (SYNTHROID) tablet 50 mcg Take 50 mcg by mouth every morning. 0 07/23/2021 Active irbesartan (AVAPRO) 150 MG tablet 0 09/26/2021 Active omeprazole (PriLOSEC) 40 MG capsule 0 09/08/2021 Active metFORMIN (GLUCOPHAGE) tablet 500 mg TAKE 1 TABLET BY MOUTH IN THE MORNING AND TAKE 2 TABLETS IN THE EVENING EVERY DAY 0 08/11/2021 Active amLODIPine (NORVASC) tablet 2.5 mg Take 2.5 mg by mouth. 0 06/27/2020 Active aspirin 81 MG EC tablet Take 81 mg by mouth. 0 06/27/2020 Active Synthroid 75 MCG tablet 0 08/20/2021 Active Sandra-areli 8.6 MG tablet 0 10/02/2021 Active meloxicam (MOBIC) 7.5 MG tablet Take 2 tablets (15 mg total) by mouth daily as needed for pain. 30 tablet 0 10/22/2021 Active Active Problems No known active problems Social History Tobacco Use Types Packs/Day Years Used Date Smoking Tobacco: Never Smokeless Tobacco: Never Alcohol Use Standard Drinks/Week Comments Not Currently 0 (1 standard drink = 0.6 oz pur e alcohol) Sex and Gender Information Value Date Recorded Sex Assigned at Not on file Gender Identity Not on file Sexual Orientation Not on file Job Start Date Occupation Industry Not on file Not on file Not on file Last Filed Vital Signs Vital Sign Reading Time Taken Comments Blood Pressure - - Pulse - - Temperature - - Respiratory Rate - - Oxygen Saturation - - Inhaled Oxygen Concentration - - Weight 109.3 kg (241 lb) 10/22/2021 1:29 PM EDT Height 152.4 cm (5') 10/22/2021 1:29 PM EDT Body Mass Index 47.07 10/22/2021 1:29 PM EDT Plan of Treatment Health Maintenance Due Date Last Done Comments Hepatitis C Screening 1965 COVID-19 Vaccine (#1) 1963 Depression Screening 1975 BMI Counseling 1981 Preventative Health Evaluation 1981 DTap / Tdap / Td (1 - Tdap) 1982 Cervical Cancer Screening (P ap Smear) 01/09/1984 Colon Cancer Screening (Colonoscopy) 01/09/2008 Breast Cancer Screening (Mammogram) 2013 Shingrix-Zoster Vaccine (1 of 2) 2013 Influenza Vaccine (#1) 2023 RSV Adult > 60+ Yrs or Pregn ant (1 - 1-dose 75+ series) 2038 Hepatitis B Vaccines Aged Out No long er eligible based on patient's age to complete this topic Pneumococcal Vaccine Aged Out No long er eligible based on patient's age to complete this topic RSV Ped < 20 months Aged Out No longe r eligible based on patient's age to complete this topic
== END 2024-06-10 11:51 | disposition home or self-care (01) ==
PROVIDERS: PCP Internal Medicine; Visit Provider Physician Assistant Medical
DX: G25.81 Restless legs syndrome (principal); E66.813 Obesity, class 3; E66.01 Morbid (severe) obesity due to excess calories; Z68.41 Body mass index [BMI] 40.0-44.9, adult; G47.19 Other hypersomnia
CPT/HCPCS: 99214; G2211

== ENCOUNTER 2024-07-22 07:38 | Outpatient (REF) | payer OTHER, SELFPAY ==
[2024-07-23 19:23] LABS: Homocysteine 12.2 umol/L (<10.4)
== END 2024-07-22 07:39 | disposition home or self-care (01) ==
LOC: HO.LAB 07:38
PROVIDERS: Absent Provider Internal Medicine; PCP Internal Medicine; Visit Provider Physician Assistant Medical
DX: G25.81 Restless legs syndrome (principal)
CPT/HCPCS: 36415; 83090

== ENCOUNTER → 2024-09-08 07:45 | Outpatient (BNV) | payer OTHER, SELFPAY | PROVIDERS: PCP Internal Medicine; Visit Provider Internal Medicine | DX: Z12.31 Encounter for screening mammogram for malignant neoplasm of breast (principal) | CPT/HCPCS: 77063; 77067 ==

== ENCOUNTER 2024-09-08 07:48 | Outpatient (REF) | payer OTHER, SELFPAY ==
--- OUTSIDE RECORDS SUMMARY | 2024-09-08 07:50 | XMS_ITS ---
Author Organization [facility] [place] Address [address] [place] [address] Care Team Providers Care Mine Car Dispatcher Name Role Phone Drew WILEY, Marah Kevin Primary Care Provider Un available Imer Taylor Unavailable [phone] REASON FOR VISIT wants us to fax visit sum. 11/18/23 Encounters Encounter Location Date [facility] [address] [place] [address] 02/10/2024 Imer Taylor Plan Of Treatment Next Appt Details Provider Name:Chetan Chinchilla , 11/18/2024 08:30:00 AM, [address] [address], [place], [address], Progress Notes * Rosalva WERNERDOB:1965 (59 yo F)Acc No.[id number]:02/10/2024 Patient:?Rosalva Werner :1965???Age:59 Y???Sex:Female Address:[address] [place] [address], [address] * true * Date:? Generated for Printi ng/Fareneg/eTransmitting on:?09/08/2024 07:50 AM EDT
--- OUTSIDE RECORDS SUMMARY | 2024-09-08 07:51 | XMS_ITS ---
[facility] Address [address] [place] [address] Care Team Providers Care Russian Rubber Name Role Phone Drew WILEY, Marah Kevin Primary Care Provider Un available Imer Taylor Unavailable [phone] Paris Encounters Encounter Location Date Provider Diagnosis [address] [address] 11/11/2023 Imer Taylor Plan Of Treatment Next Appt Details Provider Name:Chetan Nick PortilloRenée , 11/18/2024 08:30:00 AM, [address] [place] [address], [phone], Progress Notes * Rosalva WERNERDOB:1965 (59 yo F)Acc No.[id number]:11/11/2023 Progress Note Patient:?Rosalva WERNER Provider:?Imer Taylor DPM :1965???Age:58 Y???Sex:Female D ate:11/11/2023 Address:[address] [place] [address] [id number] Pcp:Lili Castillo Subjective: * Chief Complaints: * [...] DPM Date:? 024 Generated for Christopher landrum/Tracey/Angelina on:?09/08/2024 07:50 AM EDT
--- OUTSIDE RECORDS SUMMARY | 2024-09-08 07:51 | XMS_ITS ---
Author Organization [facility] Address [address] [facility] [place] [address] Care Team Providers Care Security Sme Name Role Phone Drew WILEY, Marah Kevin Primary Care Provider Un available Imer Taylor Unavailable [phone] Allergies Allergen (clinical drug ingredient) Drug/Non Drug [...] 11/18/2023 Encounters Encounter Location Date Provider Diagnosis [facility] [place] [address] [place] [address] 11/18/2023 Imer Taylor Type 2 diabetes mellitus [...] Name:Chetan Chinchilla , 11/18/2024 08:30:00 AM, [address] [facility], [address], [place], [address], Procedure Notes * Category Sub-Category Detail Notes Keratoma Treatment Parring or Cutting o f Benign Hyperkeratotic Lesion(s) 28022 ( >4 Lesions) - The Benign hyperkeratotic lesions, as described above were pared, and/or cut utilizing a sterile #15 blade, tissue nippers, and/or dremel , 60671-BP Self Pay Non-Covered Callus care- $ __95__ Nail Reduction Nail Reduction Trimming of dyst rophic nails performed to reduce/remove overall nail length and girth, by manual and electrical means with use of a nail nipper and/or dremel, to more viable healthy nail plate or bed tissue 6-10 (G0127) , 63865-YU Trimming of non-dystrophic nails Progress Notes * Rosalva WERNERDOB:1965 (58 yo F)Acc No.[id number]:11/18/2023 Progress Note Patient:?Rosalva Werner Provider:?Imer Taylor DPM :1965???Age:58 Y???Sex:Female D ate:11/18/2023 Address:[address] [place], [place] [id number] Pcp:Lili Castillo Subjective: * Chief Complaints: * [...] ovary 2009thyroidectomy 2014 * Hospitalization/Major Diagno stic Procedure:[place] [place] [place] [facility] [place] stomach issues 10/2023 * Family History:?Mother: olvin [...] ?Children: yes, 4. ?Marital status: . 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 * Medications:?TakingEsomepraz ole Magnesium 40 MG Capsule [...] 6.1 * Examination: ???Ophthalmology Referral: ?DIABETES EYE EXAM?Diabetic Retinopathy Screening:?Yes 06/2023?Neurological: ?SENSORY:?Neurological exam demonstrates, reduced vibration sensation, 5.07 monofilament test performed at plantar aspects of 5 varied sites per foot shows sensation, reduced , at Forefoot, B/L.?TINEL'S COMPRESSION:?Negative tarsal tunnel, christopher pedis, and medial calcaneal nerves B/L.?BABINSKI REFLEX:?absent.?Vascular: ?DP PULSES:? /4, B/L.?PT PULSES:? 05/01, B/L.?CAPILLARY FILL TIME:?3 secs. per digit, B/L.?SKIN [...] and in no acute distress.?ORIENTED:?person,place, and time.?FOOT EXAM:?Lower Extremity Neurological Exam performed:?Yes ?Visual exam of foot performed:?Yes ?Date?11/05/2022 ?Sensory testing performed:?sensations diminished ?Pedal pulse taking performed:?1+?Neuroma Pain: ?PALPATION:?No interspace pain noted on palpation.?Orthopedic: [...] Procedures:?Keratoma Treatment:?Parring or Cutting of Benign Hyperkeratotic Lesion(s)?31493 ( >4 Lesions) - The Benign hyperkeratotic lesions, as described above were pared, and/or cut utilizing a sterile #15 blade, tissue nippers, and/or dremel , 66059-WG Self Pay Non-Covered Callus care- $ __95__.?Nail Reduction:?Nail Reduction?Trimming of dystrophic nails performed to reduce/remove overall nail length and girth, by manual and electrical means with use of a nail nipper and/or dremel, to more viable healthy nail plate or bed tissue 6-10 (G0127) , 00490-BO Trimming of non-dystrophic nails.? * Procedure Codes:?88281 TRIM SKIN LESIONS, OVER 4, Modifiers: GY 10827 TRIM NAIL(S), Modifiers: GY * Follow Up:?1 Year (Reason: N on-covered footcare) * Images: * Sign off status: Completed true * Provider:?Imer Taylor DPM Date:? 024 Generated for Christopher landrum/Tracey/Angelina on:?09/08/2024 07:50 AM EDT History and Physical Notes * HPI (History [...]
--- OUTSIDE RECORDS SUMMARY | 2024-09-08 07:51 | XMS_ITS | Clinical Summary ---
Author Organization [facility] Address [address] [place] [address] Care Team Providers Care Liquid Flavor Compounder Name Role Phone Unavailable Primary Care Provider [...]
--- OUTSIDE RECORDS SUMMARY | 2024-09-08 07:51 | XMS_ITS | Clinical Summary ---
Author Organization [facility] Address [address] [place] [address] Care Team Providers Care Temporary Data Entry Clerk Name Role Phone Unavailable Primary Care Provider Unavailabl e Surgical History Surgery Date Site/Laterality Comments SECTION PROCEDURE: HISTORICAL DELIVERY; COMMENT: x 4 OVARIAN CYST REMOVAL 2008 PROCEDURE: [place] OVARIAN CYSTECTOMY UNI/BI; COMMENT: on left side [...] Influencers of Health Screening 03/31/2022 RSV Immunization Adult Patie nts (1 - Risk 60-74 years 1-dose series) 2023 COVID-19 Vaccine ( - 2023-2 5 season) 2023 Influenza Vaccine (Season Ended) 2024 HIB Vaccines Aged Out No longer eligi [...] age to complete this topic Meningococcal B Vaccine Aged Out No l onger eligible based on patient's age to complete [...]
--- OUTSIDE RECORDS SUMMARY | 2024-09-08 07:51 | XMS_ITS | Patient Health Record ---
Author Organization [facility] Address [address] [place] [address] Care Team Providers Care Sorting Cows Worker Name Role Phone Drew WILEY, Marah Kevin Primary Care Provider Un available Imer Taylor Unavailable [phone] Allergies Allergen (clinical drug ingredient) Drug/Non Drug [...] Status Risk Notes Problem Acquired hallux valgus (14114009) Hallux valgus (acquired), left foot (M20.12) Active confirmed Problem Acquired hallux valgus (27356075) Hallux valgus (acquired), right foot (M20.11) Active confirmed Problem Polyneuropathy due to type 2 diabetes mellitus (038023104) Type 2 diabetes mellitus with diabetic polyneuropathy (E11.42) Active confirmed Problem Polyneuropathy due to diabetes mellitus type I (899257054) Type 1 diabetes mellitus with diabetic polyneuropathy (E10.42) Active confirmed Vital Signs Height 5FT in 11/18/2023 Weight 222 lbs 11/18/2023 BMI 43.35 kg/m2 11/18/2023 Encounters Encounter Location Date Provider Diagnosis [facility] [address] 11/18/2023 Imer Taylor Type 2 diabetes mellitus with diabetic polyneuropathy E11.42 ; Hallux valgus (acquired), left foot M20.12 ; Hallux valgus (acquired), right foot M20.11 ; Tinea pedis B35.3 ; Tinea unguium B35.1 ; Acquired keratosis [keratoderma] palmaris et plantaris L85.1 and Other nail disorders L60.[address] [facility] [address] 02/10/2024 Imer Taylor Assessments Encounter Date Diagnosis [...] Treatment Pending Test Test Name Order Date 47835-SPOU SKIN LESIONS, OVER 4 10/21/19 67499-SDXF SKIN LESIONS, OVER 4 10/31/19 22 [id number] DYSTROPHIC NAILS ANY # Next Appt Details Provider Name:Chetan Chinchilla , 11/18/2024 08:30:00 AM, [address] [facility], [address], [place], [address], Medical (General) History Medical History History ICD Code Arthritis Back,Hip,and Knee pain Diabetic High blood pressure Reflux ( GERD) thyroid Sleep apnea Surgical History Surgery Date(Month/Year) hysterectomy 1999 gall bladder removal 1995 cyst removal, ovary 2008 thyroidectomy 2014 Hospitalization History Reason Date(Month/Year) [facility] [place], [facility] [place]- stomach issues 10/2023 [facility] [place] stomach virus 10/25/21
== END 2024-09-08 07:49 | disposition home or self-care (01) ==
LOC: HO.MAMMO 07:48
PROVIDERS: PCP Internal Medicine; Visit Provider Internal Medicine
DX: Z12.31 Encounter for screening mammogram for malignant neoplasm of breast (principal)
CPT/HCPCS: 77063; 77067

== ENCOUNTER 2024-12-03 07:13 | Outpatient (REF) | payer OTHER, SELFPAY ==
[2024-12-03 10:55] LABS: Hemoglobin A1C 156.4922 umol/L; Total Hemoglobin (HGBA1C) 3485.3675 umol/L
[2024-12-03 11:11] LABS: Microalbum/Creatinine Ratio Ur 10.3 ug/mg cr (<30)
[2024-12-03 11:16] LABS: Alanine Aminotransferase 38 U/L (0-31); Albumin Level 4.2 g/dL (3.5-5.0); Alkaline Phosphatase 86 U/L (39-117); Anion Gap 14 (12-20); Aspartate Amino Transferase 39 U/L (5-31); Blood Urea Nitrogen 20 mg/dL (9-16); Calcium 8.9 mg/dL (8.4-10.2); Carbon Dioxide 26 mmol/L (22-29); Chloride 106 mmol/L (96-108); Cholesterol 126 mg/dL (<200); Estimated Glomerular Filt Rate > 60; HDL Cholesterol 43 mg/dL (>40); Potassium 3.7 mmol/L (3.3-5.1); Sodium 142 mmol/L (135-145); Total Protein 6.9 g/dL (6.5-8.0); Triglycerides 165 mg/dL (<150)
[2024-12-03 11:22] LABS: Free T4 (Free Thyroxine) 1.16 ng/dL (0.71-1.85); Thyroid Stimulating Hormone 0.95 uIU/mL (0.32-4.0)
== END 2024-12-03 07:14 | disposition home or self-care (01) ==
LOC: HO.HMGCLDS 07:13
PROVIDERS: PCP Internal Medicine; Visit Provider Internal Medicine
DX: I10 Essential (primary) hypertension (principal); E11.42 Type 2 diabetes mellitus with diabetic polyneuropathy; E03.9 Hypothyroidism, unspecified; E66.01 Morbid (severe) obesity due to excess calories; Z68.41 Body mass index [BMI] 40.0-44.9, adult; R74.01 Elevation of levels of liver transaminase levels; Z85.850 Personal history of malignant neoplasm of thyroid; E89.40 Asymptomatic postprocedural ovarian failure
CPT/HCPCS: 36415; 80053; 80061; 82043; 82306; 82570; 83036; 84439; 84443

== ENCOUNTER 2024-12-07 07:57 | Outpatient (AMB) | payer OTHER, SELFPAY ==
--- OUTSIDE RECORDS SUMMARY | 2024-12-07 07:59 | XMS_ITS | Clinical Summary ---
Author Organization [facility] Address [address] [place] [address] Care Team Providers Care Policy Checker Name Role Phone Unavailable Primary Care Provider [...] (1 of 2) 2013 Influenza Vaccine (#1) 2024 RSV Adult > 60+ Yrs or Pregn [...]
--- OUTSIDE RECORDS SUMMARY | 2024-12-07 07:59 | XMS_ITS | Patient Health Record ---
Author Organization [facility] Address [address] [place] [address] Care Team Providers Care Railway Signal Operator Name Role Phone Magdiel Perez M.D. Primary Care Provider Kanwal fletcher Arreguin Jr Abdi Unavailable Allergies Allergen (clinical drug ingredient) Drug/Non Drug Allergy documented on EMR Reaction Allergy Type Onset Date Status codeine Codeine Sulfate Unknown Drug Allergy A ctive Reason For Referral No Information Medications Medication SIG (Take, Route, Frequency, Duration) Notes Start Date End Date Status metFORMIN HCl 500 MG 1 tablet with a lois l Orally twice a day Active Colyte with Flavor Packs 240 GM As directed Orally Over the specified time. for 1 day(s) Active Levothyroxine Sodium 50 MCG 1 tablet on an empty stomach in the morning Orally Once a day Active Omeprazole 40 MG 1 capsule Orally Onc e a day Active Saxenda 18 MG/3ML Subcutaneous Active Multivitamin Adult - Orally Active Losartan Potassium-HCTZ 100-25 MG 1 tablet Orally Once a day Active Social History Tobacco Use: Social History Observation Description Date Details (start date - stop date) Never Smoker NA - NA Tobacco Use/Smoking Question Answer Notes Patient is a nonsmoker Alcohol Screen Question Answer Notes Did you have a drink contain ing alcohol in the past year? Yes How often did you have a dri nk containing alcohol in the past year? Monthly or less (1 point) How many drinks did you have on a typical day when you were drinking in the past year? 1 or 2 drinks (0 point) How often did you have 6 or more drinks on one occasion in the past year? Never (0 point) Points 1 Interpretation Negative Problems Problem Type SNOMED Code ICD Code Onset Dates Problem Status W/U Status Risk Notes Problem 155490193 Colon cancer screening (Z12.11) Active confirmed Problem 966458972 residential (current) use of oral hypoglycemic drugs (Z79.84) Active confirmed Plan Of Treatment Future Test Test Name Order Date COLONOSCOPY 01/29/2018 Insurance Providers Payer Name Payer Address Payer Phone Subscriber Number Group Number Insured Name Patient Relationship to Insured Coverage Start Date Coverage End Date [facility] [address] [place] [id number] BENEDICTO DOHERTY Self - patient is the insured Medical (General) History Medical History History ICD Code diabetes mellitus hypertension thyroid cancer EDGAR/CPAP Surgical History Surgery Date(Month/Year) 4 c sections hysterectomy cholecystectomy cyst in left ovaries
--- OUTSIDE RECORDS SUMMARY | 2024-12-07 07:59 | XMS_ITS | Patient Health Record ---
[facility] Address [address] [place] [address] Care Team Providers Care Watchstander Name Role Phone Drew WILEY, Marah Kevin Primary Care Provider Un available Chetan Chinchilla Unavailable [phone] Imer Taylor Unavailable [phone] Allergies Allergen (clinical drug ingredient) Drug/Non Drug Allergy documented on EMR Reaction Allergy Type Onset Date Status codeine Codeine cold sweats, dizziness, vomiting Drug Allergy Active Results Component Value Reference Range Notes HEMOGLOBIN A1C (GLYCOHEMOGLO BIN) Reviewed date:11/18/2024 08:34:41 AM Interpretation: Performing Lab: Notes/Report: HEMOGLOBIN A1C % (HH) 6.8 Reason For Referral No Information Medications Medication SIG (Take, Route, Frequency, Duration) Notes Start Date End Date Status Baby Aspirin Active Trulicity 3 MG/0.5ML as directed Subcutaneous Active Irbesartan 150 MG 1 tablet Orally Once a day; Duration: 30 day(s) Active hydroCHLOROthiazide 25 MG 1 tablet in th e morning Orally Once a day; Duration: 30 day(s) Active Levothyroxine Sodium 50 MCG 1 tablet in the morning on an empty stomach Orally Once a day; Duration: 30 day(s) Active Jardiance 25 MG 1 tablet Orally Once a day; Duration: 30 day(s) Active Ciclopirox Olamine 0.77 % APPLY TO AFFEC IDANIA AREAS ON FEET TWICE A DAY FOR 30 DAYS; Duration: 30 Active metFORMIN HCl 500 MG 1 tablet with a meal Orally Once a day; Duration: 30 day(s) BID Active Gabapentin 300mg TID Not-Takin g Extra Depth Orthopedic Shoes (1 Pair) with Customized Heat Molded Multidensity Innersoles (3 Pair) Dx: NIDDM/Polyneuropath y (E11.42), Hammertoe Foot Deformity (M20.41,M20.42), Preulcerative Skin Lesion(s) (L85.1); Duration: 365 days 11/18/2024 Active Esomeprazole Magnesium 40 MG 1 capsule Orally Once a day Active Cholestyramine Not-T aking Omeprazole 40mg BID Not-Takin g Immunizations Vaccine Route Administration Date Status Comme nts Pneumococcal Unknown 01/09/2024 Administered COVID-19 Moderna Vaccine Unknown 05/11/2020 Administere d COVID-19 Moderna Vaccine Unknown 06/08/2020 Administere d COVID-19 Moderna Vaccine Unknown 01/09/2024 Administere d Social History Tobacco Use: Social History Observation Description Date Details (start date - stop date) Never Smoker NA - NA Tobacco use other than smoking: Question Answer Notes Are you an other tobacco user? No Tobacco Control (Standard) Question Answer Notes Tobacco use: Nonsmoker Additional Findings: Tobacco non-user Current no nsmoker AUDIT-C (Standard) Question Answer Notes Did you have a drink containing alcohol in the p ast year? No Points 0 Interpretation Negative Problems Problem Type SNOMED Code ICD Code Onset Dates Problem Status W/U Status Risk Notes Problem Acquired hammer toe of right foot (5642745682788175 ) Other hammer toe(s) (acquired), right foot (M20.41) Active confirmed Problem Acquired hammer toe of left foot (9400106066264128 ) Other hammer toe(s) (acquired), left foot (M20.42) Active confirmed Problem Polyneuropathy due to type 2 diabetes mellitus (207942089) Type 2 diabetes mellitus with diabetic polyneuropathy (E11.42) Active confirmed Vital Signs Heart Rate 69 /min 11/18/2024 Blood pressure diastolic 64 R mm Hg 11/18/2024 Height 5ft in 11/18/2024 Blood pressure systolic 98 mm Hg 11/18/2024 Weight 235 lbs 11/18/2024 BMI 45.89 kg/m2 11/18/2024 Procedures Procedure Date Ordered Date Performed Result Body Sit e 15011-RWMBXGE NAIL, 1-5 11/18/2024 N/A 45170-LFTE SKIN LESIONS, OVER 11/18/2024 N/A A8145-TLWTYRGW DYSTROPHIC NAILS ANY # 11/18/2024 N/A Encounters Encounter Location Date Provider Diagnosis [address] [address] 11/18/2024 Chetan Chinchilla Type 2 diabetes mellitus with diabetic polyneuropathy E11.42 ; Tinea unguium B35.1 ; Other hammer toe(s) (acquired), right foot M20.41 and Other hammer toe(s) (acquired), left foot M20.[address] [facility] [address] [place] [id number] 02/10/2024 Imer Lawson Encounter Date Diagnosis (ICD Code) Assessment Notes Treatment Notes Treatment Clinical Notes Section Notes 11/18/2024 Tinea unguium (ICD-10 - B35.1) 11/18/2024 Type 2 diabetes mellitus with diabetic polyneuropathy (ICD-10 - E11.42) 11/18/2024 Other hammer toe(s) (acquired), right foot (ICD-10 - M20.41) Patient Educated with: DIABETIC FOOT CARE INSTRUCTIONS. pdf (DIABETIC FOOT CARE INSTRUCTIONS. pdf) 11/18/2024 Other hammer toe(s) (acquired), left foot (ICD-10 - M20.42) Plan Of Treatment Pending Test Test Name Order Date [id number]-[id number] NAIL, 1-5 11/18/2024 38294-INXN SKIN LESIONS, OVER 10/21/19 21 69277-WNWD SKIN LESIONS, OVER 4 10/31/19 22 73498-JJVL SKIN LESIONS, OVER 11/19/19 25 F2935-FANQYYZM DYSTROPHIC NAILS ANY # Y1550-CTMAVDHS DYSTROPHIC NAILS ANY # Next Appt Details Provider Name:Chetan Chinchilla , 10/26/2025 08:30:00 AM, [facility] [address], [place], [address], Medical (General) History Medical History History ICD Code Arthritis Back,Hip,and Knee pain Diabetic High blood pressure Reflux ( GERD) thyroid Sleep apnea Surgical History Surgery Date(Month/Year) hysterectomy 1999 gall bladder removal 1995 cyst removal, ovary 2008 thyroidectomy 2015 Hospitalization History Reason Date(Month/Year) [facility] [facility] [place]2023 [facility]- stomach virus 10/25/21
--- OUTSIDE RECORDS SUMMARY | 2024-12-07 07:59 | XMS_ITS | Clinical Summary ---
[facility] Address [address] [place] [address] Care Team Providers Care Fisher Troll Line Name Role Phone Unavailable Primary Care Provider Unavailabl e Surgical History Surgery Date Site/Laterality Comments SECTION PROCEDURE: HISTORICAL DELIVERY; COMMENT: x 4 OVARIAN CYST REMOVAL 2008 PROCEDURE: [place] OVARIAN CYSTECTOMY UNI/BI; COMMENT: on left side [...] 2) 2013 Colorectal Cancer Screening: Colonoscopy 03/31/2022 HIV Screening 03/31/2022 Hepatitis C Screening 03/31/2022 Social Influencers of Health Screening 03/31/2022 COVID-19 Vaccine (1 - 2023-2 5 season) 2023 Depression Screening 04/28/2024 Influenza Vaccine (#1) 2024 RSV Immunization Adult Patie nts (1 - 1-dose 75+ series) 2038 HIB Vaccines Aged Out No longer eligi [...]
[2024-12-07 08:09] VITALS: BP 112/70; PULSE 64; RESP 16; TEMP 36.7; O2SAT 97; BMI 44.9
--- NOTE | 2024-12-07 08:09 | A.OFFPC_ITS ---
Vital Signs 12/07/24 08:09 Height 5 ft Weight 230 lb BMI 44.9 BP 112/70 Blood Pressure Location Lt brachial Position Sitting Respiration 16 Pulse 64 Pulse Source Pulse Oximeter Temp 98.0 F Temp Source Oral Pulse Oximetry (%) 97 Oxygen Delivery Method Room Air Intake Visit Reasons: Follow Up PHQ-9+ A1C needed Sulfur Burner Required: No Allergies codeine Allergy (Unknown, Verified 12/07/24 08:22) Vomiting Medication List - Last Reconciled 12/07/24 by Marah Russell MD aspirin (Adult Low Dose Aspirin) 81 mg PO DAILY blood sugar diagnostic (FreeStyle Lite Strips) 3 times a day dulaglutide 3 mg (0.5 mL) subcut QWEEK empagliflozin (Jardiance) 25 mg PO DAILY 90 days esomeprazole magnesium 40 mg PO DAILY FreeStyle Lancets (lancets) 3 times a day NS hydrochlorothiazide 25 mg PO QAM irbesartan 150 mg PO DAILY levothyroxine 75 mcg PO DAILY metformin 1,000 mg PO BIDWMEAL 3 months Tobacco use date assessed: 12/07/24 Dental Screening Dental Screen Date: 12/07/24 Did you have a dental visit in the last 12 months?: Yes Did you have a dental problem in the last 6 months where you did not have access to dental care?: No Was dental information given to patient?: Patient has dentist HPI Follow Up PHQ-9+ A1C needed HPI Details 59-year-old lady with history of diabete s mellitus, hypertension, hypothyroidism, obstructive sleep apnea on CPAP, chronic GERD, here today for her follow-up and for preoperative exam for cataract surgery scheduled for January 04 2025 for the right, and 01/20/2025 on the left requested by Dr. Titus Morales. Has been compliant with taking her medications, and following recommended diet. However patient states that she has not really been steady side time for any regular exercise. Has been having intermittent episodes of nausea after injecting Trulicity. This has been ongoing over the last 2-3 weeks, accompanied by occasional vomiting. Denies any abdominal pain, no alteration in bowel habits, already on esomeprazole 40 mg once a day [facility] Medical History Transaminitis Musculoskeletal disorder involving upper trapezius muscle Acquired hypothyroidism PONV (postoperative nausea and vomiting) Varicose veins of bilateral lower extremities with pain Venous reflux Rotator cuff tendonitis Pain and swelling of left lower leg Right anterior shoulder pain Submandibular gland inflammation Chronic GERD Left thyroid nodule Hallux valgus (acquired), right foot History of thyroid cancer EDGAR on CPAP Surgical menopause Essential hypertension Abnormal stress ECG with treadmill Type 2 diabetes mellitus with peripheral neuropathy Surgical History History of partial thyroidectomy S/P right rotator cuff repair History of esophagogastroduodenoscopy (EGD) History of shoulder surgery History of endoscopy History of colonoscopy S/P cardiac cath History of partial hysterectomy Hx of cholecystectomy Family History Maternal Aunt No problems noted. 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 1. Little interest or pleasure in doing things: not at all 2. Feeling down, depressed, or hopeless: not at all 3. Trouble falling or staying asleep, or sleeping too much: more than half the days 4. Feeling tired or having little energy: several days 5. Poor appetite or overeating: several days 6. Feeling bad about yourself - or that you are a failure or have let yourself or your family down: not at all 7. Trouble concentrating on things, such as reading the newspaper or watching television: several days 8. Moving or speaking so slowly that other people could have noticed. Or the opposite - being so fidgety or restless that you have been moving around a lot more than usual: not at all 9. Thoughts that you would be better off or of hurting yourself in some way: not at all Total score: 5 Depression Screening Interpretation: Negative Depression Screening Done: Yes 28373 - PHQ-9 Billing: Yes Source: Developed by Drs. Sudhakar Mauricio, Gracia Grimes, Ady Prasad and colleagues, with an educational silvia from [employer]. Thrive Questionnaire Date Thrive assessed: 12/07/24 I am a: Patient What is your living situation today?: I have a steady place to live Within the past 12 months, did the food you bought not last and you didn't have the money to get more?: Sometimes True Within the past 12 months, did you worry whether your food would run out before you got money to buy more?: Often true Do you have trouble paying for medicines?: No Do you have trouble getting transportation to medical appointments?: No Do you have trouble paying your heating and electricity bill?: Yes Do you have trouble taking care of your child, family member or friend?: No Do you have trouble with day-to-day activities such as bathing, preparing meals, shopping, managing finances, etc.?: No Are you currently unemployed and looking for a job?: No Are you interested in more education?: Yes Please select the resources that you would like help with: Utilities Currently or been in a relationship where the following occur: No concerns reported THRIVE Score: 3 AUDIT C Alcohol Use Questionnaire (AUDIT-C) 1. How often do you have a drink containing alcohol?: Monthly or less 2. How many drinks containing alcohol do you have on a typical day when you are drinking?: 1 or 2 3. How often do you have six or more drinks on one occasion?: Never Total Score: 1 Score Reviewed/Action Taken: Yes MAC-7 AMB Questionnaire MAC-7 Date MAC - 7 assessed: 12/07/24 Feeling nervous, anxious, or on edge: 1 = Several days Not being able to stop or control worryin = Not at all Worrying too much about different things: 1 = Several days Trouble relaxin = Not at all Being so restless that it is hard to sit still: 0 = Not at all Becoming easily annoyed or irritable: 0 = Not at all Feeling afraid as if something awful might happen: 1 = Several days Total MAC-7 score (0-4 normal; 5-9 mild; 10-14 moderate; 15-21 severe): 3 Source: Developed by Drs. Sudhakar Mauricio, Gracia Grimes, Ady Prasad and colleagues, with an educational silvia from [employer]. MAC-7 Assessment Billing MAC-7 Assessment Tool: MAC-7 Assessment 33776 Review of Systems Const Reports no additional complaints Eyes Details: For cataract surgery scheduled with Dr. Morales at [facility] Denies change in vision ENT Reports no additional complaints Card Reports no additional complaints Resp Reports no additional complaints GI Details: sees Dr Byrd at [facility] GI Reports as per HPI, Denies abdominal pain, Denies melena and Denies excessive flatus Reports no additional complaints Musc Reports no additional complaints Skin/Breast Denies rash Neuro Reports no additional complaints Psych Reports no additional complaints Endo Reports no additional complaints Anthony/Lymph Reports no additional complaints Aller/Immun Reports no additional complaints Physical exam (Primary Care) Vital Signs: Last Vital Signs Temp 98.0 F 12/07/24 08:09 Pulse 64 12/07/24 08:09 Resp 16 12/07/24 08:09 BP 112/70 12/07/24 08:09 Pulse Ox 97 12/07/24 08:09 Oxygen Delivery Method Room Air 12/07/24 08:09 BMI result Body Mass Index 44.9 BMI Assessment/Plan discussion: High BMI High, discussed plan: lifestyle, weight reduction, dietary and physical activity Tobacco/Smoking Status: Tobacco use Status Tobacco use date assessed 12/07/24 12/07/24 08:11 Patient Tobacco Use Status Never used Tobacco 12/07/24 08:11 e-Cigarette/Vaping Use Never Used 12/07/24 08:11 PHQ-9: PHQ-9 Score PHQ-9: Total score 5 12/07/24 17:09 Depression Screening Interpretation: Negative Thrive Assessment: Date of Thrive Assessment Date Thrive assessed 12/07/24 12/07/24 08:11 Currently or been in a relationship where the following occur: No concerns reported Const General: no acute distress, alert and Physically active Orientation/consciousness: patient oriented x3 HENMT Head: Yes normocephalic Ears: external ears normal General nose exam: Normal external nose present and No nasal discharge present Mouth: Normal oral and palatal mucosa present and moist mucous membranes Eyes General: appearance normal, both eyes and all related structures Neck Neck: Yes full ROM, Yes no lymphadenopathy and Yes supple Chest Breast/axilla inspection: normal inspection of the breasts Breast/axilla palpation: normal palpation of the breasts Resp Effort & Inspection: normal respiratory effort and able to speak in complete sentences Auscultation: clear to auscultation bilaterally Cardio Rate: regular rate Rhythm: regular rhythm Heart sounds: S1 normal heart sound present and S2 normal heart sound present GI Inspection: Yes obesity Palpation (GI): Soft to palpation Auscultation: normal bowel sounds General: Yes no CVA tenderness Back/Spine/Pelvis Back: no CVA tenderness Skin General skin exam: no rashes or lesions noted Neuro General: patient oriented x3, gait normal, tone normal, Normal light touch and pain sensation, no focal motor deficits and CN's II-XI intact bilaterally Cognition (Neuro): normal cognition Gait exam (Neuro): Normal gait present Extrem General: Yes no joint enlargement, Yes no clubbing, cyanosis or edema, Yes no calf tenderness and Yes normal gait Psych Appearance: grossly normal and well kempt Mental Status: mental status grossly normal Speech and movement: Normal speech and movement present Affect: normal affect Results Reviewed Results Reviewed: Name: Rosalva Beltre Age/Sex: 59/F : 1965 Unit#: [id number] Attend Dr: Marah Russell MD Re12/03/24 Status: DEP REF Location: [facility] Disch: SPEC : [id number] CLARISSA: 12/03/24 STATUS: COMP REQ : [id number] RECD: 12/03/24-[address]: Marah Russell MD COMP: 12/03/241122 ENTERED: 12/03/[address]: ORDERED: CMP Fast, Lipid Panel, Vitamin D 25-OH, Free T4, TSH Test Result Flag Reference Sodium 142 135-145 mmol/L Potassium 3.7 3.3-5.1 mmol/L CL 106 96-108 mmol/L CO2 26 22-29 mmol/L Gap 14 12-20 BUN 20 H 9-16 mg/dL Creat 0.63 0.5-1.4 mg/dL eGFR > 60 Chronic Kidney Disease: Estimated GFR < 60 mL/min/1.73m2 Severe Kidney Disease: Estimated GFR < 15 mL/min/1.73m2 FBS 123 H 60-99 mg/dL A fasting glucose from 100-125 mg/dl is considered impaired (pre-diabetes). CA 8.9 # 8.4-10.2 mg/dL Total Bili 0.6 0.0-1.0 mg/dL AST (GOT) 39 H 5-31 U/L ALT (GPT) 38 H 0-31 U/L Protein, Total 6.9 6.5-8.0 g/dL Alb 4.2 3.5-5.0 g/dL Triglyceride 165 H <150 mg/dL Desirable Triglyceride: less than 150 mg/dL Borderline High Triglyceride 150-199 mg/dL High Triglyceride: 200-499 mg/dL Very High Triglyceride: greater than or equal to 5OO mg/dL Cholesterol 126 <200 mg/dL Desirable Cholesterol: less than 200 mg/dL Borderline High Cholesterol: 200-239 mg/dL High Cholesterol: greater than 239 mg/dL LDL Calculated 50 <100 mg/dL Desirable LDL: less than 100 mg/dL Near Optimal/Above Optimal LDL: 110-129 mg/dL Borderline High LDL: 130-159 mg/dL High LDL: 160-189 mg/dL Very High LDL: greater than or equal to 190 mg/dL HDL 43 >40 mg/dL Desirable HDL: greater than 40 mg/dL Note: This HDL assay may give artificially low results in patients with liver disease. Alk Phos 86 39-117 U/L Vitamin D 25-OH 82.7 >30 ng/mL Health Based Reference Values* < 20 ng/mL Deficient 20-30 ng/mL Insufficient > 30 ng/mL Sufficient *Diya WHEAT. N Engl J Med. 2007;357:266-280 There is no well-established upper level of normal vitamin D levels. Some laboratories use 50 ng/mL as an upper limit of normal. However, toxicity is patient-dependent and may occur at any level. Careful correlation with the patient's presentation is necessary and, if there is concern for vitamin D toxicity, treatment should be considered irrespective of the serum level. Care must be taken in interpreting Vitamin D results from different laboratories and methodologies. Published data demonstrated that results from patients undergoing hemodialysis may show a negative bias when tested with various automated 25-OH vitamin D assays when compared to LC-MS/MS. When testing samples from patients whose predominant form of Vitamin D is Vitamin D2, such as patients receiving Vitamin D2 supplementation, results that are subtherapeutic should be confirmed with another method such as LC-MS/MS. Free T4 1.16 0.71-1.85 ng/dL TSH 3rd Gen. 0.95 0.32-4.0 uIU/mL TSH 3rd Generation ([facility]) Laboratory Tests 12/03/24 12/03/24 07:18 07:25 Estimat Average Glucose 134 Hemoglobin A1c % 6.3 H Urine Creatinine 145.32 Urine Microalbumin 15.0 Microalb/Creat Ratio 10.3 Coding Level of Care Code Est Pt Level 4 (55731) Diagnoses Preoperative examination Z01.818 Type 2 diabetes mellitus with peripheral neuropathy E11.42 Essential hypertension I10 EDGAR on CPAP G47.33; Z99.89 Morbid obesity with BMI of 40.0-44.9, adult E66.01; Z68.41 Acquired hypothyroidism E03.9 Chronic GERD K21.9 Additional Codes MAC-7 Assessment Billing - MAC-7 Assessment Tool: MAC-7 Assessment 45060 ([id number]) PHQ-9 - 44392 - PHQ-9 Billing: Yes ([id number]) Assessment & Plan Assessment & Plan (1) Preoperative examination: Code(s): Z01.818 - Encounter for other preprocedural examination Plan: 59-year-old lady with here today for preoperative exam for cataract surgery scheduled for January 04 2025 for the right, and 01/20/2025 on the left requested by Dr. Titus Morales. She has diabetes mellitus, stable and controlled on present treatment, with latest hemoglobin A1c at 6.3%. Hypertension controlled on your irbesartan and hydrochlorothiazide. Hypothyroidism controlled on levothyroxine 75 mcg daily her . Her preoperative exam is unremarkable and EKG done today showed normal sinus rhythm with no acute ST-T changes seen. Patient with low cardiac risk index for proposed surgery (2) Type 2 diabetes mellitus with peripheral neuropathy: Code(s): E11.42 - Type 2 diabetes mellitus with diabetic polyneuropathy Category: Medical Plan: Continue with dulaglutide 3 mg injected subcutaneously once a week, and Jardiance 25 mg daily in the morning together with metformin a 1000 mg 1 tablet twice a day. May take an occasional ondansetron as needed for nausea after injection of dulaglutide. Notify me if symptoms persists (3) Essential hypertension: Code(s): I10 - Essential (primary) hypertension Category: Medical Plan: Blood pressure at goal of less than 130/80. Continue with current medication. Reinforced importance of following a low sodium diet, getting regular exercise, and lowering stress levels. (4) EDGAR on CPAP: Comment: Mild degree of sleep apnea. The AHI was 11/hr and oxygen elaina was 83%. Code(s): G47.33 - Obstructive sleep apnea (adult) (pediatric); Z99.89 - Dependence on other enabling machines and devices Category: Medical Plan: Compliant with CPAP (5) Morbid obesity with BMI of 40.0-44.9, adult: Code(s): E66.01 - Morbid (severe) obesity due to excess calories; Z68.41 - Body mass index [BMI] 40.0-44.9, adult Category: Medical Plan: Continue with adherence to healthy eating habits regular exercise at least 150 minutes of moderate intensity exercise every week. (6) Acquired hypothyroidism: Code(s): E03.9 - Hypothyroidism, unspecified Category: Medical Plan: Latest thyroid levels are within normal limits, continued on current dose of levothyroxine 75 mcg daily (7) Chronic GERD: Code(s): K21.9 - Gastro-esophageal reflux disease without esophagitis Category: Medical Plan: Controlled on esomeprazole 40 mg once a day Orders: Orders Lipid Panel 3 Months E03.9 - Hypothyroidism, unspecified, E11.42 - Type 2 diabetes mellitus with diabetic polyneuropathy, E66.01 - Morbid (severe) obesity due to excess calories, E89.40 - Asymptomatic postprocedural ovarian failure, G47.33 - Obstructive sleep apnea (adult) (pediatric), I10 - Essential (primary) hypertension, R74.01 - Elevation of levels of liver transaminase levels, Z68.41 - Body mass index [BMI] 40.0-44.9, adult, Z99.89 - Dependence on other enabling machines and devices Aspartate Amino Transferase 3 Months E03.9 - Hypothyroidism, unspecified, E11.42 - Type 2 diabetes mellitus with diabetic polyneuropathy, E66.01 - Morbid (severe) obesity due to excess calories, E89.40 - Asymptomatic postprocedural ovarian failure, G47.33 - Obstructive sleep apnea (adult) (pediatric), I10 - Essential (primary) hypertension, R74.01 - Elevation of levels of liver transaminase levels, Z68.41 - Body mass index [BMI] 40.0-44.9, adult, Z99.89 - Dependence on other enabling machines and devices Alanine Aminotransferase 3 Months E03.9 - Hypothyroidism, unspecified, E11.42 - Type 2 diabetes mellitus with diabetic polyneuropathy, E66.01 - Morbid (severe) obesity due to excess calories, E89.40 - Asymptomatic postprocedural ovarian failure, G47.33 - Obstructive sleep apnea (adult) (pediatric), I10 - Essential (primary) hypertension, R74.01 - Elevation of levels of liver transaminase levels, Z68.41 - Body mass index [BMI] 40.0-44.9, adult, Z99.89 - Dependence on other enabling machines and devices Hemoglobin A1c 3 Months E03.9 - Hypothyroidism, unspecified, E11.42 - Type 2 diabetes mellitus with diabetic polyneuropathy, E66.01 - Morbid (severe) obesity due to excess calories, E89.40 - Asymptomatic postprocedural ovarian failure, G47.33 - Obstructive sleep apnea (adult) (pediatric), I10 - Essential (primary) hypertension, R74.01 - Elevation of levels of liver transaminase levels, Z68.41 - Body mass index [BMI] 40.0-44.9, adult, Z99.89 - Dependence on other enabling machines and devices Vitamin D 25-OH Total 3 Months E03.9 - Hypothyroidism, unspecified, E11.42 - Type 2 diabetes mellitus with diabetic polyneuropathy, E66.01 - Morbid (severe) obesity due to excess calories, E89.40 - Asymptomatic postprocedural ovarian failure, G47.33 - Obstructive sleep apnea (adult) (pediatric), I10 - Essential (primary) hypertension, R74.01 - Elevation of levels of liver transaminase levels, Z68.41 - Body mass index [BMI] 40.0-44.9, adult, Z99.89 - Dependence on other enabling machines and devices Basic Metabolic Panel Fasting 3 Months E03.9 - Hypothyroidism, unspecified, E11.42 - Type 2 diabetes mellitus with diabetic polyneuropathy, E66.01 - Morbid (severe) obesity due to excess calories, E89.40 - Asymptomatic postprocedural ov poppy failure, G47.33 - Obstructive sleep apnea (adult) (pediatric), I10 - Essential (primary) hypertension, R74.01 - Elevation of levels of liver transaminase levels, Z68.41 - Body mass index [BMI] 40.0-44.9, adult, Z99.89 - Dependence on other enabling machines and devices AMB EKG-In Office Today Z01.818 - Encounter for other preprocedural examination Medications: New ondansetron HCl 4 mg PO Q12H PRN 30 tabs 3RF nausea and vomiting
== END 2024-12-07 09:07 | disposition home or self-care (01) ==
PROVIDERS: PCP Internal Medicine; Visit Provider Internal Medicine
DX: E11.42 Type 2 diabetes mellitus with diabetic polyneuropathy (principal); E66.01 Morbid (severe) obesity due to excess calories; Z01.818 Encounter for other preprocedural examination; Z68.41 Body mass index [BMI] 40.0-44.9, adult; I10 Essential (primary) hypertension; G47.33 Obstructive sleep apnea (adult) (pediatric); Z99.89 Dependence on other enabling machines and devices; E03.9 Hypothyroidism, unspecified; K21.9 Gastro-esophageal reflux disease without esophagitis

== ENCOUNTER → 2024-12-07 07:57 | Outpatient (BNVA) | payer OTHER, SELFPAY | PROVIDERS: PCP Internal Medicine; Visit Provider Internal Medicine | DX: Z01.818 Encounter for other preprocedural examination (principal); I10 Essential (primary) hypertension; E03.9 Hypothyroidism, unspecified; G47.33 Obstructive sleep apnea (adult) (pediatric); K21.9 Gastro-esophageal reflux disease without esophagitis; E11.42 Type 2 diabetes mellitus with diabetic polyneuropathy; E66.01 Morbid (severe) obesity due to excess calories; Z68.41 Body mass index [BMI] 40.0-44.9, adult; Z99.89 Dependence on other enabling machines and devices | CPT/HCPCS: 96127; 99212 ==

== ENCOUNTER 2025-02-03 07:44 | Outpatient (AMB) | payer OTHER, SELFPAY ==
--- NOTE | 2025-02-03 07:56 | MHC.OFFVIS ---
Vital Signs 02/03/25 08:00 Height 5 ft Weight 231 lb 6 oz BMI 45.2 BP 118/74 Blood Pressure Location Rt brachial Position Sitting Pulse 73 Pulse Source Pulse Oximeter Pulse Oximetry (%) 97 Oxygen Delivery Method Room Air Intake Visit Reasons: Follow up Intake Note: Patient presents follow up RLS/Sleep. Labs/Compliance in chart(89/90days, >=4hrs-96%, Average Usage- 7hr 18min, Pressure-11cm, Med Leaks-0.0, AHI- 0.8). Accompanied by: Self / Same As Patient Allergies codeine Allergy (Unknown, Verified 02/03/25 08:03) Vomiting HPI Comments Details: 60 y/o female patient presents for follow up of EDGAR on CPAP. The CPAP compliance and therapy response (03/10/2024-06/07/24) reviewed with Patient. Total average use >4 hours 96% and 89/90 days. Avg daily us is 7 hours and 18min. Press Median 07maG3V, Leaks 0.0cmH20 and AHI is 0.8/hr. She washes her mask daily, rinses the hoses, changes filters and fills reservoir with water. 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 She wakes up at 2am and will stays in bed until 3am as she is unable to sleep through the night. She feels hot and wakes up because of discomfort. She has leg pain with a squeezing sensation bilaterally in her calves, due to edema. She is taking metformin 1000mg po BID qhs and Trulicity 3mg subq 1x per week now Jardiance 25mg qhs daily is also added to manage T2DM, per endocrine's discretion. She stopped Gabapentin, because it was ineffective for the RLS symptoms. She needs to get new compression stockings. She denies morning headaches, but infrequently will have a dull headache, which improves with hydration. She has difficulty moving her r. arm, still feels restricted and unable to move it in full ROM, she has difficulty sleeping on her r. side, then tosses and turns to get comfortable. Her BMI is elevated, she is doing 10,000 steps dailyy, and trying to lose weight. SHe has acid reflux and nausea daily. She has a hiatal hernia, which causes her to vomit periodically 1-2x month now and is managed with her ondansetron 4mg po prn. Her mood and memory are stable. [facility] Medical History Transaminitis Musculoskeletal disorder involving upper trapezius muscle Acquired hypothyroidism PONV (postoperative nausea and vomiting) Varicose veins of bilateral lower extremities with pain Venous reflux Rotator cuff tendonitis Pain and swelling of left lower leg Right anterior shoulder pain Submandibular gland inflammation Chronic GERD Left thyroid nodule Hallux valgus (acquired), right foot History of thyroid cancer EDGAR on CPAP Surgical menopause Essential hypertension Abnormal stress ECG with treadmill Type 2 diabetes mellitus with peripheral neuropathy Surgical History History of cataract surgery History of partial thyroidectomy S/P right rotator cuff repair History of esophagogastroduodenoscopy (EGD) History of shoulder surgery History of endoscopy History of colonoscopy S/P cardiac cath History of partial hysterectomy Hx of cholecystectomy Family History Maternal Aunt No problems noted. 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 Cognitive needs: No Hearing needs: No Vision needs: Yes Physical Exam Vital Signs: Last Vital Signs Pulse 73 02/03/25 08:00 BP 118/74 02/03/25 08:00 Pulse Ox 97 02/03/25 08:00 Oxygen Delivery Method Room Air 02/03/25 08:00 BMI result Body Mass Index 45.2 Const General: cooperative, comfortable and no acute distress Nutritional Appearance: obese (BMI is 43.7) Orientation/consciousness: patient oriented x3 HEENT Face and sinus: Yes normal facial exam and Yes face symmetric Teeth and gingiva: other Throat: Yes other ([place] score of 4) Eyes Pupils: Equal, round and reactive pupils present Neck Neck: Yes full ROM Resp Effort & Inspection: normal respiratory effort and able to speak in complete sentences Neuro General: patient oriented x3 and other (Limited ROM R. arm) Cranial nerves: Yes CN's II-XII intact bilaterally, Yes Facial sensation intact/muscles of mastication intact, Yes Equal, round and reactive pupils present, Yes Normal accommodation reflex present, Yes Bilaterally intact EOM present, Yes Nystagmus not present, Yes Normal facial strength present, Yes Midline tongue present, Yes Ability to bilaterally rotate head present and Yes Ability to bilaterally elevate shoulders present Gait exam (Neuro): Normal gait present Motor exam (neuro): 5/5 motor strength present throughout and Normal motor muscle tone present throughout Psych Thought process: Normal thought process present Thought content: Normal thought content present Results Reviewed Results Reviewed: NM/NM gastric emptying study IMPRESSION: Normal 4-hour solid food gastric emptying study. For solid meal, rapid gastric emptying is less than 30% at 60 minutes. Delayed gastric emptying criteria is more than 60% remaining at 120 minutes or more than 10% at 240 minutes. The 4-hour value is the best discriminator of a normal or abnormal result). Assessment & Plan Assessment & Plan (1) EDGAR on CPAP: Comment: Mild degree of sleep apnea. The AHI was 11/hr and oxygen elaina was 83%. Code(s): G47.33 - Obstructive sleep apnea (adult) (pediatric); Z99.89 - Dependence on other enabling machines and devices Category: Medical Plan: Compliant with CPAP (2) Morbid obesity with BMI of 40.0-44.9, adult: Code(s): E66.01 - Morbid (severe) obesity due to excess calories; Z68.41 - Body mass index [BMI] 40.0-44.9, adult Category: Medical Plan: Continue with adherence to healthy eating habits regular exercise at least 150 minutes of moderate intensity exercise every week. (3) Chronic GERD: Code(s): K21.9 - Gastro-esophageal reflux disease without esophagitis Category: Medical Plan: Controlled on esomeprazole 40 mg once a day (4) RLS (restless legs syndrome): Code(s): G25.81 - Restless legs syndrome Category: Medical (5) Obesity: Code(s): E66.9 - Obesity, unspecified Category: Medical Qualifiers: Body mass index: BMI 40.0-44.9 Obesity classification: adult class 3 (BMI >= 40) Obesity type: due to excess calories Serious obesity comorbidity presence: with serious comorbidity Qualified Code(s): E66.813 - Obesity, class 3; E66.01 - Morbid (severe) obesity due to excess calories; Z68.41 - Body mass index [BMI] 40.0-44.9, adult (6) Excessive daytime sleepiness: Code(s): G47.19 - Other hypersomnia Category: Medical (7) Cervicalgia of gduknvzo-ucwecoo-qvbrr region: Code(s): M54.2 - Cervicalgia Category: Medical Plan EDGAR on CPAP continue cpap therapy as pt has refreshing sleep when using her cpap therapy and can sleep for a longer period time with. Ensure compliance of >4 hours daily. RLS continue Gabapentine 300mg PO TID as needed. GERD continue ondansteron 4mg po daily for nausea and f/u with GI, Hiatal hernia may improve with weight loss. Obesity continue to walk daily, use compression stockings for bilateral edema, elevated feet 2 hours or more daily. Cervicalgia / Headaches monitor onset of frequency, intensity. Stay well hydrated, use a migraine cap and call the clinic if you need migraine medication, for cervicaglia and stiffness in the neck you have cyclobenzaprine 5mg po qpm. MRI will consider in future if headaches are not improved. F/U in 3 months. Medications: New cyclobenzaprine take one tablet at night by mouth for low back pain. 5 mg PO BEDTIME 30 tabs 0RF back pain 1 month MDD 5mg G89.29 - Other chronic pain, M54.50 - Low back pain, unspecified Patient Instructions: Sleep Hygiene provided: set a scheduled bedtime and wake time to help regulate the circadian rhythm and balance the release of pituitary hormones. Sleep in a dark room, temperatures below 68 degrees, and no devices n bed. Limit caffeinated products 6 hours prior to bed, and limit fluids 2-4 hours prior to bed. Gentle night yoga, diffusing essential oils, and playing soft music can be relaxing. Coding Level of Care Code Est Pt Level 4 (17039) Diagnoses EDGAR on CPAP G47.33; Z99.89 Morbid obesity with BMI of 40.0-44.9, adult E66.01; Z68.41 Chronic GERD K21.9 RLS (restless legs syndrome) G25.81 Class 3 severe obesity due to excess calories with serious comorbidity and body mass index (BMI) of 40.0 to 44.9 in adult E66.813; E66.01; Z68.41 Body mass index: BMI 40.0-44.9 Obesity classification: adult class 3 (BMI >= 40) Obesity type: due to excess calories Serious obesity comorbidity presence: with serious comorbidity Excessive daytime sleepiness G47.19 Cervicalgia of qgmqwdyx-jgbljcj-lawbz region M54.2
[2025-02-03 08:00] VITALS: BP 118/74; PULSE 73; O2SAT 97; BMI 45.2
== END 2025-02-03 08:47 | disposition home or self-care (01) ==
PROVIDERS: PCP Internal Medicine; Visit Provider Physician Assistant Medical
DX: G47.33 Obstructive sleep apnea (adult) (pediatric) (principal); Z99.89 Dependence on other enabling machines and devices; E66.01 Morbid (severe) obesity due to excess calories; Z68.41 Body mass index [BMI] 40.0-44.9, adult; K21.9 Gastro-esophageal reflux disease without esophagitis; G25.81 Restless legs syndrome; E66.813 Obesity, class 3; G47.19 Other hypersomnia; M54.2 Cervicalgia
CPT/HCPCS: 99214

== ENCOUNTER → 2025-02-03 07:44 | Outpatient (BNVA) | payer OTHER, SELFPAY | PROVIDERS: PCP Internal Medicine; Visit Provider Physician Assistant Medical | DX: G47.33 Obstructive sleep apnea (adult) (pediatric) (principal); E66.813 Obesity, class 3; E11.42 Type 2 diabetes mellitus with diabetic polyneuropathy; K21.9 Gastro-esophageal reflux disease without esophagitis; G25.81 Restless legs syndrome; G47.19 Other hypersomnia; M54.2 Cervicalgia; Z68.42 Body mass index [BMI] 45.0-49.9, adult; Z79.84 Long term (current) use of oral hypoglycemic drugs; Z99.89 Dependence on other enabling machines and devices; Z79.85 Long-term (current) use of injectable non-insulin antidiabetic drugs | CPT/HCPCS: 99212 ==

== ENCOUNTER 2025-03-07 07:21 | Outpatient (REF) | payer OTHER, SELFPAY ==
--- OUTSIDE RECORDS SUMMARY | 2023-11-11 06:00 | XMS_ITS ---
[facility] Organization [facility] Address [address] [place] [address] Care Team Providers Care Housekeeper Home Name Role Phone Drew WILEY, Marah Kevin Primary Care Provider Un available Chetan Chinchilla Unavailable [phone] Imer Tejeda Unavailable [phone] Paris Encounters Encounter Location Date Provider Diagnosis [facility] [address] [place] [phone] 11/11/2023 Imer Tejeda Plan Of Treatment Next Appt Details Provider Name:Chetan Nick PortilloRenée , 10/26/2025 08:30:00 AM, [address] [address], [place], [address], Progress Notes * Rosalva WERNERDOB:1965 (60 yo F)Acc No.[id number]:11/11/2023 Progress Note Patient: Rosalva GARAY Provider: Ayah Taylor DPM :1965 A ge:58 Y S ex:Female Date:11/11/2023 Address:[address] [place], [place] [id number] Pcp:Lili Castillo Subjective: * Chief Complaints: * [address] Paris[address] * Medical History: Objective: * Vitals: Assessment: Plan: * Treatment: * Images: * The named appointment provid er may or may not be the originator of this progress note, and it is not deemed complete until electronically signed by the appointment provider. Sign off status: Pending * Provider: Ayah Taylor DPM Date: 0 11/11/2023 Generated for Christopher landrum/Tracey/Angelina on: 1 05/07/2024 07:25 AM EST
--- OUTSIDE RECORDS SUMMARY | 2025-03-07 07:25 | XMS_ITS | Clinical Summary ---
Author Organization [facility] Address [address] [place] [address] Care Team Providers Care Copy Cutter Name Role Phone Unavailable Primary Care Provider [...]
--- OUTSIDE RECORDS SUMMARY | 2025-03-07 07:25 | XMS_ITS | Patient Health Record ---
Author Organization [facility] Address [address] [place] [address] Care Team Providers Care Lift Driver Name Role Phone Magdiel Perez M.D. 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 (current) use of oral hypoglycemic drugs (Z79.84) Active confirmed Plan Of Treatment Future Test Test Name Order Date COLONOSCOPY 01/29/2018 Insurance Providers Payer Name Payer Address Payer Phone Subscriber Number Group Number Insured Name Patient Relationship to Insured Coverage Start Date Coverage End Date [facility] [address] [place] [address] [id number] BENEDICTO DOHERTY Self - patient is the insured Medical (General) History Medical History History ICD Code diabetes mellitus hypertension thyroid cancer EDGAR/CPAP Surgical History Surgery Date(Month/Year) 4 c sections hysterectomy cholecystectomy cyst in left ovaries
--- OUTSIDE RECORDS SUMMARY | 2025-03-07 07:25 | XMS_ITS | Clinical Summary ---
Author Organization [facility] Address [address] [place] [address] Care Team Providers Care Stockroom Worker Name Role Phone Unavailable Primary Care Provider Unavailabl e Surgical History Surgery Date Site/Laterality Comments SECTION PROCEDURE: HISTORICAL DELIVERY; COMMENT: x 4 OVARIAN CYST REMOVAL 2008 PROCEDURE: [place] OVARIAN CYSTECTOMY UNI/BI; COMMENT: on left side [...] 2013 Zoster Vaccines (1 of 2) 2013 Depression Screening 04/28/2024 COVID-19 Vaccine (1 - 2023-2 5 season) 2024 Influenza Vaccine (#1) 2024 RSV Immunization Adult [...]
--- OUTSIDE RECORDS SUMMARY | 2025-03-07 07:25 | XMS_ITS | Patient Health Record ---
[facility] Address [address] [place] [address] Care Team Providers Care Chief Analytics Officer Name Role Phone Drew WILEY, Marah Kevin Primary Care Provider Un available Chetan Chinchilla Unavailable [phone] Allergies Allergen (clinical drug ingredient) Drug/Non Drug [...] 1 tablet in morning Orally Once a day; Duration: 30 [...] 30 day(s) BID Active Gabapentin 300mg TID Latanya-Amara Nath Orthopedic Shoes (1 Pair) with Customized Heat [...] Problem Acquired hammer toe of right foot (9149443826594124 ) Other hammer toe(s) (acquired), right foot (M20.41) Active confirmed Problem Acquired hammer toe of left foot (4880203228938326 ) Other hammer toe(s) (acquired), left foot (M20.42) Active confirmed Problem Polyneuropathy due to type 2 diabetes mellitus (921153036) Type 2 diabetes mellitus with diabetic polyneuropathy (E11.42) Active confirmed Vital Signs Heart Rate 69 /min 11/18/2024 Blood pressure diastolic 64 R mm Hg 11/18/2024 Height 5ft in 11/18/2024 Blood pressure systolic 98 mm Hg 11/18/2024 Weight 235 lbs 11/18/2024 BMI 45.89 kg/m2 11/18/2024 Procedures Procedure Date Ordered Date Performed Result Body Sit e 64589-PLHWLGZ NAIL, 1-5 11/18/2024 N/A 57817-LXPH SKIN LESIONS, OVER 4 11/18/2024 N/A C0828-CEVSAYRJ DYSTROPHIC NAILS ANY # 11/18/2024 N/A Encounters Encounter Location Date Provider Diagnosis [facility] [address] [address] 11/18/2024 Chetan Chinchilla Type 2 diabetes mellitus with diabetic polyneuropathy E11.42 ; Tinea unguium B35.1 ; Other hammer toe(s) (acquired), right foot M20.41 and Other hammer toe(s) (acquired), left foot M20.42 Assessments Encounter Date Diagnosis (ICD Code) Assessment [...] Treatment Pending Test Test Name Order Date 75524-NAJJMBI NAIL, 1-5 11/18/2024 69642-DPYR SKIN LESIONS, OVER 4 10/21/19 21 01121-GXZV SKIN LESIONS, OVER 4 10/31/19 22 48533-MWSG SKIN LESIONS, OVER 4 11/19/19 25 R8308-ZDXYNQNV DYSTROPHIC NAILS ANY # [id number] DYSTROPHIC NAILS ANY # Next Appt Details Provider Name:Chetan Chinchilla , 10/26/2025 08:30:00 AM, [address] [address], [place], [address], Medical (General) History Medical History History ICD Code Arthritis Back,Hip,and Knee pain Diabetic High blood pressure Reflux ( GERD) thyroid Sleep apnea Surgical History Surgery Date(Month/Year) hysterectomy 1999 gall bladder removal 1995 cyst removal, ovary 2008 thyroidectomy 2014 [place] Reason [place] [facility] [place] [facility] [place] [facility]- stomach virus 10/25/21
[2025-03-07 11:03] LABS: Alanine Aminotransferase 55 U/L (0-31); Anion Gap 17 (12-20); Aspartate Amino Transferase 40 U/L (5-31); Blood Urea Nitrogen 19 mg/dL (9-16); Calcium 9.5 mg/dL (8.4-10.2); Carbon Dioxide 24 mmol/L (22-29); Chloride 104 mmol/L (96-108); Cholesterol 154 mg/dL (<200); Estimated Glomerular Filt Rate > 60; HDL Cholesterol 49 mg/dL (>40); Potassium 3.6 mmol/L (3.3-5.1); Sodium 141 mmol/L (135-145); Triglycerides 220 mg/dL (<150)
[2025-03-07 11:06] LABS: Hemoglobin A1C 125.1673 umol/L
== END 2025-03-07 07:22 | disposition home or self-care (01) ==
LOC: HO.HMGCLDS 07:21
PROVIDERS: PCP Internal Medicine; Visit Provider Internal Medicine
DX: I10 Essential (primary) hypertension (principal); E11.42 Type 2 diabetes mellitus with diabetic polyneuropathy; E03.9 Hypothyroidism, unspecified; G47.33 Obstructive sleep apnea (adult) (pediatric); E89.40 Asymptomatic postprocedural ovarian failure; R74.01 Elevation of levels of liver transaminase levels; E66.01 Morbid (severe) obesity due to excess calories; Z68.41 Body mass index [BMI] 40.0-44.9, adult; Z99.89 Dependence on other enabling machines and devices
CPT/HCPCS: 36415; 80048; 80061; 82306; 83036; 84450; 84460

== ENCOUNTER 2025-03-10 07:50 | Outpatient (AMB) | payer OTHER, SELFPAY ==
--- OUTSIDE RECORDS SUMMARY | 2023-11-11 06:00 | XMS_ITS ---
Author [facility] Address [address] [place] [address] Care Team Providers Care Commercial Electrician Name Role Phone Drew WILEY, Marah Kevin Primary Care Provider Un available Chetan Chinchilla Unavailable [phone] Imer Tejeda Unavailable [phone] Paris Encounters Encounter Location Date Provider Diagnosis [facility] [address] [place] [phone] 11/11/2023 Imer Tejeda Plan Of Treatment Next Appt Details Provider Name:Chetan Nick PortilloRenée , 10/26/2025 08:30:00 AM, [address] [address], [place], [phone], Progress Notes * Rosalva WERNERDOB:1965 (60 yo F)Acc No.[id number]:11/11/2023 Progress Note Patient: Rosalva GARAY Provider: Ayah Taylor DPM :1965 A ge:58 Y S ex:Female Date:11/11/2023 Address:[address] [place], [place] [id number] Pcp:Lili Castillo Subjective: * Chief Complaints: * [...] 11/11/2023 Generated for Christopher landrum/Tracey/Angelina on: 1 05/10/2024 07:53 AM EST
--- OUTSIDE RECORDS SUMMARY | 2025-03-10 07:53 | XMS_ITS | Clinical Summary ---
[facility] Address [address] [place] [address] Care Team Providers Care Water Valve Mechanic Name Role Phone Unavailable Primary Care Provider Unavailabl e Surgical History Surgery Date Site/Laterality Comments SECTION PROCEDURE: HISTORICAL DELIVERY; COMMENT: x 4 OVARIAN CYST REMOVAL 2008 PROCEDURE: [place] OVARIAN CYSTECTOMY UNI/BI; COMMENT: on left side [...] Depression Screening 04/28/2024 COVID-19 Vaccine (1 - 2024-2 6 season) 2024 Influenza Vaccine (#1) 2024 RSV [...]
--- OUTSIDE RECORDS SUMMARY | 2025-03-10 07:54 | XMS_ITS | Patient Health Record ---
Author Organization [facility] Address [address] [place] [address] Care Team Providers Care Meat Specialist Name Role Phone Magdiel Perez M.D. 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) use of oral hypoglycemic drugs (Z79.84) Active confirmed Plan Of Treatment Future Test Test Name Order Date COLONOSCOPY 01/29/2018 Insurance Providers Payer Name Payer Address Payer Phone Subscriber Number Group Number Insured Name Patient Relationship to Insured Coverage Start Date Coverage End Date [facility] [address] [place] [address] [id number] BENEDICTO DOHERTY Self - patient is the insured Medical (General) History Medical History History ICD Code diabetes mellitus hypertension thyroid cancer EDGAR/CPAP Surgical History Surgery Date(Month/Year) 4 c sections hysterectomy cholecystectomy cyst in left ovaries
--- OUTSIDE RECORDS SUMMARY | 2025-03-10 07:54 | XMS_ITS | Patient Health Record ---
[facility] Address [address] [place] [address] Care Team Providers Care Will Call Clerk Name Role Phone Drew WILEY, Marah Kevin Primary Care Provider Un available Chetan Chinchilla Unavailable [phone] Allergies Allergen (clinical drug ingredient) Drug/Non Drug [...] COVID-19 Moderna Vaccine Unknown 01/09/2024 Administere d Pneumococcal Unknown 01/09/2024 Administered Social History Tobacco Use: Social History Observation [...] Problem Acquired hammer toe of right foot (2538824239528647 ) Other hammer toe(s) (acquired), right foot (M20.41) Active confirmed Problem Acquired hammer toe of left foot (4226236541678807 ) Other hammer toe(s) (acquired), left foot (M20.42) Active confirmed Problem Polyneuropathy due to type 2 diabetes mellitus (366959098) Type 2 diabetes mellitus with diabetic polyneuropathy (E11.42) Active confirmed Vital Signs Heart Rate 69 /min 11/18/2024 Blood pressure diastolic 64 R mm Hg 11/18/2024 Height 5ft in 11/18/2024 Blood pressure systolic 98 mm Hg 11/18/2024 Weight 235 lbs 11/18/2024 BMI 45.89 kg/m2 11/18/2024 Procedures Procedure Date Ordered Date Performed Result Body Sit e 07376-UFZRXOO NAIL, 1-5 11/18/2024 N/A 19759-EJNK SKIN LESIONS, OVER 4 11/18/2024 N/A K3918-XHTSUVBV DYSTROPHIC NAILS ANY # 11/18/2024 N/A Encounters Encounter Location Date Provider Diagnosis [facility] [address] [address] 11/18/2024 Chetan Chinchilla Type 2 diabetes mellitus [...] Treatment Pending Test Test Name Order Date 77716-PFORKQM NAIL, 1-5 11/18/2024 82286-ANFZ SKIN LESIONS, OVER 4 10/21/19 21 97193-CIAK SKIN LESIONS, OVER 4 10/31/19 22 89600-VGFX SKIN LESIONS, OVER 4 11/19/19 25 P1800-HOFXAFMX DYSTROPHIC NAILS ANY # W2885-SSRRZGFM DYSTROPHIC NAILS ANY # Next Appt Details Provider Name:Chetan Chinchilla , 10/26/2025 08:30:00 AM, [address] [address], [place], [address], Medical (General) History Medical History History ICD Code Arthritis Back,Hip,and Knee pain Diabetic High blood pressure Reflux ( GERD) thyroid Sleep apnea Surgical History Surgery Date(Month/Year) hysterectomy 1999 gall bladder removal 1995 cyst removal, ovary 2008 thyroidectomy 2014 Hospitalization History Reason Date(Month/[place] [facility] [place] [facility] [place] [facility] [facility] 10/25/21
--- OUTSIDE RECORDS SUMMARY | 2025-03-10 07:54 | XMS_ITS | Clinical Summary ---
Author Organization [facility] Address [address] [place] [address] Care Team Providers Care Bleach Maker Name Role Phone Unavailable Primary Care Provider [...]
--- NOTE | 2025-03-10 08:03 | A.OFFPC_ITS ---
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 Allergies codeine Allergy (Unknown, Verified 03/10/25 08:12) Vomiting Medication List - Last Reconciled 03/10/25 by Marah Russell MD aspirin (Adult Low Dose Aspirin) 81 mg PO DAILY blood sugar diagnostic (FreeStyle Lite Strips) 3 times a day cyclobenzaprine 5 mg PO BEDTIME 1 month MDD 5mg dulaglutide 3 mg (0.5 mL) subcut QWEEK empagliflozin (Jardiance) 25 mg PO DAILY 90 days esomeprazole magnesium 40 mg PO DAILY FreeStyle Lancets (lancets) 3 times a day NS hydrochlorothiazide 25 mg PO QAM irbesartan 150 mg PO DAILY levothyroxine 75 mcg PO DAILY metformin 1,000 mg PO BIDWMEAL 3 months ondansetron HCl 4 mg PO Q12H PRN Tobacco use date assessed: 03/10/25 Dental Screening Dental Screen Date: 03/10/25 Did you have a dental visit in the last 12 months?: No Did you have a dental problem in the last 6 months where you did not have access to dental care?: No Was dental information given to patient?: Patient declined HPI 3m follow up HPI Details 60-year-old lady with past medical histo ry significant for diabetes mellitus with peripheral neuropathy, acquired hypothyroidism, hypertension, surgical menopause, now complaining of hot flashes which has been present now for the last several months, here today for follow-up. She has stopped taking for Trulicity approximately a month ago as she developed severe nausea when taking the medication even when she took it ondansetron,. She has also been having trouble getting her Jardiance has been off it now for a month as her insurance has been setting it to the [facility] provider for authorization. She has only been taking metformin 1000 mg 1 tablet twice a day with latest hemoglobin A1c up up from 6, 3 to 7.1%. She is up-to-date with her diabetes retinopathy screening, goes to [facility] just had cataract surgery 2 weeks ago. Fasting lipids are within normal limits except for elevated triglycerides. She feels well on current dose of levothyroxine for her treatment of her hypothyroidism. Has been complaining of feeling tired, no energy all the time, has disturbed sleep due to severe hot flashes. She had a hysterectomy with retained ovaries at age 33 due to uterine fibroids. Never been on hormone therapy. Patient states that she will be getting her flu vaccine at work. [facility] Medical History Vasomotor symptoms due to menopause Transaminitis Musculoskeletal disorder involving upper trapezius muscle Acquired hypothyroidism PONV (postoperative nausea and vomiting) Varicose veins of bilateral lower extremities with pain Venous reflux Rotator cuff tendonitis Pain and swelling of left lower leg Right anterior shoulder pain Submandibular gland inflammation Chronic GERD Left thyroid nodule Hallux valgus (acquired), right foot History of thyroid cancer EDGAR on CPAP Surgical menopause Essential hypertension Abnormal stress ECG with treadmill Type 2 diabetes mellitus with peripheral neuropathy Surgical History History of cataract surgery History of partial thyroidectomy S/P right rotator cuff repair History of esophagogastroduodenoscopy (EGD) History of shoulder surgery History of endoscopy History of colonoscopy S/P cardiac cath History of partial hysterectomy Hx of cholecystectomy Family History Maternal Aunt No problems noted. 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 1. Little interest or pleasure in doing things: not at all 2. Feeling down, depressed, or hopeless: not at all 3. Trouble falling or staying asleep, or sleeping too much: more than half the days 4. Feeling tired or having little energy: several days 5. Poor appetite or overeating: several days 6. Feeling bad about yourself - or that you are a failure or have let yourself or your family down: not at all 7. Trouble concentrating on things, such as reading the newspaper or watching television: several days 8. Moving or speaking so slowly that other people could have noticed. Or the opposite - being so fidgety or restless that you have been moving around a lot more than usual: not at all 9. Thoughts that you would be better off or of hurting yourself in some way: not at all Total score: 5 Depression Screening Interpretation: Negative Depression Screening Done: Yes Source: Developed by Drs. Sudhakar Mauricio, Gracia Grimes, Ady Prasad and colleagues, with an educational silvia from [employer]. Thrive Questionnaire Date Thrive assessed: 11/30/24 I am a: Patient What is your living situation today?: I have a steady place to live Within the past 12 months, did the food you bought not last and you didn't have the money to get more?: Sometimes True Within the past 12 months, did you worry whether your food would run out before you got money to buy more?: Often true Do you have trouble paying for medicines?: No Do you have trouble getting transportation to medical appointments?: No Do you have trouble paying your heating and electricity bill?: Yes Do you have trouble taking care of your child, family member or friend?: No Do you have trouble with day-to-day activities such as bathing, preparing meals, shopping, managing finances, etc.?: No Are you currently unemployed and looking for a job?: No Are you interested in more education?: Yes Please select the resources that you would like help with: Utilities Currently or been in a relationship where the following occur: No concerns reported THRIVE Score: 3 AUDIT C Alcohol Use Questionnaire (AUDIT-C) 1. How often do you have a drink containing alcohol?: Monthly or less 2. How many drinks containing alcohol do you have on a typical day when you are drinking?: 1 or 2 3. How often do you have six or more drinks on one occasion?: Never Total Score: 1 MAC-7 AMB Questionnaire MAC-7 Date MAC - 7 assessed: 12/07/24 Feeling nervous, anxious, or on edge: 1 = Several days Not being able to stop or control worryin = Not at all Worrying too much about different things: 1 = Several days Trouble relaxin = Not at all Being so restless that it is hard to sit still: 0 = Not at all Becoming easily annoyed or irritable: 0 = Not at all Feeling afraid as if something awful might happen: 1 = Several days Total MAC-7 score (0-4 normal; 5-9 mild; 10-14 moderate; 15-21 severe): 3 Source: Developed by Drs. Sudhakar Mauricio, Gracia Grimes, Ady Prasad and colleagues, with an educational silvia from [employer]. Review of Systems Const Reports no additional complaints Eyes Details: Complaining of dry eye, just had cataract surgery done at [facility] 2 weeks ago. ENT Reports no additional complaints Card Reports no additional complaints Resp Reports no additional complaints GI Details: sees Dr Byrd at [facility] GI Reports as per HPI, Denies abdominal pain, Denies melena and Denies excessive flatus Reports no additional complaints Musc Reports no additional complaints Skin/Breast Denies rash Neuro Reports no additional complaints Psych Reports no additional complaints Endo Reports no additional complaints Anthony/Lymph Reports no additional complaints Aller/Immun Reports no additional complaints Physical exam (Primary Care) BMI Assessment/Plan discussion: High BMI High, discussed plan: lifestyle, weight reduction, dietary and physical activity Tobacco/Smoking Status: Tobacco use Status Tobacco use date assessed 12/07/24 03/10/25 08:05 Patient Tobacco Use Status Never used Tobacco 03/10/25 08:05 e-Cigarette/Vaping Use Never Used 03/10/25 08:05 Depression Screening Interpretation: Negative Thrive Assessment: Date of Thrive Assessment Date Thrive assessed 11/30/24 03/10/25 08:05 Currently or been in a relationship where the following occur: No concerns reported Const General: no acute distress, alert and Physically active Orientation/consciousness: patient oriented x3 HENMT Head: Yes normocephalic Ears: external ears normal General nose exam: Normal external nose present and No nasal discharge present Mouth: Normal oral and palatal mucosa present and moist mucous membranes Eyes General: appearance normal, both eyes and all related structures Neck Neck: Yes full ROM, Yes no lymphadenopathy and Yes supple Chest Breast/axilla inspection: normal inspection of the breasts Breast/axilla palpation: normal palpation of the breasts Resp Effort & Inspection: normal respiratory effort and able to speak in complete sentences Auscultation: clear to auscultation bilaterally Cardio Rate: regular rate Rhythm: regular rhythm Heart sounds: S1 normal heart sound present and S2 normal heart sound present GI Inspection: Yes obesity Palpation (GI): Soft to palpation Auscultation: normal bowel sounds General: Yes no CVA tenderness Back/Spine/Pelvis Back: no CVA tenderness Skin General skin exam: no rashes or lesions noted Neuro General: patient oriented x3, gait normal, tone normal, Normal light touch and pain sensation, no focal motor deficits and CN's II-XI intact bilaterally Cognition (Neuro): normal cognition Gait exam (Neuro): Normal gait present Extrem General: Yes no joint enlargement, Yes no clubbing, cyanosis or edema, Yes no calf tenderness and Yes normal gait Psych Appearance: grossly normal and well kempt Mental Status: mental status grossly normal Speech and movement: Normal speech and movement present Affect: normal affect Results Reviewed Results Reviewed: RUN: 03/10/25811 PAGE 1 [facility] [address] [place] [id number] Thread Spinner: Pranay Powell M.D. Specimen Inquiry Name: Alphonso EmGabriela Age/Sex: 60/F : 1965 Unit#: [id number] Attend Dr: Marah Russell MD Re03/07/25 Status: DEP REF Location: [facility] Disch: SPEC : [id number] CLARISSA: 03/07/25 STATUS: COMP REQ : [id number] RECD: 03/07/[address]: Marah Russell MD COMP: 03/07/25 ENTERED: 03/07/25 [facility] DR: ORDERED: Met Prof Fast, AST, ALT, Lipid Panel, Vitamin D 25-OH Test Result Flag Reference Sodium 141 135-145 mmol/L Potassium 3.6 3.3-5.1 mmol/L CL 104 96-108 mmol/L CO2 24 22-29 mmol/L Gap 17 12-20 BUN 19 H 9-16 mg/dL Creat 0.82 0.5-1.4 mg/dL eGFR > 60 Chronic Kidney Disease: Estimated GFR < 60 mL/min/1.73m2 Severe Kidney Disease: Estimated GFR < 15 mL/min/1.73m2 FBS 151 H 60-99 mg/dL A fasting glucose of 126 mg/dl or greater on more than one occasion is considered diagnostic of diabetes. CA 9.5 # 8.4-10.2 mg/dL AST (GOT) 40 H 5-31 U/L ALT (GPT) 55 H 0-31 U/L Triglyceride 220 H <150 mg/dL Desirable Triglyceride: less than 150 mg/dL Borderline High Triglyceride 150-199 mg/dL High Triglyceride: 200-499 mg/dL Very High Triglyceride: greater than or equal to 5OO mg/dL Cholesterol 154 <200 mg/dL Desirable Cholesterol: less than 200 mg/dL Borderline High Cholesterol: 200-239 mg/dL High Cholesterol: greater than 239 mg/dL LDL Calculated 61 <100 mg/dL Desirable LDL: less than 100 mg/dL Near Optimal/Above Optimal LDL: 110-129 mg/dL Borderline High LDL: 130-159 mg/dL High LDL: 160-189 mg/dL Very High LDL: greater than or equal to 190 mg/dL HDL 49 >40 mg/dL Desirable HDL: greater than 40 mg/dL Note: This HDL assay may give artificially low results in patients with liver disease. Vitamin D 25-OH 83.5 >30 ng/mL Health Based Reference Values* < 20 ng/mL Deficient 20-30 ng/mL Insufficient > 30 ng/mL Sufficient Laboratory Tests 03/07/25 07:26 Estimat Average Glucose 157 Hemoglobin A1c % 7.1 H Coding Level of Care Code Est Pt Level 4 (54599) Complex EM visit Add On G2211 Diagnoses Type 2 diabetes mellitus with peripheral neuropathy E11.42 Vasomotor symptoms due to menopause N95.1 Essential hypertension I10 Surgical menopause E89.40 EDGAR on CPAP G47.33; Z99.89 Morbid obesity with BMI of 40.0-44.9, adult E66.01; Z68.41 Acquired hypothyroidism E03.9 Transaminitis R74.01 Assessment & Plan Assessment & Plan (1) Type 2 diabetes mellitus with peripheral neuropathy: Code(s): E11.42 - Type 2 diabetes mellitus with diabetic polyneuropathy Category: Medical Plan: Stopped Trulicity, started Januvia 100 mg once a day. Continued on metformin a 1000 mg twice a day. Refill sent for Jardiance 25 mg once a day in a.m.. Up-to-date with her diabetes retinopathy screening. Will be getting her flu vaccine tomorrow at work, will see her back in 3 months for follow-up after fasting labs done (2) Vasomotor symptoms due to menopause: Code(s): N95.1 - Menopausal and female climacteric states Category: Medical Plan: Started on Premarin 0.3 mg once a day. Patient advised to wear compression socks when traveling or when going on long car trips, as it can cause increased risk for blood clots. Follow-up in 3 months (3) Essential hypertension: Code(s): I10 - Essential (primary) hypertension Category: Medical Plan: Blood pressure within normal limits, continued on hydrochlorothiazide and irbesartan same dose (4) Surgical menopause: Code(s): E89.40 - Asymptomatic postprocedural ovarian failure Category: Medical Plan: Started on Premarin as patient has started developing hot flashes (5) EDGAR on CPAP: Comment: Mild degree of sleep apnea. The AHI was 11/hr and oxygen elaina was 83%. Code(s): G47.33 - Obstructive sleep apnea (adult) (pediatric); Z99.89 - Dependence on other enabling machines and devices Category: Medical Plan: Followed at the sleep clinic, compliance good (6) Morbid obesity with BMI of 40.0-44.9, adult: Code(s): E66.01 - Morbid (severe) obesity due to excess calories; Z68.41 - Body mass index [BMI] 40.0-44.9, adult Category: Medical Plan: Continue with adherence to healthy eating habits and regular exercise. (7) Acquired hypothyroidism: Code(s): E03.9 - Hypothyroidism, unspecified Category: Medical Plan: Continued on current dose of levothyroxine 75 mcg daily will recheck thyroid levels in 3 (8) Transaminitis: Code(s): R74.01 - Elevation of levels of liver transaminase levels Category: Medical Plan: Comprehensive metabolic panel ordered Orders: Orders Lipid Panel 3 Months E03.9 - Hypothyroidism, unspecified, E11.42 - Type 2 diabetes mellitus with diabetic polyneuropathy, E66.01 - Morbid (severe) obesity due to excess calories, E89.40 - Asymptomatic postprocedural ovarian failure, G47.33 - Obstructive sleep apnea (adult) (pediatric), I10 - Essential (primary) hypertension, N95.1 - Menopausal and female climacteric states, R74.01 - Elevation of levels of liver transaminase levels, Z68.41 - Body mass index [BMI] 40.0-44.9, adult, Z99.89 - Dependence on other enabling machines and devices Microalbumin, Random (w Creat) 3 Months E03.9 - Hypothyroidism, unspecified, E 11.42 - Type 2 diabetes mellitus with diabetic polyneuropathy, E66.01 - Morbid (severe) obesity due to excess calories, E89.40 - Asymptomatic postprocedural ovarian failure, G47.33 - Obstructive sleep apnea (adult) (pediatric), I10 - Essential (primary) hypertension, N95.1 - Menopausal and female climacteric states, R74.01 - Elevation of levels of liver transaminase levels, Z68.41 - Body mass index [BMI] 40.0-44.9, adult, Z99.89 - Dependence on other enabling machines and devices Comprehensive [facility]. Panel Fast 3 Months E03.9 - Hypothyroidism, unspecified, E11.42 - Type 2 diabetes mellitus with diabetic polyneuropathy, E66.01 - Morbid (severe) obesity due to excess calories, E89.40 - Asymptomatic postprocedural ovarian failure, G47.33 - Obstructive sleep apnea (adult) (pediatric), I10 - Essential (primary) hypertension, N95.1 - Menopausal and female climacteric states, R74.01 - Elevation of levels of liver transaminase levels, Z68.41 - Body mass index [BMI] 40.0-44.9, adult, Z99.89 - Dependence on other enabling machines and devices Hemoglobin and Hematocrit 3 Months E03.9 - Hypothyroidism, unspecified, E11.42 - Type 2 diabetes mellitus with diabetic polyneuropathy, E66.01 - Morbid (severe) obesity due to excess calories, E89.40 - Asymptomatic postprocedural ovarian failure, G47.33 - Obstructive sleep apnea (adult) (pediatric), I10 - Essential (primary) hypertension, N95.1 - Menopausal and female climacteric states, R74.01 - Elevation of levels of liver transaminase levels, Z68.41 - Body mass index [BMI] 40.0-44.9, adult, Z99.89 - Dependence on other enabling machines and devices Hemoglobin A1c 3 Months E03.9 - Hypothyroidism, unspecified, E11.42 - Type 2 diabetes mellitus with diabetic polyneuropathy, E66.01 - Morbid (severe) obesity due to excess calories, E89.40 - Asymptomatic postprocedural ovarian failure, G47.33 - Obstructive sleep apnea (adult) (pediatric), I10 - Essential (primary) hypertension, N95.1 - Menopausal and female climacteric states, R74.01 - Elevation of levels of liver transaminase levels, Z68.41 - Body mass index [BMI] 40.0-44.9, adult, Z99.89 - Dependence on other enabling machines and devices Vitamin D 25-OH Total 3 Months E03.9 - Hypothyroidism, unspecified, E11.42 - Type 2 diabetes mellitus with diabetic polyneuropathy, E66.01 - Morbid (severe) obesity due to excess calories, E89.40 - Asymptomatic postprocedural ovarian failure, G47.33 - Obstructive sleep apnea (adult) (pediatric), I10 - Essential (primary) hypertension, N95.1 - Menopausal and female climacteric states, R74.01 - Elevation of levels of liver transaminase levels, Z68.41 - Body mass index [BMI] 40.0-44.9, adult, Z99.89 - Dependence on other enabling machines and devices Thyroid Stimulating Hormone 3 Months E03.9 - Hypothyroidism, unspecified, E11.42 - Type 2 diabetes mellitus with diabetic polyneuropathy, E66.01 - Morbid (severe) obesity due to excess calories, E89.40 - Asymptomatic postprocedural ovarian failure, G47.33 - Obstructive sleep apnea (adult) (pediatric), I10 - Essential (primary) hypertension, N95.1 - Menopausal and female climacteric states, R74.01 - Elevation of levels of liver transaminase levels, Z68.41 - Body mass index [BMI] 40.0-44.9, adult, Z99.89 - Dependence on other enabling machines and devices Free T4 (Free Thyroxine) 3 Months E03.9 - Hypothyroidism, unspecified, E11.42 - Type 2 diabetes mellitus with diabetic polyneuropathy, E66.01 - Morbid (severe) obesity due to excess calories, E89.40 - Asymptomatic postprocedural ovarian failure, G47.33 - Obstructive sleep apnea (adult) (pediatric), I10 - Essential (primary) hypertension, N95.1 - Menopausal and female climacteric states, R74.01 - Elevation of levels of liver transaminase levels, Z68.41 - Body mass index [BMI] 40.0-44.9, adult, Z99.89 - Dependence on other enabling machines and devices Vitamin B12 and Folate 3 Months E03.9 - Hypothyroidism, unspecified, E11.42 - Type 2 diabetes mellitus with diabetic polyneuropathy, E66.01 - Morbid (severe) obesity due to excess calories, E89.40 - Asymptomatic postprocedural ovarian failure, G47.33 - Obstructive sleep apnea (adult) (pediatric), I10 - Essential (primary) hypertension, N95.1 - Menopausal and female climacteric states, R74.01 - Elevation of levels of liver transaminase levels, Z68.41 - Body mass index [BMI] 40.0-44.9, adult, Z99.89 - Dependence on other enabling machines and devices Medications: New Januvia (sitagliptin phosphate) 100 mg PO DAILY 30 tabs 4RF NS conjugated estrogens (Premarin) cyclically 0.3 mg PO DAILY 30 tabs 2RF N95.1 - Menopausal and female climacteric states Changed From empagliflozin (Jardiance) 25 mg PO DAILY 90 days 90 tabs 0RF E11.65 - Type 2 diabetes mellitus with hyperglycemia To Jardiance (empagliflozin) 25 mg PO DAILY 90 tabs 4RF 90 days NS E11.65 - Type 2 diabetes mellitus with hyperglycemia Refilled metformin 1,000 mg PO BIDWMEAL 180 tabs 4RF 3 months levothyroxine 75 mcg PO DAILY 90 tabs 4RF Discontinued dulaglutide Discontinued Reason: Doctor's Order 3 mg (0.5 mL) subcut QWEEK 2 mL 5RF
[2025-03-10 08:11] VITALS: BP 114/70; PULSE 67; RESP 16; TEMP 36.7; O2SAT 99; BMI 45.1
== END 2025-03-10 08:41 | disposition home or self-care (01) ==
PROVIDERS: PCP Internal Medicine; Visit Provider Internal Medicine
DX: E11.42 Type 2 diabetes mellitus with diabetic polyneuropathy (principal); N95.1 Menopausal and female climacteric states; I10 Essential (primary) hypertension; E89.40 Asymptomatic postprocedural ovarian failure; G47.33 Obstructive sleep apnea (adult) (pediatric); Z99.89 Dependence on other enabling machines and devices; E66.01 Morbid (severe) obesity due to excess calories; Z68.41 Body mass index [BMI] 40.0-44.9, adult; E03.9 Hypothyroidism, unspecified; R74.01 Elevation of levels of liver transaminase levels

== ENCOUNTER → 2025-03-10 07:50 | Outpatient (BNVA) | payer OTHER, SELFPAY | PROVIDERS: PCP Internal Medicine; Visit Provider Internal Medicine | DX: I10 Essential (primary) hypertension (principal); E11.42 Type 2 diabetes mellitus with diabetic polyneuropathy; E89.40 Asymptomatic postprocedural ovarian failure; G47.33 Obstructive sleep apnea (adult) (pediatric); E66.01 Morbid (severe) obesity due to excess calories; E03.9 Hypothyroidism, unspecified; R74.01 Elevation of levels of liver transaminase levels; Z68.42 Body mass index [BMI] 45.0-49.9, adult; Z99.89 Dependence on other enabling machines and devices; Z79.899 Other long term (current) drug therapy | CPT/HCPCS: 99212 ==